=== PATIENT | female | born 1985 | race Caucasian/White ===

== ENCOUNTER 2020-06-13 16:22 | Inpatient (IN) | payer MEDICAID, OTHER, SELFPAY ==
[~2020-06-13] VITALS: Ht 157.5 cm; Wt 95.6 kg
[2020-06-13] MEDS ORDERED: ZINC220CA PO (17:02)
[2020-06-13] MEDS ORDERED: LEVO112T2 PO (17:02)
[2020-06-13] MEDS ORDERED: MULT400T10 PO (17:02)
[2020-06-13] MEDS ORDERED: METO25TA4 PO (17:02)
[2020-06-13] MEDS ORDERED: SUPECAP14 PO (17:02)
[2020-06-13] MEDS ORDERED: FOLI1TAB11 PO (17:02)
[2020-06-13] MEDS ORDERED: [UNRECOGNIZED DRUG - OTHER] PO (17:02)
[2020-06-13] MEDS ORDERED: MAGN400T2 PO (17:02)
[2020-06-13] MEDS ORDERED: FERR325T3 PO (17:02)
[2020-06-13] MEDS ORDERED: VITA50TA47 PO (17:02)
[2020-06-13 20:11] LABS: BASO # 0.1 10^3/uL (0.0-0.2); BASO % 0.4 % (0.0-1.0); EOS # 0.1 10^3/uL (0.0-0.5); EOS % 0.4 % (0.0-3.0); HEMATOCRIT 25.3 % (36.0-47.0); HEMOGLOBIN 7.9 g/dl (12.0-15.5); LYMPH # 1.7 10^3/uL (1.5-5.0); LYMPH % 13.4 % (24.0-44.0); MEAN CORPUSCULAR HEMOGLOBIN 31.2 pg (27.0-33.0); MEAN CORPUSCULAR HGB CONC 31.2 g/dl (32.0-36.5); MONO # 0.8 10^3/uL (0.0-0.8); MONO % 6.2 % (0.0-5.0); NEUTROPHILS # 10.2 10^3/uL (1.5-8.5); NEUTROPHILS % 79.1 % (36.0-66.0); PLATELET COUNT, AUTOMATED 222 10^3/uL (150-450); RED BLOOD COUNT 2.53 10^6/uL (4.00-5.40)
[2020-06-13 20:38] LABS: ALT/SGPT 19 U/L (12-78); BILIRUBIN,DIRECT 1.5 MG/DL (0.0-0.2); BILIRUBIN,TOTAL 1.9 MG/DL (0.2-1.0); BLOOD UREA NITROGEN 3 MG/DL (7-18); CALCIUM LEVEL 7.8 MG/DL (8.5-10.1); CARBON DIOXIDE LEVEL 24 MEQ/L (21-32); CHLORIDE LEVEL 104 MEQ/L (98-107); CK-MB VALUE MASS < 1.0 NG/ML (<3.6); CPK CREATINE PHOSPHOKINASE 63 U/L (26-192); CREATININE FOR GFR 0.41 MG/DL (0.55-1.30); GLOMERULAR FILTRATION RATE > 60.0 (>60); GLUCOSE, FASTING 92 MG/DL (70-100); LIPASE 468 U/L (73-393); MB/CK RELATIVE INDEX 1.59 (< OR =4); NT-PRO BNP 1251 PG/ML (<125); SODIUM LEVEL 136 MEQ/L (136-145); TOTAL PROTEIN 6.6 GM/DL (6.4-8.2); TROPONIN I < 0.02 NG/ML (< 0.10)
[2020-06-13 20:40] LABS: ERYTHROCYTE SEDIMENTATION RATE 48 mm/hr (0-20)
[2020-06-14] VITALS (13 sets, daily range): BP systolic 117–163; BP diastolic 63–81
[2020-06-14] MEDS: GASTROGRAFIN SOLUTION 30ML PO SCH ×2 (00:33→00:58)
[2020-06-14] MEDS ORDERED: ISOVUE-370 76% 100ML VIAL As Ordered ONE (01:30)
[2020-06-14] MEDS ORDERED: NS 1,000 ML IV SCH (02:15)
[2020-06-14] MEDS ORDERED: VITA50TA47 PO (02:24)
[2020-06-14] MEDS ORDERED: MAGN400T3 PO (02:24)
[2020-06-14] MEDS ORDERED: VITATAB31 PO (02:24)
[2020-06-14] MEDS ORDERED: SYNT125T PO (02:24)
[2020-06-14] MEDS ORDERED: VITMTA PO (02:24)
--- NOTE | 2020-06-14 04:24 | HPEPDOC ---
[facility] Medical History & Physical Date of Admission Jun 14, 2020 Date of Service: Jun 14, 2020 Attending Physician: MARY RANDALL MD History and Physical CHIEF COMPLAINT: B/L Lower extremity edema HISTORY OF PRESENT ILLNESS: Patient is a 36-year-old female who presented to the emergency department the evening of 06/13/2020 for increasing bilateral lower extremity edema over the last week. Patient is originally from [place], though she has been living in [place] for the last 3 years. Patient does carry rather complicated medical history. Patient states that she underwent gastric bypass in 2011. She denies any complications until 04/18/2020 when she began experiencing intense abdominal pain. She presented to a hospital in [place] and was found to have a perforated viscus. She states that she underwent surgical repair and was discharged within a a week. A few days later, patient was found to be unresponsive by her boyfriend brought back to the hospital. She was found to be in acute liver and renal failure. Patient reports that she did require dialysis for her renal failure. She shares that she spent 3-1/2 weeks in acute rehabilitation, mainly being discharged on 06/07/20. Patient then traveled with her aunts back to [place] to recuperate on Wednesday06/09/20. Over the 3 days preceding presentation, patient reported increasing lower extremity swelling ultimately progressing up to the level of her mid thigh/hip. Patient contacted her primary care provider who suggested immediate emergency room evaluation. In the ED, patient was found to be afebrile, tachycardic with heart rate of 114, normotensive and maintaining 100% oxygen saturation on room air. Initial laboratory evaluation shows a WBC of 13, H&H of 7.9/25.3, MCV of 100 and RDW of 20.8. Platelet count within normal limits. Sodium of 136, potassium of 3. BUN/Cr of 3/0.41, GFR greater than 60. Lactic acid 1.9, T bili of 1.9, direct bili 1.5, AST/ALT of 53, alkaline phosphatase of 109, lipase of 468 ammonia 49 and hypoalbuminemia of 2.0. Bilateral lower extremity ultrasound was performed to rule out DVT was found to be negative. CT of the abdomen and pelvis demonstrates a large amount of pelvic ascites with loculated abscesses. Pericolic fluid that was concerning for possible gallbladder disease. Bladder ultrasound demonstrated some sludge without rasheed cholecystitis. Chest x-ray was without any acute pulmonary process. Physical examination does demonstrate tense ascites with anasarca. Patient denies requiring a paracentesis during her previous hospitalization. Given the above findings, against the backdrop of her previous hospitalizations with liver and renal failure, hospice team was called to admit the patient for continued evaluation and management. PAST MEDICAL HISTORY: Hx of Renal Failure, requiring dialysis Hx of liver Failure Hypothyroid Macrocytic Anemia History of Alcohol dependence History of Nicotine dependence Tachycardia Obesity PAST SURGICAL HISTORY: Gastric Bypass, 2012 [place] teeth extraction SOCIAL HISTORY: Patient is currently single. She is living in [place] with 2 of her aunts. She reports that she does have other family in the area. Patient has not worked for over one year secondary to commitment medical problems. She reports a previous history of heavy alcohol use consisting of 24 ounce beer per day for the last 7 years. She reports complete abstinence since her hospitalization in 04/14 Patient also reports a smoking history, approximately 2-3 cigarettes per day for the last 7 years. She also reports abstinence from nicotine since her hospitalization in 04/14 Denies any other illicit or IV drug use. FAMILY HISTORY: Father: Alive, hypertension, hyperlipidemia Mother, , breast cancer Siblings: 2 sisters, healthy Patient denies any other family history of colon, pancreatic, prostate cancers ALLERGIES: NKDA REVIEW OF SYSTEMS: CONSTITUTIONAL: Denies any recent fevers, chills, night sweats. Denies any rasheed weight gain or change in body habitus other than increased lower extremity swelling. HEENT: Has any headaches, changes in vision, ringing/fullness/pain in the ears. Denies nasal congestion or rhinorrhea, no sore throat or difficulty swallowing. CARDIOVASCULAR: Patient admits to a history of tachycardia since her hospitalization, on metoprolol. Patient denies any chest pain or palpitations RESPIRATORY: Denies any shortness of breath, dyspnea on exertion, cough, wheeze, denies sick contacts GASTROINTESTINAL: Generalized/diffuse abdominal pain, reports more loose stools over the past few weeks, without melena or hematochezia GENITOURINARY: No difficulty urinating SKIN: No new rashes or evolving skin lesions MUSCULOSKELETAL: Denies any specific muscle aches or pains NEUROLOGICAL: Denies any loss of consciousness, dizziness syncope or near syncope. Denies any numbness or tingling in her hands or arms feet or legs. PSYCHIATRIC: Denies any current mood symptoms HEMATOLOGIC/LYMPHATIC: Reports some residual bruising on her arm at the site of previous IVs and on her lower abdomen where she received anticoagulation injections. HOME MEDICATIONS: Please see below. PHYSICAL EXAMINATION: VITAL SIGNS: Please see below GENERAL APPEARANCE: injury and examined in the emergency department. Patient found to be resting comfortably, flat on her stretcher. Patient was easily arousable. She did not appear to be in any acute distress. She is ill to answer all questions appropriately. HEENT: Normocephalic, atraumatic, face is symmetric, EOMI, sclerae are nonicteric, no conjunctival injection, mucous membranes are moist, poor oral hygiene multiple dental caries, body habitus limits the evaluation for JVD CARDIOVASCULAR: Examination limited due to body habitus, tachycardic without any appreciable murmur LUNGS: Also limited due to body habitus, fair air movement without any audible wheezes rales or rhonchi, no conversational dyspnea ABDOMEN: Tense ascites. Obese, mild generalized tenderness over anterior abdomen. Percussion and bowel sounds limited 2/2 to body habitus. EXTREMITIES: 3+ pitting edema to the level of the hips bilaterally, right greater than left. Areas of overlying warmth or erythema or skin breakdown. Posterior tibial pulses difficult to assess. Patient remains able to move her distal extremities. Pedal pulses 2+ bilaterally. NEUROLOGICAL: Sensorium is intact in both upper and lower extremities bilaterally. No facial droop, dysarthria or dysphasia. PSYCHIATRIC: Mood and affect are appropriate given patient's current medical condition LABORATORY DATA: See below. IMAGING: B/L LE US (06/13/20): No evidence of DVT right or left leg Chest XR (06/13/20): Mild prominence of bronchovascular markings. The lungs are otherwise clear. Gallbladder US (06/13/20): Small amount of sludge in the gallbladder, no biliary dilation is seen. Fatty infiltration of the liver CT Abdomen/Pelvis (06/14/20): Large amount of abdominal and pelvic ascites. Generalized subcutaneous edema. Probable small loculated abscesses in the cul-de-sac. Etiology of the abscess is unclear. No other abscess or loculated fluid collection. Mild jacinta-cholecystic fluid and gallbladder mucosal enhancem ent. Consider gallbladder ultrasound follow-up. Mild neural edema of the small bowel and colon. Findings maybe secondary to other causes of systemic edema. No bowel obstruction or signs of ischemia. MICROBIOLOGY: Please see below. ASSESSMENT: Patient is a 35-year-old female, history of alcoholic steatosis, gastric bypass with perforated viscus and a resultant liver and renal failure, who presented to the emergency department the evening of 06/13/20 after experiencing 3 days of progressive lower extremity edema and swelling. Emergency department workup is consistent with ascites, most likely SBP. Patient will be admitted for paracenteses of her ascites, workup of her transaminitis and monitoring of her other chronic medical problems. PLAN: #Ascites, suspected SBP -Large amount of peritoneal ascites with loculations. Anasarca -Consider IR drainage of loculations, paracentesis for ascitic fluid evaluation/culture prior to initiation of antibiotic therapy. -Renal function WNL, will hold albumin -PCU admission, telemetry monitoring #SIRS + suspected source of infection, Sepsis -WBC of 13, tachycardia, though tachycardia appears to be an underlying comorbidity -Suspect SBP as infection source, IVF, management as above #Transaminitis, likely 2/2 alcoholic steatosis -Pt does carry a significant ETOH history, liver failure in 04/14. Records should be obtained for review. -T.Bili of 1.9, Direct 1.5, AST/ALT 53/19, ammonia of 49 -Trend CMP, Ammonia/ Hepatitis panel, iron studies, ceruloplasmin, AFP, Alpha-1, -Primary team to consider GI consultation given history. #Macrocytic Anemia -B12/Folate levels -Hemoglobin 7.9, reason to suspect bleed -Close monitoring -Continue b12/folate supplementation #Hypothyroid -TSH/fT4 pending -Continue home levothyroxine. Hx of ETOH depence: -Patient continues to report complete abstinence since 04/14. #Obesity -A1c, lipid panel pending -Complicating care DVT PROPHYLAXIS: Lovenox CODE STATUS: Full Code DISPOSITION: Anticipate >2 night stay Vital Signs Vital Signs Date Time Temp Pulse Resp B/P (MAP) Pulse Ox O2 Delivery O2 Flow Rate FiO2 06/14/20 03:27 98.8 125 31 125/65 (85) 98 Room Air Laboratory Data Labs 24H Laboratory Tests 2 06/13/20 19:54: Immature Granulocyte % (Auto) 0.5, Neutrophils (%) (Auto) 79.1H, Lymphocytes (%) (Auto) 13.4L, Monocytes (%) (Auto) 6.2H, Eosinophils (%) (Auto) 0.4, Basophils (%) (Auto) 0.4, Neutrophils # (Auto) 10.2H, Lymphocytes # (Auto) 1.7, Monocytes # (Auto) 0.8, Eosinophils # (Auto) 0.1, Basophils # (Auto) 0.1, Nucleated Red Blood Cells % (auto) 0.0, Erythrocyte Sedimentation Rate 48H, Anion Gap 8, Glomerular Filtration Rate > 60.0, Lactic Acid Level 1.9, Calcium Level 7.8L, Total Bilirubin 1.9H, Direct Bilirubin 1.5H, Aspartate Amino Transf (AST/SGOT) 53H, Alanine Aminotransferase (ALT/SGPT) 19, Alkaline Phosphatase 109, Total Creatine Kinase 63, Creatine Kinase MB < 1.0, Creatine Kinase MB Relative Index 1.59, Troponin I < 0.02, C-Reactive Protein, Quantitative 0.30, [id number]-Type Natriuretic Peptide 1251H, Total Protein 6.6, Albumin 2.0L, Albumin/Globulin Ratio 0.4L, Lipase 468H 06/13/20 23:33: Coronavirus (COVID-19)(PCR) NEGATIVE 06/14/20 00:59: Ammonia 49H CBC/BMP Laboratory Tests 06/13/20 19:54 Microbiology Microbiology 06/14/20 Blood Culture, Received Pending 06/13/20 Blood Culture, Received Pending Home Medications Scheduled Ascorbic Acid (C-500) 500 Mg Tablet, 0.5 TAB PO 3XW WEDNESDAY, WEDNESDAY AND WEDNESDAY Ferrous Sulfate (Ferrous Sulfate) 325 Mg Tablet.dr, 325 MG PO DAILY Folic Acid (Folic Acid) 1 Mg Tablet, 1 TAB PO DAILY Levothyroxine Sodium (Synthroid) 125 Mcg Tablet, 125 MCG PO DAILY Magnesium Oxide (Magnesium Oxide) 400 Mg Tablet, 400 MG PO BID Metoprolol Tartrate (Metoprolol Tartrate) 25 Mg Tablet, 12.5 MG PO BID Multivitamins (Thera M Plus Tablet) 1 Each Tablet, 1 TAB PO DAILY Thiamine HCl (Vitamin B-1) 50 Mg Tablet, 150 MG PO DAILY Vitamin B Complex (Vitamin B Complex) 1 Each Tablet, 1 TAB PO DAILY Zinc Sulfate (Zinc Sulfate) 220 Mg Capsule, 220 MG PO DAILY Allergies Coded Allergies: No Known Allergies (Unverified , 06/13/20) A-FIB/CHADSVASC A-FIB History Current/History of A-Fib/PAF?: No GME ATTESTATION GME ATTESTATION My faculty preceptor for this patient encounter was physically present during the encounter and was fully available. All aspects of the patient interview, examination, medical decision making process, and medical care plan development were reviewed and approved by the faculty preceptor. The faculty preceptor is aware and concurs with the plan as stated in the body of this note and will attest to such by his/her cosignature. ATTENDING NOTE is a 35 yr old w a hx of obesity, gastric bypass, hypothyroidism, and liver failure who presented w c/o weakness. She will be admitted for evaluation of acute liver failure & ascites possibly due to SBP. - will ask day time team to consider GI consult Rest per 's H&P MILKA SMITH DO Jun 14, 2020 04:24 MARY RANDALL MD Jun 14, 2020 20:18
[2020-06-14] MEDS: LEVOTHYROXINE 125MCG TABLET (0.125MG) PO SCH (06:33)
[2020-06-14 06:52] LABS: CHOLESTEROL LEVEL 79 MG/DL (<200); CHOLESTEROL RISK RATIO 3.761 (<5); FERRITIN 43 NG/ML (8-252); FREE T4 1.29 NG/DL (0.76-1.46); HDL CHOLESTEROL 21 MG/DL (>40); IRON (FE) 22 UG/DL (50-170); LDL CHOLESTEROL 45 MG/DL (<100); MAGNESIUM LEVEL 1.4 MG/DL (1.8-2.4); NON-HDL-C 58 MG/DL; PERCENT SATURATION 16.9 % (13.2-45.0); PHOSPHORUS LEVEL 3.4 MG/DL (2.5-4.9); TOTAL IRON BINDING CAPACITY 130 UG/DL (250-450); TRIGLYCERIDES LEVEL 65 MG/DL (<150)
[2020-06-14 08:08] LABS: VITAMIN B12 LEVEL > 2000 PG/ML (247-911)
[2020-06-14 08:09] LABS: FOLATE 11.9 NG/ML (>5.4)
[2020-06-14 08:13] LABS: BASO # 0.1 10^3/uL (0.0-0.2); BASO % 0.4 % (0.0-1.0); EOS # 0.1 10^3/uL (0.0-0.5); EOS % 0.4 % (0.0-3.0); HEMATOCRIT 24.5 % (36.0-47.0); HEMOGLOBIN 7.8 g/dl (12.0-15.5); LYMPH # 1.6 10^3/uL (1.5-5.0); LYMPH % 12.2 % (24.0-44.0); MEAN CORPUSCULAR HEMOGLOBIN 31.8 pg (27.0-33.0); MEAN CORPUSCULAR HGB CONC 31.8 g/dl (32.0-36.5); MONO # 0.7 10^3/uL (0.0-0.8); MONO % 5.4 % (0.0-5.0); NEUTROPHILS # 10.8 10^3/uL (1.5-8.5); NEUTROPHILS % 81.2 % (36.0-66.0); PLATELET COUNT, AUTOMATED 219 10^3/uL (150-450); RED BLOOD COUNT 2.45 10^6/uL (4.00-5.40); WHITE BLOOD COUNT 13.2 10^3/uL (4.0-10.0)
[2020-06-14] MEDS ORDERED: MAG SULF 1GM/100ML (MAG RUN) 1 GM in IV 1 EA IV ONE (08:15)
[2020-06-14 08:18] LABS: ALBUMIN 1.7 GM/DL (3.2-5.2); ALT/SGPT 19 U/L (12-78); BILIRUBIN,TOTAL 1.9 MG/DL (0.2-1.0); BLOOD UREA NITROGEN 3 MG/DL (7-18); CALCIUM LEVEL 7.5 MG/DL (8.5-10.1); CARBON DIOXIDE LEVEL 25 MEQ/L (21-32); CHLORIDE LEVEL 104 MEQ/L (98-107); CREATININE FOR GFR 0.32 MG/DL (0.55-1.30); GLOMERULAR FILTRATION RATE > 60.0 (>60); GLUCOSE, FASTING 83 MG/DL (70-100); SODIUM LEVEL 138 MEQ/L (136-145)
[2020-06-14 08:33] LABS: C REACTIVE PROTEIN QUANTITATIV < 0.30 MG/DL (0.00-0.30); FERRITIN 41 NG/ML (8-252); IRON (FE) 26 UG/DL (50-170)
[2020-06-14] MEDS: POTASSIUM CHLORIDE 10 MEQ SR TABLET PO SCH ×2 (08:37→20:20)
[2020-06-14] MEDS: ENOXAPARIN 40MG/0.4ML SYRINGE (J1650 PER 10MG) SC SCH (08:37)
[2020-06-14] MEDS: THIAMINE 100 MG TAB PO SCH (08:37)
[2020-06-14] MEDS: FOLIC ACID 1 MG TAB PO SCH (08:38)
[2020-06-14] MEDS: MULTIVITAMINS/MINERALS THERAP 1 TAB PO SCH (08:38)
[2020-06-14] MEDS: FERROUS SULFATE 325MG TAB PO SCH (08:38)
[2020-06-14] MEDS: METOPROLOL TART 12.5 MG PER 1/2 TAB PO SCH ×2 (08:38→20:21)
[2020-06-14] MEDS: ZINC SULFATE 220 MG CAP PO SCH (08:38)
[2020-06-14] MEDS: MAGNESIUM OXIDE 400 MG TAB (MAG-OX) PO SCH ×2 (08:39→20:20)
[2020-06-14 08:40] LABS: HEPATITIS A ANTIBODY IGM NEGATIVE (NEGATIVE); HEPATITIS B CORE ANTIBODY IGM NEGATIVE (NEGATIVE); HEPATITIS B SURFACE ANTIGEN NEGATIVE (NEGATIVE); HEPATITIS C VIRUS ABY INDEX 0.1 INDEX (<0.8)
[2020-06-14 08:48] LABS: HIV 1&2 SCREEN CENTAUR NEGATIVE (NEGATIVE)
[2020-06-14 09:18] LABS: ERYTHROCYTE SEDIMENTATION RATE 37 mm/hr (0-20)
--- NOTE | 2020-06-14 12:17 | REP ---
INDICATION: tachycardic r/o pe. COMPARISON: Chest radiographs 06/13/2020. TECHNIQUE/RADIOTRACER AND DOSE: Following the intravenous administration of 5.3 mCi technetium 99 M tagged MAA and the inhalation of 1.0 mCi technetium 99 M DTPA aerosol, multiple images of the lungs are obtained in various projections. FINDINGS: I see no areas of VQ mismatch. There appears to be a small matching ventilation and perfusion defect in the left lower lobe. The study is somewhat limited due to patient body habitus. IMPRESSION: Low probability of pulmonary embolism. <Electronically signed by Viral Guerrero > 06/14/20 [id number]
--- NOTE | 2020-06-14 17:04 | REP ---
INDICATION: elevated BNP COMPARISON: None. TECHNIQUE: PA/Lateral FINDINGS: Lungs: Prominent bronchovascular markings may represent bronchitis/reactive airway disease. No consolidating infiltrate is seen. Heart: Normal in size. Mediastinum: Mediastinal silhouette unremarkable. Pleural angles: Unremarkable.. Bones and soft tissues: Unremarkable. IMPRESSION: No consolidating infiltrate. Suggesting bronchitis or reactive airway disease. Preliminary report provided by [facility] at the time of the exam. <Electronically signed by Viral Guerrero > 06/14/20 [id number]
--- NOTE | 2020-06-14 17:06 | REP ---
INDICATION: swelling R/O DVT COMPARISON: None. TECHNIQUE: Real time compression and duplex Doppler interrogation of the bilateral lower extremity deep venous system is performed. FINDINGS: Bilaterally, the common femoral, superficial femoral and popliteal veins are fully compressible with transducer pressure and demonstrate normal spontaneous and phasic flow, without evidence of deep venous thrombosis. IMPRESSION: No evidence of deep venous thrombosis of the bilateral lower extremity femoral popliteal venous system. <Electronically signed by Viral Guerrero > 06/14/20 [id number]
--- NOTE | 2020-06-14 17:14 | REP ---
INDICATION: elev. bili, bilat LE pitting edema, recent ulcer perf COMPARISON: None. TECHNIQUE: CT Scan of the abdomen and pelvis was performed with intravenous administration of 100 cc of Isovue 370, and oral contrast. FINDINGS: Lung bases: There are very mild patchy parenchymal opacities in the lung bases. Liver: Normal Gallbladder: Mucosal enhancement of the gallbladder is of uncertain significance. There is mild surrounding fluid. This may represent ascites fluid. Spleen: Normal. Adrenals: Normal. Pancreas: Normal. Kidneys: Normal. Small and large bowel: There is possibly mild mucosal thickening of small bowel loops in the left upper quadrant.. There has been prior gastric surgery. Free fluid: There is moderate abdominopelvic ascites. Abdominal aorta: No aneurysm or dissection. Adenopathy: None. Appendix: Not inflamed. Osseous structures: Unremarkable. Diffuse soft tissue edema is seen in the abdominal wall. Pelvis: No mass. IMPRESSION: Moderate abdominal and pelvic ascites. Possible mild mucosal thickening of small bowel loops in left upper quadrant. No free air or bowel obstruction. Diffuse soft tissue edema in the abdominal wall. A preliminary report was provided by [facility] at the time of the exam. <Electronically signed by Viral Guerrero > 06/14/20 [id number]
--- NOTE | 2020-06-14 17:25 | REP ---
INDICATION: elevated lipase and bilirubin r/o choledocolithiasis. COMPARISON: None. TECHNIQUE: Real-time sonographic evaluation of right upper quadrant performed. FINDINGS: The gallbladder demonstrates no evidence of intraluminal sludge or calculi, wall thickening or pericholecystic fluid. There is no intrahepatic or extrahepatic biliary dilatation, common bile duct measures 4 mm in maximum diameter. There is diffuse fatty infiltration of the liver. The pancreas demonstrates homogeneous echotexture with no gross mass. The right kidney demonstrates no hydronephrosis, with a normal size of 10.6 cm in length. Pancreas is not optimally seen due to overlying bowel gas.No free fluid is seen. IMPRESSION: Diffuse fatty infiltration of the liver. No gallstones, gallbladder wall thickening, pericholecystic fluid or biliary dilatation. A preliminary report was provided by [facility] at the time of the exam. <Electronically signed by Viral Guerrero > 06/14/20 [id number]
[2020-06-14] MEDS ORDERED: IBUPROFEN 400 MG TAB PO ONE (23:15)
[2020-06-15] MEDS: LEVOTHYROXINE 125MCG TABLET (0.125MG) PO SCH (05:53)
[2020-06-15 06:00] VITALS: BP 131/73
[2020-06-15 06:05] LABS: BASO # 0.1 10^3/uL (0.0-0.2); BASO % 0.5 % (0.0-1.0); EOS # 0.1 10^3/uL (0.0-0.5); EOS % 0.9 % (0.0-3.0); HEMATOCRIT 30.7 % (36.0-47.0); HEMOGLOBIN 9.7 g/dl (12.0-15.5); LYMPH # 1.9 10^3/uL (1.5-5.0); LYMPH % 16.6 % (24.0-44.0); MEAN CORPUSCULAR HEMOGLOBIN 30.5 pg (27.0-33.0); MEAN CORPUSCULAR HGB CONC 31.6 g/dl (32.0-36.5); MEAN CORPUSCULAR VOLUME 96.5 fl (80.0-96.0); MONO # 0.8 10^3/uL (0.0-0.8); MONO % 6.8 % (0.0-5.0); NEUTROPHILS # 8.7 10^3/uL (1.5-8.5); NEUTROPHILS % 74.9 % (36.0-66.0); PLATELET COUNT, AUTOMATED 225 10^3/uL (150-450); RED BLOOD COUNT 3.18 10^6/uL (4.00-5.40); WHITE BLOOD COUNT 11.7 10^3/uL (4.0-10.0)
[2020-06-15 06:31] LABS: ALBUMIN 1.9 GM/DL (3.2-5.2); ALT/SGPT 21 U/L (12-78); BILIRUBIN,TOTAL 2.6 MG/DL (0.2-1.0); BLOOD UREA NITROGEN 4 MG/DL (7-18); CALCIUM LEVEL 7.7 MG/DL (8.5-10.1); CARBON DIOXIDE LEVEL 23 MEQ/L (21-32); CHLORIDE LEVEL 103 MEQ/L (98-107); CREATININE FOR GFR 0.47 MG/DL (0.55-1.30); GLOMERULAR FILTRATION RATE > 60.0 (>60); GLUCOSE, FASTING 87 MG/DL (70-100); MAGNESIUM LEVEL 1.7 MG/DL (1.8-2.4); POTASSIUM SERUM 3.3 MEQ/L (3.5-5.1); SODIUM LEVEL 135 MEQ/L (136-145); TOTAL PROTEIN 6.3 GM/DL (6.4-8.2)
[2020-06-15] MEDS: FERROUS SULFATE 325MG TAB PO SCH (09:23)
[2020-06-15] MEDS: THIAMINE 100 MG TAB PO SCH (09:23)
[2020-06-15] MEDS: MULTIVITAMINS/MINERALS THERAP 1 TAB PO SCH (09:24)
[2020-06-15] MEDS: FOLIC ACID 1 MG TAB PO SCH (09:24)
[2020-06-15] MEDS: ZINC SULFATE 220 MG CAP PO SCH (09:24)
[2020-06-15] MEDS: MAGNESIUM OXIDE 400 MG TAB (MAG-OX) PO SCH ×2 (09:25→21:41)
[2020-06-15] MEDS: ENOXAPARIN 40MG/0.4ML SYRINGE (J1650 PER 10MG) SC SCH (09:25)
[2020-06-15] MEDS: METOPROLOL TART 12.5 MG PER 1/2 TAB PO SCH ×2 (09:25→21:42)
[2020-06-15] MEDS ORDERED: MAG SULF 1GM/100ML (MAG RUN) 1 GM in IV 1 EA IV ONE (10:00)
[2020-06-15] MEDS ORDERED: POTASSIUM CHLORIDE 10 MEQ SR TABLET PO ONE (10:00)
--- NOTE | 2020-06-15 12:17 | IPNPDOC ---
Date Seen The patient was seen on 06/15/20. Progress Note SUBJECTIVE: DENIES ANY NAUSEA, VOMITING, FEVER, CHILLS. COMPLAINS OF SLIGHT DISCOMFORT RIGHT UPPER QUADRANT EPIGASTRIC AREA WITHOUT ANY RADIATION. ALSO COMPLAINS OF BILATERAL LOWER EXTREMITY EDEMA. SLIGHT DIFFICULTY AMBULATING DUE TO FEELING OF HEAVINESS OBJECTIVE: PHYSICAL EXAMINATION: VITAL SIGNS: Please see below GENERAL APPEARANCE: No jaundice, icterus, or use of respiratory accessory mu scles HEENT: Poor dentition, dry mucous membranes. No cervical lymphadenopathy, thyromegaly or jugular venous distention CARDIOVASCULAR: Distant heart sounds sinus rhythm. Tachycardic. No murmurs noted LUNGS: Diminished breath sounds clear to auscultation bilaterally ABDOMEN: Right upper quadrant, epigastric, with slight tenderness. No rebound, guarding. Obese abdomen EXTREMITIES: 3+ pitting edema to the sacrum LABORATORY DATA: See below. IMAGING: B/L LE US (06/13/20): No evidence of DVT right or left leg Chest XR (06/13/20): Mild prominence of bronchovascular markings. The lungs are otherwise clear. Gallbladder US (06/13/20): Small amount of sludge in the gallbladder, no biliary dilation is seen. Fatty infiltration of the liver CT Abdomen/Pelvis (06/14/20): Large amount of abdominal and pelvic ascites. Generalized subcutaneous edema. Probable small loculated abscesses in the cul-de-sac. Etiology of the abscess is unclear. No other abscess or loculated fluid collection. Mild jacinta-cholecystic fluid and gallbladder mucosal enhancement. Consider gallbladder ultrasound follow-up. Mild neural edema of the small bowel and colon. Findings maybe secondary to other causes of systemic ed luly. No bowel obstruction or signs of ischemia. MICROBIOLOGY: Please see below. ASSESSMENT: Patient is a 35-year-old female, history of alcoholic steatosis, gastric bypass with perforated viscus and a resultant liver and renal failure presented to the ER with 3 day history of worsening lower extremity edema, found to have significant ascites on CT, now with slight discomfort in the right upper quadrant and epigastric area. Morbid obesity, BMI 41.7. Transaminitis Gallbladder sludging /cholelithiasis Decompensated liver disease with ascites. History of gastric bypass with perforated viscus. history of alcoholic steatosis. , Hypomagnesemia, hypokalemia, hyponatremia Anemia requiring 2 units RBC transfusion , Lower extremity edema Plan: Due to complains of epigastric abdominal pain, lower extremity edema. Patient was worked up for hypercoagulable state with his Dopplers of lower extremities being negative. VQ scan negative with low probability pulmonary embolism. Patie nt has significant ascites and would benefit from Lasix diuresis. She may need albumin infusion. GI is being consulted regarding patient's ascites and recent for transaminitis. She currently is gallbladder sludging with no nausea or vomiting. Still tolerating diet. Bilirubin is increased. Workup has been sent yesterday. Await further recommendations from GI. VS, I&O, 24H, Fishbone Vital Signs/I&O Vital Signs Date Time Temp Pulse Resp B/P (MAP) Pulse Ox O2 Delivery O2 Flow Rate FiO2 06/15/20 09:25 112 129/73 06/15/20 06:00 98.1 19 97 Room Air I&O- Last 24 Hours up to 6 AM 06/15/20 06:00 Intake Total 1460 ml Output Total 500 ml Balance 960 ml Laboratory Data 24H LABS Laboratory Tests 2 06/15/20 05:29: Immature Granulocyte % (Auto) 0.3, Neutrophils (%) (Auto) 74.9H, Lymphocytes (%) (Auto) 16.6L, Monocytes (%) (Auto) 6.8H, Eosinophils (%) (Auto) 0.9, Basophils (%) (Auto) 0.5, Neutrophils # (Auto) 8.7H, Lymphocytes # (Auto) 1.9, Monocytes # (Auto) 0.8, Eosinophils # (Auto) 0.1, Basophils # (Auto) 0.1, Nucleated Red B lood Cells % (auto) 0.0, Anion Gap 9, Glomerular Filtration Rate > 60.0, Calcium Level 7.7L, Magnesium Level 1.7L, Total Bilirubin 2.6H, Aspartate Amino Transf (AST/SGOT) 52H, Alanine Aminotransferase (ALT/SGPT) 21, Alkaline Phosphatase 110, Total Protein 6.3L, Albumin 1.9L, Albumin/Globulin Ratio 0.4L CBC/BMP Laboratory Tests 06/15/20 05:29 Microbiology Microbiology 06/14/20 Blood Culture - Preliminary, Resulted No growth after 24 hours . All specim... 06/13/20 Blood Culture - Preliminary, Resulted No growth after 24 hours . All specim... JAYLON WOO MD Jun 15, 2020:17
[2020-06-15] MEDS ORDERED: FUROSEMIDE 40MG/4ML VIAL (J1940) IV ONE (12:30)
[2020-06-15 14:00] VITALS: BP 132/78
[2020-06-15] MEDS: PANTOPRAZOLE 40MG TAB (PROTONIX) PO SCH (14:13)
--- NOTE | 2020-06-15 18:14 | CR.PDOC ---
General Date of Consultation: Jun 15, 2020 Referring Provider: JAYLON WOO MD Attending Physician: MELA CASTRO MD Consultation Primary physician/ hospitalist: -Dr. Avila Reason for consult: -Abdominal pain. HPI: 36 year-old female patient with h/o gastric bypass in 2011, current BMI 41, h/o heavy alcohol use till March 2020 when she was admitted to hospital in [place], and treated for perforated viscus, and subsequently a week later had been found unresponsive at home, and found to have acte liver and renal failure, requiring dialysis and acute rehabilitation, recently travelled to [place] ( as per the Electronic medical record), and now presented to [facility] ER for worsening lower extremity edema and abdominal distention/ bloating. GI was consulted for abdominal pain. Patient is poor historian and does not give detailed history. Patient report she is just feeling week and noted her legs are swollen. She also reports abdominal bloating and some pain initially but at the time o exam she denies any uncontrolled pain. Patient denies any further alcohol use since her hospitalization in [place] in March 2020. She reports she i just visiting here and will return to [facility] soon. Off note: In the ED, patient had Bilateral lower extremity ultrasound was perf ormed to rule out DVT was found to be negative. CT of the abdomen and pelvis demonstrates a large amount of pelvic ascites with loculated abscesses. Pericolic fluid that was concerning for possible gallbladder disease. Bladder ultrasound demonstrated some sludge without rasheed cholecystitis. Chest x-ray was without any acute pulmonary process. Pertinent negative GI symptoms: Patient denies fever, sick contacts, nausea, vomiting, diarrhea, early satiety or unintentional weight loss. No history of hematemesis, melena or hematochezia. Patient reports regular bowel movements. Review of Systems: GI: as stated above CVS: No chest pain, No palpitations, bilateral recurring leg swelling. RS: No Shortness of breath, No Wheezing, no cough MEDICAL SURGICAL TECH: No dizziness, but has generalized weakness from prior illness ( as per HPI). Hematology: No bruising, No gum bleeding, Musculoskeletal: No joint pain Skin: No rash : No hematuria, No burning sensation of the urine ENT: No ear discharge/ pain, No dysphagia. Eyes: No photophobia. MIld jaundice. Home medications: reviewed. Antithrombotic agents: -None Medical h/o: As above. Surgical h/o: None on abdomen. Social h/o: Alcohol: Quit since Mar 2020. , smoking: Prior smoking. , IVDA/ drugs: Denies . Family h/o of GI cancers - None Prior Endoscopies: None in [facility] Prior GI evaluations: - None Exam: Vitals: reviewed General: Alert and oriented x 3, not in distress HEENT: NO pallor, no icterus. Normal oropharynx, NO cervical lymph nodes. Chest: symmetric with bilateral clear air entry, CVS: S1, S2 heard, normal, no murmurs . Abdomen: Mildly distended, dependant edema with anasarca, subcutaneous edema. soft, non-tender, no palpable masses, normal bowel sounds heard. Rectal exam: Patient refused Extremities: 3+ pitting bilateral pedal edema, pulses palpable. MEDICAL SURGICAL TECH: no focal motor or sensory deficits. Moves all extremities Skin: no rash. Labs: reviewed. Imaging: reviewed. Impression: - Abdominal pain with prior perforated viscous and surgery and prior Gastric bypass , abnormal CT scan with ascites -- DDx-- PUD vs anastomotic ulcer vs Symptomatic cholelithiasis/ cholecystitis vs rule out SBP. - Abnormal liver tests, with ascites and prior medical history complicated with AUDRA and Liver disease -- DDx-- Alcoholic liver disease with cirrhosis vs alcoholic hepatitis (recovering, DF < 32) vs ischemic hepatopathy. - Anemia without overt external bleeding-- DDx-- Chronic from prior gastric bypass related vs prior blood loss from surgery vs dilutional from fluid over load. no external bleeding. Recommendations: - Patient educated about the test results, possible differential diagnoses and All questions answered. - Monitor Hemoglobin and hematocrit and transfuse if needed to hemoglobin around 7-8. 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 - Complete septic work up including diagnostic paracentesis and therapy for SBP based on ascitic fluid WBC. - Avoid NSAIDs - Antibiotics as per primary team. Surgery evaluated for suspected cholecystitis on CT scan imaging. - Diuresis as tolerated by renal function. - Continue thiamine and folic acid. Avoid hepatotoxic medications. - Patient is educated about the further evaluation including EGD in this admission. Patient is educated about the procedure, indications, risks benefits and alternatives. Patient verbalized understanding and refused any work up here. She want to go back to [place] and will follow up with the hepatology/ GI there. - High protein diet and low sodium diet. - Follow up with GI upon discharge. - Recall GI if any change in status. Plan of care discussed with patient and primary team. Patient verbalized understanding and agreed with the plan. Vital Signs/I&O Vital Signs Date Time Temp Pulse Resp B/P (MAP) Pulse Ox O2 Delivery O2 Flow Rate FiO2 06/15/20 14:00 98.3 123 16 132/78 (96) 96 Room Air I&O- Last 24 Hours up to 6 AM 06/15/20 05:59 Intake Total 1460 ml Output Total 500 ml Balance 960 ml Laboratory Data Labs 24H Laboratory Tests 2 06/15/20 05:29: Immature Granulocyte % (Auto) 0.3, Neutrophils (%) (Auto) 74.9H, Lymphocytes (%) (Auto) 16.6L, Monocytes (%) (Auto) 6.8H, Eosinophils (%) (Auto) 0.9, Basophils (%) (Auto) 0.5, Neutrophils # (Auto) 8.7H, Lymphocytes # (Auto) 1.9, Monocytes # (Auto) 0.8, Eosinophils # (Auto) 0.1, Basophils # (Auto) 0.1, Nucleated Red Blood Cells % (auto) 0.0, Anion Gap 9, Glomerular Filtration Rate > 60.0, Calcium Level 7.7L, Magnesium Level 1.7L, Total Bilirubin 2.6H, Aspartate Amino Transf (AST/SGOT) 52H, Alanine Aminotransferase (ALT/SGPT) 21, Alkaline Phosphatase 110, Total Protein 6.3L, Albumin 1.9L, Albumin/Globulin Ratio 0.4L CBC/BMP Laboratory Tests 06/15/20 05:29 Microbiology Microbiology 06/14/20 Blood Culture - Preliminary, Resulted No growth after 24 hours . All specim... 06/13/20 Blood Culture - Preliminary, Resulted No growth after 24 hours . All specim... Allergies Coded Allergies: No Known Allergies (Unverified , 06/13/20) Home Medications Scheduled Ascorbic Acid (C-500) 500 Mg Tablet, 0.5 TAB PO 3XW, (Reported) WEDNESDAY, WEDNESDAY AND WEDNESDAY Ferrous Sulfate (Ferrous Sulfate) 325 Mg Tablet.dr, 325 MG PO DAILY, (Reported) Folic Acid (Folic Acid) 1 Mg Tablet, 1 TAB PO DAILY, (Reported) Levothyroxine Sodium (Synthroid) 125 Mcg Tablet, 125 MCG PO DAILY, (Reported) Magnesium Oxide (Magnesium Oxide) 400 Mg Tablet, 400 MG PO BID, (Reported) Metoprolol Tartrate (Metoprolol Tartrate) 25 Mg Tablet, 12.5 MG PO BID, (Reported) Multivitamins (Thera M Plus Tablet) 1 Each Tablet, 1 TAB PO DAILY, (Reported) Thiamine HCl (Vitamin B-1) 50 Mg Tablet, 150 MG PO DAILY, (Reported) Vitamin B Complex (Vitamin B Complex) 1 Each Tablet, 1 TAB PO DAILY, (Reported) Zinc Sulfate (Zinc Sulfate) 220 Mg Capsule, 220 MG PO DAILY, (Reported) MELA CASTRO MD Jun 15, 2020 18:14
[2020-06-15 22:00] VITALS: BP 133/80
[2020-06-16] MEDS: LEVOTHYROXINE 125MCG TABLET (0.125MG) PO SCH (05:43)
[2020-06-16 06:00] VITALS: BP 130/77
[2020-06-16 06:50] LABS: BASO % 0.4 % (0.0-1.0); EOS # 0.1 10^3/uL (0.0-0.5); EOS % 1.3 % (0.0-3.0); HEMATOCRIT 28.3 % (36.0-47.0); HEMOGLOBIN 9.2 g/dl (12.0-15.5); LYMPH # 1.5 10^3/uL (1.5-5.0); LYMPH % 14.1 % (24.0-44.0); MEAN CORPUSCULAR HEMOGLOBIN 31.4 pg (27.0-33.0); MEAN CORPUSCULAR HGB CONC 32.5 g/dl (32.0-36.5); MEAN CORPUSCULAR VOLUME 96.6 fl (80.0-96.0); MONO # 0.8 10^3/uL (0.0-0.8); MONO % 7.3 % (0.0-5.0); NEUTROPHILS # 8.1 10^3/uL (1.5-8.5); NEUTROPHILS % 76.5 % (36.0-66.0); PLATELET COUNT, AUTOMATED 225 10^3/uL (150-450); RED BLOOD COUNT 2.93 10^6/uL (4.00-5.40); WHITE BLOOD COUNT 10.6 10^3/uL (4.0-10.0)
[2020-06-16 07:21] LABS: ALBUMIN 1.8 GM/DL (3.2-5.2); ALT/SGPT 20 U/L (12-78); BILIRUBIN,TOTAL 2.1 MG/DL (0.2-1.0); BLOOD UREA NITROGEN 3 MG/DL (7-18); CALCIUM LEVEL 7.5 MG/DL (8.5-10.1); CARBON DIOXIDE LEVEL 25 MEQ/L (21-32); CHLORIDE LEVEL 103 MEQ/L (98-107); GLOMERULAR FILTRATION RATE > 60.0 (>60); GLUCOSE, FASTING 81 MG/DL (70-100); MAGNESIUM LEVEL 1.6 MG/DL (1.8-2.4); POTASSIUM SERUM 3.2 MEQ/L (3.5-5.1); SODIUM LEVEL 136 MEQ/L (136-145); TOTAL PROTEIN 6.1 GM/DL (6.4-8.2)
[2020-06-16] MEDS: THIAMINE 100 MG TAB PO SCH (09:05)
[2020-06-16] MEDS: FERROUS SULFATE 325MG TAB PO SCH (09:05)
[2020-06-16] MEDS: ZINC SULFATE 220 MG CAP PO SCH (09:06)
[2020-06-16] MEDS: FOLIC ACID 1 MG TAB PO SCH (09:06)
[2020-06-16] MEDS: MULTIVITAMINS/MINERALS THERAP 1 TAB PO SCH (09:06)
[2020-06-16] MEDS: POTASSIUM CHLORIDE 10 MEQ SR TABLET PO SCH ×3 (09:06→20:49)
[2020-06-16] MEDS: MAGNESIUM OXIDE 400 MG TAB (MAG-OX) PO SCH ×2 (09:06→20:50)
[2020-06-16] MEDS: PANTOPRAZOLE 40MG TAB (PROTONIX) PO SCH (09:06)
[2020-06-16] MEDS: METOPROLOL TART 12.5 MG PER 1/2 TAB PO SCH ×2 (09:07→20:49)
[2020-06-16] MEDS ORDERED: PILL CUTTER 1 EACH XX PRN (09:15)
--- NOTE | 2020-06-16 10:40 | IPNPDOC ---
Date Seen The patient was seen on 06/16/20. Progress Note SUBJECTIVE: Denies any nausea, vomiting, fever, chills. Patient denies any pain, right upper quadrant and epigastric area but on palpation. Has some slight tenderness. , Denies hematemesis, bright red blood per rectum, melena, or black tarry stools. OBJECTIVE: PHYSICAL EXAMINATION: VITAL SIGNS: Please see below GENERAL APPEARANCE: No jaundice, icterus, or use of respiratory accessory muscle s HEENT: Poor dentition, dry mucous membranes. No cervical lymphadenopathy, thyromegaly or jugular venous distention CARDIOVASCULAR: Distant heart sounds sinus rhythm. Tachycardic. No murmurs noted LUNGS: Diminished breath sounds clear to auscultation bilaterally ABDOMEN: Right upper quadrant, epigastric, with slight tenderness. No rebound, guarding. Obese abdomen EXTREMITIES: 3+ pitting edema to the sacrum LABORATORY DATA: See below. IMAGING: B/L LE US (06/13/20): No evidence of DVT right or left leg Chest XR (06/13/20): Mild prominence of bronchovascular markings. The lungs are otherwise clear. Gallbladder US (06/13/20): Small amount of sludge in the gallbladder, no biliary dilation is seen. Fatty infiltration of the liver CT Abdomen/Pelvis (06/14/20): Large amount of abdominal and pelvic ascites. Generalized subcutaneous edema. Probable small loculated abscesses in the cul-de-sac. Etiology of the abscess is unclear. No other abscess or loculated fluid collection. Mild jacinta-cholecystic fluid and gallbladder mucosal enhancement. Consider gallbladder ultrasound follow-up. Mild neural edema of the small bowel and colon. Findings maybe secondary to other causes of systemic edema. No bowel obstruction or signs of ischemia. MICROBIOLOGY: Please see below. ASSESSMENT: Patient is a 35-year-old female, history of alcoholic steatosis, gastric bypass with perforated viscus and a resultant liver and renal failure presented to the ER with 3 day history of worsening lower extremity edema, found to have significant ascites on CT, now with slight discomfort in the right upper quadrant and epigastric area. Morbid obesity, BMI 41.7. Transaminitis Gallbladder sludging /cholelithiasis Decompensated alcoholic liver disease with ascites. abdominal pain due to possible anastomotic ulcer, PUD, or gastritis History of gastric bypass with perforated viscus. history of alcoholic steatosis. , Hypomagnesemia, hypokalemia Anemia requiring 2 units RBC transfusion , Lower extremity edema Plan: GI consulted. Patient will be diuresed with IV Lasix with creatinine and el ectrolyte monitoring every 12 hourly.. We have supplemented potassium and magnesium accordingly to keep potassium greater than 3.5, and magnesium greater than 2 at all times. If patient has hypotension with diuresis. She may benefit from albumin infusions and has already given consent for blood transfusion. She is currently in a PPI in light of anemia requiring RBC transfusion due to epigastric abdominal pain and recent anemia. Patient may have an anastomotic ulcer versus peptic ulcer disease and will defer to gastroenterology for any recommendations for EGD. At this time, patient is not nauseated, tolerating her diet. She currently denies any pain when she is lying down and has not had any anorexia or significant weight loss. She does not live in this area and would prefer to do most of her workup in [place], but is willing to stay for the next few days. Patient admits to having a history of alcohol abuse. She appears to have alcoholic liver disease with ascites since she has had no fever. No empiric antibiotics should she develop encephalopathy may benefit from empiric ceftriaxone. Gen. surgical referral if she decides to have laparoscopic cholecystectomy during this admission, but patient would prefer to have things done at home in [place]. VS, I&O, 24H, [facility] Vital Signs/I&O Vital Signs Date Time Temp Pulse Resp B/P (MAP) Pulse Ox O2 Delivery O2 Flow Rate FiO2 06/16/20 06:00 98.6 101 19 130/77 (94) 96 Room Air I&O- Last 24 Hours up to 6 AM 06/16/20 06:00 Intake Total 1060 ml Output Total 2270 ml Balance -1210 ml Laboratory Data 24H LABS Laboratory Tests 2 06/15/20 21:46: Urine Color YELLOW, Urine Appearance HAZY, Urine pH 6.0, Urine Specific [place] 1.006, Urine Protein NEGATIVE, Urine Glucose (UA) NEGATIVE, Urine Ketones NEGATIVE, Urine Blood NEGATIVE, Urine Nitrite NEGATIVE, Urine Bilirubin NEGA TIVE, Urine Urobilinogen 0.2, Urine Leukocyte Esterase NEGATIVE, Urine WBC (Auto) 5H, Urine RBC (Auto) 2, Urine Hyaline Casts (Auto) 25, Urine Bacteria (Auto) NEGATIVE, Urine Squamous Epithelial Cells 2, Urine Mucus (Auto) SMALL, Urine Sperm (Auto) 06/16/20 05:32: Immature Granulocyte % (Auto) 0.4, Neutrophils (%) (Auto) 76.5H, Lymphocytes (%) (Auto) 14.1L, Monocytes (%) (Auto) 7.3H, Eosinophils (%) (Auto) 1.3, Basophils (%) (Auto) 0.4, Neutrophils # (Auto) 8.1, Lymphocytes # (Auto) 1.5, Monocytes # (Auto) 0.8, Eosinophils # (Auto) 0.1, Basophils # (Auto) 0.0, Nucleated Red Blood Cells % (auto) 0.0 06/16/20 05:33: Anion Gap 8, Glomerular Filtration Rate > 60.0, Calcium Level 7.5L, Magnesium Level 1.6L, Total Bilirubin 2.1H, Aspartate Amino Transf (AST/SGOT) 57H, Alanine Aminotransferase (ALT/SGPT) 20, Alkaline Phosphatase 101, Total Protein 6.1L, Albumin 1.8L, Albumin/Globulin Ratio 0.4L CBC/BMP Laboratory Tests 06/16/20 05:32 06/16/20 05:33 Microbiology Microbiology 06/14/20 Blood Culture - Preliminary, Resulted No Growth after 48 hours. All Specime... 06/13/20 Blood Culture - Preliminary, Resulted No Growth after 48 hours. All Specime... JAYLON WOO MD Jun 16, 2020 08:48
[2020-06-16] MEDS ORDERED: MAG SULF 1GM/100ML (MAG RUN) 1 GM in IV 1 EA IV ONE (11:00)
[2020-06-16] MEDS: FUROSEMIDE 40MG/4ML VIAL (J1940) IV SCH ×3 (11:08→22:41)
[2020-06-16] MEDS ORDERED: NALOXONE INJ 0.4MG/1ML VIAL (J2310 PER 1MG) IV PRN (11:30)
[2020-06-16] MEDS ORDERED: MORPHINE 2 MG/ML 1ML VIAL (J2270) IV PRN (11:30)
[2020-06-16] MEDS ORDERED: PERCOCET 5MG/325MG TAB PO ONE (11:45)
[2020-06-16 14:00] VITALS: BP 125/75
[2020-06-16 19:13] LABS: BLOOD UREA NITROGEN 4 MG/DL (7-18); CALCIUM LEVEL 7.7 MG/DL (8.5-10.1); CARBON DIOXIDE LEVEL 18 MEQ/L (21-32); CHLORIDE LEVEL 106 MEQ/L (98-107); CREATININE FOR GFR 0.72 MG/DL (0.55-1.30); GLOMERULAR FILTRATION RATE > 60.0 (>60); GLUCOSE, FASTING 128 MG/DL (70-100); MAGNESIUM LEVEL 1.6 MG/DL (1.8-2.4); POTASSIUM SERUM 4.2 MEQ/L (3.5-5.1); SODIUM LEVEL 136 MEQ/L (136-145)
[2020-06-16 22:00] VITALS: BP 138/77
[2020-06-16] MEDS: PERCOCET 5MG/325MG TAB PO PRN (22:42)
[2020-06-17] MEDS: FUROSEMIDE 40MG/4ML VIAL (J1940) IV SCH (05:32)
[2020-06-17] MEDS: LEVOTHYROXINE 125MCG TABLET (0.125MG) PO SCH (05:33)
[2020-06-17 05:46] LABS: BASO # 0.1 10^3/uL (0.0-0.2); BASO % 0.5 % (0.0-1.0); EOS # 0.2 10^3/uL (0.0-0.5); EOS % 1.5 % (0.0-3.0); HEMATOCRIT 31.7 % (36.0-47.0); HEMOGLOBIN 9.8 g/dl (12.0-15.5); LYMPH # 1.5 10^3/uL (1.5-5.0); LYMPH % 13.8 % (24.0-44.0); MEAN CORPUSCULAR HEMOGLOBIN 30.4 pg (27.0-33.0); MEAN CORPUSCULAR HGB CONC 30.9 g/dl (32.0-36.5); MEAN CORPUSCULAR VOLUME 98.4 fl (80.0-96.0); MONO # 0.8 10^3/uL (0.0-0.8); MONO % 7.5 % (0.0-5.0); NEUTROPHILS # 8.3 10^3/uL (1.5-8.5); NEUTROPHILS % 76.3 % (36.0-66.0); PLATELET COUNT, AUTOMATED 245 10^3/uL (150-450); RED BLOOD COUNT 3.22 10^6/uL (4.00-5.40); WHITE BLOOD COUNT 10.9 10^3/uL (4.0-10.0)
[2020-06-17 06:00] VITALS: BP 129/77
[2020-06-17 06:01] LABS: ALT/SGPT 24 U/L (12-78); BLOOD UREA NITROGEN 3 MG/DL (7-18); CALCIUM LEVEL 7.8 MG/DL (8.5-10.1); CARBON DIOXIDE LEVEL 26 MEQ/L (21-32); CHLORIDE LEVEL 104 MEQ/L (98-107); CREATININE FOR GFR 0.59 MG/DL (0.55-1.30); GLOMERULAR FILTRATION RATE > 60.0 (>60); GLUCOSE, FASTING 85 MG/DL (70-100); SODIUM LEVEL 137 MEQ/L (136-145)
[2020-06-17 06:02] LABS: BILIRUBIN,TOTAL 2.4 MG/DL (0.2-1.0); MAGNESIUM LEVEL 1.4 MG/DL (1.8-2.4); TOTAL PROTEIN 6.5 GM/DL (6.4-8.2)
[2020-06-17] MEDS ORDERED: metOLazone 5 MG TAB PO STA (07:25)
[2020-06-17] MEDS ORDERED: FUROSEMIDE 100MG/10ML VIAL (J1940) IV ONE (08:00)
[2020-06-17] MEDS: MULTIVITAMINS/MINERALS THERAP 1 TAB PO SCH (08:01)
[2020-06-17] MEDS: PANTOPRAZOLE 40MG TAB (PROTONIX) PO SCH (08:01)
[2020-06-17] MEDS: ZINC SULFATE 220 MG CAP PO SCH (08:01)
[2020-06-17] MEDS: MAGNESIUM OXIDE 400 MG TAB (MAG-OX) PO SCH ×2 (08:01→20:32)
[2020-06-17] MEDS: FERROUS SULFATE 325MG TAB PO SCH (08:01)
[2020-06-17] MEDS: FOLIC ACID 1 MG TAB PO SCH (08:02)
[2020-06-17] MEDS: THIAMINE 100 MG TAB PO SCH (08:02)
[2020-06-17] MEDS: POTASSIUM CHLORIDE 10 MEQ SR TABLET PO SCH ×3 (08:03→20:32)
[2020-06-17] MEDS: METOPROLOL TART 12.5 MG PER 1/2 TAB PO SCH ×2 (08:06→20:33)
--- NOTE | 2020-06-17 09:18 | IPNPDOC ---
Date Seen The patient was seen on 06/17/20. Progress Note SUBJECTIVE: Complains of headache yesterday but no photophobia, fever or chills. This morning she says she has no pain. She had some crampy abdominal pain yesterday which was relieved when she had a bowel movement, feels comfortable today, was not urinating all not well despite Lasix every 6 hourly done yesterday. Denies palpitations or lightheadedness this morning. OBJECTIVE: PHYSICAL EXAMINATION: VITAL SIGNS: Please see below GENERAL APPEARANCE: No jaundice, icterus, speaks in full sentences, in no respiratory distress HEENT: No stridor dry mucous membranes. No cervical lymphadenopathy, thyromegaly or jugular venous distention CARDIOVASCULAR: Distant heart sounds sinus rhythm. Tachycardic. No murmurs noted LUNGS: Diminished breath sounds clear to auscultation bilaterally ABDOMEN: Right upper quadrant, epigastric, with slight tenderness. No rebound, guarding. Obese abdomen EXTREMITIES: 3+ pitting edema to the sacrum LABORATORY DATA: See below. IMAGING: B/L LE US (06/13/20): No evidence of DVT right or left leg Chest XR (06/13/20): Mild prominence of bronchovascular markings. The lungs are otherwise clear. Gallbladder US (06/13/20): Small amount of sludge in the gallbladder, no biliary dilation is seen. Fatty infiltration of the liver CT Abdomen/Pelvis (06/14/20): Large amount of abdominal and pelvic ascites. Generalized subcutaneous edema. Probable small loculated abscesses in the cul-de-sac. Etiology of the abscess is unclear. No other abscess or loculated fluid collection. Mild jacinta-cholecystic fluid and gallbladder mucosal enhancement. Consider gallbladder ultrasound follow-up. Mild neural edema of the small bowel and colon. Findings maybe secondary to other causes of systemic edema. No bowel obstruction or signs of ischemia. MICROBIOLOGY: Please see below. ASSESSMENT: Patient is a 35-year-old female, history of alcoholic steatosis, gastr ic bypass with perforated viscus and a resultant liver and renal failure presented to the ER with 3 day history of worsening lower extremity edema, found to have significant ascites on CT, now with slight discomfort in the right upper quadrant and epigastric area. Morbid obesity, BMI 41.7. Transaminitis Gallbladder sludging /cholelithiasis Decompensated alcoholic liver disease with ascites. abdominal pain due to possible anastomotic ulcer, PUD, or gastritis History of gastric bypass with perforated viscus. history of alcoholic steatosis. , Hypomagnesemia, hypokalemia Anemia requiring 2 units RBC transfusion , Lower extremity edema Plan: Despite IV Lasix. Patient had had minimal urine output. We'll try Zaroxolyn and Lasix today and monitor patient's electrolytes and creatinine. She currently does not complain of any abdominal pain, despite having cholelithiasis and elevated bilirubin levels with gallbladder sludging. We will check a HIDA scan today to rule out acute cholecystitis continues patient in nothing by mouth status for now until after the HIDA scan is completed. If there is cholecystitis on HIDA scan. Patient will be started on intravenous Zosyn. Her broad-spectrum g gary-negative coverage and general surgery, Dr. RICKIE ROSE will be consulted. Patient has been depressed for a long time and has had significant alcohol abuse, now resulting in decompensated alcoholic liver disease. She has her [facility] and has decided not to go back to [place]. She agrees with the current management medically and is open to doing a laparoscopic cholecystectomy and once improved, to see a psychiatrist for her severe depression and potentially alcohol rehabilitation due to her alcohol dependence. We are continuing with supportive care including supplementation of electrolytes as needed. She currently denies any bright red blood per rectum, melena, or black tarry stools but did require 2 units of RBC transfusion. When she came in due to symptomatic anemia with complaints of generalized weakness. VS, [facility]O, [facility] Vital Signs/I&O Vital Signs Date Time Temp Pulse Resp B/P (MAP) Pulse Ox O2 Delivery O2 Flow Rate FiO2 06/17/20 08:06 124 132/81 06/17/20 06:00 99.0 18 95 Room Air I&O- Last 24 Hours up to 6 AM 06/17/20 06:00 Intake Total 1190 ml Output Total 1150 ml Balance 40 ml Laboratory Data 24H LABS Laboratory Tests 2 06/16/20 18:36: Anion Gap 12, Glomerular Filtration Rate > 60.0, Calcium Level 7.7L, Magnesium Level 1.6L 06/17/20 05:27: Anion Gap 7L, Glomerular Filtration Rate > 60.0, Calcium Level 7.8L, Magnesium Level 1.4L, Immature Granulocyte % (Auto) 0.4, Neutrophils (%) (Auto) 76.3H, Lymphocytes (%) (Auto) 13.8L, Monocytes (%) (Auto) 7.5H, Eosinophils (%) (Auto) 1.5, Basophils (%) (Auto) 0.5, Neutrophils # (Auto) 8.3, Lymphocytes # (Auto) 1.5, Monocytes # (Auto) 0.8, Eosinophils # (Auto) 0.2, Basophils # (Auto) 0.1, Nucleated Red Blood Cells % (auto) 0.0, Whole Blood Ionized Calcium 4.3L, Total Bilirubin 2.4H, Aspartate Amino Transf (AST/SGOT) 77H, Alanine Aminotransferase (ALT/SGPT) 24, Alkaline Phosphatase 107, Total Protein 6.5, Albumin 2.0L, Albumin/Globulin Ratio 0.4L CBC/BMP Laboratory Tests 06/16/20 18:36 06/17/20 05:27 Microbiology Microbiology 06/14/20 Blood Culture - Preliminary, Resulted No Growth after 72 hours. All specime... 06/13/20 Blood Culture - Preliminary, Resulted No Growth after 72 hours. All specime... JAYLON WOO MD Jun 17, 2020 09:18
[2020-06-17] MEDS ORDERED: HYDROMORPHONE HCL 0.5 MG/ 0.5 ML SYRINGE (J1170 PER 1) IV ONE (10:30)
--- NOTE | 2020-06-17 10:55 | REP ---
INDICATION: elevated bili. COMPARISON: CT 06/14/2020. TECHNIQUE: Multiple heavily T2 weighted sequences are obtained in the axial and coronal planes. 3D MIP reconstruction images are performed. FINDINGS: There is no intrahepatic or extrahepatic biliary dilatation. The study is limited due to patient motion. Common bile duct has a maximum diameter of approximately 3 mm. Pancreatic duct is normal in caliber. Gallbladder is mildly distended with mild Pericholecystic fluid noted. I suspect that there are probably tiny dependent gallstones within the gallbladder. The liver, spleen, adrenals, pancreas and kidneys are grossly unremarkable. There is mild diffuse abdominal ascites. IMPRESSION: Limited exam due to patient motion. Probable tiny gallstones in the gallbladder. Mild pericholecystic fluid. No biliary dilatation noted. Mild ascites. A preliminary report was provided by [facility] at the time of the exam. <Electronically signed by Viral Guerrero > 06/17/20 [id number]
--- NOTE | 2020-06-17 13:14 | REP ---
INDICATION: CHOLELITHIASIS R/O ACUTE VIRGIL CYSTITIS. COMPARISON: MRI and CT 06/14/2020. TECHNIQUE/RADIOTRACER AND DOSE: Following the intravenous administration of 6.6 mCi technetium 99 M mebrofenin, multiple images of the upper abdomen are performed for a period of 1 hour. FINDINGS: The gallbladder is visualized at 35 minutes post injection. There is biliary to bowel transit seen by 15-20 minutes post injection. There is no scintigraphic evidence of cholecystitis. IMPRESSION: No scintigraphic evidence of cholecystitis. <Electronically signed by Viral Guerrero > 06/17/20 [id number]
[2020-06-17 14:00] VITALS: BP 130/81
[2020-06-17] MEDS ORDERED: ACETAMINOPHEN TAB 650MG DOSE (2X325MG) PO PRN (18:15)
[2020-06-17] MEDS ORDERED: ACETAMINOPHEN TAB 650MG DOSE (2X325MG) PO ONE (18:15)
[2020-06-17 18:33] LABS: BLOOD UREA NITROGEN 3 MG/DL (7-18); CALCIUM LEVEL 8.1 MG/DL (8.5-10.1); CARBON DIOXIDE LEVEL 26 MEQ/L (21-32); CHLORIDE LEVEL 105 MEQ/L (98-107); CREATININE FOR GFR 0.62 MG/DL (0.55-1.30); GLOMERULAR FILTRATION RATE > 60.0 (>60); GLUCOSE, FASTING 119 MG/DL (70-100); POTASSIUM SERUM 3.3 MEQ/L (3.5-5.1); SODIUM LEVEL 139 MEQ/L (136-145)
[2020-06-17 18:42] LABS: C REACTIVE PROTEIN QUANTITATIV < 0.30 MG/DL (0.00-0.30); MAGNESIUM LEVEL 1.3 MG/DL (1.8-2.4)
[2020-06-17] MEDS: PIPERACILLIN/TAZOBACTAM SOD 3.375 GM in D5W MINI-BAG PLUS 50 ML IV SCH (18:49)
--- NOTE | 2020-06-17 19:03 | REP ---
INDICATION: fever COMPARISON: 06/13/2020 TECHNIQUE: Portable AP view of the chest FINDINGS: The mediastinum and cardiac silhouette are stable and within normal limits for portable technique. The lung arguello are clear without acute consolidation, effusion, or pneumothorax. Skeletal structures are intact. IMPRESSION: No acute cardiopulmonary process appreciated. No focal consolidation or effusion. <Electronically signed by Praful Sanders > 06/17/20 [id number]
[2020-06-17 19:04] LABS: ERYTHROCYTE SEDIMENTATION RATE 27 mm/hr (0-20)
[2020-06-17 22:00] VITALS: BP 125/77
[2020-06-18] MEDS: PIPERACILLIN/TAZOBACTAM SOD 3.375 GM in D5W MINI-BAG PLUS 50 ML IV SCH ×3 (01:20→18:17)
[2020-06-18] MEDS: LEVOTHYROXINE 125MCG TABLET (0.125MG) PO SCH (05:30)
[2020-06-18 06:00] VITALS: BP 130/78
[2020-06-18 06:48] LABS: BASO # 0.1 10^3/uL (0.0-0.2); BASO % 0.4 % (0.0-1.0); EOS # 0.1 10^3/uL (0.0-0.5); EOS % 1.1 % (0.0-3.0); HEMATOCRIT 30.9 % (36.0-47.0); HEMOGLOBIN 9.6 g/dl (12.0-15.5); LYMPH # 1.7 10^3/uL (1.5-5.0); MEAN CORPUSCULAR HEMOGLOBIN 30.7 pg (27.0-33.0); MEAN CORPUSCULAR HGB CONC 31.1 g/dl (32.0-36.5); MEAN CORPUSCULAR VOLUME 98.7 fl (80.0-96.0); MONO # 0.9 10^3/uL (0.0-0.8); MONO % 8.1 % (0.0-5.0); NEUTROPHILS # 8.5 10^3/uL (1.5-8.5); PLATELET COUNT, AUTOMATED 222 10^3/uL (150-450); RED BLOOD COUNT 3.13 10^6/uL (4.00-5.40); WHITE BLOOD COUNT 11.3 10^3/uL (4.0-10.0)
[2020-06-18 07:11] LABS: BLOOD UREA NITROGEN 3 MG/DL (7-18); CALCIUM LEVEL 7.5 MG/DL (8.5-10.1); CARBON DIOXIDE LEVEL 27 MEQ/L (21-32); CHLORIDE LEVEL 105 MEQ/L (98-107); CREATININE FOR GFR 0.56 MG/DL (0.55-1.30); GLOMERULAR FILTRATION RATE > 60.0 (>60); GLUCOSE, FASTING 88 MG/DL (70-100); MAGNESIUM LEVEL 1.3 MG/DL (1.8-2.4); POTASSIUM SERUM 3.6 MEQ/L (3.5-5.1); SODIUM LEVEL 139 MEQ/L (136-145)
[2020-06-18] MEDS: MAG SULF 1GM/100ML (MAG RUN) 1 GM in IV 1 EA IV SCH ×2 (08:30→09:57)
[2020-06-18] MEDS: MAGNESIUM OXIDE 400 MG TAB (MAG-OX) PO SCH ×2 (08:30→20:01)
[2020-06-18] MEDS: POTASSIUM CHLORIDE 10 MEQ SR TABLET PO SCH ×3 (08:31→21:25)
[2020-06-18] MEDS: FOLIC ACID 1 MG TAB PO SCH (08:31)
[2020-06-18] MEDS: PANTOPRAZOLE 40MG TAB (PROTONIX) PO SCH (08:31)
[2020-06-18] MEDS: FERROUS SULFATE 325MG TAB PO SCH (08:31)
[2020-06-18] MEDS: ZINC SULFATE 220 MG CAP PO SCH (08:31)
[2020-06-18] MEDS: THIAMINE 100 MG TAB PO SCH (08:31)
[2020-06-18] MEDS: METOPROLOL TART 12.5 MG PER 1/2 TAB PO SCH ×2 (08:32→20:01)
[2020-06-18] MEDS: MULTIVITAMINS/MINERALS THERAP 1 TAB PO SCH (08:33)
--- NOTE | 2020-06-18 11:31 | IPNPDOC ---
Date Seen The patient was seen on 06/18/20. Progress Note SUBJECTIVE: Patient denies any nausea, vomiting, bright red blood per rectum, melena, black tarry stools. Currently has no abdominal pain HIDA scan was negative for acute cholecystitis. She had a low-grade temperature and was started on IV Zosyn for gram-negative coverage as intra-abdominal in fection may be present. She has not had much diuresis and remains with 2+ edema and fluid wave on exam of the abdomen. Therefore, she will be sent for paracentesis today with diagnostic peritoneal panel ordered OBJECTIVE: PHYSICAL EXAMINATION: VITAL SIGNS: Please see below GENERAL APPEARANCE: No jaundice, icterus, speaks in full sentences, in no respiratory distress HEENT: No stridor dry mucous membranes. No cervical lymphadenopathy, thyromegaly or jugular venous distention CARDIOVASCULAR: Distant heart sounds sinus rhythm. Tachycardic. No murmurs noted LUNGS: Diminished breath sounds clear to auscultation bilaterally ABDOMEN: Right upper quadrant, epigastric, with slight tenderness., Positive fluid wave No rebound, guarding. Obese abdomen EXTREMITIES: 2+ pitting edema to the sacrum LABORATORY DATA: See below. IMAGING: B/L LE US (06/13/20): No evidence of DVT right or left leg Chest XR (06/13/20): Mild prominence of bronchovascular markings. The lungs are otherwise clear. Gallbladder US (06/13/20): Small amount of sludge in the gallbladder, no biliary dilation is seen. Fatty infiltration of the liver CT Abdomen/Pelvis (06/14/20): Large amount of abdominal and pelvic ascites. G eneralized subcutaneous edema. Probable small loculated abscesses in the cul-de-sac. Etiology of the abscess is unclear. No other abscess or loculated fluid collection. Mild jacinta-cholecystic fluid and gallbladder mucosal enhancement. Consider gallbladder ultrasound follow-up. Mild neural edema of the small bowel and colon. Findings maybe secondary to other causes of systemic edema. No bowel obstruction or signs of ischemia. MICROBIOLOGY: Please see below. ASSESSMENT: Patient is a 35-year-old female, history of alcoholic steatosis, gastric bypass with perforated viscus and a resultant liver and renal failure presented to the ER with 3 day history of worsening lower extremity edema, found to have significant ascites on CT, now with slight discomfort in the right upper quadrant and epigastric area. Morbid obesity, BMI 41.7. Transaminitis Gallbladder sludging /cholelithiasis Decompensated alcoholic liver disease with ascites. abdominal pain due to possible anastomotic ulcer, PUD, or gastritis History of gastric bypass with perforated viscus. history of alcoholic steatosis. , Hypomagnesemia, hypokalemia Anemia requiring 2 units RBC transfusion , Lower extremity edema Plan: HIDA scan was negative for [id number] cholecystitis. Due to low-grade temperature. She was started on intravenous Zosyn for gram-negative coverage intra-abdominally and will be sent for paracentesis today for diagnostic purposes. Zosyn was given for possible SBP. Patient is tolerating her diet without nausea, vomiting, but will need to have a laparoscopic cholecystectomy when she is fully diuresed with decompensated liver cirrhosis. VS, I&O, 24H, [facility] Vital Signs/I&O Vital Signs Date Time Temp Pulse Resp B/P (MAP) Pulse Ox O2 Delivery O2 Flow Rate FiO2 06/18/20 08:32 134 136/87 06/18/20 06:00 98.9 18 97 Room Air I&O- Last 24 Hours up to 6 AM 06/18/20 06:00 Intake Total 1750 ml Output Total 3875 ml Balance -2125 ml Laboratory Data 24H LABS Laboratory Tests 2 06/17/20 18:06: Anion Gap 8, Glomerular Filtration Rate > 60.0, Calcium Level 8.1L, Whole Blood Ionized Calcium 4.3L, Magnesium Level 1.3L, C-Reactive Protein, Quantitative < 0.30, Procalcitonin 0.48 06/17/20 18:52: Coronavirus (COVID-19)(PCR) NEGATIVE 06/17/20 22:00: Urine Color JACKIE, Urine Appearance HAZY, Urine pH 5.0, Urine Specific [place] 1.018, Urine Protein NEGATIVE, Urine Glucose (UA) NEGATIVE, Urine Ketones NEGATIVE, Urine Blood 1+H, Urine Nitrite NEGATIVE, Urine Bilirubin NEGATIVE, Urine Urobilinogen 0.2, Urine Leukocyte Esterase NEGATIVE, Urine WBC (Auto) 25H, Urine RBC (Auto) 6H, Urine Hyaline Casts (Auto) 6, Urine Bacteria (Auto) NEGATIVE, Urine Squamous Epithelial Cells 1, Urine Sperm (Auto) 06/18/20 06:35: Anion Gap 7L, Glomerular Filtration Rate > 60.0, Calcium Level 7.5L, Whole Blood Ionized Calcium 4.1L, Magnesium Level 1.3L, Immature Granulocyte % (Auto) 0.4, Neutrophils (%) (Auto) 75.0H, Lymphocytes (%) (Auto) 15.0L, Monocytes (%) (Auto) 8.1H, Eosinophils (%) (Auto) 1.1, Basophils (%) (Auto) 0.4, Neutrophils # (Auto) 8.5, Lymphocytes # (Auto) 1.7, Monocytes # (Auto) 0.9H, Eosinophils # (Auto) 0.1, Basophils # (Auto) 0.1, Nucleated Red Blood Cells % (auto) 0.0 CBC/BMP Laboratory Tests 06/17/20 18:06 06/18/20 06:35 Microbiology Microbiology 06/18/20 Blood Culture, Received Pending 06/17/20 Urine Culture, Received Pending 06/14/20 Blood Culture - Preliminary, Resulted No Growth after 72 hours. All specime... 06/13/20 Blood Culture - Preliminary, Resulted No Growth after 72 hours. All specime... JAYLON WOO MD Jun 18, 2020 11:31
--- NOTE | 2020-06-18 11:35 | ECHO ---
DATE OF PROCEDURE: 06/15/2020 Age: 35 Gender: Female Height: 157 cm Weight: 104 kg REFERRING PHYSICIAN: Linda King MD INDICATION: Localized edema, unspecified. MEASUREMENTS: 2D Measurements: Left atrium 3.8 cm Intraventricular septum 0.95 cm Posterior wall 0.99 cm Left ventricle diastole 4.6 cm Aortic root 2.6 cm Doppler Measurements: No aortic regurgitation Aortic valve velocity 181 cm/s LVOT velocity 171 cm/s LVOT VTI 21.4 cm Trace mitral regurgitation Mitral E velocity 118 cm/s Mitral A velocity 114 cm/s Very mild tricuspid regurgitation Estimated right ventricular systolic pressure 32-37 mmHg Estimated right atrial pressure 5-10 mmHg No pulmonic regurgitation Pulmonary acceleration time 121 msec MITRAL ANNULAR TISSUE DOPPLER E prime septal 11.6 cm/s, E prime lateral 14.1 cm/s DESCRIPTION: Rhythm was sinus tachycardia. Image quality was good. This was a 2D, M-mode, color flow Doppler, and pulsed wave Doppler examination including mitral annular tissue Doppler. CONCLUSIONS: 1. Normal left ventricle internal dimensions and wall thickness. Normal regional left ventricular (LV) wall motion and wall thickening. Normal left ventricular (LV) systolic function. Left ventricular ejection fraction (LVEF) 65% by visual estimate. Normal left ventricular (LV) diastolic function. 2. No pericardial effusion. 3. Suggestive of mild elevation of estimated right ventricle systolic pressure. Very mild tricuspid regurgitation. 4. Otherwise normal appearing echocardiogram Doppler findings. MTDD
[2020-06-18 14:00] VITALS: BP 122/80
[2020-06-18 16:17] LABS: ANTI CENTROMERE ANTIBODY <0.2 AI (0.0-0.9); ANTI-SMOOTH MUSCLE ANTIBODY 13 Units (0-19); ANTINUCLEAR ANTIBODIES DIRECT Negative (Negative); CERULOPLASMIN 12.1 mg/dL (19.0-39.0); Chitobioside Carbohydrat (ACCA 309 units (0-90); H PYLORI SERUM QUANT IGM 16.9 units (0.0-8.9); Laminaribioside Carbohyd (ALCA 11 units (0-60); Mannobioside Carbohydrat (AMCA 58 units (0-100); Saccharomyces cerevisiae IgG A 42 units (0-50)
[2020-06-18 18:48] LABS: BLOOD UREA NITROGEN 3 MG/DL (7-18); CALCIUM LEVEL 7.8 MG/DL (8.5-10.1); CARBON DIOXIDE LEVEL 26 MEQ/L (21-32); CHLORIDE LEVEL 105 MEQ/L (98-107); CREATININE FOR GFR 0.55 MG/DL (0.55-1.30); GLOMERULAR FILTRATION RATE > 60.0 (>60); GLUCOSE, FASTING 120 MG/DL (70-100); POTASSIUM SERUM 3.5 MEQ/L (3.5-5.1); SODIUM LEVEL 139 MEQ/L (136-145)
[2020-06-18] MEDS: PERCOCET 5MG/325MG TAB PO PRN (21:25)
[2020-06-18 22:00] VITALS: BP 125/78
[2020-06-19] MEDS: PIPERACILLIN/TAZOBACTAM SOD 3.375 GM in D5W MINI-BAG PLUS 50 ML IV SCH ×4 (00:48→19:00)
[2020-06-19] MEDS: LEVOTHYROXINE 125MCG TABLET (0.125MG) PO SCH (05:28)
[2020-06-19] MEDS: PERCOCET 5MG/325MG TAB PO PRN ×2 (05:28→17:26)
[2020-06-19 05:37] LABS: BASO # 0.1 10^3/uL (0.0-0.2); BASO % 0.6 % (0.0-1.0); EOS # 0.2 10^3/uL (0.0-0.5); EOS % 1.9 % (0.0-3.0); HEMATOCRIT 31.8 % (36.0-47.0); LYMPH # 1.5 10^3/uL (1.5-5.0); LYMPH % 14.6 % (24.0-44.0); MEAN CORPUSCULAR HEMOGLOBIN 31.6 pg (27.0-33.0); MEAN CORPUSCULAR HGB CONC 31.4 g/dl (32.0-36.5); MEAN CORPUSCULAR VOLUME 100.6 fl (80.0-96.0); MONO # 0.9 10^3/uL (0.0-0.8); MONO % 8.5 % (0.0-5.0); NEUTROPHILS # 7.8 10^3/uL (1.5-8.5); PLATELET COUNT, AUTOMATED 210 10^3/uL (150-450); RED BLOOD COUNT 3.16 10^6/uL (4.00-5.40); WHITE BLOOD COUNT 10.5 10^3/uL (4.0-10.0)
[2020-06-19 05:55] LABS: BLOOD UREA NITROGEN 3 MG/DL (7-18); CALCIUM LEVEL 7.8 MG/DL (8.5-10.1); CARBON DIOXIDE LEVEL 27 MEQ/L (21-32); CHLORIDE LEVEL 105 MEQ/L (98-107); CREATININE FOR GFR 0.55 MG/DL (0.55-1.30); GLOMERULAR FILTRATION RATE > 60.0 (>60); GLUCOSE, FASTING 90 MG/DL (70-100); MAGNESIUM LEVEL 1.8 MG/DL (1.8-2.4); POTASSIUM SERUM 4.1 MEQ/L (3.5-5.1); SODIUM LEVEL 139 MEQ/L (136-145)
[2020-06-19 06:00] VITALS: BP 144/79
[2020-06-19] MEDS ORDERED: MAG SULF 1GM/100ML (MAG RUN) 1 GM in IV 1 EA IV ONE (08:00)
[2020-06-19] MEDS: POTASSIUM CHLORIDE 10 MEQ SR TABLET PO SCH ×3 (08:45→20:44)
[2020-06-19] MEDS: PANTOPRAZOLE 40MG TAB (PROTONIX) PO SCH (08:45)
[2020-06-19] MEDS: METOPROLOL TART 12.5 MG PER 1/2 TAB PO SCH (08:45)
[2020-06-19] MEDS: MAGNESIUM OXIDE 400 MG TAB (MAG-OX) PO SCH ×2 (08:45→20:43)
[2020-06-19] MEDS: ZINC SULFATE 220 MG CAP PO SCH (08:45)
[2020-06-19] MEDS ORDERED: SODIUM BICARBONATE 8.4% INJ 50MEQ 50 ML VIAL As Ordered ONE (09:09)
--- NOTE | 2020-06-19 10:32 | IPNPDOC ---
Date Seen The patient was seen on 06/19/20. Progress Note SUBJECTIVE: Patient has had no fever or chills since 1123 when SHE HAD A low-grade temperature 100.3 and started on intravenous Zosyn. She currently denies any insomnia nausea, vomiting, abdominal pain. Complains of increased heaviness in the lateral lower extremities. Patient is currently being scheduled for paracentesis for suspected sbp. She is tolerating her diet well.. She denies any bright red blood per rectum, melena, black tarry stools or hematemesis, coffee- ground emesis OBJECTIVE: PHYSICAL EXAMINATION: VITAL SIGNS: Please see below GENERAL APPEARANCE: No jaundice or icterus. No pallor HEENT: No stridor dry mucous membranes. No cervical lymphadenopathy, thyromegaly or jugular venous distention CARDIOVASCULAR: Distant heart sounds sinus rhythm. Tachycardic. No murmurs noted LUNGS: Diminished breath sounds clear to auscultation bilaterally ABDOMEN: Positive bowel sounds 4 quadrants, nontender, nondistended Positive fluid wave No rebound, guarding. Obese abdomen EXTREMITIES: 2+ pitting edema to the sacrum LABORATORY DATA: See below. IMAGING: B/L LE US (06/13/20): No evidence of DVT right or left leg Chest XR (06/13/20): Mild prominence of bronchovascular markings. The lungs are otherwise clear. Gallbladder US (06/13/20): Small amount of sludge in the gallbladder, no biliary dilation is seen. Fatty infiltration of the liver CT Abdomen/Pelvis (06/14/20): Large amount of abdominal and pelvic ascites. Generalized subcutaneous edema. Probable small loculated abscesses in the cul-de-sac. Etiology of the abscess is unclear. No other abscess or loculated fluid collection. Mild jacinta-cholecystic fluid and gallbladder mucosal enhancement. Consider gallbladder ultrasound follow-up. Mild neural edema of the small bowel and colon. Findings maybe secondary to other causes of systemic edema. No bowel obstruction or signs of ischemia. MICROBIOLOGY: Please see below. ASSESSMENT: Patient is a 35-year-old female, history of alcoholic steatosis, gastric bypass with perforated viscus and a resultant liver and renal failure presented to the ER with 3 day history of worsening lower extremity edema, found to have significant ascites on CT, now with slight discomfort in the right upper quadrant and epigastric area. Morbid obesity, BMI 41.7. Transaminitis Gallbladder sludging /cholelithiasis Decompensated alcoholic liver disease with ascites. abdominal pain due to possible anastomotic ulcer, PUD, or gastritis History of gastric bypass with perforated viscus. history of alcoholic steatosis. , Hypomagnesemia, hypokalemia Anemia requiring 2 units RBC transfusion , Lower extremity edema Plan: Due to decompensated alcoholic liver disease with ascites. Patient will be sent for paracentesis, both for diagnostic and therapeutic purposes. She continues to have significant 2+ pitting edema bilateral lower extremities. The lower part diuresis. However blood pressure remains soft and may need albumin infusion and Lasix diuresis at this time due to low-grade temperature and abdominal pain on June 17. Patient was started in intravenous Zosyn. We will await the culture results of the peritoneal fluid. She is continued on PPI for possible gastritis versus anastomotic ulcer from prior history of gastric bypass surgery and complains of epigastric abdominal pain despite having cholelithiasis. Patient had no signs of cholecystitis on the HIDA scan and she is tolerating her diet without nausea, vomiting or abdominal pain. She will need an Gen. surgical referral in order to proceed with upper scopic cholecystectomy. Patient is open to seeing a psychiatrist regarding her depression and alcohol abuse and possible alcohol rehabilitation as outpatient PFS has been consulted. She will be remaining in the [facility] area and will not be returning back to [place]. Her support system is mainly her aunt and cousins here in the [facility]. VS, I&O, 24H, Fishbone Vital Signs/I&O Vital Signs Date Time Temp Pulse Resp B/P (MAP) Pulse Ox O2 Delivery O2 Flow Rate FiO2 06/19/20 09:28 99.1 114 18 97 Room Air 06/19/20 08:45 129/84 I&O- Last 24 Hours up to 6 AM 06/19/20 06:00 Intake Total 2000 ml Output Total 750 ml Balance 1250 ml Laboratory Data 24H LABS Laboratory Tests 2 06/18/20 18:02: Anion Gap 8, Glomerular Filtration Rate > 60.0, Calcium Level 7.8L, Whole Blood Ionized Calcium 4.2L 06/19/20 05:18: Anion Gap 7L, Glomerular Filtration Rate > 60.0, Calcium Level 7.8L, Whole Blood Ionized Calcium 4.3L, Immature Granulocyte % (Auto) 0.4, Neutrophils (%) (Auto) 74.0H, Lymphocytes (%) (Auto) 14.6L, Monocytes (%) (Auto) 8.5H, Eosinophils (%) (Auto) 1.9, Basophils (%) (Auto) 0.6, Neutrophils # (Auto) 7.8, Lymphocytes # (Auto) 1.5, Monocytes # (Auto) 0.9H, Eosinophils # (Auto) 0.2, Basophils # (Auto) 0.1, Nucleated Red Blood Cells % (auto) 0.2H, Magnesium Level 1.8 CBC/BMP Laboratory Tests 06/18/20 18:02 06/19/20 05:18 Microbiology Microbiology 06/18/20 Acid Fast Stain, Received Pending 06/18/20 Mycobacterial Culture, Received Pending 06/18/20 Fungal Smear, Received Pending 06/18/20 Fungal Culture, Received Pending 06/18/20 Gram Stain, Received Pending 06/18/20 Body Fluid Culture, Received Pending 06/18/20 Anaerobic Culture, Received Pending 06/18/20 Blood Culture - Preliminary, Resulted No growth after 24 hours . All specim... 06/17/20 Urine Culture - Final, Complete 06/14/20 Blood Culture - Final, Complete NO GROWTH AFTER 5 DAYS 06/13/20 Blood Culture - Final, Complete NO GROWTH AFTER 5 DAYS JAYLON WOO MD Jun 19, 2020 10:32
[2020-06-19] MEDS ORDERED: GI COCKTAIL 50ML BTL(HYOSCYAMINE/MAALOX/LIDOCAINE VISCOUS)(1:3:1) PO PRN (10:45)
[2020-06-19 10:54] LABS: SOURCE, BODY FLUID ALBUMIN PERITONEAL
[2020-06-19 10:58] LABS: SOURCE, BODY FLUID GLUCOSE PERITONEAL; SOURCE, BODY FLUID TOT PROTEIN PERITONEAL; TOTAL PROTEIN, BODY FLUID 2.3 G/DL (NOT ESTABLISHED)
[2020-06-19] MEDS ORDERED: metOLazone 5 MG TAB PO ONE (11:00)
[2020-06-19 11:07] LABS: SOURCE, BODY FLUID PERITONEAL
[2020-06-19 11:08] LABS: APPEARANCE, BODY FLUID CLEAR (CLEAR); PERITONEAL FL COLOR PALE YELLOW (COLORLESS)
[2020-06-19 11:18] LABS: SPEC. GRAVITY BODY FLUIDS 1.016 (NOT ESTABLISHED)
[2020-06-19] MEDS ORDERED: FUROSEMIDE 100MG/10ML VIAL (J1940) IV ONE (11:30)
--- NOTE | 2020-06-19 11:46 | REP ---
INDICATION: ascites The patient has a history of mild ascites on an MRI dated 06/14/2020. COMPARISON: None. TECHNIQUE: The procedure was performed by DEE DEE Barnard, under the direct supervision of Dr. Guerrero The risks and benefits of the procedure were explained to the patient and an informed consent was obtained both verbally and written. Directly prior to the start of the procedure a formal time-out was completed in the procedure room. The largest pocket of fluid was localized in the right lower quadrant using ultrasound guidance. The skin was prepped and draped in a sterile fashion. Sixteen ML of buffered lidocaine was used as a local anesthetic. An 8-Greek multi side-hole catheter was inserted using trocar technique. FINDINGS: 320 mL of yellow ascites was withdrawn and sent to the lab for further analysis. The patient tolerated the procedure well and there were no immediate complications. After the appropriate amount of monitored convalescence, the patient was discharged from the department. IMPRESSION: Ultrasound-guided paracentesis with removal of 360 mL of ascites. <Electronically signed by Gabbi Wilhelm > 06/19/20 1053 <Electronically signed by Viral Guerrero > 06/19/20 1142
[2020-06-19] MEDS: FERROUS SULFATE 325MG TAB PO SCH (12:02)
[2020-06-19] MEDS: MULTIVITAMINS/MINERALS THERAP 1 TAB PO SCH (12:02)
[2020-06-19] MEDS: FOLIC ACID 1 MG TAB PO SCH (12:02)
[2020-06-19] MEDS: THIAMINE 100 MG TAB PO SCH (12:03)
[2020-06-19] MEDS ORDERED: LIDOCAINE 1% MDV 20ML VIAL As Ordered ONE (13:00)
[2020-06-19 14:40] VITALS: BP 133/87
[2020-06-19] MEDS: SODIUM CHLORIDE 0.9% INJ 10 ML SYR IV SCH (16:29)
--- NOTE | 2020-06-19 17:02 | REP ---
PROCEDURE NAME: MIDLINE INSERTION W/ SITERITE CLINICAL INFORMATION: poor iv access-prolonged iv rx.. COMPARISON: None. PROCEDURE DESCRIPTION: The procedure was performed by DEE DEE Barnard, under the direct supervision of Dr. Guerrero. The risks and benefits of the procedure were explained to the patient and an informed consent was obtained both verbally and written. Directly prior to the start of the procedure a formal time-out was completed in the procedure room. The left basilic vein was localized using ultrasound guidance. The skin was prepped and draped in sterile fashion. One mL of 1% lidocaine 10 mg/mL was used as a local anesthetic. Using ultrasound guidance the left basilic vein was cannulated, and a 0.018 guidewire was inserted. The needle was removed and a 5.5 Gambian dilator and peel-away sheath was inserted over the guidewire. A 5.5 Gambian dual lumen catheter was cut to a length of 12 cm. The dilator was removed and the catheter was inserted over the guidewire. The peel-away sheath was removed and the catheter was flushed with heparinized saline as per hospital protocol. The catheter was affixed to the skin and a sterile dressing was applied. The patient tolerated the procedure well and there were no immediate complications. CONCLUSION: Mid line insertion into the left basilic vein. <Electronically signed by Gabbi Wilhelm > 06/19/20 1630 <Electronically signed by Viral Guerrero > 06/19/20 [id number]
[2020-06-19 18:52] LABS: BLOOD UREA NITROGEN 3 MG/DL (7-18); CARBON DIOXIDE LEVEL 27 MEQ/L (21-32); CHLORIDE LEVEL 103 MEQ/L (98-107); CREATININE FOR GFR 0.64 MG/DL (0.55-1.30); GLOMERULAR FILTRATION RATE > 60.0 (>60); GLUCOSE, FASTING 121 MG/DL (70-100); POTASSIUM SERUM 3.7 MEQ/L (3.5-5.1); SODIUM LEVEL 138 MEQ/L (136-145)
[2020-06-19] MEDS: SODIUM CHLORIDE 0.9% INJ 10 ML SYR IV PRN (20:44)
[2020-06-19 22:00] VITALS: BP 112/71
[2020-06-20] MEDS: SODIUM CHLORIDE 0.9% INJ 10 ML SYR IV PRN ×5 (00:20→10:36)
[2020-06-20] MEDS: PIPERACILLIN/TAZOBACTAM SOD 3.375 GM in D5W MINI-BAG PLUS 50 ML IV SCH ×2 (00:20→05:11)
[2020-06-20] MEDS: PERCOCET 5MG/325MG TAB PO PRN ×4 (02:04→23:45)
[2020-06-20 06:00] VITALS: BP 120/75
[2020-06-20] MEDS: SODIUM CHLORIDE 0.9% INJ 10 ML SYR IV SCH ×2 (06:25→18:00)
[2020-06-20] MEDS: LEVOTHYROXINE 125MCG TABLET (0.125MG) PO SCH (06:25)
[2020-06-20 06:47] LABS: BASO # 0.1 10^3/uL (0.0-0.2); BASO % 0.5 % (0.0-1.0); EOS # 0.3 10^3/uL (0.0-0.5); EOS % 2.8 % (0.0-3.0); HEMATOCRIT 30.5 % (36.0-47.0); HEMOGLOBIN 9.3 g/dl (12.0-15.5); LYMPH # 1.5 10^3/uL (1.5-5.0); LYMPH % 13.8 % (24.0-44.0); MEAN CORPUSCULAR HEMOGLOBIN 30.5 pg (27.0-33.0); MEAN CORPUSCULAR HGB CONC 30.5 g/dl (32.0-36.5); MONO # 0.9 10^3/uL (0.0-0.8); MONO % 8.9 % (0.0-5.0); NEUTROPHILS # 7.7 10^3/uL (1.5-8.5); NEUTROPHILS % 73.5 % (36.0-66.0); PLATELET COUNT, AUTOMATED 202 10^3/uL (150-450); RED BLOOD COUNT 3.05 10^6/uL (4.00-5.40); WHITE BLOOD COUNT 10.5 10^3/uL (4.0-10.0)
[2020-06-20 06:53] LABS: BLOOD UREA NITROGEN 4 MG/DL (7-18); CALCIUM LEVEL 8.1 MG/DL (8.5-10.1); CARBON DIOXIDE LEVEL 26 MEQ/L (21-32); CHLORIDE LEVEL 103 MEQ/L (98-107); CREATININE FOR GFR 0.66 MG/DL (0.55-1.30); GLOMERULAR FILTRATION RATE > 60.0 (>60); GLUCOSE, FASTING 94 MG/DL (70-100); MAGNESIUM LEVEL 1.6 MG/DL (1.8-2.4); POTASSIUM SERUM 4.1 MEQ/L (3.5-5.1); SODIUM LEVEL 137 MEQ/L (136-145)
[2020-06-20] MEDS ORDERED: metOLazone 5 MG TAB PO ONE (08:00)
[2020-06-20] MEDS ORDERED: FUROSEMIDE 100MG/10ML VIAL (J1940) IV ONE (08:30)
[2020-06-20] MEDS: PANTOPRAZOLE 40MG TAB (PROTONIX) PO SCH (09:23)
[2020-06-20] MEDS: ZINC SULFATE 220 MG CAP PO SCH (09:23)
[2020-06-20] MEDS: MAGNESIUM OXIDE 400 MG TAB (MAG-OX) PO SCH ×2 (09:23→21:53)
[2020-06-20] MEDS: POTASSIUM CHLORIDE 10 MEQ SR TABLET PO SCH ×3 (09:24→21:53)
[2020-06-20] MEDS ORDERED: PERCOCET 5MG/325MG TAB PO ONE (09:45)
--- NOTE | 2020-06-20 12:56 | IPNPDOC ---
Date Seen The patient was seen on 06/20/20. Progress Note SUBJECTIVE: c/o le edema and pain at paracentesis site. no fever chills. some nausea w/o vomiting. tolerating her diet. no ruq abd pain or biliary colic. midline placed due to poor iv access. on ivzosyn for presumed sbp. due to increased wbc and low grade temp. OBJECTIVE: PHYSICAL EXAMINATION: VITAL SIGNS: Please see below GENERAL APPEARANCE: No jaundice or icterus. No pallor no distress HEENT: No stridor mucous membranes. CARDIOVASCULAR: Distant heart sounds sinus rhythm. Tachycardic. No murmurs noted LUNGS: Diminished breath sounds clear to auscultation bilaterally ABDOMEN: Positive bowel sounds 4 quadrants, nontender, nondistended Positive fluid wave No rebound, guarding. Obese abdomen EXTREMITIES: 2+ pitting edema to the sacrum LABORATORY DATA: See below. IMAGING: B/L LE US (06/13/20): No evidence of DVT right or left leg Chest XR (06/13/20): Mild prominence of bronchovascular markings. The lungs are otherwise clear. Gallbladder US (06/13/20): Small amount of sludge in the gallbladder, no biliary dilation is seen. Fatty infiltration of the liver CT Abdomen/Pelvis (06/14/20): Large amount of abdominal and pelvic ascites. Generalized subcutaneous edema. Probable small loculated abscesses in the cul-de-sac. Etiology of the abscess is unclear. No other abscess or loculated fluid collection. Mild jacinta-cholecystic fluid and gallbladder mucosal enhancement. Consider gallbladder ultrasound follow-up. Mild neural edema of the small bowel and colon. Findings maybe secondary to other causes of systemic edema. No bowel obstruction or signs of ischemia. MICROBIOLOGY: Please see below. ASSESSMENT: Patient is a 35-year-old female, history of alcoholic steatosis, gastric bypass with perforated viscus and a resultant liver and renal failure presented to the ER with 3 day history of worsening lower extremity edema, found to have significant ascites on CT, now with slight discomfort in the right upper quadrant and epigastric area. Morbid obesity, BMI 41.7. Transaminitis Gallbladder sludging /cholelithiasis Decompensated alcoholic liver disease with ascites. abdominal pain due to possible anastomotic ulcer, PUD, or gastritis History of gastric bypass with perforated viscus. history of alcoholic steatosis. , Hypomagnesemia, hypokalemia Anemia requiring 2 units RBC transfusion , Lower extremity edema Plan: dc iv zosyn. change to iv ceftriaxone until peritoneal fluid cx finalized. lasix to diurese. no pe or dvt . aat. dc in am if stable . pt hse. VS, I&O, 24H, Fishbone Vital Signs/I&O Vital Signs Date Time Temp Pulse Resp B/P (MAP) Pulse Ox O2 Delivery O2 Flow Rate FiO2 06/20/20 10:36 14 Room Air 06/20/20 06:00 97.8 131 120/75 (90) 97 I&O- Last 24 Hours up to 6 AM 06/20/20 06:00 Intake Total 1320 ml Output Total 2995 ml Balance -1675 ml Laboratory Data 24H LABS Laboratory Tests 2 06/19/20 18:15: Anion Gap 8, Glomerular Filtration Rate > 60.0, Calcium Level 8.0L, Whole Blood Ionized Calcium 4.4L 06/20/20 05:58: Anion Gap 8, Glomerular Filtration Rate > 60.0, Calcium Level 8.1L, Whole Blood Ionized Calcium 4.4L, Immature Granulocyte % (Auto) 0.5, Neutrophils (%) (Auto) 73.5H, Lymphocytes (%) (Auto) 13.8L, Monocytes (%) (Auto) 8.9H, Eosinophils (%) (Auto) 2.8, Basophils (%) (Auto) 0.5, Neutrophils # (Auto) 7.7, Lymphocytes # (Auto) 1.5, Monocytes # (Auto) 0.9H, Eosinophils # (Auto) 0.3, Basophils # (Auto) 0.1, Nucleated Red Blood Cells % (auto) 0.0, Magnesium Level 1.6L CBC/BMP Laboratory Tests 06/19/20 18:15 06/20/20 05:58 Microbiology Microbiology 06/18/20 Acid Fast Stain, Received Pending 06/18/20 Mycobacterial Culture, Received Pending 06/18/20 Fungal Smear, Received Pending 06/18/20 Fungal Culture, Received Pending 06/18/20 Gram Stain - Final, Resulted 06/18/20 Body Fluid Culture, Resulted Pending 06/18/20 Anaerobic Culture, Resulted Pending 06/18/20 Blood Culture - Preliminary, Resulted No Growth after 48 hours. All Specime... 06/17/20 Urine Culture - Final, Complete 06/14/20 Blood Culture - Final, Complete NO GROWTH AFTER 5 DAYS 06/13/20 Blood Culture - Final, Complete NO GROWTH AFTER 5 DAYS JAYLON WOO MD Jun 20, 2020 12:56
[2020-06-20] MEDS: FOLIC ACID 1 MG TAB PO SCH (12:59)
[2020-06-20] MEDS: MULTIVITAMINS/MINERALS THERAP 1 TAB PO SCH (12:59)
[2020-06-20] MEDS: cefTRIAXone SOD 2 GM in D5W MINI-BAG PLUS 50 ML IV SCH (12:59)
[2020-06-20] MEDS: THIAMINE 100 MG TAB PO SCH (12:59)
[2020-06-20] MEDS: FERROUS SULFATE 325MG TAB PO SCH (12:59)
[2020-06-20] MEDS: ACETAMINOPHEN TAB 650MG DOSE (2X325MG) PO PRN (13:10)
[2020-06-20 13:50] VITALS: BP 122/63
[2020-06-20 19:04] LABS: BLOOD UREA NITROGEN 2 MG/DL (7-18); CALCIUM LEVEL 7.9 MG/DL (8.5-10.1); CARBON DIOXIDE LEVEL 27 MEQ/L (21-32); CHLORIDE LEVEL 104 MEQ/L (98-107); CREATININE FOR GFR 0.78 MG/DL (0.55-1.30); GLOMERULAR FILTRATION RATE > 60.0 (>60); GLUCOSE, FASTING 112 MG/DL (70-100); SODIUM LEVEL 137 MEQ/L (136-145)
[2020-06-20 22:00] VITALS: BP 119/65
[2020-06-21 05:39] LABS: BASO # 0.1 10^3/uL (0.0-0.2); BASO % 0.6 % (0.0-1.0); EOS # 0.3 10^3/uL (0.0-0.5); EOS % 3.4 % (0.0-3.0); HEMATOCRIT 29.7 % (36.0-47.0); HEMOGLOBIN 9.2 g/dl (12.0-15.5); LYMPH # 1.7 10^3/uL (1.5-5.0); LYMPH % 16.9 % (24.0-44.0); MEAN CORPUSCULAR HEMOGLOBIN 30.7 pg (27.0-33.0); MONO # 0.8 10^3/uL (0.0-0.8); MONO % 8.3 % (0.0-5.0); NEUTROPHILS # 6.9 10^3/uL (1.5-8.5); NEUTROPHILS % 70.4 % (36.0-66.0); PLATELET COUNT, AUTOMATED 203 10^3/uL (150-450); WHITE BLOOD COUNT 9.9 10^3/uL (4.0-10.0)
[2020-06-21] MEDS: LEVOTHYROXINE 125MCG TABLET (0.125MG) PO SCH (05:42)
[2020-06-21] MEDS: SODIUM CHLORIDE 0.9% INJ 10 ML SYR IV SCH (05:43)
[2020-06-21 06:03] LABS: BLOOD UREA NITROGEN 5 MG/DL (7-18); CALCIUM LEVEL 7.9 MG/DL (8.5-10.1); CARBON DIOXIDE LEVEL 28 MEQ/L (21-32); CHLORIDE LEVEL 104 MEQ/L (98-107); CREATININE FOR GFR 0.66 MG/DL (0.55-1.30); GLOMERULAR FILTRATION RATE > 60.0 (>60); GLUCOSE, FASTING 82 MG/DL (70-100); MAGNESIUM LEVEL 1.4 MG/DL (1.8-2.4); POTASSIUM SERUM 4.2 MEQ/L (3.5-5.1); SODIUM LEVEL 137 MEQ/L (136-145)
[2020-06-21 06:54] VITALS: BP 137/80
[2020-06-21] MEDS ORDERED: metOLazone 5 MG TAB PO ONE (08:00)
[2020-06-21] MEDS ORDERED: CALCIUM GLUCONATE 1,000 MG in D5W MINI-BAG PLUS 100 ML IV ONE ×2 (08:00→18:00)
[2020-06-21] MEDS ORDERED: FUROSEMIDE 100MG/10ML VIAL (J1940) IV ONE (08:30)
--- NOTE | 2020-06-21 08:34 | REP ---
INDICATION: PICC placed, Increasing diameter/swelling COMPARISON: 07/17/2019 TECHNIQUE: Real time colón scale and color Doppler evaluation of the left upper extremity using linear high-frequency transducer. FINDINGS: There is evidence for occlusive thrombus in the distal left cephalic vein as well as occlusive thrombus in the proximal to mid basilic vein. Visualized jugular, subclavian, axillary and brachial veins appear patent. IMPRESSION: Areas of occlusive thrombus noted in the distal cephalic vein and proximal to mid basilic vein. <Electronically signed by Praful Sanders > 06/21/20 [id number]
[2020-06-21] MEDS: PERCOCET 5MG/325MG TAB PO PRN ×2 (08:47→20:58)
[2020-06-21] MEDS ORDERED: APIXABAN 5 MG TAB (ELIQUIS) PO ONE (09:30)
[2020-06-21] MEDS: POTASSIUM CHLORIDE 10 MEQ SR TABLET PO SCH ×3 (09:58→20:57)
[2020-06-21] MEDS: MAGNESIUM OXIDE 400 MG TAB (MAG-OX) PO SCH ×2 (09:59→20:57)
[2020-06-21] MEDS: ZINC SULFATE 220 MG CAP PO SCH (09:59)
[2020-06-21] MEDS: PANTOPRAZOLE 40MG TAB (PROTONIX) PO SCH (09:59)
[2020-06-21] MEDS: ACETAMINOPHEN TAB 650MG DOSE (2X325MG) PO PRN (10:28)
[2020-06-21] MEDS: MAG SULF 1GM/100ML (MAG RUN) 1 GM in IV 1 EA IV SCH ×2 (11:34→12:56)
[2020-06-21] MEDS: FERROUS SULFATE 325MG TAB PO SCH (11:36)
[2020-06-21] MEDS: FOLIC ACID 1 MG TAB PO SCH (11:36)
[2020-06-21] MEDS: MULTIVITAMINS/MINERALS THERAP 1 TAB PO SCH (11:36)
[2020-06-21] MEDS: THIAMINE 100 MG TAB PO SCH (11:36)
--- NOTE | 2020-06-21 11:36 | IPNPDOC ---
Date Seen The patient was seen on 06/21/20. Progress Note SUBJECTIVE: Complains of pain at the paracentesis site with slight drainage. Still with bilateral lower extremity discomfort due to chronic edema. No fever, chills, no nausea, vomiting, tolerating her diet. No lightheadedness or dizziness despite diuresis has been negative balance. Ultrasound upper extremity performed due to upper extremity edema, found to have nonocclusive thrombus OBJECTIVE: PHYSICAL EXAMINATION: VITAL SIGNS: Please see below GENERAL APPEARANCE: No jaundice or icterus. No pallor no distress. Speaks in full sentences HEENT: No stridor mucous membranes., No JVD CARDIOVASCULAR: Distant heart sounds sinus rhythm. Tachycardic. No murmurs noted LUNGS: Diminished breath sounds clear to auscultation bilaterally ABDOMEN: Positive bowel sounds 4 quadrants, nontender, nondistended Positive fluid wave No rebound, guarding. Obese abdomen EXTREMITIES: 2+ pitting edema to the sacrum LABORATORY DATA: See below. IMAGING: B/L LE US (06/13/20): No evidence of DVT right or left leg Chest XR (06/13/20): Mild prominence of bronchovascular markings. The lungs are otherwise clear. Gallbladder US (06/13/20): Small amount of sludge in the gallbladder, no biliary dilation is seen. Fatty infiltration of the liver CT Abdomen/Pelvis (06/14/20): Large amount of abdominal and pelvic ascites. Generalized subcutaneous edema. Probable small loculated abscesses in the cul-de-sac. Etiology of the abscess is unclear. No other abscess or loculated fluid collection. Mild jacinta-cholecystic fluid and gallbladder mucosal enhancement. Consider gallbladder ultrasound follow-up. Mild neural edema of the small bowel and colon. Findings maybe secondary to other causes of systemic edema. No bowel obstruction or signs of ischemia. MICROBIOLOGY: Please see below. ASSESSMENT: Patient is a 35-year-old female, history of alcoholic steatosis, gastric bypass with perforated viscus and a resultant liver and renal failure presented to the ER with 3 day history of worsening lower extremity edema, found to have significant ascites on CT, now with slight discomfort in the right upper quadrant and epigastric area. Morbid obesity, BMI 41.7. Midline related nonocclusive thrombus Transaminitis Gallbladder sludging /cholelithiasis Decompensated alcoholic liver disease with ascites. abdominal pain due to possible anastomotic ulcer, PUD, or gastritis History of gastric bypass with perforated viscus. history of alcoholic steatosis. , Hypomagnesemia, hypokalemia Anemia requiring 2 units RBC transfusion , Lower extremity edema Plan: Patient has developed a midline radial related nonocclusive thrombus. She'll be started on pelvic rest. Discontinue the midline. Once the peripheral line has been placed. If another peripheral line cannot be placed, which was to be used for IV antibiotics. Patient may be transitioned to Cipro and Flagyl or Omnicef and Flagyl for intra-abdominal coverage. Depending on patient's blood pressure as we diarrhea. She may need albumin infusions. Therefore, an IV line is still needed. VS, I&O, 24H, Fishbone Vital Signs/I&O Vital Signs Date Time Temp Pulse Resp B/P (MAP) Pulse Ox O2 Delivery O2 Flow Rate FiO2 06/21/20 09:17 20 06/21/20 06:54 99.1 132 137/80 (99) 95 Room Air I&O- Last 24 Hours up to 6 AM 06/21/20 06:00 Intake Total 1090 ml Output Total 1725 ml Balance -635 ml Laboratory Data 24H LABS Laboratory Tests 2 06/20/20 18:23: Anion Gap 6L, Glomerular Filtration Rate > 60.0, Calcium Level 7.9L, Whole Blood Ionized Calcium 3.9L 06/21/20 05:20: Immature Granulocyte % (Auto) 0.4, Neutrophils (%) (Auto) 70.4H, Lymphocytes (%) (Auto) 16.9L, Monocytes (%) (Auto) 8.3H, Eosinophils (%) (Auto) 3.4H, Basophils (%) (Auto) 0.6, Neutrophils # (Auto) 6.9, Lymphocytes # (Auto) 1.7, Monocytes # (Auto) 0.8, Eosinophils # (Auto) 0.3, Basophils # (Auto) 0.1, Nucleated Red Blood Cells % (auto) 0.0 06/21/20 05:21: Anion Gap 5L, Glomerular Filtration Rate > 60.0, Calcium Level 7.9L, Whole Blood Ionized Calcium 4.3L, Magnesium Level 1.4L CBC/BMP Laboratory Tests 06/20/20 18:23 06/21/20 05:20 06/21/20 05:21 Microbiology Microbiology 06/18/20 Acid Fast Stain, Received Pending 06/18/20 Mycobacterial Culture, Received Pending 06/18/20 Fungal Smear, Received Pending 06/18/20 Fungal Culture, Received Pending 06/18/20 Gram Stain - Final, Complete 06/18/20 Body Fluid Culture - Final, Complete 06/18/20 Anaerobic Culture - Final, Complete 06/18/20 Blood Culture - Preliminary, Resulted No Growth after 72 hours. All specime... 06/17/20 Urine Culture - Final, Complete 06/14/20 Blood Culture - Final, Complete NO GROWTH AFTER 5 DAYS 06/13/20 Blood Culture - Final, Complete NO GROWTH AFTER 5 DAYS JAYLON WOO MD Jun 21, 2020 11:36
[2020-06-21] MEDS: FUROSEMIDE 40MG/4ML VIAL (J1940) IV SCH ×4 (12:55→23:43)
[2020-06-21 13:58] VITALS: BP 134/79
[2020-06-21] MEDS: cefTRIAXone SOD 2 GM in D5W MINI-BAG PLUS 50 ML IV SCH (14:04)
[2020-06-21 17:00] LABS: BLOOD UREA NITROGEN 4 MG/DL (7-18); CALCIUM LEVEL 8.4 MG/DL (8.5-10.1); CARBON DIOXIDE LEVEL 25 MEQ/L (21-32); CHLORIDE LEVEL 101 MEQ/L (98-107); CREATININE FOR GFR 0.77 MG/DL (0.55-1.30); GLOMERULAR FILTRATION RATE > 60.0 (>60); GLUCOSE, FASTING 114 MG/DL (70-100); MAGNESIUM LEVEL 1.8 MG/DL (1.8-2.4); POTASSIUM SERUM 3.8 MEQ/L (3.5-5.1); SODIUM LEVEL 136 MEQ/L (136-145)
[2020-06-21] MEDS ORDERED: buPROPion **SR TABLET** (ZYBAN) 150MG PO SCH (17:00)
[2020-06-21] MEDS: APIXABAN 5 MG TAB (ELIQUIS) PO SCH (20:56)
[2020-06-21] MEDS: buPROPion **SR TABLET** (ZYBAN) 150MG PO SCH (20:58)
[2020-06-21] MEDS: TRIAMCINOLONE ACET 0.1% OINTMENT 80 GM TOP SCH (20:59)
[2020-06-21 22:00] VITALS: BP 127/72
[2020-06-21] MEDS: diphenhydrAMINE 25MG CAP PO PRN (23:43)
[2020-06-22] MEDS: FUROSEMIDE 40MG/4ML VIAL (J1940) IV SCH ×5 (04:50→21:57)
[2020-06-22 05:51] LABS: BASO # 0.1 10^3/uL (0.0-0.2); BASO % 0.7 % (0.0-1.0); EOS # 0.2 10^3/uL (0.0-0.5); EOS % 1.3 % (0.0-3.0); HEMATOCRIT 31.2 % (36.0-47.0); HEMOGLOBIN 9.8 g/dl (12.0-15.5); LYMPH # 1.9 10^3/uL (1.5-5.0); LYMPH % 16.8 % (24.0-44.0); MEAN CORPUSCULAR HEMOGLOBIN 30.7 pg (27.0-33.0); MEAN CORPUSCULAR HGB CONC 31.4 g/dl (32.0-36.5); MEAN CORPUSCULAR VOLUME 97.8 fl (80.0-96.0); MONO # 0.9 10^3/uL (0.0-0.8); MONO % 8.2 % (0.0-5.0); NEUTROPHILS # 8.1 10^3/uL (1.5-8.5); NEUTROPHILS % 72.6 % (36.0-66.0); PLATELET COUNT, AUTOMATED 208 10^3/uL (150-450); RED BLOOD COUNT 3.19 10^6/uL (4.00-5.40); WHITE BLOOD COUNT 11.2 10^3/uL (4.0-10.0)
[2020-06-22 06:00] VITALS: BP 123/71
[2020-06-22 06:24] LABS: ALBUMIN 1.6 GM/DL (3.2-5.2); ALT/SGPT 20 U/L (12-78); BILIRUBIN,TOTAL 1.5 MG/DL (0.2-1.0); BLOOD UREA NITROGEN 4 MG/DL (7-18); CARBON DIOXIDE LEVEL 29 MEQ/L (21-32); CHLORIDE LEVEL 101 MEQ/L (98-107); CREATININE FOR GFR 0.73 MG/DL (0.55-1.30); GLOMERULAR FILTRATION RATE > 60.0 (>60); GLUCOSE, FASTING 81 MG/DL (70-100); MAGNESIUM LEVEL 1.4 MG/DL (1.8-2.4); SODIUM LEVEL 139 MEQ/L (136-145); TOTAL PROTEIN 6.2 GM/DL (6.4-8.2)
[2020-06-22] MEDS: PERCOCET 5MG/325MG TAB PO PRN ×3 (06:41→22:09)
[2020-06-22] MEDS: LEVOTHYROXINE 125MCG TABLET (0.125MG) PO SCH (06:41)
[2020-06-22] MEDS: MAGNESIUM OXIDE 400 MG TAB (MAG-OX) PO SCH ×2 (11:23→22:08)
[2020-06-22] MEDS: POTASSIUM CHLORIDE 10 MEQ SR TABLET PO SCH ×3 (11:23→22:07)
[2020-06-22] MEDS: PANTOPRAZOLE 40MG TAB (PROTONIX) PO SCH (11:23)
[2020-06-22] MEDS: buPROPion **SR TABLET** (ZYBAN) 150MG PO SCH ×2 (11:24→22:07)
[2020-06-22] MEDS: THIAMINE 100 MG TAB PO SCH (11:24)
[2020-06-22] MEDS: FOLIC ACID 1 MG TAB PO SCH (11:24)
[2020-06-22] MEDS: FERROUS SULFATE 325MG TAB PO SCH (11:24)
[2020-06-22] MEDS: ZINC SULFATE 220 MG CAP PO SCH (11:24)
[2020-06-22] MEDS: MULTIVITAMINS/MINERALS THERAP 1 TAB PO SCH (11:24)
[2020-06-22] MEDS: APIXABAN 5 MG TAB (ELIQUIS) PO SCH ×2 (11:25→22:08)
[2020-06-22] MEDS: TRIAMCINOLONE ACET 0.1% OINTMENT 80 GM TOP SCH ×2 (11:27→22:27)
--- NOTE | 2020-06-22 12:42 | IPNPDOC ---
Date Seen The patient was seen on 06/22/20. Progress Note SUBJECTIVE: no c/o abd pain/n/v/ but admits to discomfort at paracentesis site. no fever or chills. still c/o LE edema and abd fullness. OBJECTIVE: PHYSICAL EXAMINATION: VITAL SIGNS: Please see below GENERAL APPEARANCE: no distress HEENT: moist mucous membranes., No JVD. facial hair. CARDIOVASCULAR: Distant heart sounds sinus rhythm. Tachycardic. No murmurs noted LUNGS: Diminished breath sounds clear to auscultation bilaterally ABDOMEN: Positive bowel sounds 4 quadrants, nontender, nondistended Positive fluid wave No rebound, guarding. Obese abdomen EXTREMITIES: 2+ pitting edema to the sacrum LABORATORY DATA: See below. IMAGING: B/L LE US (06/13/20): No evidence of DVT right or left leg Chest XR (06/13/20): Mild prominence of bronchovascular markings. The lungs are otherwise clear. Gallbladder US (06/13/20): Small amount of sludge in the gallbladder, no biliary dilation is seen. Fatty infiltration of the liver CT Abdomen/Pelvis (06/14/20): Large amount of abdominal and pelvic ascites. Generalized subcutaneous edema. Probable small loculated abscesses in the cul-de-sac. Etiology of the abscess is unclear. No other abscess or loculated fluid collection. Mild jacinta-cholecystic fluid and gallbladder mucosal enhancement. Consider gallbladder ultrasound follow-up. Mild neural edema of the small bowel and colon. Findings maybe secondary to other causes of systemic edema. No bowel obstruction or signs of ischemia. MICROBIOLOGY: Please see below. ASSESSMENT: Patient is a 35-year-old female, history of alcoholic steatosis, gastric bypass with perforated viscus and a resultant liver and renal failure presented to the ER with 3 day history of worsening lower extremity edema, found to have significant ascites on CT, now with slight discomfort in the right upper quadrant and epigastric area. Morbid obesity, BMI 41.7. Midline-catheter related nonocclusive thrombus Transaminitis Gallbladder sludging /cholelithiasis Decompensated alcoholic liver disease with ascites. abdominal pain due to possible anastomotic ulcer, PUD, or gastritis History of gastric bypass with perforated viscus. history of alcoholic steatosis. , Hypomagnesemia, hypokalemia Anemia requiring 2 units RBC transfusion , Lower extremity edema Plan: requires continued diuresis to dry weight of 200lbs, monitor electrolytes. dc midline and continue eliquis bid. monitor for GI bleed or encephalopathy. VS, I&O, 24H, [facility] Vital Signs/I&O Vital Signs Date Time Temp Pulse Resp B/P (MAP) Pulse Ox O2 Delivery O2 Flow Rate FiO2 06/22/20 07:11 16 06/22/20 06:00 99.5 131 123/71 (88) 93 Room Air I&O- Last 24 Hours up to 6 AM 06/22/20 06:00 Intake Total 1120 ml Output Total 2025 ml Balance -905 ml Laboratory Data 24H LABS Laboratory Tests 2 06/21/20 16:04: Anion Gap 10, Glomerular Filtration Rate > 60.0, Calcium Level 8.4L, Whole Blood Ionized Calcium 3.4*L, Magnesium Level 1.8 06/22/20 05:26: Anion Gap 9, Glomerular Filtration Rate > 60.0, Calcium Level 8.0L, Whole Blood Ionized Calcium 4.2L, Magnesium Level 1.4L, Immature Granulocyte % (Auto) 0.4, Neutrophils (%) (Auto) 72.6H, Lymphocytes (%) (Auto) 16.8L, Monocytes (%) (Auto) 8.2H, Eosinophils (%) (Auto) 1.3, Basophils (%) (Auto) 0.7, Neutrophils # (Auto) 8.1, Lymphocytes # (Auto) 1.9, Monocytes # (Auto) 0.9H, Eosinophils # (Auto) 0.2, Basophils # (Auto) 0.1, Nucleated Red Blood Cells % (auto) 0.0, Total Bilirubin 1.5H, Aspartate Amino Transf (AST/SGOT) 46H, Alanine Aminotransferase (ALT/SGPT) 20, Alkaline Phosphatase 125H, Total Protein 6.2L, Albumin 1.6L, Albumin/Globulin Ratio 0.3L CBC/BMP Laboratory Tests 06/21/20 16:04 06/22/20 05:26 Microbiology Microbiology 06/18/20 Acid Fast Stain, Received Pending 06/18/20 Mycobacterial Culture, Received Pending 06/18/20 Fungal Smear, Received Pending 06/18/20 Fungal Culture, Received Pending 06/18/20 Gram Stain - Final, Complete 06/18/20 Body Fluid Culture - Final, Complete 06/18/20 Anaerobic Culture - Final, Complete 06/18/20 Blood Culture - Preliminary, Resulted No Growth after 72 hours. All specime... 06/17/20 Urine Culture - Final, Complete 06/14/20 Blood Culture - Final, Complete NO GROWTH AFTER 5 DAYS 06/13/20 Blood Culture - Final, Complete NO GROWTH AFTER 5 DAYS JAYLON WOO MD Jun 22, 2020 12:42
[2020-06-22] MEDS: cefTRIAXone SOD 2 GM in D5W MINI-BAG PLUS 50 ML IV SCH (13:45)
[2020-06-22 20:53] LABS: BLOOD UREA NITROGEN 5 MG/DL (7-18); CARBON DIOXIDE LEVEL 31 MEQ/L (21-32); CHLORIDE LEVEL 101 MEQ/L (98-107); CREATININE FOR GFR 0.76 MG/DL (0.55-1.30); GLOMERULAR FILTRATION RATE > 60.0 (>60); GLUCOSE, FASTING 102 MG/DL (70-100); MAGNESIUM LEVEL 1.3 MG/DL (1.8-2.4); POTASSIUM SERUM 3.5 MEQ/L (3.5-5.1); SODIUM LEVEL 138 MEQ/L (136-145)
[2020-06-22] MEDS ORDERED: POTASSIUM CHLORIDE 10 MEQ SR TABLET PO ONE (21:15)
[2020-06-22 22:00] VITALS: BP 123/77
[2020-06-22] MEDS: MAG SULF 1GM/100ML (MAG RUN) 1 GM in IV 1 EA IV SCH ×2 (22:28→22:29)
[2020-06-23] MEDS: FUROSEMIDE 40MG/4ML VIAL (J1940) IV SCH ×6 (00:47→22:00)
[2020-06-23] MEDS: diphenhydrAMINE 25MG CAP PO PRN ×2 (01:40→22:04)
[2020-06-23] MEDS: LEVOTHYROXINE 125MCG TABLET (0.125MG) PO SCH (05:42)
[2020-06-23 06:00] VITALS: BP 132/79
[2020-06-23] MEDS: buPROPion **SR TABLET** (ZYBAN) 150MG PO SCH ×2 (08:29→22:05)
[2020-06-23] MEDS: TRIAMCINOLONE ACET 0.1% OINTMENT 80 GM TOP SCH ×2 (08:29→22:06)
[2020-06-23] MEDS: APIXABAN 5 MG TAB (ELIQUIS) PO SCH ×2 (08:29→22:05)
[2020-06-23] MEDS: PANTOPRAZOLE 40MG TAB (PROTONIX) PO SCH (08:29)
[2020-06-23] MEDS: ZINC SULFATE 220 MG CAP PO SCH (08:29)
[2020-06-23] MEDS: MAGNESIUM OXIDE 400 MG TAB (MAG-OX) PO SCH (08:30)
[2020-06-23] MEDS: PERCOCET 5MG/325MG TAB PO PRN (08:32)
[2020-06-23] MEDS: POTASSIUM CHLORIDE 10 MEQ SR TABLET PO SCH ×3 (08:32→22:05)
[2020-06-23] MEDS ORDERED: MAG SULF 1GM/100ML (MAG RUN) 1 GM in IV 1 EA IV ONE ×2 (09:30→11:30)
[2020-06-23] MEDS: MULTIVITAMINS/MINERALS THERAP 1 TAB PO SCH (11:01)
[2020-06-23] MEDS: FOLIC ACID 1 MG TAB PO SCH (11:01)
[2020-06-23] MEDS: FERROUS SULFATE 325MG TAB PO SCH (11:01)
[2020-06-23] MEDS: THIAMINE 100 MG TAB PO SCH (11:02)
[2020-06-23] MEDS: ACETAMINOPHEN TAB 650MG DOSE (2X325MG) PO PRN ×2 (11:04→22:05)
--- NOTE | 2020-06-23 11:20 | IPNPDOC ---
Date Seen The patient was seen on 06/23/20. Progress Note SUBJECTIVE: diuresing well on lasix and denies sob/lightheadedness or dizziness. still has discomfort at paracentesis site but no bleeding or oozing. no fever or chillls. peritoneal fluid shows no organisms. iv abx discontinued. OBJECTIVE: PHYSICAL EXAMINATION: VITAL SIGNS: Please see below GENERAL APPEARANCE: no distress no jaundice or icterus. speaks in full sentences. HEENT: moist mucous membranes., No JVD. facial hair. CARDIOVASCULAR: Distant heart sounds sinus rhythm. Tachycardic. No murmurs noted LUNGS: Diminished breath sounds clear to auscultation bilaterally ABDOMEN: Positive bowel sounds 4 quadrants, nontender, nondistended Positive fluid wave No rebound, guarding. Obese abdomen EXTREMITIES: 1+ pitting edema bilaterally. LABORATORY DATA: See below. IMAGING: B/L LE US (06/13/20): No evidence of DVT right or left leg Chest XR (06/13/20): Mild prominence of bronchovascular markings. The lungs are otherwise clear. Gallbladder US (06/13/20): Small amount of sludge in the gallbladder, no biliary dilation is seen. Fatty infiltration of the liver CT Abdomen/Pelvis (06/14/20): Large amount of abdominal and pelvic ascites. Generalized subcutaneous edema. Probable small loculated abscesses in the cul-de-sac. Etiology of the abscess is unclear. No other abscess or loculated fluid collection. Mild jacinta-cholecystic fluid and gallbladder mucosal enhancement. Consider gallbladder ultrasound follow-up. Mild neural edema of the small bowel and colon. Findings maybe secondary to other causes of systemic edema. No bowel obstruction or signs of ischemia. MICROBIOLOGY: Please see below. ASSESSMENT: Patient is a 35-year-old female, history of alcoholic steatosis, gastric bypass with perforated viscus and a resultant liver and renal failure presented to the ER with 3 day history of worsening lower extremity edema, found to have significant ascites on CT, now with slight discomfort in the right upper quadrant and epigastric area. Morbid obesity, BMI 41.7. Midline-catheter related nonocclusive thrombus Transaminitis Gallbladder sludging /cholelithiasis Decompensated alcoholic liver disease with ascites. abdominal pain due to possible anastomotic ulcer, PUD, or gastritis History of gastric bypass with perforated viscus. history of alcoholic steatosis. , Hypomagnesemia, hypokalemia Anemia requiring 2 units RBC transfusion , Lower extremity edema Plan: dc iv abx. peritoneal fluid shows no organism. continue w iv lasix and eliquis for nonocclusive thrombus. net negative balance daily. pt refusing etoh rehab and says "I'm ok. I haven't drank in months." dc home in 1-2 days once euvolemic and back to baseline dry weight of 200lbs. VS, I&O, 24H, Fishbone Vital Signs/I&O Vital Signs Date Time Temp Pulse Resp B/P (MAP) Pulse Ox O2 Delivery O2 Flow Rate FiO2 06/23/20 08:32 20 06/23/20 06:00 99.1 130 132/79 (96) 92 Room Air I&O- Last 24 Hours up to 6 AM 06/23/20 06:00 Intake Total 1690 ml Output Total 3775 ml Balance -2085 ml Laboratory Data 24H LABS Laboratory Tests 2 06/22/20 20:18: Anion Gap 6L, Glomerular Filtration Rate > 60.0, Calcium Level 8.0L, Magnesium Level 1.3L CBC/BMP Laboratory Tests 06/22/20 20:18 Microbiology Microbiology 06/18/20 Acid Fast Stain, Received Pending 06/18/20 Mycobacterial Culture, Received Pending 06/18/20 Fungal Smear, Received Pending 06/18/20 Fungal Culture, Received Pending 06/18/20 Gram Stain - Final, Complete 06/18/20 Body Fluid Culture - Final, Complete 06/18/20 Anaerobic Culture - Final, Complete 06/18/20 Blood Culture - Final, Complete NO GROWTH AFTER 5 DAYS 06/17/20 Urine Culture - Final, Complete 06/14/20 Blood Culture - Final, Complete NO GROWTH AFTER 5 DAYS 06/13/20 Blood Culture - Final, Complete NO GROWTH AFTER 5 DAYS JAYLON WOO MD Jun 23, 2020 10:19
[2020-06-23] MEDS: MAGNESIUM CHLORIDE 64 MG TABCR (SLO MAG) PO SCH (13:27)
[2020-06-23 14:00] VITALS: BP 113/58
[2020-06-23 22:00] VITALS: BP 115/75
[2020-06-24] MEDS: FUROSEMIDE 40MG/4ML VIAL (J1940) IV SCH ×4 (03:43→22:00)
[2020-06-24 06:00] VITALS: BP 118/71
[2020-06-24] MEDS: LEVOTHYROXINE 125MCG TABLET (0.125MG) PO SCH (06:07)
[2020-06-24] MEDS ORDERED: ELIQ5TAB PO (06:19)
[2020-06-24] MEDS ORDERED: PROP10TA56 PO (06:19)
[2020-06-24] MEDS ORDERED: SPIR-10 PO (06:19)
[2020-06-24] MEDS ORDERED: LASI20TA3 PO (06:19)
[2020-06-24] MEDS ORDERED: PROT20TA11 PO (06:19)
[2020-06-24 07:12] LABS: BASO # 0.1 10^3/uL (0.0-0.2); BASO % 0.6 % (0.0-1.0); EOS # 0.3 10^3/uL (0.0-0.5); EOS % 2.6 % (0.0-3.0); HEMATOCRIT 27.9 % (36.0-47.0); HEMOGLOBIN 8.8 g/dl (12.0-15.5); LYMPH # 1.7 10^3/uL (1.5-5.0); LYMPH % 16.7 % (24.0-44.0); MEAN CORPUSCULAR HEMOGLOBIN 30.8 pg (27.0-33.0); MEAN CORPUSCULAR HGB CONC 31.5 g/dl (32.0-36.5); MEAN CORPUSCULAR VOLUME 97.6 fl (80.0-96.0); MONO # 0.9 10^3/uL (0.0-0.8); MONO % 8.9 % (0.0-5.0); NEUTROPHILS # 7.2 10^3/uL (1.5-8.5); NEUTROPHILS % 70.8 % (36.0-66.0); PLATELET COUNT, AUTOMATED 194 10^3/uL (150-450); RED BLOOD COUNT 2.86 10^6/uL (4.00-5.40); WHITE BLOOD COUNT 10.1 10^3/uL (4.0-10.0)
[2020-06-24 07:41] LABS: ERYTHROCYTE SEDIMENTATION RATE 31 mm/hr (0-20)
[2020-06-24 07:47] LABS: ALBUMIN 1.4 GM/DL (3.2-5.2); ALT/SGPT 16 U/L (12-78); AMYLASE 16 U/L (25-115); BILIRUBIN,TOTAL 1.5 MG/DL (0.2-1.0); BLOOD UREA NITROGEN 6 MG/DL (7-18); CALCIUM LEVEL 7.6 MG/DL (8.5-10.1); CARBON DIOXIDE LEVEL 34 MEQ/L (21-32); CHLORIDE LEVEL 99 MEQ/L (98-107); CREATININE FOR GFR 0.78 MG/DL (0.55-1.30); GLOMERULAR FILTRATION RATE > 60.0 (>60); GLUCOSE, FASTING 84 MG/DL (70-100); LIPASE 67 U/L (73-393); MAGNESIUM LEVEL 1.5 MG/DL (1.8-2.4); POTASSIUM SERUM 2.9 MEQ/L (3.5-5.1); SODIUM LEVEL 138 MEQ/L (136-145); TOTAL PROTEIN 5.7 GM/DL (6.4-8.2)
[2020-06-24] MEDS ORDERED: FUROSEMIDE 20 MG TAB PO SCH (09:00)
[2020-06-24] MEDS: MAGNESIUM CHLORIDE 64 MG TABCR (SLO MAG) PO SCH (09:06)
[2020-06-24] MEDS: SPIRONOLACTONE 25 MG TAB PO SCH (09:06)
[2020-06-24] MEDS: ZINC SULFATE 220 MG CAP PO SCH (09:06)
[2020-06-24] MEDS: buPROPion **SR TABLET** (ZYBAN) 150MG PO SCH ×2 (09:07→22:28)
[2020-06-24] MEDS: PANTOPRAZOLE 20 MG TAB PO SCH (09:07)
[2020-06-24] MEDS: PROPRANOLOL 10 MG TAB PO SCH ×2 (09:07→21:00)
[2020-06-24] MEDS: APIXABAN 5 MG TAB (ELIQUIS) PO SCH ×2 (09:08→22:28)
[2020-06-24] MEDS: TRIAMCINOLONE ACET 0.1% OINTMENT 80 GM TOP SCH ×2 (09:08→22:29)
[2020-06-24] MEDS: POTASSIUM CHLORIDE 10 MEQ SR TABLET PO SCH ×3 (09:08→11:20)
[2020-06-24] MEDS: CALCIUM GLUCONATE 1,000 MG in D5W MINI-BAG PLUS 100 ML IV SCH ×2 (09:09→10:31)
[2020-06-24] MEDS: ACETAMINOPHEN TAB 650MG DOSE (2X325MG) PO PRN ×2 (11:20→17:59)
[2020-06-24] MEDS: FERROUS SULFATE 325MG TAB PO SCH (11:20)
[2020-06-24] MEDS: THIAMINE 100 MG TAB PO SCH (11:20)
[2020-06-24] MEDS: MAG SULF 1GM/100ML (MAG RUN) 1 GM in IV 1 EA IV SCH ×2 (11:20→12:53)
[2020-06-24] MEDS: MULTIVITAMINS/MINERALS THERAP 1 TAB PO SCH (11:20)
[2020-06-24] MEDS: FOLIC ACID 1 MG TAB PO SCH (11:20)
[2020-06-24] MEDS ORDERED: KETOROLAC 30 MG/ML 1ML VIAL IV ONE (12:15)
[2020-06-24 14:00] VITALS: BP 107/54
[2020-06-24 14:56] LABS: MAGNESIUM LEVEL 2.1 MG/DL (1.8-2.4); POTASSIUM SERUM 3.8 MEQ/L (3.5-5.1)
[2020-06-24] MEDS: METOCLOPRAMIDE INJ 10MG/2ML VIAL (J2765 PER 1) IV SCH ×2 (17:08→21:00)
--- NOTE | 2020-06-24 17:48 | IPNPDOC ---
Date Seen The patient was seen on 06/24/20. Progress Note SUBJECTIVE: c/o weakness. not cleared by PT. hard to get out of bed needing help. no n/v tolerating diet. decreased LE edema. denies BETTS. c/o menstrual pain and nausea. OBJECTIVE: PHYSICAL EXAMINATION: VITAL SIGNS: Please see below GENERAL APPEARANCE: no pallor or jaundice. no conversational dyspnea HEENT: moist mucous membranes., No JVD. facial hair. CARDIOVASCULAR: Distant heart sounds sinus rhythm. Tachycardic. LUNGS:clear to auscultation bilaterally ABDOMEN: Positive bowel sounds 4 quadrants, nontender, nondistended No rebound, guarding. Obese abdomen EXTREMITIES: 1+ pitting edema bilaterally. LABORATORY DATA: See below. IMAGING: B/L LE US (06/13/20): No evidence of DVT right or left leg Chest XR (06/13/20): Mild prominence of bronchovascular markings. The lungs are otherwise clear. Gallbladder US (06/13/20): Small amount of sludge in the gallbladder, no biliary dilation is seen. Fatty infiltration of the liver CT Abdomen/Pelvis (06/14/20): Large amount of abdominal and pelvic ascites. Generalized subcutaneous edema. Probable small loculated abscesses in the cul-de-sac. Etiology of the abscess is unclear. No other abscess or loculated fluid collection. Mild jacinta-cholecystic fluid and gallbladder mucosal enhancement. Consider gallbladder ultrasound follow-up. Mild neural edema of the small bowel and colon. Findings maybe secondary to other causes of systemic ed luly. No bowel obstruction or signs of ischemia. MICROBIOLOGY: Please see below. ASSESSMENT: Patient is a 35-year-old female, history of alcoholic steatosis, gastric bypass with perforated viscus and a resultant liver and renal failure presented to the ER with 3 day history of worsening lower extremity edema, found to have significant ascites on CT, now with slight discomfort in the right upper quadrant and epigastric area. Decompensated alcoholic liver disease with ascites. -continue w iv lasix, fluid restriction, propranolol outpt referral to gi. ETOH rehab as outpt abdominal pain due to possible anastomotic ulcer, PUD, or gastritis -on PPI. on reglan for nausea. -History of gastric bypass with perforated viscus. Electrolyte abnormalities -due to diuresis with lasix - Hypomagnesemia, hypokalemia repleted Anemia requiring 2 units RBC transfusion -no overt GI bleed low grade temp w ascites and abd pain -ruled out sbp -dc'ed iv abx. peritoneal fluid shows no organism. Morbid obesity, BMI 41.7. -needs sleep study as outpt , weight loss program Midline-catheter related nonocclusive thrombus -dc'ed midline -on eliquis Transaminitis Gallbladder sludging /cholelithiasis -asx. outpt lap amanda Menstrual pain -given toradol poor iv access -s/p midline catheter which was discontinued due to clot. VS, I&O, 24H, Fishbone Vital Signs/I&O Vital Signs Date Time Temp Pulse Resp B/P (MAP) Pulse Ox O2 Delivery O2 Flow Rate FiO2 06/24/20 14:00 98.9 93 16 107/54 (71) 98 Room Air I&O- Last 24 Hours up to 6 AM 06/24/20 06:00 Intake Total 1300 ml Output Total 1800 ml Balance -500 ml Laboratory Data 24H LABS Laboratory Tests 2 06/24/20 06:55: Immature Granulocyte % (Auto) 0.4, Neutrophils (%) (Auto) 70.8H, Lymphocytes (%) (Auto) 16.7L, Monocytes (%) (Auto) 8.9H, Eosinophils (%) (Auto) 2.6, Basophils (%) (Auto) 0.6, Neutrophils # (Auto) 7.2, Lymphocytes # (Auto) 1.7, Monocytes # (Auto) 0.9H, Eosinophils # (Auto) 0.3, Basophils # (Auto) 0.1, Nucleated Red Blood Cells % (auto) 0.0, Erythrocyte Sedimentation Rate 31H, Anion Gap 5L, Glomerular Filtration Rate > 60.0, Calcium Level 7.6L, Whole Blood Ionized Calcium 3.9L, Magnesium Level 1.5L, Total Bilirubin 1.5H, Aspartate Amino Transf (AST/SGOT) 45H, Alanine Aminotransferase (ALT/SGPT) 16, Alkaline Phosphatase 121H, C-Reactive Protein, Quantitative 0.30, Total Protein 5.7L, Albumin 1.4L, Albumin/Globulin Ratio 0.3L, Amylase Level 16L, Lipase 67L 06/24/20 14:09: Whole Blood Ionized Calcium 4.1L, Magnesium Level 2.1 CBC/BMP Laboratory Tests 06/24/20 06:55 06/24/20 14:09 Microbiology Microbiology 06/18/20 Acid Fast Stain, Received Pending 06/18/20 Mycobacterial Culture, Received Pending 06/18/20 Fungal Smear, Received Pending 06/18/20 Fungal Culture, Received Pending 06/18/20 Gram Stain - Final, Complete 06/18/20 Body Fluid Culture - Final, Complete 06/18/20 Anaerobic Culture - Final, Complete 06/18/20 Blood Culture - Final, Complete NO GROWTH AFTER 5 DAYS 06/17/20 Urine Culture - Final, Complete 06/14/20 Blood Culture - Final, Complete NO GROWTH AFTER 5 DAYS JAYLON WOO MD Jun 24, 2020 17:48
[2020-06-24] MEDS: ALPRAZolam 0.5 MG TAB PO PRN (17:59)
[2020-06-24 22:00] VITALS: BP 103/55
[2020-06-25 00:31] LABS: CALCIUM LEVEL 7.9 MG/DL (8.5-10.1); CREATININE FOR GFR 1.19 MG/DL (0.55-1.30); GLOMERULAR FILTRATION RATE 55.3 (>60); POTASSIUM SERUM 4.2 MEQ/L (3.5-5.1)
[2020-06-25 02:00] VITALS: BP 94/50
[2020-06-25] MEDS: FUROSEMIDE 40MG/4ML VIAL (J1940) IV SCH ×6 (02:00→22:21)
[2020-06-25] MEDS: LEVOTHYROXINE 125MCG TABLET (0.125MG) PO SCH (05:47)
[2020-06-25 05:58] LABS: BASO # 0.1 10^3/uL (0.0-0.2); BASO % 0.9 % (0.0-1.0); EOS # 0.4 10^3/uL (0.0-0.5); EOS % 2.9 % (0.0-3.0); HEMATOCRIT 29.9 % (36.0-47.0); HEMOGLOBIN 9.6 g/dl (12.0-15.5); LYMPH # 2.7 10^3/uL (1.5-5.0); LYMPH % 18.9 % (24.0-44.0); MEAN CORPUSCULAR HEMOGLOBIN 31.5 pg (27.0-33.0); MEAN CORPUSCULAR HGB CONC 32.1 g/dl (32.0-36.5); MONO # 1.2 10^3/uL (0.0-0.8); MONO % 8.6 % (0.0-5.0); NEUTROPHILS # 9.6 10^3/uL (1.5-8.5); NEUTROPHILS % 68.3 % (36.0-66.0); PLATELET COUNT, AUTOMATED 228 10^3/uL (150-450); RED BLOOD COUNT 3.05 10^6/uL (4.00-5.40)
[2020-06-25 06:00] VITALS: BP 98/75
[2020-06-25 06:27] LABS: CALCIUM LEVEL 7.9 MG/DL (8.5-10.1); CREATININE FOR GFR 1.25 MG/DL (0.55-1.30); GLOMERULAR FILTRATION RATE 52.2 (>60); MAGNESIUM LEVEL 1.9 MG/DL (1.8-2.4)
[2020-06-25] MEDS: METOCLOPRAMIDE INJ 10MG/2ML VIAL (J2765 PER 1) IV SCH ×4 (07:30→20:49)
[2020-06-25] MEDS: PROPRANOLOL 10 MG TAB PO SCH ×2 (09:00→21:00)
[2020-06-25] MEDS: SPIRONOLACTONE 25 MG TAB PO SCH (09:00)
[2020-06-25] MEDS: THIAMINE 100 MG TAB PO SCH (10:54)
[2020-06-25] MEDS: APIXABAN 5 MG TAB (ELIQUIS) PO SCH ×2 (10:54→20:50)
[2020-06-25] MEDS: FERROUS SULFATE 325MG TAB PO SCH (10:54)
[2020-06-25] MEDS: FOLIC ACID 1 MG TAB PO SCH (10:54)
[2020-06-25] MEDS: ZINC SULFATE 220 MG CAP PO SCH (10:54)
[2020-06-25] MEDS: ACETAMINOPHEN TAB 650MG DOSE (2X325MG) PO PRN ×2 (10:55→20:49)
[2020-06-25] MEDS: buPROPion **SR TABLET** (ZYBAN) 150MG PO SCH ×2 (10:55→20:50)
[2020-06-25] MEDS: TRIAMCINOLONE ACET 0.1% OINTMENT 80 GM TOP SCH ×2 (10:55→22:22)
[2020-06-25] MEDS: MULTIVITAMINS/MINERALS THERAP 1 TAB PO SCH (10:55)
[2020-06-25] MEDS: MAGNESIUM CHLORIDE 64 MG TABCR (SLO MAG) PO SCH (10:56)
[2020-06-25] MEDS: PANTOPRAZOLE 20 MG TAB PO SCH (11:00)
[2020-06-25 14:00] VITALS: BP 108/72
[2020-06-25 18:20] VITALS: BP 113/71
--- NOTE | 2020-06-25 21:44 | IPNPDOC ---
Subjective Date Seen The patient was seen on 06/25/20. Subjective Chief Complaint/HPI Ms. Ramos is a 35-year-old female w who is here with decompensated alcoholic liver disease. This morning she had blood clots secondary to her period. She has her period around the end of the month into the beginning of the next month. Otherwise denies any fever or chills, chest pain, dyspnea, or dysuria. She does have menstrual cramps Objective Physical Examination General Exam: Positive: Cooperative Eye Exam: Positive: EOMI; Negative: Sclera icteric ENT Exam: Positive: Atraumatic Neck Exam: Positive: Supple Chest Exam: Positive: Clear to auscultation Heart Exam: Positive: Tachycardic Abdomen Exam: Positive: Normal bowel sounds, Soft; Negative: Tenderness Extremity Exam: Positive: Edema (bilateral pitting) Neuro Exam: Positive: Cranial Nerves 3-12 NL Psych Exam: Positive: Mood NL; Negative: Anxiety Assessment /Plan Assessment Ms. Ramos is a 35-year-old female w who is here with decompensated alcoholic liver disease. She has not tolerated diuresis with low blood pressure. Will consider decreasing the diuretics tomorrow or trying a Lasix drip. Otherwise, she is on Eliquis for midline-catheter related nonocclusive thrombus Plan/VTE VTE Prophylaxis Ordered?: Yes Plan 1. Decompensated alcoholic liver disease with ascites Continue with diuresis, fluid restriction, propranolol Patient refused GI workup. Patient will need outpatient referral to GI Alcohol rehabilitation as outpatient 2. Ascites No SBP Develops of been continued 3. Midline catheter related nonocclusive thrombus Midline removed On Eliquis 4. Menstrual pain She is having her period -Toradol as needed for pain 5. Hypothyroidism Continue levothyroxine 6. DVT prophylaxis On Eliquis VS, I&O, 24H, Fishbone Vital Signs/I&O Vital Signs Date Time Temp Pulse Resp B/P (MAP) Pulse Ox O2 Delivery O2 Flow Rate FiO2 06/25/20 18:20 122 113/71 (85) 06/25/20 14:00 98.5 18 94 Room Air I&O- Last 24 Hours up to 6 AM 06/25/20 06:00 Intake Total 1770 ml Output Total 1425 ml Balance 345 ml Laboratory Data 24H LABS Laboratory Tests 2 06/25/20 00:00: Anion Gap 3L, Glomerular Filtration Rate 55.3L, Calcium Level 7.9L 06/25/20 05:32: Anion Gap 3L, Glomerular Filtration Rate 52.2L, Calcium Level 7.9L, Immature Granulocyte % (Auto) 0.4, Neutrophils (%) (Auto) 68.3H, Lymphocytes (%) (Auto) 18.9L, Monocytes (%) (Auto) 8.6H, Eosinophils (%) (Auto) 2.9, Basophils (%) (Auto) 0.9, Neutrophils # (Auto) 9.6H, Lymphocytes # (Auto) 2.7, Monocytes # (Auto) 1.2H, Eosinophils # (Auto) 0.4, Basophils # (Auto) 0.1, Nucleated Red Blood Cells % (auto) 0.0, Whole Blood Ionized Calcium 4.2L, Magnesium Level 1.9 CBC/BMP Laboratory Tests 06/25/20 00:00 06/25/20 05:32 Microbiology Microbiology 06/18/20 Acid Fast Stain, Received Pending 06/18/20 Mycobacterial Culture, Received Pending 06/18/20 Fungal Smear, Received Pending 06/18/20 Fungal Culture, Received Pending 06/18/20 Gram Stain - Final, Complete 06/18/20 Body Fluid Culture - Final, Complete 06/18/20 Anaerobic Culture - Final, Complete 06/18/20 Blood Culture - Final, Complete NO GROWTH AFTER 5 DAYS 06/17/20 Urine Culture - Final, Complete PETERSON HILLIARD DO Jun 25, 2020 21:44
[2020-06-25 22:00] VITALS: BP 116/74
[2020-06-26] VITALS (10 sets, daily range): BP systolic 102–120; BP diastolic 57–68
[2020-06-26] MEDS: FUROSEMIDE 40MG/4ML VIAL (J1940) IV SCH ×2 (02:00→06:19)
[2020-06-26] MEDS: diphenhydrAMINE 25MG CAP PO PRN (02:40)
[2020-06-26] MEDS: LEVOTHYROXINE 125MCG TABLET (0.125MG) PO SCH (06:19)
[2020-06-26 06:25] LABS: HEMATOCRIT 24.9 % (36.0-47.0); HEMOGLOBIN 7.8 g/dl (12.0-15.5); MEAN CORPUSCULAR HEMOGLOBIN 30.7 pg (27.0-33.0); MEAN CORPUSCULAR HGB CONC 31.3 g/dl (32.0-36.5); PLATELET COUNT, AUTOMATED 211 10^3/uL (150-450); RED BLOOD COUNT 2.54 10^6/uL (4.00-5.40); WHITE BLOOD COUNT 13.7 10^3/uL (4.0-10.0)
[2020-06-26 07:03] LABS: ALBUMIN 1.3 GM/DL (3.2-5.2); BILIRUBIN,TOTAL 1.6 MG/DL (0.2-1.0); CALCIUM LEVEL 7.6 MG/DL (8.5-10.1); CREATININE FOR GFR 1.9 MG/DL (0.55-1.30); GLOMERULAR FILTRATION RATE 32.2 (>60); POTASSIUM SERUM 3.8 MEQ/L (3.5-5.1); TOTAL PROTEIN 5.4 GM/DL (6.4-8.2)
[2020-06-26] MEDS: METOCLOPRAMIDE INJ 10MG/2ML VIAL (J2765 PER 1) IV SCH ×4 (07:45→20:50)
[2020-06-26] MEDS: ZINC SULFATE 220 MG CAP PO SCH (08:41)
[2020-06-26] MEDS: buPROPion **SR TABLET** (ZYBAN) 150MG PO SCH ×2 (08:41→20:50)
[2020-06-26] MEDS: TRIAMCINOLONE ACET 0.1% OINTMENT 80 GM TOP SCH (08:42)
[2020-06-26] MEDS: MAGNESIUM CHLORIDE 64 MG TABCR (SLO MAG) PO SCH (08:42)
[2020-06-26] MEDS: PANTOPRAZOLE 20 MG TAB PO SCH (10:05)
[2020-06-26 11:04] LABS: HEMATOCRIT 23.7 % (36.0-47.0); HEMOGLOBIN 7.7 g/dl (12.0-15.5); MEAN CORPUSCULAR HEMOGLOBIN 31.7 pg (27.0-33.0); MEAN CORPUSCULAR HGB CONC 32.5 g/dl (32.0-36.5); MEAN CORPUSCULAR VOLUME 97.5 fl (80.0-96.0); PLATELET COUNT, AUTOMATED 185 10^3/uL (150-450); RED BLOOD COUNT 2.43 10^6/uL (4.00-5.40)
[2020-06-26] MEDS ORDERED: NS 1,000 ML IV SCH (12:17)
[2020-06-26] MEDS: MULTIVITAMINS/MINERALS THERAP 1 TAB PO SCH (12:20)
[2020-06-26] MEDS: FERROUS SULFATE 325MG TAB PO SCH (12:21)
[2020-06-26] MEDS: FOLIC ACID 1 MG TAB PO SCH (12:21)
[2020-06-26] MEDS: THIAMINE 100 MG TAB PO SCH (12:21)
[2020-06-26] MEDS: ACETAMINOPHEN TAB 650MG DOSE (2X325MG) PO PRN (12:21)
[2020-06-26 19:43] LABS: MEAN CORPUSCULAR HEMOGLOBIN 30.2 pg (27.0-33.0); MEAN CORPUSCULAR HGB CONC 32.3 g/dl (32.0-36.5); MEAN CORPUSCULAR VOLUME 93.5 fl (80.0-96.0); PLATELET COUNT, AUTOMATED 191 10^3/uL (150-450); RED BLOOD COUNT 3.21 10^6/uL (4.00-5.40); WHITE BLOOD COUNT 16.6 10^3/uL (4.0-10.0)
[2020-06-26 19:47] LABS: HEMOGLOBIN 9.7 g/dl (12.0-15.5)
--- NOTE | 2020-06-26 20:36 | IPNPDOC ---
Subjective Date Seen The patient was seen on 06/26/20. Subjective Chief Complaint/HPI Ms. Ramos is a 35-year-old female w who is here with decompensated alcoholic liver disease. She continues to have menses. This morning, H&H had dropped to 7.8 and re-confirmed. Due to her hypotension yesterday and drop in H&H, Eliquis, Lasix, spironolactone, and propranolol were held. Discussed transfusion with her. Otherwise, she denies fever, chest pain, dyspnea, or abdominal pain. Objective Physical Examination General Exam: Positive: Cooperative Eye Exam: Positive: EOMI; Negative: Sclera icteric ENT Exam: Positive: Atraumatic Neck Exam: Positive: Supple Chest Exam: Positive: Clear to auscultation Heart Exam: Positive: Tachycardic Abdomen Exam: Positive: Normal bowel sounds, Soft; Negative: Tenderness Extremity Exam: Positive: Edema (bilateral pitting) Neuro Exam: Positive: Cranial Nerves 3-12 NL Psych Exam: Positive: Mood NL; Negative: Anxiety Assessment /Plan Assessment Ms. Ramos is a 35-year-old female w who is here with decompensated alcoholic liver disease. She has not tolerated diuresis with low blood pressure, but she also had an acute drop in H&H. This may be secondary to Eliquis and her menses. Eliquis was held and she was transfused 2u of pRBC. Plan/VTE VTE Prophylaxis Ordered?: Yes Plan 1. Decompensated alcoholic liver disease with ascites Continue with diuresis, fluid restriction, propranolol Patient refused GI workup. Patient will need outpatient referral to GI Alcohol rehabilitation as outpatient 2. Acute blood loss anemia -Secondary to menses and Eliquis. -Held Eliquis and transfused 2u pRBC 3. Ascites No SBP Develops of been continued 4. Midline catheter related nonocclusive thrombus Midline removed On Eliquis 5. Menstrual pain Normally has her menses at the end of the month to the beginning of the month 6. Hypothyroidism Continue levothyroxine 7. DVT prophylaxis On Eliquis VS, I&O, 24H, Fishbone Vital Signs/I&O Vital Signs Date Time Temp Pulse Resp B/P (MAP) Pulse Ox O2 Delivery O2 Flow Rate FiO2 06/26/20 18:26 98.8 120 16 105/62 99 Room Air I&O- Last 24 Hours up to 6 AM 06/26/20 06:00 Intake Total 990 ml Output Total 500 ml Balance 490 ml Laboratory Data 24H LABS Laboratory Tests 2 06/26/20 06:09: Nucleated Red Blood Cells % (auto) 0.0, Anion Gap 5L, Glomerular Filtration Rate 32.2L, Calcium Level 7.6L, Total Bilirubin 1.6H, Aspartate Amino Transf (AST/SGOT) 43H, Alanine Aminotransferase (ALT/SGPT) 16, Alkaline Phosphatase 109, Total Protein 5.4L, Albumin 1.3L, Albumin/Globulin Ratio 0.3L 06/26/20 10:44: Nucleated Red Blood Cells % (auto) 0.0 06/26/20 19:28: Nucleated Red Blood Cells % (auto) 0.0 CBC/BMP Laboratory Tests 06/26/20 06:09 06/26/20 10:44 06/26/20 19:28 Microbiology Microbiology 06/18/20 Acid Fast Stain, Received Pending 06/18/20 Mycobacterial Culture, Received Pending 06/18/20 Fungal Smear, Received Pending 06/18/20 Fungal Culture, Received Pending 06/18/20 Gram Stain - Final, Complete 06/18/20 Body Fluid Culture - Final, Complete 06/18/20 Anaerobic Culture - Final, Complete 06/18/20 Blood Culture - Final, Complete NO GROWTH AFTER 5 DAYS 06/17/20 Urine Culture - Final, Complete PETERSON HILLIARD DO Jun 26, 2020 20:36
[2020-06-27] MEDS: ALPRAZolam 0.5 MG TAB PO PRN (02:35)
[2020-06-27 04:11] LABS: HEMATOCRIT 26.8 % (36.0-47.0); HEMOGLOBIN 8.7 g/dl (12.0-15.5); MEAN CORPUSCULAR HEMOGLOBIN 29.8 pg (27.0-33.0); MEAN CORPUSCULAR HGB CONC 32.5 g/dl (32.0-36.5); MEAN CORPUSCULAR VOLUME 91.8 fl (80.0-96.0); PLATELET COUNT, AUTOMATED 179 10^3/uL (150-450); RED BLOOD COUNT 2.92 10^6/uL (4.00-5.40); WHITE BLOOD COUNT 13.2 10^3/uL (4.0-10.0)
[2020-06-27] MEDS: LEVOTHYROXINE 125MCG TABLET (0.125MG) PO SCH (05:42)
[2020-06-27 05:52] LABS: MEAN CORPUSCULAR HEMOGLOBIN 30.2 pg (27.0-33.0); MEAN CORPUSCULAR HGB CONC 33.3 g/dl (32.0-36.5); MEAN CORPUSCULAR VOLUME 90.6 fl (80.0-96.0); PLATELET COUNT, AUTOMATED 174 10^3/uL (150-450); RED BLOOD COUNT 2.98 10^6/uL (4.00-5.40); WHITE BLOOD COUNT 12.9 10^3/uL (4.0-10.0)
[2020-06-27 06:00] VITALS: BP 106/63
[2020-06-27 06:21] LABS: ALBUMIN 1.4 GM/DL (3.2-5.2); BILIRUBIN,TOTAL 2.6 MG/DL (0.2-1.0); CALCIUM LEVEL 7.9 MG/DL (8.5-10.1); CREATININE FOR GFR 1.87 MG/DL (0.55-1.30); GLOMERULAR FILTRATION RATE 32.8 (>60); POTASSIUM SERUM 3.4 MEQ/L (3.5-5.1); TOTAL PROTEIN 5.3 GM/DL (6.4-8.2)
[2020-06-27] MEDS ORDERED: POTASSIUM CHLORIDE 10 MEQ SR TABLET PO ONE (07:15)
[2020-06-27] MEDS: ZINC SULFATE 220 MG CAP PO SCH (09:30)
[2020-06-27] MEDS: MAGNESIUM CHLORIDE 64 MG TABCR (SLO MAG) PO SCH (09:30)
[2020-06-27] MEDS: buPROPion **SR TABLET** (ZYBAN) 150MG PO SCH ×2 (09:30→21:30)
[2020-06-27] MEDS: METOCLOPRAMIDE INJ 10MG/2ML VIAL (J2765 PER 1) IV SCH ×4 (09:30→21:31)
[2020-06-27] MEDS: PANTOPRAZOLE 20 MG TAB PO SCH (09:33)
[2020-06-27] MEDS: FERROUS SULFATE 325MG TAB PO SCH (12:44)
[2020-06-27] MEDS: FOLIC ACID 1 MG TAB PO SCH (12:44)
[2020-06-27] MEDS: MULTIVITAMINS/MINERALS THERAP 1 TAB PO SCH (12:44)
[2020-06-27] MEDS: THIAMINE 100 MG TAB PO SCH (12:44)
[2020-06-27 14:00] VITALS: BP 121/73
--- NOTE | 2020-06-27 14:12 | CR ---
CONSULTATION REQUESTING PHYSICIAN: Dr. Toro Green CONSULTING PHYSICIAN: Dr. Cali REASON FOR CONSULTATION: Management of acute renal failure and fluid overload in this patient with history of liver cirrhosis. CHIEF COMPLAINT: Patient presented to the hospital on June 14 with bilateral lower extremity edema. HISTORY OF PRESENT ILLNESS: Aixa Ramos is a 35-year-old female with a past medical history of liver cirrhosis, history of gastric bypass, history of recent perforated viscus, requiring surgery in March, and she needed to stay in rehabilitation after that. She presented to the hospital about 2 weeks ago with progressive lower extremity edema, inability to walk. She was admitted under the hospitalist service. She was started on high-dose diuretics, including loop diuretic and daily metolazone. She was diuresing well with that. Her creatinine on arrival was 0.4. Patient got a dose of intravenous (IV) Toradol on 06/24/2020, and after that her creatinine started bumping up, and it bumped up to 1.9 on June 26, and it is 1.87 today. The nephrology service was called for further help in the management of this patient. I saw and evaluated the patient today morning at the bedside. She was able to provide the history. She still has persistent lower extremity edema. PAST MEDICAL HISTORY: 1. Acute renal failure requiring dialysis. 2. History of liver cirrhosis. 3. Hypothyroidism. 4. Macrocytic anemia. 5. Previous history of alcohol dependence. 6. Treatment. 7. Morbid obesity. PAST SURGICAL HISTORY: 1. Status post gastric bypass in 2011. 2. Status post perforated viscus repair in March 2020 somewhere in [place]. ALLERGIES: No known drug allergies. FAMILY HISTORY: No significant family history of end-stage renal disease requiring hemodialysis. SOCIAL HISTORY: Patient is currently living with her parents; however, before this she was in [place]. She was a heavy alcohol drinker for almost 7 years. She quit drinking in March 2020 when she got sick and had perforated viscus. REVIEW OF SYSTEMS: CONSTITUTIONAL: She denies any fever or chills. She does report weakness. EYES: She denies any blurry vision or double vision. ENT: She denies any dysphagia or odynophagia. CARDIOVASCULAR: She does report history of tachycardia. RESPIRATORY: She reports mild shortness of breath. GASTROINTESTINAL: She reports history of gastric bypass, history of liver cirrhosis. She denies any constipation or diarrhea. GENITOURINARY: She denies any difficulty with urination, dysuria, or hematuria. MUSCULOSKELETAL: She reports muscle weakness. SKIN: She reports lower extremity edema. HEMATOLOGIC/ONCOLOGIC: She denies any easy bleeding or bruising. PSYCHIATRIC: She denies any depression or anxiety. CENTRAL NERVOUS SYSTEM: She denies any strokes, dizziness, or syncope. All other review of systems is negative. PHYSICAL EXAMINATION: GENERAL: Patient is awake, alert, oriented times three, morbidly obese, sitting up in the bed. VITAL SIGNS: Temperature is 97.4 degrees Fahrenheit, blood pressure 106/63, pulse is 118, respiratory rate of 17, saturating 94% on room air. Intake and output: Urine output is not recorded at this time. Weight in the bed scale was 98.8 kg yesterday. HEAD AND NECK: Extraocular muscles intact. Pupils equally round and reactive to light. Mucous membranes are moist. Neck is supple. There is mildly elevated jugular venous distention (JVD). CARDIOVASCULAR: S1, S2, regular rate. Edema 3+ of the bilateral lower extremities all the way up to the thighs. RESPIRATORY: Mildly decreased breath sounds at the bases and mild inspiratory crackles at the bases. Otherwise, negative for rales or rhonchi. ABDOMEN: Soft, obese. Positive bowel sounds. Old surgical scars in the abdomen. There is positive abdominal wall edema bilaterally and in the abdominal panus. GENITOURINARY: Bladder is not palpable. MUSCULOSKELETAL: Edema 3+ of the bilateral lower extremities. SKIN: No rashes or ulcers. PSYCHIATRIC: Normal mood and affect. CENTRAL NERVOUS SYSTEM: No focal deficits. Power is 5/5 in all extremities. LABORATORY REVIEW: CBC showed a WBC 12.9, hemoglobin is 9, platelets are 174. There is on recent urinalysis available. Last urinalysis was on June 17, where there was 1+ blood. There was no protein and 25 WBCs. BMP showed today sodium 135, potassium 3.4, chloride 99, bicarbonate 31, BUN 16. Creatinine is 1.8; it was 1.9 yesterday. Calcium 7.9. Total bilirubin is 2.6, albumin is 1.4. Immunology: and ANCA is negative. anti-centromere and anti-smooth muscle antibodies negative. AMA is negative. COVID-19 is negative. Helicobacter (H) pylori antibody IgM is positive. Microbiology: Blood cultures and urine culture are negative. IMAGING DATA: Patient has a CT scan of the abdomen and pelvis on June 13, which showed moderate abdominal and pelvic ascites, mild mucosal thickening of the small bowel loops, diffuse soft tissue edema in the abdominal wall. CURRENT INPATIENT MEDICATIONS: Patient's medications were all reviewed by myself. - She is on Tylenol as needed. - Xanax as needed for anxiety - bupropion 150 mg by mouth twice a day - Benadryl as needed - iron tablet 325 mg by mouth daily - folic acid 1 mg by mouth daily - levothyroxine 125 mcg by mouth daily - magnesium chloride 64 mg by mouth daily - Reglan as needed - I have started the patient on midodrine 2.5 mg by mouth every 8 hours - She is on multivitamin. - Protonix 20 mg by mouth daily - She was given a dose of potassium chloride 40 mEq times one dose - thiamine 150 mg by mouth daily - zinc sulfate 220 mg by mouth daily - Patient was given a dose of Toradol 30 mg intravenous (IV) on June 24. ASSESSMENT: 1. Acute renal failure. It is most likely secondary to use of high dose of loop diuretics along with metolazone with intravascular volume depletion because of low albumin and third spacing of the fluid, and on top of that patient was given Toradol. Renal function is gradually improving. Hold the diuretics at this time. Continue the midodrine that was started today. Once the renal function starts improving back to baseline, I would start the patient back on diuretics. 2. Hypokalemia. Patient was already given potassium chloride in the morning. 3. Anasarca. Patient has signs of fluid overload; however, because of acute renal failure, diuretics are on hold. She has normal left ventricular (LV) ejection fraction, very low albumin levels. I am not giving her albumin today, since she just got blood transfusion yesterday. If renal function does not start improving, then albumin might be started along with diuretics. At this point, diuretics are on hold because of renal failure. 4. Anemia. Patient got packed red blood cells (PRBC) transfusion yesterday. Hemoglobin level is 9, which is stable. Anticoagulation is on hold. 5. Hyponatremia. Patient has hypervolemic hyponatremia. Sodium level should improve once we start diuresing the patient. Thank you for involving me in the care of this patient. I shall be happy to follow the patient along with you tomorrow morning.
[2020-06-27] MEDS: MIDODRINE 2.5 MG TAB PO SCH ×2 (14:58→16:56)
[2020-06-27 19:15] LABS: HEMATOCRIT 28.5 % (36.0-47.0); HEMOGLOBIN 9.3 g/dl (12.0-15.5); MEAN CORPUSCULAR HEMOGLOBIN 30.2 pg (27.0-33.0); MEAN CORPUSCULAR HGB CONC 32.6 g/dl (32.0-36.5); MEAN CORPUSCULAR VOLUME 92.5 fl (80.0-96.0); PLATELET COUNT, AUTOMATED 187 10^3/uL (150-450); RED BLOOD COUNT 3.08 10^6/uL (4.00-5.40); WHITE BLOOD COUNT 15.5 10^3/uL (4.0-10.0)
--- NOTE | 2020-06-27 21:11 | IPNPDOC ---
Subjective Date Seen The patient was seen on 06/27/20. Subjective Chief Complaint/HPI Ms. Ramos is a 35-year-old female who is here with decompensated alcoholic liver disease. She was transfused with 2u pRBC last night and responded appropriately. She denies any symptoms. She tells me that her menses has slowed down. Otherwise denies fever, chest pain, dyspnea, or abdominal pain. Nephrology was consulted due to AUDRA in the setting of cirrhosis and anasarca. Recommendations appreciated Objective Physical Examination General Exam: Positive: Cooperative Eye Exam: Positive: EOMI; Negative: Sclera icteric ENT Exam: Positive: Atraumatic Neck Exam: Positive: Supple Chest Exam: Positive: Clear to auscultation Heart Exam: Positive: Tachycardic Abdomen Exam: Positive: Normal bowel sounds, Soft; Negative: Tenderness Extremity Exam: Positive: Edema (bilateral pitting) Neuro Exam: Positive: Cranial Nerves 3-12 NL Psych Exam: Positive: Mood NL; Negative: Anxiety Assessment /Plan Assessment Ms. Ramos is a 35-year-old female w who is here with decompensated alcoholic liver disease. Attempted diuresis, but patient became hypotensive. She did have acute anemia which may have contributed with her hypotension. She developed AUDRA which is a combination of aggressive diuresis, IV NSAID, and hypotension. Nephrology following, recommendations appreciated Plan/VTE VTE Prophylaxis Ordered?: Yes Plan 1. Decompensated alcoholic liver disease with ascites Continue with fluid restriction. Diuresis and propanolol held due to hypotension and AUDRA Patient refused GI workup. Patient will need outpatient referral to GI Alcohol rehabilitation as outpatient 2. AUDRA -Nephrology following, recommendations appreciated -Secondary to diuresis, IV NSAID, and hypotension -On Midodrine 3. Acute blood loss anemia -Secondary to menses and Eliquis. -Held Eliquis and transfused 2u pRBC 4. Ascites No SBP Nephrology following to help with diuresis, recommendations appreciated 5. Midline catheter related nonocclusive thrombus Midline removed Eliquis held due to acute anemia 6. Menstrual pain Normally has her menses at the end of the month to the beginning of the month -Resolving 6. Hypothyroidism Continue levothyroxine 7. DVT prophylaxis SCD and TEDs VS, I&O, 24H, Fishbone Vital Signs/I&O Vital Signs Date Time Temp Pulse Resp B/P (MAP) Pulse Ox O2 Delivery O2 Flow Rate FiO2 06/27/20 14:00 98.7 125 18 121/73 (89) 99 Room Air I&O- Last 24 Hours up to 6 AM 06/27/20 06:00 Intake Total 1940 ml Output Total 100 ml Balance 1840 ml Laboratory Data 24H LABS Laboratory Tests 2 06/27/20 04:01: Nucleated Red Blood Cells % (auto) 0.3H 06/27/20 05:37: Nucleated Red Blood Cells % (auto) 0.0, Anion Gap 5L, Glomerular Filtration Rate 32.8L, Calcium Level 7.9L, Total Bilirubin 2.6#H, Aspartate Amino Transf (AST/SG OT) 44H, Alanine Aminotransferase (ALT/SGPT) 16, Alkaline Phosphatase 108, Total Protein 5.3L, Albumin 1.4L, Albumin/Globulin Ratio 0.4L 06/27/20 18:55: Nucleated Red Blood Cells % (auto) 0.0 CBC/BMP Laboratory Tests 06/27/20 04:01 06/27/20 05:37 06/27/20 18:55 Microbiology Microbiology 06/18/20 Acid Fast Stain, Received Pending 06/18/20 Mycobacterial Culture, Received Pending 06/18/20 Fungal Smear, Received Pending 06/18/20 Fungal Culture, Received Pending 06/18/20 Gram Stain - Final, Complete 06/18/20 Body Fluid Culture - Final, Complete 06/18/20 Anaerobic Culture - Final, Complete 06/18/20 Blood Culture - Final, Complete NO GROWTH AFTER 5 DAYS 06/17/20 Urine Culture - Final, Complete PETERSON HILLIARD DO Jun 27, 2020 21:11
[2020-06-27 22:00] VITALS: BP 129/82
[2020-06-28] MEDS: ALPRAZolam 0.5 MG TAB PO PRN ×2 (00:53→12:48)
[2020-06-28 06:00] VITALS: BP 120/73
[2020-06-28] MEDS: LEVOTHYROXINE 125MCG TABLET (0.125MG) PO SCH (06:05)
[2020-06-28] MEDS: ACETAMINOPHEN TAB 650MG DOSE (2X325MG) PO PRN (06:05)
[2020-06-28 06:30] LABS: ALBUMIN 1.5 GM/DL (3.2-5.2); CALCIUM LEVEL 7.5 MG/DL (8.5-10.1); CREATININE FOR GFR 1.72 MG/DL (0.55-1.30); GLOMERULAR FILTRATION RATE 36.1 (>60); PHOSPHORUS LEVEL 4.5 MG/DL (2.5-4.9); POTASSIUM SERUM 3.7 MEQ/L (3.5-5.1)
[2020-06-28 07:24] LABS: HEMATOCRIT 27.6 % (36.0-47.0); HEMOGLOBIN 9.1 g/dl (12.0-15.5); MEAN CORPUSCULAR HEMOGLOBIN 30.4 pg (27.0-33.0); MEAN CORPUSCULAR VOLUME 92.3 fl (80.0-96.0); PLATELET COUNT, AUTOMATED 173 10^3/uL (150-450); RED BLOOD COUNT 2.99 10^6/uL (4.00-5.40); WHITE BLOOD COUNT 11.5 10^3/uL (4.0-10.0)
[2020-06-28] MEDS: METOCLOPRAMIDE INJ 10MG/2ML VIAL (J2765 PER 1) IV SCH ×4 (07:30→21:00)
[2020-06-28] MEDS: MIDODRINE 2.5 MG TAB PO SCH ×2 (09:40→12:44)
[2020-06-28] MEDS: PANTOPRAZOLE 20 MG TAB PO SCH (09:40)
[2020-06-28] MEDS: buPROPion **SR TABLET** (ZYBAN) 150MG PO SCH ×2 (09:40→21:35)
[2020-06-28] MEDS: ZINC SULFATE 220 MG CAP PO SCH (09:41)
[2020-06-28] MEDS: MAGNESIUM CHLORIDE 64 MG TABCR (SLO MAG) PO SCH (09:41)
--- NOTE | 2020-06-28 10:56 | IPNPDOC ---
Subjective Date Seen The patient was seen on 06/28/20. Subjective Chief Complaint/HPI Ms. Ramos is a 35-year-old female who is here with decompensated alcoholic liver disease. No overnight events. This morning, denies fever, chest pain, dyspnea, or abdominal pain. She tells me that her menses is over. Objective Physical Examination General Exam: Positive: Cooperative Eye Exam: Positive: EOMI; Negative: Sclera icteric ENT Exam: Positive: Atraumatic Neck Exam: Positive: Supple Chest Exam: Positive: Clear to auscultation Heart Exam: Positive: Tachycardic Abdomen Exam: Positive: Normal bowel sounds, Soft; Negative: Tenderness Extremity Exam: Positive: Edema (bilateral pitting) Neuro Exam: Positive: Cranial Nerves 3-12 NL Psych Exam: Positive: Mood NL; Negative: Anxiety Assessment /Plan Assessment Ms. Ramos is a 35-year-old female w who is here with decompensated alcoholic liver disease. Attempted diuresis, but patient became hypotensive. She did have acute anemia which may have contributed with her hypotension. She developed AUDRA which is a combination of aggressive diuresis, IV NSAID, and hypotension. Nephrology following, recommendations appreciated. Plan/VTE VTE Prophylaxis Ordered?: Yes Plan 1. Decompensated alcoholic liver disease with ascites Continue with fluid restriction. Diuresis and propanolol held due to hypotension and AUDRA Patient refused GI workup. Patient will need outpatient referral to GI Alcohol rehabilitation as outpatient 2. AUDRA -Nephrology following, recommendations appreciated -Secondary to diuresis, IV NSAID, and hypotension -On Midodrine 3. Acute blood loss anemia -Secondary to menses and Eliquis. -Held Eliquis and transfused 2u pRBC 4. Ascites No SBP Nephrology following to help with diuresis, recommendations appreciated 5. Midline catheter related nonocclusive thrombus Midline removed Eliquis held due to acute anemia 6. Menstrual pain Normally has her menses at the end of the month to the beginning of the month -Resolving 6. Hypothyroidism Continue levothyroxine 7. DVT prophylaxis SCD and TEDs Disposition: When her hemoglobin remains stable and she is restarted on diuretics, we can start considering discharge and restarting Eliquis VS, I&O, 24H, Fishbone Vital Signs/I&O Vital Signs Date Time Temp Pulse Resp B/P (MAP) Pulse Ox O2 Delivery O2 Flow Rate FiO2 12/4/20 06:00 98.1 117 18 120/73 (89) 93 Room Air I&O- Last 24 Hours up to 6 AM 06/28/20 06:00 Intake Total 570 ml Output Total 350 ml Balance 220 ml Laboratory Data 24H LABS Laboratory Tests 2 06/27/20 18:55: Nucleated Red Blood Cells % (auto) 0.0 06/28/20 05:43: Anion Gap 8, Glomerular Filtration Rate 36.1L, Calcium Level 7.5L, Phosphorus Level 4.5, Albumin 1.5L 06/28/20 07:06: Nucleated Red Blood Cells % (auto) 0.0 CBC/BMP Laboratory Tests 06/27/20 18:55 06/28/20 05:43 06/28/20 07:06 Microbiology Microbiology 06/18/20 Acid Fast Stain, Received Pending 06/18/20 Mycobacterial Culture, Received Pending 06/18/20 Fungal Smear, Received Pending 06/18/20 Fungal Culture, Received Pending 06/18/20 Gram Stain - Final, Complete 06/18/20 Body Fluid Culture - Final, Complete 06/18/20 Anaerobic Culture - Final, Complete 06/18/20 Blood Culture - Final, Complete NO GROWTH AFTER 5 DAYS PETERSON HILLIARD DO Jun 28, 2020 10:56
[2020-06-28] MEDS: MULTIVITAMINS/MINERALS THERAP 1 TAB PO SCH (12:44)
[2020-06-28] MEDS: FOLIC ACID 1 MG TAB PO SCH (12:44)
[2020-06-28] MEDS: FERROUS SULFATE 325MG TAB PO SCH (12:44)
[2020-06-28] MEDS: THIAMINE 100 MG TAB PO SCH (12:44)
[2020-06-28] MEDS ORDERED: POTASSIUM CHLORIDE 10 MEQ SR TABLET PO ONE (13:00)
[2020-06-28] MEDS ORDERED: FUROSEMIDE 40MG/4ML VIAL (J1940) IV ONE (13:15)
[2020-06-28 14:00] VITALS: BP 127/75
[2020-06-28 15:13] VITALS: BP 125/74
[2020-06-28] MEDS: MIDODRINE 5 MG TAB PO SCH (17:06)
[2020-06-28] MEDS: FUROSEMIDE injection 250 MG in D5W 225 ML IV SCH (17:44)
[2020-06-28] MEDS ORDERED: CALCIUM GLUCONATE 1,000 MG in D5W MINI-BAG PLUS 100 ML IV ONE (21:00)
--- NOTE | 2020-06-28 21:38 | IPN ---
NEPHROLOGY PROGRESS NOTE DATE: 06/28/2020 SUBJECTIVE: The patient was seen and examined at the bedside today morning. She was laying in the bed. Renal function is slightly better. Creatinine is down to 1.7. The patient reports persistent lower extremity edema and abdominal edema. She also reports mild shortness of breath. Her blood pressures are better after initiation of Midodrine yesterday. She still reports some weakness and walks with the help of a walker. OBJECTIVE: VITAL SIGNS: Temperature is 98.1 degrees Fahrenheit, blood pressure 120/73, pulse is 117, respiratory rate of 18, saturating 93% on room air. Intake and Output urine output is not recorded well. The patient has some incontinent voids. Weight on the bed scale is not available. PHYSICAL EXAMINATION: GENERAL APPEARANCE: The patient is awake, alert, oriented x3, morbidly obese, laying in the bed. HEAD AND NECK: Extraocular muscles intact. Pupils are equally round and reactive to light. Neck is supple. I could not appreciate jugular venous distention because of the body habitus. CARDIOVASCULAR: S1, S2, tachycardia. EXTREMITIES: 3+ edema of the bilateral lower extremities, all the way up to the thighs. RESPIRATORY: Mildly decreased breath sounds at the bases. Otherwise no active rales or rhonchi. ABDOMEN: Obese. I could not appreciate any organomegaly. There is significant abdominal wall edema and there is edema in the panus and the lower abdomen. GENITOURINARY: I could not palpate her bladder. MUSCULOSKELETAL: She has significant edema of the bilateral lower extremities starting from the ankles, all the way up to her thighs. CAMP COORDINATOR: No focal deficits. Power is 5/5 in bilateral upper extremities. LAB REVIEW: CBC showed a WBC of 11.5, hemoglobin is 9.1, platelets of 173. BMP showed sodium 135, potassium 3.7, chloride 100, bicarbonate 27, BUN 22, creatinine is 1.7. It was 1.8 yesterday. Phosphorous is 4.5. Albumin is 1.5. CURRENT INPATIENT MEDICATIONS: The patient's medications were all reviewed by myself. I have started the patient on Lasix injection 40 mg IV stat followed by Lasix drip at 10 mg per hour. Her Midodrine dose has been increased to 5 mg p.o. q. 8 hourly. She was also given potassium chloride 40 mEq times one dose. ASSESSMENT AND PLAN: 1. Acute renal failure it was mostly likely secondary to the use of Toradol. Her diuretics were held. Renal function is gradually improving. However the patient has significant anasarca and management has been started, as mentioned below. Continue to monitor daily weight and intake and output. 2. Anasarca - The patient has very low albumin level. She has protein calorie malnutrition and because of that she has surge spacing of the fluid. I have started the patient on IV albumin infusions and Lasix drip at 10 mg an hour. 3. Hyponatremia - The patient has hypervolemic hyponatremia. I am hopeful that with the diuresis her sodium should get better. 4. Protein calorie malnutrition - The patient has very low albumin levels. She is getting a low fat and low cholesterol diet. I have added daily protein shakes with her diet. 5. Hypotension it has responded well to the use of Midodrine. Dose has been increased to 5 mg p.o. three times daily. 6. Hypocalcemia The patient will be given IV calcium gluconate today.
[2020-06-28 22:00] VITALS: BP 124/73
[2020-06-29] MEDS: LEVOTHYROXINE 125MCG TABLET (0.125MG) PO SCH (05:51)
[2020-06-29 06:00] VITALS: BP 114/70
[2020-06-29 06:29] LABS: HEMATOCRIT 26.6 % (36.0-47.0); HEMOGLOBIN 8.5 g/dl (12.0-15.5); MEAN CORPUSCULAR HEMOGLOBIN 29.9 pg (27.0-33.0); MEAN CORPUSCULAR VOLUME 93.7 fl (80.0-96.0); PLATELET COUNT, AUTOMATED 172 10^3/uL (150-450); RED BLOOD COUNT 2.84 10^6/uL (4.00-5.40); WHITE BLOOD COUNT 10.2 10^3/uL (4.0-10.0)
[2020-06-29 06:49] LABS: CREATININE FOR GFR 1.5 MG/DL (0.55-1.30); GLOMERULAR FILTRATION RATE 42.3 (>60); POTASSIUM SERUM 2.8 MEQ/L (3.5-5.1)
[2020-06-29 06:50] LABS: ALBUMIN 1.7 GM/DL (3.2-5.2); CALCIUM LEVEL 7.8 MG/DL (8.5-10.1); PHOSPHORUS LEVEL 4.5 MG/DL (2.5-4.9)
[2020-06-29] MEDS ORDERED: MAG SULF 1GM/100ML (MAG RUN) 1 GM in IV 1 EA IV ONE (07:15)
[2020-06-29] MEDS ORDERED: KCL 10MEQ/100ML SWI (KRUN) 10 MEQ in IV 1 EA IV SCH (08:00)
[2020-06-29] MEDS: METOCLOPRAMIDE INJ 10MG/2ML VIAL (J2765 PER 1) IV SCH ×3 (09:48→17:20)
[2020-06-29] MEDS: MAGNESIUM CHLORIDE 64 MG TABCR (SLO MAG) PO SCH (09:48)
[2020-06-29] MEDS: SPIRONOLACTONE 25 MG TAB PO SCH (09:49)
[2020-06-29] MEDS: PANTOPRAZOLE 20 MG TAB PO SCH (09:49)
[2020-06-29] MEDS: ZINC SULFATE 220 MG CAP PO SCH (09:49)
[2020-06-29] MEDS: POTASSIUM CHLORIDE 10 MEQ SR TABLET PO SCH ×3 (09:49→23:29)
[2020-06-29] MEDS: MIDODRINE 5 MG TAB PO SCH ×3 (09:49→17:19)
[2020-06-29] MEDS: buPROPion **SR TABLET** (ZYBAN) 150MG PO SCH ×2 (09:49→20:16)
[2020-06-29] MEDS ORDERED: CALCIUM GLUCONATE 1,000 MG in D5W MINI-BAG PLUS 100 ML IV ONE (10:00)
[2020-06-29] MEDS: THIAMINE 100 MG TAB PO SCH (11:23)
[2020-06-29] MEDS: FOLIC ACID 1 MG TAB PO SCH (11:24)
[2020-06-29] MEDS: MULTIVITAMINS/MINERALS THERAP 1 TAB PO SCH (11:24)
[2020-06-29] MEDS: FERROUS SULFATE 325MG TAB PO SCH (11:24)
[2020-06-29] MEDS ORDERED: POTASSIUM CHLORIDE 10 MEQ SR TABLET PO ONE ×3 (12:00→18:00)
[2020-06-29] MEDS: IRON SUCROSE 100 MG in NS 100 ML IV SCH (12:48)
[2020-06-29 14:00] VITALS: BP 115/71
[2020-06-29 15:12] LABS: CALCIUM LEVEL 8.3 MG/DL (8.5-10.1); CREATININE FOR GFR 1.54 MG/DL (0.55-1.30); GLOMERULAR FILTRATION RATE 41.1 (>60)
--- NOTE | 2020-06-29 16:29 | IPNPDOC ---
Subjective Date Seen The patient was seen on 06/29/20. Subjective Chief Complaint/HPI Ms. Ramos is a 35-year-old female who is here with decompensated alcoholic liver disease. Last night started on Lasix drip with good response. Potassium, magnesium, and calcium low. Due to Lasix drip and being a hard stick, she has the IV lasix on one side and IV magnesium and IV calcium on the other. IV potassium held in favor of PO potassium. Frequent BMP checks as on Lasix drip. Otherwise, she has not yet had more bleeding. No fever, chest pain, dyspnea, or abdominal pain. Objective Physical Examination General Exam: Positive: Cooperative Eye Exam: Positive: EOMI; Negative: Sclera icteric ENT Exam: Positive: Atraumatic Neck Exam: Positive: Supple Chest Exam: Positive: Clear to auscultation Heart Exam: Positive: Tachycardic Abdomen Exam: Positive: Normal bowel sounds, Soft; Negative: Tenderness Extremity Exam: Positive: Edema (bilateral pitting) Neuro Exam: Positive: Cranial Nerves 3-12 NL Psych Exam: Positive: Mood NL; Negative: Anxiety Assessment /Plan Assessment Ms. Ramos is a 35-year-old female w who is here with decompensated alcoholic li jarret disease. Attempted diuresis, but patient became hypotensive. She did have acute anemia which may have contributed with her hypotension. She developed AUDRA which is a combination of aggressive diuresis, IV NSAID, and hypotension. Nephrology following, recommendations appreciated. Plan/VTE VTE Prophylaxis Ordered?: Yes Plan 1. Decompensated alcoholic liver disease with ascites Continue with fluid restriction Patient refused GI workup. Patient will need outpatient referral to GI Alcohol rehabilitation as outpatient -On lasix drip, monitoring BMP 2. AUDRA -Nephrology following, recommendations appreciated -Secondary to diuresis, IV NSAID, and hypotension -On Midodrine 3. Acute blood loss anemia -Secondary to menses and Eliquis. -Held Eliquis and transfused 2u pRBC. Total of 4u pRBC during hospitalization 4. Ascites No SBP Nephrology following to help with diuresis, recommendations appreciated 5. Midline catheter related nonocclusive thrombus Midline removed Eliquis held due to acute anemia 6. Menstrual pain Normally has her menses at the end of the month to the beginning of the month -Resolving 6. Hypothyroidism Continue levothyroxine 7. DVT prophylaxis SCD and TEDs Disposition: When her hemoglobin remains stable and fluid balance optimized, we can start considering discharge, restarting Eliquis, and restarting oral diuretics. VS, I&O, 24H, Fishbone Vital Signs/I&O Vital Signs Date Time Temp Pulse Resp B/P (MAP) Pulse Ox O2 Delivery O2 Flow Rate FiO2 06/29/20 14:00 97.7 86 16 115/71 (86) 97 Room Air I&O- Last 24 Hours up to 6 AM 06/29/20 06:00 Intake Total 1790 ml Output Total 2500 ml Balance -710 ml Laboratory Data 24H LABS Laboratory Tests 2 06/29/20 06:10: Nucleated Red Blood Cells % (auto) 0.0, Anion Gap 8, Glomerular Filtration Rate 42.3L, Calcium Level 7.8L, Whole Blood Ionized Calcium 4.3L, Phosphorus Level 4.5, Magnesium Level 1.5L, Albumin 1.7L 06/29/20 14:13: Bedside Glucose (Misc Panel) 83 06/29/20 14:33: Anion Gap 7L, Glomerular Filtration Rate 41.1L, Calcium Level 8.3L CBC/BMP Laboratory Tests 06/29/20 06:10 06/29/20 14:33 PETERSON HILLIARD DO Jun 29, 2020 16:29
[2020-06-29] MEDS: FUROSEMIDE injection 250 MG in D5W 225 ML IV SCH (17:19)
[2020-06-29] MEDS: NYSTATIN 100,000 UNITS/GM TOPICAL PWD 15 GM TOP SCH (20:17)
[2020-06-29 20:40] LABS: CREATININE FOR GFR 1.53 MG/DL (0.55-1.30); GLOMERULAR FILTRATION RATE 41.4 (>60); POTASSIUM SERUM 3.4 MEQ/L (3.5-5.1)
[2020-06-29 21:08] VITALS: BP 116/69
[2020-06-30] MEDS: ALPRAZolam 0.5 MG TAB PO PRN (02:00)
[2020-06-30 02:23] LABS: CALCIUM LEVEL 8.2 MG/DL (8.5-10.1); CREATININE FOR GFR 1.48 MG/DL (0.55-1.30); POTASSIUM SERUM 4.2 MEQ/L (3.5-5.1)
[2020-06-30] MEDS: LEVOTHYROXINE 125MCG TABLET (0.125MG) PO SCH (05:50)
[2020-06-30 06:00] VITALS: BP 117/72
--- NOTE | 2020-06-30 09:11 | IPN ---
PROGRESS NOTE DATE: 06/29/2020 SUBJECTIVE: Patient was seen and examined at the bedside today morning. She was started on Lasix drop yesterday and also on albumin infusions. She is responding well to the Lasix drip, she is making a lot of urine. Her renal function is stable despite the aggressive diuresis. She reports persistent lower extremity and abdominal wall edema. Otherwise, she denies any active complaints. OBJECTIVE: Vital signs: Temperature is 97.6 degrees Fahrenheit, blood pressure is 115/71, pulse is 86, respiratory rate of 16, saturating 97% on room air. Intake and output: Urine output recorded is 950 mL yesterday, by the time I saw her in the morning she had made 1700 mL of urine. Weight in the bed scale is 97.7 kg. PHYSICAL EXAMINATION: General: Patient is awake, alert, oriented times three, morbidly obese, laying in bed, no apparent distress. Head and neck exam: Extraocular muscles intact. Pupils equally round and reactive to light. Mucous membranes are moist. Neck is supple. There is no jugular venous distension (JVD). Cardiovascular: S1, S2, regular rate. 3+ edema of the bilateral lower extremities starting from ankles all the way up to the thighs. Respiratory: Mildly decreased breath sounds at the bases, otherwise no active rales or rhonchi. Abdomen: Obese, there is abdominal wall edema. Genitourinary: No Bess catheter is noted. Bladder is not palpable. Musculoskeletal: Significant edema of the lower extremities as mentioned above, otherwise no clubbing or cyanosis. Central nervous system (QUALITY ASSURANCE TEST PROGRAM MANAGER): No focal deficits. Power is 5/5 in all extremities. LABORATORY REVIEW: CBC showed WBC of 10.2, hemoglobin 8.5, platelets are 172. BMP showed sodium 138, potassium 2.8, chloride 100, bicarbonate is 30, BUN 21, creatinine is 1.5, calcium 7.8, ionized calcium 4.3, magnesium 1.5. CURRENT INPATIENT MEDICATIONS: Patient's medications were all reviewed by myself. She is getting Lasix infusion at 10 mg/hour. I also gave her a dose of calcium gluconate IV. I have started her on IV Venofer. She is also getting oral potassium 40 mEq for a total of three doses today. ASSESSMENT AND PLAN: 1. Acute renal failure superimposed on chronic kidney disease. She has liver cirrhosis. She came in with fluid overload. She was aggressively being diuresed and on top of that she got a dose of ketorolac that caused a bump in the creatinine. However, she is tolerating the current diuretic dose. Continue to monitor intake and output. Renal function is improving. 2. Anasarca. Patient is currently on IV Lasix drip. She is making urine. Continue daily weights. She has significant edema. She will need IV Lasix infusion for a few more days. 3. Hypokalemia. It is secondary to aggressive diuresis. She has been started on potassium 40 mEq by mouth for a total of three doses today 8 hours apart. I have also started her on spironolactone 25 mg by mouth daily. 4. Protein calorie malnutrition. Continue daily protein shakes and because of the low albumin I have also added IV albumin to help with diuresis and improve her anasarca. 5. Hypotension. She is responding well. Her midodrine dose was increased to 5 mg by mouth three times a day. 6. Hypocalcemia. She is getting IV calcium gluconate. 7. Hypomagnesemia. Magnesium sulfate 1 gram IV times one dose was given today.
[2020-06-30 09:18] LABS: HEMATOCRIT 28.3 % (36.0-47.0); HEMOGLOBIN 9.1 g/dl (12.0-15.5); MEAN CORPUSCULAR HEMOGLOBIN 30.5 pg (27.0-33.0); MEAN CORPUSCULAR HGB CONC 32.2 g/dl (32.0-36.5); PLATELET COUNT, AUTOMATED 203 10^3/uL (150-450); RED BLOOD COUNT 2.98 10^6/uL (4.00-5.40); WHITE BLOOD COUNT 12.9 10^3/uL (4.0-10.0)
[2020-06-30 09:48] LABS: CALCIUM LEVEL 7.7 MG/DL (8.5-10.1); CREATININE FOR GFR 1.55 MG/DL (0.55-1.30); GLOMERULAR FILTRATION RATE 40.7 (>60); POTASSIUM SERUM 3.9 MEQ/L (3.5-5.1)
[2020-06-30] MEDS: buPROPion **SR TABLET** (ZYBAN) 150MG PO SCH ×2 (09:56→21:06)
[2020-06-30] MEDS: MIDODRINE 5 MG TAB PO SCH ×3 (09:57→16:09)
[2020-06-30] MEDS: ZINC SULFATE 220 MG CAP PO SCH (09:57)
[2020-06-30] MEDS: POTASSIUM CHLORIDE 10 MEQ SR TABLET PO SCH ×3 (09:57→21:07)
[2020-06-30] MEDS: PANTOPRAZOLE 20 MG TAB PO SCH (09:57)
[2020-06-30] MEDS: MAGNESIUM CHLORIDE 64 MG TABCR (SLO MAG) PO SCH (09:57)
[2020-06-30] MEDS: SPIRONOLACTONE 25 MG TAB PO SCH ×2 (09:58→21:07)
[2020-06-30] MEDS: IRON SUCROSE 100 MG in NS 100 ML IV SCH (09:58)
[2020-06-30] MEDS: NYSTATIN 100,000 UNITS/GM TOPICAL PWD 15 GM TOP SCH ×2 (09:58→21:08)
[2020-06-30 11:03] LABS: MAGNESIUM LEVEL 1.6 MG/DL (1.8-2.4)
[2020-06-30] MEDS: MULTIVITAMINS/MINERALS THERAP 1 TAB PO SCH (12:01)
[2020-06-30] MEDS: THIAMINE 100 MG TAB PO SCH (12:01)
[2020-06-30] MEDS: FERROUS SULFATE 325MG TAB PO SCH (12:01)
[2020-06-30] MEDS: FOLIC ACID 1 MG TAB PO SCH (12:01)
[2020-06-30] MEDS: METOCLOPRAMIDE INJ 10MG/2ML VIAL (J2765 PER 1) IV PRN (12:36)
[2020-06-30] MEDS: MAG SULF 1GM/100ML (MAG RUN) 1 GM in IV 1 EA IV SCH ×2 (12:37→13:48)
[2020-06-30] MEDS: MAGNESIUM OXIDE 400 MG TAB (MAG-OX) PO SCH ×2 (13:49→21:07)
[2020-06-30 14:00] VITALS: BP 112/70
[2020-06-30] MEDS: FUROSEMIDE injection 250 MG in D5W 225 ML IV SCH (16:09)
--- NOTE | 2020-06-30 19:22 | IPN ---
NEPHROLOGY PROGRESS NOTE DATE: 06/30/2020 SUBJECTIVE: The patient was seen and examined at the bedside today morning. She is making a very good amount of urine. She reports that her lower extremity edema is getting better. Her renal function is stable. She continues to be on Lasix drip. I was told by the nursing staff today that she has one IV line which is causing a problem now, but it is very difficult to insert an IV line in her because of anasarca. The patient will likely need a PICC line placement. OBJECTIVE: VITAL SIGNS: Temperature is 98.7 degrees Fahrenheit, blood pressure 112/70, pulse is 112, respiratory rate of 18, saturating 97% on room air. Intake and Output urine output recorded as 3.8 liters yesterday, 1.1 liters so far today since overnight. Weight on the bed scale is 95.8 kg. PHYSICAL EXAMINATION: GENERAL APPEARANCE: The patient is awake, alert, oriented x3, morbidly obese, laying in bed in no apparent distress. HEAD AND NECK: Extraocular muscles intact. Pupils are equally round and reactive to light. Mucous membranes are moist. Neck is supple. There is no jugular venous distention. CARDIOVASCULAR: Tachycardia. EXTREMITIES: 3+ edema of the bilateral lower extremities. RESPIRATORY: Chest is clear to auscultation bilaterally. Bilaterally currently no rales or rhonchi. ABDOMEN: Soft, obese, positive bowel sounds. Abdominal wall edema was noted. MUSCULOSKELETAL: 3+ edema of the bilateral lower extremities all the way up to the thighs. PURCHASING ADMINISTRATIVE ASSISTANT: No focal deficits. Power is 5/5 in all extremities. LAB REVIEW: CBC showed a WBC of 12.9, hemoglobin is 9.1, platelets are 203. BMP showed sodium 138, potassium 3.9, chloride 103, bicarbonate 26, BUN 19, creatinine is 1.5. It was 1.48 yesterday. Calcium is 7.7, magnesium is 1.6, CURRENT INPATIENT MEDICATIONS: The patient's medications were all reviewed by myself. She continues to be on Lasix infusion at 10 mg an hour. Her Spironolactone dose was increased to 25 mg p.o. twice daily. She has also been started on potassium chloride 40 mEq twice daily and she was given magnesium sulfate one gram IV x2 doses. ASSESSMENT AND PLAN: 1. Acute renal failure superimposed on chronic kidney disease - The patient's renal function is stable despite excessive diuresis. Continue the current diuretic regimen. 2. Anasarca - continue Lasix infusion at 10 mg an hour. Continue daily weight and intake and output. IV albumin is also being given to help with further diuresis and improvement of the tissue edema. 3. Hypokalemia - The patient has been started on potassium chloride at 14 mEq p.o. twice daily. Spironolactone has been increased to 25 mg twice daily. 4. Hypervolemic hyponatremia - sodium level is getting better with aggressive diuresis. 5. Iron deficiency anemia she is getting IV Venofer. Hemoglobin level is stable and improving. 6. Hypomagnesemia - The patient got one dose of magnesium sulfate IV. She has also been started on oral magnesium oxide. 7. Hypotension - continue current dose of Midodrine 5 mg p.o. three times daily.
[2020-06-30 19:55] LABS: CALCIUM LEVEL 8.1 MG/DL (8.5-10.1); CREATININE FOR GFR 1.34 MG/DL (0.55-1.30); GLOMERULAR FILTRATION RATE 48.2 (>60); POTASSIUM SERUM 3.8 MEQ/L (3.5-5.1)
--- NOTE | 2020-06-30 20:04 | IPNPDOC ---
Subjective Date Seen The patient was seen on 06/30/20. Subjective Chief Complaint/HPI Ms. Ramos is a 35-year-old female who is here with decompensated alcoholic liver disease. No events overnight. This morning, denies fever, chest pain, dyspnea, abdominal pain, or dysuria. Bilateral leg edema improved. Diuresing well with lasix drip and albumin. Objective Physical Examination General Exam: Positive: Cooperative Eye Exam: Positive: EOMI; Negative: Sclera icteric ENT Exam: Positive: Atraumatic Neck Exam: Positive: Supple Chest Exam: Positive: Clear to auscultation Heart Exam: Positive: Tachycardic Abdomen Exam: Positive: Normal bowel sounds, Soft; Negative: Tenderness Extremity Exam: Positive: Edema (bilateral pitting) Neuro Exam: Positive: Cranial Nerves 3-12 NL Psych Exam: Positive: Mood NL; Negative: Anxiety Assessment /Plan Assessment Ms. Ramos is a 35-year-old female w who is here with decompensated alcoholic liver disease. Attempted diuresis, but patient became hypotensive. She did have acute anemia which may have contributed with her hypotension. She developed AUDRA which is a combination of aggressive diuresis, IV NSAID, and hypotension. Nephrology following, recommendations appreciated. Plan/VTE VTE Prophylaxis Ordered?: Yes Plan 1. Decompensated alcoholic liver disease with ascites Continue with fluid restriction Patient refused GI workup. Patient will need outpatient referral to GI Alcohol rehabilitation as outpatient -On lasix drip, spiranolactone, Midodrine, albumin -Monitor BMP while on drip 2. AUDRA -Nephrology following, recommendations appreciated -Secondary to diuresis, IV NSAID, and hypotension -Improving despite being on Lasix drip. Avoid nephrotoxic agents. Optimize blood pressure 3. Acute blood loss anemia -Secondary to menses and Eliquis. -Held Eliquis and transfused 2u pRBC. Total of 4u pRBC during hospitalization -Receiving oral iron and Venofer 4. Ascites No SBP Nephrology following to help with diuresis, recommendations appreciated 5. Midline catheter related nonocclusive thrombus Midline removed Eliquis held due to acute anemia 6. Menstrual pain Normally has her menses at the end of the month to the beginning of the month -Resolved 6. Hypothyroidism Continue levothyroxine 7. DVT prophylaxis SCD and TEDs Disposition: When her hemoglobin remains stable and fluid balance optimized, we can start considering discharge and restarting oral diuretics. VS, I&O, 24H, [place] Vital Signs/I&O Vital Signs Date Time Temp Pulse Resp B/P (MAP) Pulse Ox O2 Delivery O2 Flow Rate FiO2 06/30/20 14:00 98.7 112 18 112/70 (84) 97 Room Air I&O- Last 24 Hours up to 6 AM 06/30/20 06:00 Intake Total 1170 ml Output Total 2500 ml Balance -1330 ml Laboratory Data 24H LABS Laboratory Tests 2 06/29/20 20:08: Anion Gap 8, Glomerular Filtration Rate 41.4L, Calcium Level 8.0L 06/30/20 01:49: Anion Gap 6L, Glomerular Filtration Rate 43.0L, Calcium Level 8.2L 06/30/20 09:09: Anion Gap 9, Glomerular Filtration Rate 40.7L, Calcium Level 7.7L, Nucleated Red Blood Cells % (auto) 0.0, Magnesium Level 1.6L 06/30/20 19:20: Anion Gap 5L, Glomerular Filtration Rate 48.2L, Calcium Level 8.1L CBC/BMP Laboratory Tests 06/29/20 20:08 06/30/20 01:49 06/30/20 09:09 06/30/20 19:20 PETERSON HILLIARD DO Jun 30, 2020 20:04
[2020-06-30 22:00] VITALS: BP 117/72
[2020-07-01] MEDS: ALPRAZolam 0.5 MG TAB PO PRN ×2 (02:16→09:09)
[2020-07-01 05:57] LABS: HEMATOCRIT 25.9 % (36.0-47.0); HEMOGLOBIN 8.2 g/dl (12.0-15.5); MEAN CORPUSCULAR HEMOGLOBIN 30.3 pg (27.0-33.0); MEAN CORPUSCULAR HGB CONC 31.7 g/dl (32.0-36.5); MEAN CORPUSCULAR VOLUME 95.6 fl (80.0-96.0); PLATELET COUNT, AUTOMATED 189 10^3/uL (150-450); RED BLOOD COUNT 2.71 10^6/uL (4.00-5.40); WHITE BLOOD COUNT 11.5 10^3/uL (4.0-10.0)
[2020-07-01] MEDS: LEVOTHYROXINE 125MCG TABLET (0.125MG) PO SCH (05:59)
[2020-07-01 06:00] VITALS: BP 119/74
[2020-07-01 06:26] LABS: CALCIUM LEVEL 7.7 MG/DL (8.5-10.1); CREATININE FOR GFR 1.3 MG/DL (0.55-1.30); GLOMERULAR FILTRATION RATE 49.9 (>60); MAGNESIUM LEVEL 1.7 MG/DL (1.8-2.4); POTASSIUM SERUM 3.8 MEQ/L (3.5-5.1)
[2020-07-01] MEDS: MIDODRINE 5 MG TAB PO SCH ×3 (08:00→16:22)
[2020-07-01] MEDS ORDERED: MAG SULF 1GM/100ML (MAG RUN) 1 GM in IV 1 EA IV ONE (08:30)
[2020-07-01] MEDS ORDERED: LIDOCAINE 1% MDV 20ML VIAL As Ordered ONE (09:01)
--- NOTE | 2020-07-01 10:01 | IPNPDOC ---
Text Note Date of Service The patient was seen on 07/01/20. NOTE SUBJECTIVE: Ms. Ramos was seen and examined at bedside this morning. She reports no pain and improved edema in her abdomen and legs. Pt denies chest pain, SOB, fever, dysuria, abdominal pain, dizziness and fatigue. Pt is tachycardic this morning but denies any cardiac complaints. There were no acute changes overnight. OBJECTIVE: VITAL SIGNS: Please see below. CONSTITUTIONAL: Pt is lying comfortably in bed. No respiratory distress noted. HEENT: PERRL. EOM intact. No lymphadenopathy noted. CV: S1S2 present. Tachycardic with regular rhythm. No murmurs, rubs or gallops. RESPIRATORY: Clear to auscultation in all lung arguello. No adventitious breath sounds appreciated. ABDOMEN: Mildly tense abdomen on left side. Otherwise, abdomen is soft, nontender and nondistended. Bowel sounds normoactive in all 4 quadrants. EXTREMITIES: 2+ pitting edema noted up to mid-calf. Pulses 2+ NEUROLOGICAL: AAOx3. No obvious focal neurologic deficits. 5/5 strength equal in bilateral upper and lower extremities. PSYCHIATRIC: Normal mood and affect. ASSESSMENT: Ms. Ramos is a 35 y/o PMH hx of alcoholic steatosis, gastric bypass with perforated viscus and resultant liver and renal failure who presented with 3 days of progressive lower extremity edema and swelling. Pt was admitted for paracenteses of ascites, diuresis, workup of transaminits and monitoring chronic medical problems. Currently, pt is improving with aggressive diuresis. Kidney function is improving and being followed by nephrology. PICC line was reinserted today and eliquis 5 mg PO BID restarted. PLAN: #Decompensated alcoholic liver disease with ascites -Continue with 2L fluid restriction and IV Lasix drip 10 mg/hr, spironolactone 25mg PO BID, and albumin -Monitor BMP. Potassium currently 3.8. Magnesium 1.7. Continue potassium 40 mEq PO BID. Continue Magnesium Oxide 800 mg PO BID and magnesium chloride 54 mg PO daily. -Outpatient referral to GI. -Outpatient alcohol rehabilitation #AUDRA secondary to diuresis, IV NSAIDs, hypotension -Nephrology following. Recommendations appreciated. -Improving with most recent creatinine level of 1.30. GFR improving but still low 49.9. -Avoid nephrotoxic agents. Optimize blood pressure with midodrine 5 mg PO Q4H (not later than 6pm) #Anemia secondary to acute blood loss from menses and Eliquis therapy -Eliquis was started due to midline catheter related nonocclusive thrombus. Was held and now restarted 07/01/2020 with a new PICC line placed. Eliquis 5 mg PO BID. -Transfusion of 4 units of PRBCs total during hospitalization. -Most recent Hgb of 8.2 and Hct of 25.9. Appears to be stable and improving. -Receiving oral ferrous sulfate 325 mg PO daily and IV Iron 100 mg in 100 mL of NS daily #Ascites -No evidence of SBP. -Nephrology following. Recommendations appreciated. #Midline catheter related nonocclusive thrombus -Removed on 06/24/2020. Eliquis held due to acute anemia. -Reinserted 07/01/2020 and Eliquis 5 mg PO BID was restarted. #Hypovolemic, hyponatremia -Resolving #Hypothyroidism -Continue levothyroxine 125 mcg PO daily #Unspecified mood disorder -Continue bupropion HCl 150 mg PO BID -Alprazolam 0.5 mg DVT PROPHYLAXIS: Teds and Sequentials DISPOSITION: VS,Fishbone, I+O VS, Fishbone, I+O Laboratory Tests 06/30/20 19:20 07/01/20 05:24 Vital Signs Date Time Temp Pulse Resp B/P (MAP) Pulse Ox O2 Delivery O2 Flow Rate FiO2 07/01/20 09:33 98.4 123 18 97 Room Air 07/01/20 06:00 119/74 (89) I&O- Last 24 Hours up to 6 AM 07/01/20 06:00 Intake Total 1970 ml Output Total 2000 ml Balance -30 ml GME ATTESTATION GME ATTESTATION My faculty preceptor for this patient encounter was physically present during the encounter and was fully available. All aspects of the patient interview, examination, medical decision making process, and medical care plan development were reviewed and approved by the faculty preceptor. The faculty preceptor is aware and concurs with the plan as stated in the body of this note and will attest to such by his/her cosignature. ATTENDING NOTE I, Toro rGeen, saw and evaluated the patient. I agree with the finding and the plan of care as documented in the resident note. MILKA SMITH DO Jul 01, 2020 10:01 TORO GREEN DO Jul 01, 2020 16:33
[2020-07-01] MEDS ORDERED: ISOVUE-300 61% 50ML VIAL As Ordered ONE (10:27)
[2020-07-01] MEDS: IRON SUCROSE 100 MG in NS 100 ML IV SCH (12:19)
[2020-07-01] MEDS: FOLIC ACID 1 MG TAB PO SCH (12:26)
[2020-07-01] MEDS: buPROPion **SR TABLET** (ZYBAN) 150MG PO SCH ×2 (12:27→21:46)
[2020-07-01] MEDS: MULTIVITAMINS/MINERALS THERAP 1 TAB PO SCH (12:27)
[2020-07-01] MEDS: MAGNESIUM OXIDE 400 MG TAB (MAG-OX) PO SCH ×2 (12:27→21:45)
[2020-07-01] MEDS: APIXABAN 5 MG TAB (ELIQUIS) PO SCH ×2 (12:27→21:45)
[2020-07-01] MEDS: ZINC SULFATE 220 MG CAP PO SCH (12:27)
[2020-07-01] MEDS: THIAMINE 100 MG TAB PO SCH (12:27)
[2020-07-01] MEDS: FERROUS SULFATE 325MG TAB PO SCH (12:27)
[2020-07-01] MEDS: POTASSIUM CHLORIDE 10 MEQ SR TABLET PO SCH ×2 (12:28→21:45)
[2020-07-01] MEDS: SPIRONOLACTONE 25 MG TAB PO SCH ×2 (12:28→21:46)
[2020-07-01] MEDS: NYSTATIN 100,000 UNITS/GM TOPICAL PWD 15 GM TOP SCH ×2 (12:29→21:46)
[2020-07-01] MEDS: PANTOPRAZOLE 20 MG TAB PO SCH (12:32)
--- NOTE | 2020-07-01 13:21 | IPN ---
PROGRESS NOTE DATE: 07/01/2020 SUBJECTIVE: Aixa is seen and examined this morning at the bedside. She received a right upper extremity PICC line today. She reports that her leg edema continues to improve. She has been getting up and ambulating to the bathroom. She denies shortness of breath with that ambulation. Laboratory studies show improving renal function. She continues on Lasix drip. PHYSICAL EXAMINATION: VITAL SIGNS: Temperature 98.4, pulse 112, respiratory rate 18, blood pressure 119/74, saturating 95 to 97% on room air. INTAKE AND OUTPUT: Intake yesterday was 2 liters. Urine output was 2 liters. She has an equivalent fluid balance. Weight on the bed scale today was 95.2 kg. GENERAL: The patient is seen lying in bed in no apparent distress. She is awake, alert, and oriented x3. Extraocular muscles are intact. Pupils are round and reactive to light. HEENT: Mucous membranes are moist. NECK: Supple. There is mild jugular venous distention. CARDIAC: There is tachycardia, S1 and S2. I am unable to appreciate a murmur. EXTREMITIES: There is 1+ leg edema but there is also significant edema in the abdominal wall and in the flanks. LUNGS: Clear to auscultation bilaterally. She is on room air. There is no rhonchus or wheeze. ABDOMEN: Soft and obese. There is considerable dependent abdominal wall edema. EXTREMITIES: She is wearing compression stockings. Her calf edema has lessened, however there is still thigh edema and abdominal wall edema. NEUROLOGIC: She is oriented x3, interactive and conversational. No focal deficit. SKIN: Notable for hirsutism of the face. LABORATORY DATA: Sodium 138, potassium 3.8, bicarbonate 26, BUN 17, creatinine 1.3. Magnesium 1.7. Calcium: Ionized 4.3. Hemoglobin 8.2. Platelets are 189,000. INPATIENT MEDICATIONS: She continues on Lasix drip at 10 mg an hour. She received magnesium sulfate 1 gram IV x1. She is receiving Venofer, this is the third dose out of five doses ordered. Her remainder of medications are unchanged from prior. PROBLEMS: 1. Anasarca related to decompensated alcoholic liver disease with ascites. Patient remains grossly volume overloaded. Her leg edema has lessened but she still has considerable edema in the tissues of the abdominal wall. Her albumin levels are less than 2 which is contributing to her edema. I would continue Lasix drip for another 24 hours. At 20 mg at hour along with spironolactone 25 mg twice daily. I am making her fluid restriction 1.5 liters. 2. Non-oliguric acute kidney injury. Her renal function continues to improve. She is tolerating diuresis well. Her volume status is improving. Because of her chronically soft blood pressures we are diuresing her with Lasix drip along with oral spironolactone. In the coming 24 hours, I do plan to convert her to oral diuretic. Her daily weights are nicely down-trending. 3. Hypomagnesemia. It is due to diuretics, she is getting both oral and IV magnesium supplementation. 4. Hypervolemic hyponatremia. It is due to anasarca and fluid overload and it has improved and resolved with diuresis and correction of her volume status. 5. Anemia related to iron deficiency. Her iron level was less than 30. She is receiving five doses of Venofer, she has also received 4 units of packed red blood cells on this admission. She is also on an iron supplement orally. Her hemoglobin remains suboptimal in the 8s to 9s. 6. Hypotension. Her echocardiogram was noted with normal left ventricular ejection fraction and no significant valvular issues. Hypotension is probably related to her alcoholic cirrhosis and she continues on Midodrine.
[2020-07-01 13:23] LABS: FREE T4 1.09 NG/DL (0.76-1.46); THYROID STIMULATING HORMONE 13.5 uIU/ML (0.358-3.740)
[2020-07-01 13:25] LABS: PTH INTACT 23.5 PG/ML (18.5-88.0); TOTAL 25(OH) VITAMIN D 39.5 NG/ML (30.0-100.0)
[2020-07-01] MEDS: SODIUM CHLORIDE 0.9% INJ 10 ML SYR IV PRN (13:51)
[2020-07-01 14:00] VITALS: BP 118/73
--- NOTE | 2020-07-01 14:45 | REP ---
PROCEDURE NAME: PICC LINE INSERTION W/SITERITE CLINICAL INFORMATION: anasarca, poor IV access. COMPARISON: None. PROCEDURE DESCRIPTION: The procedure was performed by DEE DEE Barnard, under the direct supervision of Dr. Gunderson. The risks and benefits of the procedure were explained to the patient and an informed consent was obtained both verbally and written. Directly prior to the start of the procedure a formal time-out was completed in the procedure room. The left lateral brachial vein was localized using ultrasound guidance. The skin was prepped and draped in sterile fashion. One mL of 1% lidocaine 10 mg/mL was used as a local anesthetic. Using ultrasound guidance the left lateral brachial vein was cannulated, and a 0.018 guidewire was inserted and advanced to the level of SVC using fluoroscopic guidance. The needle was removed and a 5.5 Monegasque dilator and peel-away sheath was inserted over the guidewire. A 5.5 [place]onegasque dual lumen catheter was cut to a length of 35 cm. The dilator was removed and the catheter was inserted over the guidewire. There was some hesitation while advancing the PICC across the axillary. 1 mL of Isovue 300 milligrams/milliliter was injected into the PICC to evaluate for stenosis. No stenosis was visualized and after withdrawing the PICC and trying to advance it again it advanced without difficulty ending at the level of the SVC. The peel-away sheath was removed and the catheter was flushed with heparinized saline as per hospital protocol. The catheter was affixed to the skin and a sterile dressing was applied. The patient tolerated the procedure well and there were no immediate complications. CONCLUSION: PICC line insertion into the left lateral brachial vein. 0.9 minutes of fluoroscopy time was utilized for this procedure. Some fluoroscopic images are performed with last image hold technology. These images require no additional radiation. <Electronically signed by Gabbi Wilhelm > 07/01/20 [id number] <Electronically signed by Chang Gunderson > 07/01/20 [id number]
[2020-07-01] MEDS ORDERED: CALCIUM GLUCONATE 1,000 MG in D5W MINI-BAG PLUS 100 ML IV ONE (16:00)
[2020-07-01] MEDS: FUROSEMIDE injection 250 MG in D5W 225 ML IV SCH (16:21)
[2020-07-01] MEDS: SODIUM CHLORIDE 0.9% INJ 10 ML SYR IV SCH (18:00)
[2020-07-01 19:34] LABS: CALCIUM LEVEL 8.4 MG/DL (8.5-10.1); CREATININE FOR GFR 1.26 MG/DL (0.55-1.30); GLOMERULAR FILTRATION RATE 51.7 (>60); POTASSIUM SERUM 3.7 MEQ/L (3.5-5.1)
[2020-07-01 22:00] VITALS: BP 120/73
[2020-07-02] MEDS: ACETAMINOPHEN TAB 650MG DOSE (2X325MG) PO PRN (04:35)
[2020-07-02 06:00] VITALS: BP 103/56
[2020-07-02] MEDS: LEVOTHYROXINE 125MCG TABLET (0.125MG) PO SCH (06:18)
[2020-07-02] MEDS: SODIUM CHLORIDE 0.9% INJ 10 ML SYR IV SCH ×2 (06:18→18:00)
[2020-07-02 07:10] LABS: HEMATOCRIT 26.1 % (36.0-47.0); HEMOGLOBIN 8.5 g/dl (12.0-15.5); MEAN CORPUSCULAR HEMOGLOBIN 31.1 pg (27.0-33.0); MEAN CORPUSCULAR HGB CONC 32.6 g/dl (32.0-36.5); MEAN CORPUSCULAR VOLUME 95.6 fl (80.0-96.0); PLATELET COUNT, AUTOMATED 182 10^3/uL (150-450); RED BLOOD COUNT 2.73 10^6/uL (4.00-5.40); WHITE BLOOD COUNT 11.2 10^3/uL (4.0-10.0)
[2020-07-02 07:29] LABS: CALCIUM LEVEL 7.8 MG/DL (8.5-10.1); CREATININE FOR GFR 1.26 MG/DL (0.55-1.30); GLOMERULAR FILTRATION RATE 51.7 (>60)
[2020-07-02] MEDS: SPIRONOLACTONE 25 MG TAB PO SCH ×2 (08:13→21:53)
[2020-07-02] MEDS: PANTOPRAZOLE 20 MG TAB PO SCH (08:14)
[2020-07-02] MEDS: buPROPion **SR TABLET** (ZYBAN) 150MG PO SCH ×2 (08:14→21:53)
[2020-07-02] MEDS: ZINC SULFATE 220 MG CAP PO SCH (08:14)
[2020-07-02] MEDS: APIXABAN 5 MG TAB (ELIQUIS) PO SCH (08:14)
[2020-07-02] MEDS: MAGNESIUM OXIDE 400 MG TAB (MAG-OX) PO SCH ×2 (08:15→21:54)
[2020-07-02] MEDS: POTASSIUM CHLORIDE 10 MEQ SR TABLET PO SCH ×2 (08:15→21:53)
[2020-07-02] MEDS: MIDODRINE 5 MG TAB PO SCH ×3 (08:15→16:57)
[2020-07-02 11:09] LABS: MAGNESIUM LEVEL 1.6 MG/DL (1.8-2.4)
[2020-07-02] MEDS: NYSTATIN 100,000 UNITS/GM TOPICAL PWD 15 GM TOP SCH ×2 (11:34→21:55)
[2020-07-02] MEDS: OYSTER SHELL CALCIUM 500 MG TAB PO SCH (11:35)
[2020-07-02] MEDS: FERROUS SULFATE 325MG TAB PO SCH (11:35)
[2020-07-02] MEDS: MULTIVITAMINS/MINERALS THERAP 1 TAB PO SCH (11:35)
[2020-07-02] MEDS: THIAMINE 100 MG TAB PO SCH (11:35)
[2020-07-02] MEDS: IRON SUCROSE 100 MG in NS 100 ML IV SCH (11:35)
[2020-07-02] MEDS: FOLIC ACID 1 MG TAB PO SCH (11:35)
[2020-07-02] MEDS ORDERED: CHLOROTHIAZIDE 500 MG VIAL (J1205 PER 1) IV ONE (13:00)
--- NOTE | 2020-07-02 13:50 | IPNPDOC ---
Text Note Date of Service The patient was seen on 07/02/20. NOTE SUBJECTIVE: Ms. Ramos was seen and examined at bedside this morning. She reports no pain and improved edema in her abdomen and legs. Pt denies chest pain, SOB, fever, dysuria, abdominal pain, dizziness and fatigue. Pt is tachycardic this morning but denies any cardiac complaints. There were no acute changes overnight. OBJECTIVE: VITAL SIGNS: Please see below. CONSTITUTIONAL: Pt is lying comfortably in bed. No respiratory distress noted. HEENT: PERRL. EOM intact. No lymphadenopathy noted. CV: S1S2 present. Tachycardic with regular rhythm. No murmurs, rubs or gallops. RESPIRATORY: Clear to auscultation in all lung arguello. No adventitious breath sounds appreciated. ABDOMEN: Mildly tense abdomen on left side. Otherwise, abdomen is soft, nontender and nondistended. Bowel sounds normoactive in all 4 quadrants. EXTREMITIES: 2+ pitting edema noted up to mid-calf. Pulses 2+ NEUROLOGICAL: AAOx3. No obvious focal neurologic deficits. 5/5 strength equal in bilateral upper and lower extremities. PSYCHIATRIC: Normal mood and affect. ASSESSMENT: Ms. Ramos is a 35 y/o PMH hx of alcoholic steatosis, gastric bypass with perforated viscus and resultant liver and renal failure who presented with 3 days of progressive lower extremity edema and swelling. Pt was admitted for paracenteses of ascites, diuresis, workup of transaminitis and monitoring chronic medical problems. Currently, pt is improving with aggressive diuresis. Kidney function is improving and being followed by nephrology. There is no evidence of thrombus with reinsertion of PICC line. Right now, there is no indication for Eliquis, as the thrombus was in a superficial vein from previous PICC line and there are no complications with current PICC line. PLAN: #Decompensated alcoholic liver disease with ascites -Continue IV Lasix drip 10 mg/hr, spironolactone 25mg PO BID, and albumin with 1.5L fluid restriction. -Monitor BMP. Potassium currently 3.8. Magnesium 1.7. Continue potassium 40 mEq PO BID. Continue Magnesium Oxide 800 mg PO BID and magnesium chloride 54 mg PO daily. -Per nephrology assessment, pt is still fluid overloaded and they plan to convert her to oral diuretic in the next 24 hrs. -Outpatient referral to GI. -Outpatient alcohol rehabilitation #AUDRA secondary to diuresis, IV NSAIDs, hypotension -Nephrology following. Recommendations appreciated. -Improving with most recent creatinine level of 1.26. GFR improving but still low 51.7 -Avoid nephrotoxic agents. Optimize blood pressure with midodrine 5 mg PO Q4H (not later than 6pm) #Anemia secondary to acute blood loss from menses and Eliquis therapy -Eliquis was started due to PICC line related nonocclusive thrombus. Was held and now restarted 07/01/2020 with a new PICC line placed. There is now no indication for Eliquis therapy. Discontinuation on 07/02/2020. -Transfusion of 4 units of PRBCs total during hospitalization. -Most recent Hgb of 8.5 and Hct of 26.1. Appears to be stable and improving. -Receiving oral ferrous sulfate 325 mg PO daily and IV Iron 100 mg in 100 mL of NS daily #Ascites -No evidence of SBP. -Nephrology following. Recommendations appreciated. #Midline catheter related nonocclusive thrombus -Removed on 06/24/2020. Eliquis held due to acute anemia. -Reinserted 07/01/2020 and there is currently no indication for Eliquis therapy. #Hypovolemic, hyponatremia -Resolving #Hypothyroidism -Continue levothyroxine 125 mcg PO daily #Unspecified mood disorder -Continue bupropion HCl 150 mg PO BID -Alprazolam 0.5 mg DVT PROPHYLAXIS: Teds and Sequentials DISPOSITION: Plan to convert to oral diuretic in the next 24 hrs. Pending clinical improvement. Possible discharge in 2-3 days. VS,Fishbone, I+O VS, Fishbone, I+O Laboratory Tests 07/01/20 18:37 07/02/20 06:57 Vital Signs Date Time Temp Pulse Resp B/P (MAP) Pulse Ox O2 Delivery O2 Flow Rate FiO2 07/02/20 06:00 98.8 123 16 103/56 (72) 91 Room Air I&O- Last 24 Hours up to 6 AM 07/02/20 06:00 Intake Total 2060 ml Output Total 800 ml Balance 1260 ml GME ATTESTATION GME ATTESTATION My faculty preceptor for this patient encounter was physically present during the encounter and was fully available. All aspects of the patient interview, examination, medical decision making process, and medical care plan development were reviewed and approved by the faculty preceptor. The faculty preceptor is aware and concurs with the plan as stated in the body of this note and will attest to such by his/her cosignature. ATTENDING NOTE Attending attestation: Patient seen and examined independently. Agree with resident's note. MILKA SMITH DO Jul 02, 2020 13:50 AGUEDA CERVANTES MD Jul 03, 2020 06:51
[2020-07-02 14:00] VITALS: BP 118/68
--- NOTE | 2020-07-02 14:17 | IPN ---
NEPHROLOGY PROGRESS NOTE DATE: 07/02/2020 SUBJECTIVE: Aixa is seen and examined this morning at the bedside. She is frustrated. She wants to go home. I explained to her that she is still markedly volume overloaded and that I would like to optimize her fluid status while she is in the hospital. She reports that she has been up and ambulating and has been working with Physical Therapy. She remains chronically tachycardic with heart rates in the 110's and 120's. VITAL SIGNS: Temperature 98.8, pulse 123, respiratory rate 16, blood pressure 103/56, saturating 91-99% on room air. Intake yesterday was 2 liters. Urine output was not fully recorded. There were incontinent voids. Weight on the bed scale today is 95 kg which is only slightly lower than prior. PHYSICAL EXAMINATION: GENERAL APPEARANCE: The patient is seen lying in bed awake, alert, oriented, and in no distress. She appears anasarcic. HEENT: The extraocular muscles are intact. Pupils are round and reactive to light. Mucous membranes are moist. NECK: Supple. There is jugular venous distention. CARDIAC: Tachycardic. Heart rate in the 120's. S1, S2, I do not hear a murmur. EXTREMITIES: There is 1+ leg edema that goes all the way up to the hip side dependent area, abdominal wall and flanks. LUNGS: Clear to auscultation bilaterally. No rhonchus or wheeze, diminished at the base. ABDOMEN: Soft and obese. There is considerable dependent abdominal wall edema. EXTREMITIES: She is wearing compression stockings. There is notable thigh edema, hip edema and abdominal wall edema. There is no clubbing or cyanosis. NEUROLOGIC: Oriented x3, interactive, conversational, no focal deficits. SKIN: Hirsutism of the face. LABORATORY STUDIES: Sodium of the face. Sodium 136, potassium 4.0, bicarbonate 28, BUN 14, creatinine 1.2, magnesium 1.6, hemoglobin 8.5. INPATIENT MEDICATIONS: The patient is receiving the fourth dose of Venofer infusion today. She was started on Os-Jarad 500 mg daily. She is written for Diuril 250 mg IV times one. Her remainder of medications are unchanged from prior. PROBLEMS: 1. Anasarca related to decompensated alcoholic liver cirrhosis with chronic hypoalbuminemia and serum albumin of less than 2. She is grossly volume overloaded with considerable edema in the tissues of the abdominal wall, hip and thigh. I am giving her a dose of Diuril 250 mg IV along with the Lasix drip and Spironolactone for sequential nephron paralysis. Continue fluid restriction of 1,500 mL daily. Her daily weights have not really downtrended much the past couple of days. 2. Non oliguric acute kidney injury related to NSAIDs and liver disease her renal function has improved but it is not back to baseline. We are diuresing her more aggressively. There is a lot of third spacing of fluid. Because of chronically soft blood pressures and chronic tachycardia, she is being diuresed with Lasix drip along with oral Spironolactone. I have also written for one dose of IV Diuril. 3. Hypomagnesemia it is due to diuretics. She is getting oral and IV magnesium supplementation. 4. Anemia related to iron deficiency iron level was less than 30. She is receiving Venofer. She also received 4 units packed red blood cells on this admission. She is on an oral iron supplement. Hemoglobin remains suboptimal but stable at 8.5. 5. Hypotension echocardiogram showed normal left ventricular ejection fraction and no significant valvular issues. Her hypotension is likely related to her alcoholic liver disease and she continues on Midodrine. She is considerably tachycardic. Heart rate 110's to 120's. Consider low dose beta diana defer to Primary Service. Her blood pressure may not tolerate the beta diana. 6. Hypocalcemia her parathyroid hormone level and vitamin D level were acceptable. She is started on Os-Jarad. 7. Hypokalemia she is on Spironolactone twice daily and also receiving potassium supplementation.
[2020-07-02 14:38] LABS: FREE THYROXINE INDEX 1.9 % (1.3-4.8); THYROID STIMULATING HORMONE 18.7 uIU/ML (0.358-3.740); THYROXINE (T4) 5.1 UG/DL (4.5-12.0)
[2020-07-02] MEDS: FUROSEMIDE injection 250 MG in D5W 225 ML IV SCH (16:57)
--- NOTE | 2020-07-02 21:49 | ECGEPIP ---
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 NONSPECIFIC ST-T ABNORMALITY No prior ECG available for comparison at the time of interpretation. Electronically Signed on 07-02-2020 21:49:17 EST by Percy Cevallos
[2020-07-02 22:00] VITALS: BP 117/69
[2020-07-03] MEDS: LEVOTHYROXINE 125MCG TABLET (0.125MG) PO SCH (05:33)
[2020-07-03] MEDS: ACETAMINOPHEN TAB 650MG DOSE (2X325MG) PO PRN (05:33)
[2020-07-03] MEDS: SODIUM CHLORIDE 0.9% INJ 10 ML SYR IV SCH ×2 (05:34→18:09)
[2020-07-03 06:00] VITALS: BP 114/68
--- NOTE | 2020-07-03 07:18 | IPNPDOC ---
Text Note Date of Service The patient was seen on 07/03/20. NOTE SUBJECTIVE: Ms. Ramos was seen and examined at bedside this morning. She reports no pain and improved edema in her abdomen and legs. Pt denies chest pain, SOB, fever, dysuria, abdominal pain, dizziness and fatigue. Pt is tachycardic this morning but denies any cardiac complaints. Pt is frustrated and would like to go home but it was explained to her that her fluid status needs improvement before we can start PO medication and discharge her. There were no acute changes overnight. OBJECTIVE: VITAL SIGNS: Please see below. CONSTITUTIONAL: Pt is lying comfortably in bed. No respiratory distress noted. HEENT: PERRL. EOM intact. No lymphadenopathy noted. CV: S1S2 present. Tachycardic. Grade 2/5 systolic murmur appreciated at left upper sternal border. RESPIRATORY: Clear to auscultation in all lung arguello. No adventitious breath sounds appreciated. ABDOMEN: Mildly tense abdomen on left side. Otherwise, abdomen is soft, nontender and nondistended. Bowel sounds normoactive in all 4 quadrants. EXTREMITIES: 2+ pitting edema noted up to lower calf. Pulses 2+ NEUROLOGICAL: AAOx3. No obvious focal neurologic deficits. 5/5 strength equal in bilateral upper and lower extremities. PSYCHIATRIC: Normal mood and affect. ASSESSMENT: Ms. Ramos is a 35 y/o PMH hx of alcoholic steatosis, gastric bypass with perforated viscus and resultant liver and renal failure who presented with 3 days of progressive lower extremity edema and swelling. Pt was admitted for paracenteses of ascites, diuresis, workup of transaminitis and monitoring chronic medical problems. Per nephrology consultation, Ms. Ramos is still markedly fluid overloaded and was given a dose of Diuril 250 mg IV last night. She will continue with Lasix drip and oral spironolactone along with potassium and magnesium supplementation. PLAN: #Decompensated alcoholic liver disease with ascites -Continue IV Lasix drip 10 mg/hr, spironolactone 25mg PO BID, and albumin with 1.5L fluid restriction. -Monitor BMP. Potassium currently 3.8. Magnesium 1.7. Continue potassium 40 mEq PO BID. Continue Magnesium Oxide 800 mg PO BID and magnesium chloride 54 mg PO daily. -Per nephrology assessment, pt is still fluid overloaded and requires continuous diuresis in the hospital. -Outpatient referral to GI. -Outpatient alcohol rehabilitation. #AUDRA secondary to diuresis, IV NSAIDs, hypotension -Nephrology following. Recommendations appreciated. -Improving with most recent creatinine level of 1.26. GFR improving but still low 51.7 -Avoid nephrotoxic agents. Optimize blood pressure with midodrine 5 mg PO Q4H (not later than 6pm) - Consider starting beta diana if tachycardia persists. Consider repeat echocardiogram due to murmur not documented on echo when admitted. #Anemia secondary to acute blood loss from menses and Eliquis therapy -Eliquis was started due to PICC line related nonocclusive thrombus. Was held and now restarted 07/01/2020 with a new PICC line placed. There is now no indication for Eliquis therapy. Discontinuation on 07/02/2020. Consider vascular recommendation for anticoagulation therapy. -Transfusion of 4 units of PRBCs total during hospitalization. -Most recent Hgb of 8.5 and Hct of 26.1. Appears to be stable and improving. -Receiving oral ferrous sulfate 325 mg PO daily and IV Iron 100 mg in 100 mL of NS daily #Ascites -No evidence of SBP. -Nephrology following. Recommendations appreciated. #Midline catheter related nonocclusive thrombus -Removed on 06/24/2020. Eliquis held due to acute anemia. -Reinserted PICC line 07/01/2020 and there is currently no indication for Eliquis therapy. #Hypovolemic, hyponatremia -Resolving #Hypothyroidism -Continue levothyroxine 125 mcg PO daily #Unspecified mood disorder -Continue bupropion HCl 150 mg PO BID -Alprazolam 0.5 mg DVT PROPHYLAXIS: Teds and Sequentials DISPOSITION: Pending improvement of fluid status VS,Fishbone, I+O VS, Fishbone, I+O Vital Signs Date Time Temp Pulse Resp B/P (MAP) Pulse Ox O2 Delivery O2 Flow Rate FiO2 07/03/20 06:00 99.7 122 18 114/68 (83) 95 Room Air I&O- Last 24 Hours up to 6 AM 07/03/20 06:00 Intake Total 1420 ml Output Total 0 ml Balance 1420 ml GME ATTESTATION GME ATTESTATION My faculty preceptor for this patient encounter was physically present during the encounter and was fully available. All aspects of the patient interview, examination, medical decision making process, and medical care plan development were reviewed and approved by the faculty preceptor. The faculty preceptor is aware and concurs with the plan as stated in the body of this note and will attest to such by his/her cosignature. MILKA SMITH DO Jul 03, 2020 07:18
[2020-07-03 07:45] LABS: HEMATOCRIT 26.4 % (36.0-47.0); HEMOGLOBIN 8.5 g/dl (12.0-15.5); MEAN CORPUSCULAR HEMOGLOBIN 30.7 pg (27.0-33.0); MEAN CORPUSCULAR HGB CONC 32.2 g/dl (32.0-36.5); MEAN CORPUSCULAR VOLUME 95.3 fl (80.0-96.0); PLATELET COUNT, AUTOMATED 206 10^3/uL (150-450); RED BLOOD COUNT 2.77 10^6/uL (4.00-5.40); WHITE BLOOD COUNT 10.3 10^3/uL (4.0-10.0)
[2020-07-03 08:45] LABS: CALCIUM LEVEL 7.7 MG/DL (8.5-10.1); CREATININE FOR GFR 1.27 MG/DL (0.55-1.30); GLOMERULAR FILTRATION RATE 51.3 (>60); MAGNESIUM LEVEL 1.4 MG/DL (1.8-2.4)
[2020-07-03] MEDS: IRON SUCROSE 100 MG in NS 100 ML IV SCH (09:59)
[2020-07-03] MEDS: SPIRONOLACTONE 25 MG TAB PO SCH ×2 (10:04→21:26)
[2020-07-03] MEDS: ZINC SULFATE 220 MG CAP PO SCH (10:04)
[2020-07-03] MEDS: NYSTATIN 100,000 UNITS/GM TOPICAL PWD 15 GM TOP SCH ×2 (10:05→21:27)
[2020-07-03] MEDS: POTASSIUM CHLORIDE 10 MEQ SR TABLET PO SCH ×2 (10:05→21:27)
[2020-07-03] MEDS: buPROPion **SR TABLET** (ZYBAN) 150MG PO SCH ×2 (10:05→21:26)
[2020-07-03] MEDS: MAGNESIUM OXIDE 400 MG TAB (MAG-OX) PO SCH ×2 (10:06→21:26)
[2020-07-03] MEDS: PANTOPRAZOLE 20 MG TAB PO SCH (10:06)
[2020-07-03] MEDS: OYSTER SHELL CALCIUM 500 MG TAB PO SCH (10:06)
[2020-07-03] MEDS: MIDODRINE 5 MG TAB PO SCH ×3 (10:06→15:57)
[2020-07-03 10:31] LABS: ALBUMIN 1.6 GM/DL (3.2-5.2)
[2020-07-03] MEDS: FUROSEMIDE 40MG/4ML VIAL (J1940) IV SCH ×2 (10:37→18:09)
[2020-07-03] MEDS: SODIUM CHLORIDE 0.9% INJ 10 ML SYR IV PRN ×2 (10:47→13:19)
[2020-07-03 13:00] VITALS: BP 117/63
[2020-07-03] MEDS: THIAMINE 100 MG TAB PO SCH (13:16)
[2020-07-03] MEDS: MULTIVITAMINS/MINERALS THERAP 1 TAB PO SCH (13:17)
[2020-07-03] MEDS: FERROUS SULFATE 325MG TAB PO SCH (13:17)
[2020-07-03] MEDS: FOLIC ACID 1 MG TAB PO SCH (13:17)
[2020-07-03 14:00] VITALS: BP 125/68
[2020-07-03] MEDS ORDERED: CHLOROTHIAZIDE 500 MG VIAL (J1205 PER 1) IV ONE (14:00)
[2020-07-03 15:03] VITALS: BP 113/68
[2020-07-03] MEDS: METOCLOPRAMIDE INJ 10MG/2ML VIAL (J2765 PER 1) IV PRN (21:38)
[2020-07-03 22:00] VITALS: BP 113/69
[2020-07-03 22:20] VITALS: BP 113/69
[2020-07-04 00:10] VITALS: BP 113/69
[2020-07-04] MEDS: SODIUM CHLORIDE 0.9% INJ 10 ML SYR IV PRN ×4 (00:27→15:15)
[2020-07-04] MEDS: FUROSEMIDE 40MG/4ML VIAL (J1940) IV SCH ×2 (02:05→10:28)
[2020-07-04] MEDS: LEVOTHYROXINE 125MCG TABLET (0.125MG) PO SCH (05:20)
[2020-07-04] MEDS: SODIUM CHLORIDE 0.9% INJ 10 ML SYR IV SCH ×2 (05:21→17:40)
[2020-07-04 06:00] VITALS: BP 116/68
[2020-07-04 06:34] LABS: HEMATOCRIT 26.9 % (36.0-47.0); HEMOGLOBIN 8.8 g/dl (12.0-15.5); MEAN CORPUSCULAR HEMOGLOBIN 31.4 pg (27.0-33.0); MEAN CORPUSCULAR HGB CONC 32.7 g/dl (32.0-36.5); MEAN CORPUSCULAR VOLUME 96.1 fl (80.0-96.0); PLATELET COUNT, AUTOMATED 232 10^3/uL (150-450)
[2020-07-04 08:33] LABS: ALT/SGPT 24 U/L (12-78); BILIRUBIN,TOTAL 1.6 MG/DL (0.2-1.0); BLOOD UREA NITROGEN 11 MG/DL (7-18); CALCIUM LEVEL 7.8 MG/DL (8.5-10.1); CARBON DIOXIDE LEVEL 28 MEQ/L (21-32); CHLORIDE LEVEL 104 MEQ/L (98-107); CREATININE FOR GFR 1.05 MG/DL (0.55-1.30); GLOMERULAR FILTRATION RATE > 60.0 (>60); GLUCOSE, FASTING 73 MG/DL (70-100); MAGNESIUM LEVEL 1.4 MG/DL (1.8-2.4); POTASSIUM SERUM 4.5 MEQ/L (3.5-5.1); SODIUM LEVEL 138 MEQ/L (136-145); TOTAL PROTEIN 6.3 GM/DL (6.4-8.2)
[2020-07-04] MEDS ORDERED: POTASSIUM CHLORIDE 10 MEQ SR TABLET PO SCH (09:00)
--- NOTE | 2020-07-04 09:46 | IPN ---
PROGRESS NOTE DATE: 07/03/2020 SUBJECTIVE: Patient is seen and examined this morning at the bedside. She denies any overnight complaints. She had multiple incontinent voids yesterday and her urine output was not recorded. She denies shortness of breath at rest. Her daily weights are down trending. PHYSICAL EXAMINATION: VITAL SIGNS: Temperature 99.7, pulse 122, respiratory rate 18, blood pressure 114/68, saturating 95% on room air. INTAKE AND OUTPUT: Intake yesterday was 1480. Urine output was recorded as six voids; three of which were incontinent. Weight on the bed scale today was 93.9 kg, which is decreased from prior. GENERAL: The patient is seen lying in bed, awake, alert, oriented, and in no apparent distress. HEENT: She has anasarca. Extraocular muscles are intact. Pupils are round and reactive to light. Mucous membranes are moist. Neck is supple. Jugular veins are mildly elevated. HEART: Heart sounds are quite tachycardic in the 120's. I do not hear murmur. EXTREMITIES: There is 1+ leg edema all the way up to the hips, to the dependent areas, abdominal porter and flanks. LUNGS: Show diminished breath sounds at the bases. Otherwise, no crackles or rales. ABDOMEN: Soft and obese. There is considerable dependent abdominal wall edema. EXTREMITIES: She is wearing compression stockings. There is thigh edema, hip edema. There is no clubbing or cyanosis. NEUROLOGIC: She is oriented x3, interactive and conversational. No focal deficit. LABORATORY DATA: White count 10.3, hemoglobin 8.5, platelets 206,000. Sodium 137, potassium 4.0, bicarbonate 28, creatinine 1.2. Magnesium 1.4. Albumin 1.6. INPATIENT MEDICATIONS: Her Lasix drip is discontinued. She has completed five doses of Venofer. She is ordered for Diuril 250 mg I.V. times one and Furosemide 40 mg I.V. every 8 hours. Two doses of albumin were ordered as well. She was started on OsCal 500 mg p.o. daily. The remainder of her medications are unchanged. PROBLEMS: 1. Nonoliguric acute kidney injury related to NSAIDs and alcoholic liver disease: Her renal function has stabilized and she is tolerating the aggressive diuresis. Her renal function has not recovered to her prior baseline. She is still moderately fluid overloaded and there is considerable third spacing of her fluid because of severe hypoalbuminemia. I would like to optimize her volume status further prior to discharge. 2. Anasarca related to decompensated alcoholic liver disease: Patient's albumin level is 1.6. She has moderate fluid overload, but the daily weights are down trending. I have switched her to Lasix 40 mg I.V. every 8 hours and will give her another dose of Diuril I.V. today as well along with Spironolactone for sequential nephron blockade. Continue 1500 cc fluid restriction. 3. Chronic hypotension: Echocardiogram showed normal left ventricular ejection fraction. She is receiving Midodrine for her hypotension and she is tolerating current diuretics. She is also significantly tachycardic with heart rate in the 120's. Her TSH is elevated, but T4 and T3 are acceptable. Discussed with hospitalist service regarding trial of low dose beta-diana to see if her blood pressure tolerates it. 4. Hypocalcemia: Her corrected calcium for albumin is within normal limits and she is receiving OsCal. 5. Hypomagnesemia: She is receiving magnesium oxide 800 mg p.o. twice daily and I will give her a dose of I.V. magnesium as well. 6. Anemia related to iron deficiency: She has received five doses of Venofer 100 mg and also received four units PRBC on this admission. Hemoglobin is suboptimal, but stable in the 8's.
[2020-07-04] MEDS: ZINC SULFATE 220 MG CAP PO SCH (10:28)
[2020-07-04] MEDS: OYSTER SHELL CALCIUM 500 MG TAB PO SCH (10:29)
[2020-07-04] MEDS: MAGNESIUM OXIDE 400 MG TAB (MAG-OX) PO SCH ×2 (10:29→21:19)
[2020-07-04] MEDS: NYSTATIN 100,000 UNITS/GM TOPICAL PWD 15 GM TOP SCH ×2 (10:30→21:20)
[2020-07-04] MEDS: SPIRONOLACTONE 25 MG TAB PO SCH ×2 (10:30→21:18)
[2020-07-04] MEDS: MIDODRINE 5 MG TAB PO SCH ×3 (10:34→15:58)
[2020-07-04] MEDS: buPROPion **SR TABLET** (ZYBAN) 150MG PO SCH ×2 (10:34→21:18)
[2020-07-04] MEDS: PANTOPRAZOLE 20 MG TAB PO SCH (10:34)
--- NOTE | 2020-07-04 11:47 | IPNPDOC ---
Text Note Date of Service The patient was seen on 07/04/20. NOTE SUBJECTIVE: Ms. Ramos was seen and examined at bedside this morning. She reports no pain and improved edema in her abdomen and legs. Pt denies chest pain, SOB, fever, dysuria, abdominal pain, dizziness and fatigue. Pt is tachycardic this morning but denies any cardiac complaints. Pt is frustrated and would like to go home but it was explained to her that her fluid status needs improvement before we can start PO medication and discharge her. There were no acute changes overnight. OBJECTIVE: VITAL SIGNS: Please see below. CONSTITUTIONAL: Pt is lying comfortably in bed. No respiratory distress noted. HEENT: PERRL. EOM intact. No lymphadenopathy noted. CV: S1S2 present. Tachycardic. Grade 2/5 systolic murmur appreciated at left u pper sternal border. RESPIRATORY: Clear to auscultation in all lung arguello. No adventitious breath s ounds appreciated. ABDOMEN: Mildly tense abdomen. Otherwise, abdomen is soft, nontender and nondistended. Bowel sounds normoactive in all 4 quadrants. EXTREMITIES: 2+ pitting edema noted up to lower calf. Pulses 2+ NEUROLOGICAL: AAOx3. No obvious focal neurologic deficits. 5/5 strength equal in bilateral upper and lower extremities. PSYCHIATRIC: Normal mood and affect. ASSESSMENT: Ms. Ramos is a 35 y/o PMH hx of alcoholic steatosis, gastric bypass with perforated viscus and resultant liver and renal failure who presented with 3 days of progressive lower extremity edema and swelling. Pt was admitted for paracenteses of ascites, diuresis, workup of transaminitis and monitoring chronic medical problems. Per nephrology consultation, Ms. Ramos is still fluid overloaded but improving and was given another dose of Diuril 250 mg IV yesterday. The Lasix drip was discontinued and started furosemide 40 mg IV Q8H. PLAN: #Decompensated alcoholic liver disease with ascites -Discontinued IV Lasix drip, continue spironolactone 25mg PO BID, and albumin with 1.5L fluid restriction. -Start furosemide 40 mg IV Q8H. -Monitor BMP. Potassium currently 4.5. Magnesium 1.4. Continue potassium 40 mEq PO BID. Continue Magnesium Oxide 800 mg PO BID and magnesium chloride 54 mg PO daily. -Per nephrology assessment, pt is still fluid overloaded and requires IV Lasix treatment in the hospital. -Outpatient referral to GI. -Outpatient alcohol rehabilitation. #AUDRA secondary to diuresis, IV NSAIDs, hypotension -Nephrology following. Recommendations appreciated. -Improving with most recent creatinine level of 1.26. GFR improving but still low 51.7 -Avoid nephrotoxic agents. Optimize blood pressure with midodrine 5 mg PO Q4H (not later than 6pm) #Tachycardia -No events on tele -Start propranolol 10 mg PO BID. Pt remains tachycardic in 110s-120s. #Anemia secondary to acute blood loss from menses and Eliquis therapy -Eliquis was started due to PICC line related nonocclusive thrombus. Was held and now restarted 07/01/2020 with a new PICC line placed. There is now no indication for Eliquis therapy. Discontinuation on 07/02/2020. Consider vascular recommendation for anticoagulation therapy. -Transfusion of 4 units of PRBCs total during hospitalization. -Most recent Hgb of 8.5 and Hct of 26.1. Appears to be stable and improving. -Receiving oral ferrous sulfate 325 mg PO daily and IV Iron 100 mg in 100 mL of NS daily #Ascites -No evidence of SBP. -Nephrology following. Recommendations appreciated. #Midline catheter related nonocclusive thrombus -Removed on 06/24/2020. Eliquis held due to acute anemia. -Reinserted PICC line 07/01/2020 and there is currently no indication for Eliquis therapy. #Hypovolemic, hyponatremia -Resolving #Hypothyroidism -Continue levothyroxine 125 mcg PO daily #Unspecified mood disorder -Continue bupropion HCl 150 mg PO BID -Alprazolam 0.5 mg DVT PROPHYLAXIS: Teds and Sequentials DISPOSITION: Pending improvement of fluid status and transition to PO diuretics.b VS,Fishbone, I+O VS, Fishbone, I+O Laboratory Tests 07/04/20 06:16 07/04/20 06:22 Vital Signs Date Time Temp Pulse Resp B/P (MAP) Pulse Ox O2 Delivery O2 Flow Rate FiO2 07/04/20 06:00 99.2 113 18 116/68 (84) 96 Room Air I&O- Last 24 Hours up to 6 AM 07/04/20 05:59 Intake Total 1090.0 ml Output Total 1100 ml Balance -10.0 ml GME ATTESTATION GME ATTESTATION My faculty preceptor for this patient encounter was physically present during the encounter and was fully available. All aspects of the patient interview, examination, medical decision making process, and medical care plan development were reviewed and approved by the faculty preceptor. The faculty preceptor is aware and concurs with the plan as stated in the body of this note and will attest to such by his/her cosignature. MILKA SMITH DO Jul 04, 2020 11:47
--- NOTE | 2020-07-04 13:43 | IPN ---
INPATIENT PROGRESS NOTE DATE: 07/04/2020 SUBJECTIVE: Patient seen and examined this morning at the bedside, denies any shortness of breath at rest, continues to be tachycardic, is being started on propanolol. Nursing staff has not been recording her urine output as she has been having incontinent voids. Her daily weights frustratingly have not changed this past week. PHYSICAL EXAMINATION: Vital signs: Temperature 99.2, pulse 113-120, respiratory rate 18, blood pressure 116/68, saturating 96% on room air. Intake yesterday was 1 liter, urine output was not fully recorded as she had incontinent voids. Weight on the bed scale today is 95.8 kg which is actually increased as compared to yesterday. General: Patient is seen sitting up at the edge of the bed, appears fatigued, but in no distress, is debilitated. HEENT: Extraocular muscles are intact. Tongue is moist. Neck: Supple. Jugular veins were not elevated while she was sitting upright. Heart: Sounds are tachycardic in the 120s, S1 and S2. There is a 2+ leg edema. Lungs: Symmetric bilaterally and no crackles or rales. Abdomen: Obese. There is pitting edema in the flanks and tissues. Neurologic: She is oriented times 3, interactive, at baseline mentation. Skin: Skin has pallor. Musculoskeletal: She is debilitated, but she moves all 4 extremities on command. LABORATORY DATA: Sodium 138, potassium 4.5, bicarbonate 28, creatinine 1, magnesium 1.4. Hemoglobin 8.8. Stool for occult blood negative. INPATIENT MEDICATIONS: 1. I.V. Lasix is discontinued and switched to torsemide 40 mg by mouth twice a day. 2. Potassium supplementation is discontinued. 3. She was started on propanolol 10 mg by mouth twice a day. The remainder of medications are unchanged from prior. PROBLEMS/PLAN: 1. Status post acute renal failure related to I.V. NSAIDs along with high dose diuretic: her kidney function is improving back towards baseline, but she remains in moderate fluid overload .she will need to continue fluid restriction, low salt diet and aggressive diuretic regimen as outpatient. 2. Decompensated alcoholic liver disease with marked hypoalbuminemia and anasarca: Patient continues to have generalized anasaric appearance related to her chronically low albumin levels. She needs to follow fluid restriction of 1.5 liters outpatient and I am switching her to torsemide 40 mg twice daily to continue along with spironolactone 25 mg twice daily. She is also on chronic midodrine for hypotension related to her alcoholic liver disease. She will follow up with GI outpatient. 3. Hypomagnesemia: Continue magnesium oxide 800 mg twice daily. 4. Iron deficiency anemia: She is status post Venofer. Hemoglobin is suboptimal, but stable. Her FOBT was negative. She is on an oral iron supplement. 5. Tachycardia: She is being started on low dose beta-diana and we will see how her blood pressure tolerates it. For that reason I am also switching her diuretic to an oral regimen so we can see how she fares prior to discharge. 6. Disposition: Patient has a poor prognosis with her alcoholic liver disease. We will follow her up in the outpatient office for diuretic titration.
[2020-07-04] MEDS: FOLIC ACID 1 MG TAB PO SCH (13:54)
[2020-07-04] MEDS: MULTIVITAMINS/MINERALS THERAP 1 TAB PO SCH (13:55)
[2020-07-04] MEDS: THIAMINE 100 MG TAB PO SCH (13:56)
[2020-07-04] MEDS: PROPRANOLOL 10 MG TAB PO SCH ×2 (13:56→21:20)
[2020-07-04] MEDS: FERROUS SULFATE 325MG TAB PO SCH (13:57)
[2020-07-04 14:00] VITALS: BP 118/68
[2020-07-04] MEDS: METOCLOPRAMIDE INJ 10MG/2ML VIAL (J2765 PER 1) IV PRN (15:13)
[2020-07-04] MEDS: TORSEMIDE 20 MG TAB PO SCH (17:39)
[2020-07-04 22:00] VITALS: BP 107/67
[2020-07-05] MEDS: ALPRAZolam 0.5 MG TAB PO PRN (05:00)
[2020-07-05] MEDS: LEVOTHYROXINE 125MCG TABLET (0.125MG) PO SCH (05:33)
[2020-07-05] MEDS: SODIUM CHLORIDE 0.9% INJ 10 ML SYR IV SCH (05:35)
[2020-07-05 06:00] VITALS: BP 105/55
[2020-07-05 06:41] LABS: BASO # 0.1 10^3/uL (0.0-0.2); BASO % 0.7 % (0.0-1.0); EOS # 0.4 10^3/uL (0.0-0.5); EOS % 4.7 % (0.0-3.0); HEMATOCRIT 27.6 % (36.0-47.0); HEMOGLOBIN 9.1 g/dl (12.0-15.5); LYMPH # 1.8 10^3/uL (1.5-5.0); LYMPH % 19.9 % (24.0-44.0); MEAN CORPUSCULAR HEMOGLOBIN 31.5 pg (27.0-33.0); MEAN CORPUSCULAR VOLUME 95.5 fl (80.0-96.0); MONO # 0.8 10^3/uL (0.0-0.8); NEUTROPHILS # 5.9 10^3/uL (1.5-8.5); NEUTROPHILS % 65.3 % (36.0-66.0); PLATELET COUNT, AUTOMATED 217 10^3/uL (150-450); RED BLOOD COUNT 2.89 10^6/uL (4.00-5.40)
[2020-07-05 07:05] LABS: BLOOD UREA NITROGEN 10 MG/DL (7-18); CALCIUM LEVEL 7.8 MG/DL (8.5-10.1); CARBON DIOXIDE LEVEL 28 MEQ/L (21-32); CHLORIDE LEVEL 102 MEQ/L (98-107); CREATININE FOR GFR 0.86 MG/DL (0.55-1.30); GLOMERULAR FILTRATION RATE > 60.0 (>60); GLUCOSE, FASTING 72 MG/DL (70-100); MAGNESIUM LEVEL 1.3 MG/DL (1.8-2.4); POTASSIUM SERUM 4.1 MEQ/L (3.5-5.1); SODIUM LEVEL 135 MEQ/L (136-145)
--- NOTE | 2020-07-05 09:23 | DS.PDOC ---
Discharge Summary General Date of Admission Jun 14, 2020 at 04:10 Date of Discharge Jul 05, 2020 Attending Physician: AGUEDA CERVANTES MD Specialist/Consultants [facility] (GI)Channing (Nephro) Discharge Summary PROCEDURES PERFORMED DURING STAY: Midline placement 2 Paracentesis ADMITTING DIAGNOSES: Ascites, suspect SBP SIRS, sepsis Transaminitis, secondary to alcoholic steatosis Macrocytic anemia Hypothyroid History of occult dependence Obesity DISCHARGE DIAGNOSES: Decompensated alcoholic liver disease with ascites AUDRA, secondary diuresis IV NSAIDs and hypotension Tachycardia Anemia secondary to acute blood loss Ascites S/P midline catheter nonocclusive thrombus Hypovolemic, hyponatremia Unspecified mood disorder COMPLICATIONS/CHIEF COMPLAINT: Sbp, Sepsis. HISTORY OF PRESENT ILLNESS: Patient is a 36-year-old female who presented to the emergency department the evening of 06/13/2020 for increasing bilateral lower extremity edema over the last week. Patient is originally from [place], though she has been living in [place] for the last 3 years. Patient does carry rather complicated medical history. Patient states that she underwent gastric bypass in 2011. She denies any complications until 04/18/2020 when she began experiencing intense abdominal pain. She presented to a hospital in [place] and was found to have a perforated viscus. She states that she underwent surgical repair and was discharged within a a week. A few days later, patient was found to be unresponsive by her boyfriend brought back to the hospital. She was found to be in acute liver and renal failure. Patient reports that she did require dialysis for her renal failure. She shares that she spent 3-1/2 weeks in acute rehabilitation, mainly being discharged on 06/07/20. Patient then traveled with her aunts back to [place] to recuperate on Wednesday06/09/20. Over the 3 days preceding presentation, patient reported increasing lower extremity swelling ultimately progressing up to the level of her mid thigh/hip. Patient contacted her primary care provider who suggested immediate emergency room evaluation. In the ED, patient was found to be afebrile, tachycardic with heart rate of 114, normotensive and maintaining 100% oxygen saturation on room air. Initial laboratory evaluation shows a WBC of 13, H&H of 7.9/25.3, MCV of 100 and RDW of 20.8. Platelet count within normal limits. Sodium of 136, potassium of 3. BUN/Cr of 3/0.41, GFR greater than 60. Lactic acid 1.9, T bili of 1.9, direct bili 1.5, AST/ALT of 53, alkaline phosphatase of 109, lipase of 468 ammonia 49 and hypoalbuminemia of 2.0. Bilateral lower extremity ultrasound was performed to rule out DVT was found to be negative. CT of the abdomen and pelvis demonstrates a large amount of pelvic ascites with loculated abscesses. Pericolic fluid that was concerning for possible gallbladder disease. Bladder ultrasound demonstrated some sludge without rasheed cholecystitis. Chest x-ray was without any acute pulmonary process. Physical examination does demonstrate tense ascites with anasarca. Patient denies requiring a paracentesis during her previous hospitalization. Given the above findings, against the backdrop of her previous hospitalizations with liver and renal failure, hospitalist team was called to admit the patient for continued evaluation and management. HOSPITAL COURSE: In light of the patient's anemia, she did receive 2 units of packed red blood cells. Patient was diuresed using IV Lasix with every 12 hours with close mo nitoring of her creatinine and electrolytes. Potassium and magnesium supplementation as warranted. GI was consulted on 06/15/20, and reviewed the patient's labs and imaging studies. Do not believe there to be any acute GI bleed. Per medical record, it appears the patient declined in-hospital EGD. GIs documentation does agree with diagnosis of alcoholic liver disease with cirrhosis. Patient was advised to continue PPI in the mornings. Recommended to avoid NSAIDs, hepatotoxic medications. Patient to continue on thiamine and folic acid. High protein and low sodium diet. Recommend follow-up with GI upon discharge. Despite IV Lasix, patient continued to have minimal urine output. She was tria led on Zaroxolyn and Lasix with minimal improvement. She also began to demonstrated a low-grade temperature and to complain of right upper quadrant abdominal pain. Patient was started on IV Zosyn for suspected acute cholecystitis. Imaging studies were limited by patient's body habitus. She did have a HIDA scan which was negative. She was sent for a paracentesis that same day and continued on Zosyn for possible SBP. 350 mL of ascitic fluid was removed via paracentesis and send for culture. A midline was placed on 06/19/20 due to poor venous access. Patient was transitioned from Zosyn to IV ceftriaxone while the peritoneal fluid was cultured. She continued on Lasix for diuresis. Unfortunately, patient did develop a midline related nonocclusive thrombus. Patient's midline was pulled and she was started on Eliquis twice a day. She was monitored closely for possibility of a GI bleed or encephalopathy. On 06/23/20, patient's peritoneal fluid did not demonstrate any growth. Her antibiotics were discontinued. She was, however, continued on IV Lasix peripherally. Patient continued to refuse alcoholic rehabilitation. Patient began menstruation on 06/25/20. Secondary to her menses, patient did demonstrate a considerable amount of bleeding. H&H was found to be 7.8. Her Eliquis, Lasix, spironolactone and propranolol within held. She was transfused additional 2 units packed red cells. At this time, patient was also found to be acutely fluid overloaded with some degree of renal failure. Given this, nephrology was consulted. Per their documentation, was felt that her acute renal failure was mostly related to the high-dose loop diuretics and decreased intravascular volume secondary to low albumin and third spacing. Patient was also given Toradol for her menstrual cramps which likely contributed to her poor renal function. Diuretics were again held. She was started on midodrine for her hypotension. Patient was also noted to have signs of fluid overload. An echo was performed that did demonstrate normal left ventricular ejection fraction. She did receive albumin transfusions. Over the subsequent days, patient's diuretics remained on hold as her renal function gradually improved. She was then started on a furosemide drip. She continued to receive IV albumin infusions. By 06/30, patient was diuresing well and making a good amount of urine. Anasarca and in particular, patient's lower extremity edema, began improving. Unfortunately, patient remained a very difficult stick secondary to her fluid overload and a PICC line was again needed. While under the care of nephrology, patient was also started on Venofer for iron deficiency anemia. Patient's condition stabilized. She did receive the appropriate electrolyte replacement as dictated by her laboratory studies. Anasarca steadily improved. On 07/04/20, patient was transitioned to by mouth diuretics. The next morning, with stabilization of her renal function, fluid status and the laboratory studies, patient will be discharged home with close follow-up. Patient is to follow-up with both nephrology and GI upon her discharge. Patient is also to establish with a primary care provider in the [facility] area to assist in coordination of her medical care, and ongoing management of her other medical problems. Patient continues to decline alcohol rehabilitation now or in the future. This should be continually revisited with the patient. She is to continue on medications as listed below. She is to remain on a 1500 mL fluid restriction, high-protein diet with sodium restriction. This was discussed with the patient who is in agreement with the plan. DISCHARGE MEDICATIONS: Please see below. ALLERGIES: Please see below. PHYSICAL EXAMINATION ON DISCHARGE: VITAL SIGNS: Please see below. GENERAL: Patient is interviewed and examined in her hospital room. Patient is resting comfortably in bed in no acute distress. She is excited at the possibility of returning home. HEENT: Normocephalic, atraumatic, EOMI, sclera nonicteric compatible injection or pallor noted. Patient does carry stigmata of hirsutism, membranes are moist CARDIOVASCULAR EXAMINATION: Flow murmur appreciated over the left sternal border. RESPIRATORY EXAMINATION: Auscultation in all lung arguello. No wheezes rales or rhonchi heard. ABDOMINAL EXAMINATION: Abdomen remains mildly tense, otherwise soft, nontender and nondistended with bowel sounds present all 4 quadrants. EXTREMITIES: 3-4+ edema in lower extremities, particularly at the ankles and the feet. Worse on the right than the left. SKIN: No skin lesions or appreciable rashes. NEUROLOGICAL EXAMINATION: Alert and oriented 3, without focal neurologic deficits, 5 out of 5 strength is equal in both upper and lower extremities bilaterally. PSYCHIATRIC EXAMINATION: Patient does appear to be slightly depressed, though has improved since she has found out that she is returning home today. LABORATORY DATA: Please see below. IMAGING: B/L LE US (06/13/20): No evidence of DVT right or left leg Chest XR (06/13/20): Mild prominence of bronchovascular markings. The lungs are otherwise clear. Gallbladder US (06/13/20): Small amount of sludge in the gallbladder, no biliary dilation is seen. Fatty infiltration of the liver CT Abdomen/Pelvis (06/14/20): Large amount of abdominal and pelvic ascites. Generalized subcutaneous edema. Probable small loculated abscesses in the cul-de-sac. Etiology of the abscess is unclear. No other abscess or loculated fluid collection. Mild jacinta-cholecystic fluid and gallbladder mucosal enhancement. Consider gallbladder ultrasound follow-up. Mild neural edema of the small bowel and colon. Findings maybe secondary to other causes of systemic edema. No bowel obstruction or signs of ischemia. Echocardiogram (06/14/20): Normal left ventricle internal dimensions and wall motion thickness. Normal regional left ventricular wall motion and wall thickening. Normal left ventricular systolic function. Left ventricular ejection fraction of 65%. Visual estimate. Normal left ventricular diastolic function. No pericardial effusion. Suggestive of mild elevation of estimated right ventricular systolic pressure. Very mild tricuspid regurgitation. Otherwise normal-appearing echocardiogram. Abdominal MRI (06/17/20): Limited exam due to patient motion. Probable tiny gallstones in gallbladder. Mild pericholecystic fluid. No biliary dilation noted. Mild ascites. VQ scan (06/17/20): Low probability of pulmonary embolism. Gallbladder nuclear scan (06/17/20): No scintigraphic evidence of cholecystitis Chest x-ray (06/17/20): No acute cardiopulmonary process appreciated. No focal consolidation or effusion. Ultrasound, paracentesis (06/19/20): Ultrasound-guided paracentesis with removal of 360 mL of ascites. Midline insertion (06/19/20): Midline insertion to the left basilic vein. Vascular ultrasound (06/21/20) his colon area of occlusive thrombus noted in the distal cephalic vein and proximal to mid basilic vein. Midline insertion (07/01/20): PICC line insertion into the left lateral brachial vein. 0.9 minutes of fluoroscopy time was utilized this procedure. PROGNOSIS: Poor given decompensated liver disease with resulting fluid overload. ACTIVITY: As tolerated DIET: Low salt diet Fluid Restriction of 1500 ml/day DISCHARGE PLAN: Please continue your torsemide 40 mg twice daily and Spironolactone 25 mg twice daily. Please adhere to a low salt diet and 1500 ml/day fluid restriction. Please follow-up with Nephrology in 5-7 days for continued titration of your diuretics. Please continue your home propranolol to keep your HR under control. Continue on your magnesium and iron supplements. Please hold your potassium supplement until your appointment with nephrology. Please follow-up with GI within 5-7 days for further management of your alcoholic liver disease. Please continue to refrain from alcohol use. DISCHARGE CONDITION: Stable TIME SPENT ON DISCHARGE: Greater than 55 minutes. Vital Signs/I&Os Vital Signs Date Time Temp Pulse Resp B/P (MAP) Pulse Ox O2 Delivery O2 Flow Rate FiO2 07/05/20 06:00 98.4 81 18 105/55 (72) 94 Room Air I&O- Last 24 Hours up to 6 AM 07/05/20 06:00 Intake Total 1465 ml Output Total 1175 ml Balance 290 ml Laboratory Data Labs 24H Laboratory Tests 2 07/05/20 06:28: Immature Granulocyte % (Auto) 0.4, Neutrophils (%) (Auto) 65.3, Lymphocytes (%) (Auto) 19.9L, Monocytes (%) (Auto) 9.0H, Eosinophils (%) (Auto) 4.7H, Basophils (%) (Auto) 0.7, Neutrophils # (Auto) 5.9, Lymphocytes # (Auto) 1.8, Monocytes # (Auto) 0.8, Eosinophils # (Auto) 0.4, Basophils # (Auto) 0.1, Nucleated Red Blood Cells % (auto) 0.2H, Anion Gap 5L, Glomerular Filtration Rate > 60.0, Calcium Level 7.8L, Magnesium Level 1.3L CBC/BMP Laboratory Tests 07/05/20 06:28 Microbiology Microbiology 07/02/20 Stool Occult Blood (JAM) - Final, Complete Discharge Medications Scheduled Bupropion HCl (Bupropion HCl Sr) 150 Mg Tab.er.12h, 150 MG PO BID Ferrous Sulfate (Ferrous Sulfate) 325 Mg Tablet, 325 MG PO DAILY@1200 Folic Acid (Folic Acid) 1 Mg Tablet, 1 MG PO DAILY@1200 Levothyroxine Sodium (Synthroid) 125 Mcg Tablet, 125 MCG PO DAILY, (Reported) Magnesium Oxide (Magnesium Oxide) 400 Mg Tablet, 800 MG PO BID Midodrine HCl (Midodrine HCl) 5 Mg Tablet, 5 MG PO 08,12,16 Multivitamins (Thera M Plus Tablet) 1 Each Tablet, 1 TAB PO DAILY@1200 Oyster Shell Calcium (Oyster Shell Calcium) 500 Mg Tablet, 500 MG PO DAILY Pantoprazole Sodium (Pantoprazole Sodium) 20 Mg Tablet.dr, 20 MG PO QAM Propranolol HCl (Propranolol HCl) 10 Mg Tablet, 10 MG PO BID Spironolactone (Aldactone) 25 Mg Tablet, 25 MG PO BID Thiamine HCl (Vitamin B-1) 50 Mg Tablet, 150 MG PO DAILY, (Reported) Torsemide (Torsemide) 20 Mg Tablet, 40 MG PO BID@ Vitamin B Complex (Vitamin B Complex) 1 Each Tablet, 1 TAB PO DAILY, (Reported) Zinc Sulfate (Zinc Sulfate) 220 Mg Capsule, 220 MG PO DAILY, (Reported) Allergies Coded Allergies: No Known Allergies (Unverified , 06/13/20) MILKA SMITH DO Jul 05, 2020 09:23
[2020-07-05] MEDS: PANTOPRAZOLE 20 MG TAB PO SCH (09:26)
[2020-07-05] MEDS: MAGNESIUM OXIDE 400 MG TAB (MAG-OX) PO SCH (09:26)
[2020-07-05] MEDS: MAG SULF 1GM/100ML (MAG RUN) 1 GM in IV 1 EA IV SCH ×3 (09:26→11:50)
[2020-07-05 09:27] VITALS: BP 105/55
[2020-07-05] MEDS: buPROPion **SR TABLET** (ZYBAN) 150MG PO SCH (09:27)
[2020-07-05] MEDS: ZINC SULFATE 220 MG CAP PO SCH (09:27)
[2020-07-05] MEDS: MIDODRINE 5 MG TAB PO SCH ×2 (09:27→11:51)
[2020-07-05] MEDS: SPIRONOLACTONE 25 MG TAB PO SCH (09:27)
[2020-07-05] MEDS: TORSEMIDE 20 MG TAB PO SCH (09:27)
[2020-07-05] MEDS: PROPRANOLOL 10 MG TAB PO SCH (09:27)
[2020-07-05] MEDS: OYSTER SHELL CALCIUM 500 MG TAB PO SCH (09:27)
[2020-07-05] MEDS: NYSTATIN 100,000 UNITS/GM TOPICAL PWD 15 GM TOP SCH (09:28)
[2020-07-05] MEDS ORDERED: FERR325T18 PO (09:55)
[2020-07-05] MEDS ORDERED: BUPR15TASR PO (09:55)
[2020-07-05] MEDS ORDERED: MIDO5TA PO (09:55)
[2020-07-05] MEDS ORDERED: VITMTA PO (09:55)
[2020-07-05] MEDS ORDERED: PANT20TA6 PO (09:55)
[2020-07-05] MEDS ORDERED: TORS20TA2 PO (09:55)
[2020-07-05] MEDS ORDERED: PROP10TA56 PO (09:55)
[2020-07-05] MEDS ORDERED: MAG400TA PO (09:55)
[2020-07-05] MEDS ORDERED: FOLI1TAB11 PO (09:55)
[2020-07-05] MEDS ORDERED: CALCI50TA PO (09:55)
[2020-07-05] MEDS ORDERED: ALDA25TA2 PO (10:42)
[2020-07-05] MEDS: THIAMINE 100 MG TAB PO SCH (11:50)
[2020-07-05] MEDS: FOLIC ACID 1 MG TAB PO SCH (11:51)
[2020-07-05] MEDS: FERROUS SULFATE 325MG TAB PO SCH (11:51)
[2020-07-05] MEDS: MULTIVITAMINS/MINERALS THERAP 1 TAB PO SCH (11:51)
[2020-07-05 14:00] VITALS: BP 104/60
--- NOTE | 2020-07-08 13:32 | IPN ---
PROGRESS NOTE DATE: 07/05/2020 SUBJECTIVE: Patient seen and examined this morning at the bedside. She denies any overnight events or complaints. She is diuresing nicely on oral diuretics. Her heart rate has improved with beta-diana. She wants to go home. She has discharge pending. She denies chest pain or shortness of breath. She tells me she is going to be in the [facility] for a month and then she plans to return to [place]. PHYSICAL EXAMINATION: VITAL SIGNS: Temperature 97.6, pulse 90, respiratory rate 17, blood pressure 104/60, saturating 94% on room air. INTAKE AND OUTPUT: Intake yesterday was 1600. Urine output was 1550. There was four bowel movements. Weight in the bed scale today is 95.6 kg. GENERAL: The patient is seen sitting up in bed, a young female who appears older than stated age, in no apparent distress. HEENT: Extraocular muscles are intact. Tongue is moist. Neck is supple. Jugular veins are not elevated. HEART: Heart sounds are no longer tachycardic, S1, S2. There is still 1+ leg edema and 1+ dependent edema. LUNGS: Symmetric air entry and clear to auscultation. No crackle or rale. ABDOMEN: Obese. There is mild abdominal wall pitting edema. NEUROLOGIC: She is oriented x3, interactive, at baseline mentation. SKIN: Warm and dry. No rashes. LABORATORY DATA: White count 9.0, hemoglobin 9.1, platelets 217,000. Sodium 135, potassium 4.1, bicarbonate 28, BUN 10, creatinine 0.8. Magnesium 1.7. INPATIENT MEDICATIONS: Reviewed by myself. She got a gram of I.V. magnesium today. She was started on Propranolol 10 mg p.o. b.i.d. yesterday, Torsemide 40 mg p.o. b.i.d. yesterday. The remainder of her medications are unchanged from prior. PROBLEMS: 1. Status post acute renal failure: Renal function has improved over the course of this admission and has recovered to baseline. She was diuresed, but still has peripheral edema related to her chronic liver disease and hypoalbuminemia. She will need to continue combination diuretics; Torsemide and Spironolactone in the outpatient setting and follow low sodium diet and 1.5 liter fluid restriction. I have discussed with her at length that she needs to avoid NSAID use. 2. Alcoholic liver disease with cirrhosis with history of ascites: Patient was evaluated by GI on this admission, she is requiring Midodrine for chronic hypotension. She also has chronic hypoalbuminemia that complicates her diuresis. Her discharge diuretic regimen will be Torsemide 40 mg b.i.d. and Spironolactone 25 mg b.i.d. She should follow high protein and low salt diet. 3. Sinus tachycardia: It has improved nicely with low dose Propranolol b.i.d. 4. Hypomagnesemia: It is due to loop diuretic plus Protonix, and she should continue magnesium oxide 800 mg p.o. b.i.d. 5. Iron deficiency anemia: She is status post five doses of Venofer. Hemoglobin is suboptimal, but stable. She should continue oral iron supplement. 6. Hyponatremia: It is mild and it is due to her chronic liver disease. She needs to continue with low sodium diet, fluid restriction and combination diuretics.
== END 2020-07-05 16:20 | disposition home health service (06) | DRG 264 ==
LOC: M ED 16:22 → M ED INP 06-14 04:10 → ENRESERV 06-14 05:00 → M ICU 06-14 05:29 → M MSPAV 06-14 14:15
PROVIDERS: ADMIT Internal Medicine; ATTEND Internal Medicine
PROC: 30233N1 Transfusion of Nonautologous Red Blood Cells into Peripheral Vein, Percutaneous Approach (ICD-10-PCS; 2020-06-14)
PROC: 05HC33Z Insertion of Infusion Device into Left Basilic Vein, Percutaneous Approach (ICD-10-PCS; 2020-06-19)
PROC: 0W9G3ZX Drainage of Peritoneal Cavity, Percutaneous Approach, Diagnostic (ICD-10-PCS; 2020-06-19 09:35)
PROC: 02H Heart and Great Vessels, Insertion (ICD-10-PCS; principal; 2020-07-01 07:01)
DX: K70.31 Alcoholic cirrhosis of liver with ascites (principal); N17.9 Acute kidney failure, unspecified; I95.89 Other hypotension; D68.32 Hemorrhagic disorder due to extrinsic circulating anticoagulants; E46 Unspecified protein-calorie malnutrition; T82.818A Embolism due to vascular prosthetic devices, implants and grafts, initial encounter; E87.1 Hypo-osmolality and hyponatremia; D62 Acute posthemorrhagic anemia; Z68.41 Body mass index [BMI] 40.0-44.9, adult; E83.42 Hypomagnesemia; E66.01 Morbid (severe) obesity due to excess calories; E83.51 Hypocalcemia; E87.6 Hypokalemia; F39 Unspecified mood [affective] disorder; R74.01 Elevation of levels of liver transaminase levels; D50.9 Iron deficiency anemia, unspecified; E03.9 Hypothyroidism, unspecified; F10.20 Alcohol dependence, uncomplicated; Z79.899 Other long term (current) drug therapy; Z20.828 Contact with and (suspected) exposure to other viral communicable diseases; Y83.1 Surgical operation with implant of artificial internal device as the cause of abnormal reaction of the patient, or of later complication, without mention of misadventure at the time of the procedure; K70.0 Alcoholic fatty liver; K70.40 Alcoholic hepatic failure without coma

== ENCOUNTER → 2020-07-15 | Outpatient (CLI) | payer MEDICAID ==
[~2020-07-15] MED LIST: ALDA25TA2 PO; BUPR15TASR PO; CALCI50TA PO; ELIQ5TAB PO; FERR325T18 PO; FERR325T3 PO; FOLI1TAB11 PO; LASI20TA3 PO; LEVO112T2 PO; MAG400TA PO; MAGN400T2 PO; MAGN400T3 PO; METO25TA4 PO; MIDO5TA PO; MULT400T10 PO; PANT20TA6 PO; PROP10TA56 PO; PROT20TA11 PO; SPIR-10 PO; SUPECAP14 PO; SYNT125T PO; TORS20TA2 PO; VITA50TA47 PO; VITATAB31 PO; VITMTA PO; ZINC220CA PO; [UNRECOGNIZED DRUG - OTHER] PO
== END ==
LOC: M WUC 17:08
PROVIDERS: ATTEND Internal Medicine Nephrology
DX: D64.9 Anemia, unspecified (principal); K74.60 Unspecified cirrhosis of liver; N18.31 Chronic kidney disease, stage 3a; E83.51 Hypocalcemia

== ENCOUNTER → 2020-07-16 | Outpatient (CLI) | payer MEDICAID ==
[2020-07-16 11:57] LABS: APPEARANCE, URINE HAZY (CLEAR); BACTERIA, URINE AUTO 2+ (NEGATIVE); BILIRUBIN, URINE AUTO NEGATIVE (NEGATIVE); BLOOD, URINE BLOOD 1+ (NEGATIVE); COLOR, URINE YELLOW (YELLOW); GLUCOSE, URINE (UA) AUTO NEGATIVE (NEGATIVE); KETONE, URINE AUTO NEGATIVE (NEGATIVE); LEUKOCYTE ESTERASE, URINE AUTO NEGATIVE (NEGATIVE); MUCUS, URINE SMALL (NEGATIVE); NITRITE, URINE AUTO NEGATIVE (NEGATIVE); PROTEIN, URINE AUTO NEGATIVE (NEGATIVE); RBC, URINE AUTO 2 /HPF (0-3); SPECIFIC GRAVITY URINE AUTO 1.009 (1.002-1.035); SQUAMOUS EPITHELIAL CELL UR AU 2 /HPF (0-6); WBC, URINE AUTO 4 /HPF (0-3)
[2020-07-16 12:16] LABS: BASO % 0.5 % (0.0-1.0); EOS # 0.2 10^3/uL (0.0-0.5); EOS % 2.1 % (0.0-3.0); HEMATOCRIT 31.8 % (36.0-47.0); HEMOGLOBIN 10.3 g/dl (12.0-15.5); LYMPH # 1.9 10^3/uL (1.5-5.0); LYMPH % 22.7 % (24.0-44.0); MEAN CORPUSCULAR HEMOGLOBIN 31.5 pg (27.0-33.0); MEAN CORPUSCULAR HGB CONC 32.4 g/dl (32.0-36.5); MEAN CORPUSCULAR VOLUME 97.2 fl (80.0-96.0); MONO # 0.6 10^3/uL (0.0-0.8); NEUTROPHILS # 5.6 10^3/uL (1.5-8.5); NEUTROPHILS % 67.5 % (36.0-66.0); PLATELET COUNT, AUTOMATED 246 10^3/uL (150-450); RED BLOOD COUNT 3.27 10^6/uL (4.00-5.40); WHITE BLOOD COUNT 8.3 10^3/uL (4.0-10.0)
[2020-07-16 12:32] LABS: ALBUMIN 2.2 GM/DL (3.2-5.2); CALCIUM LEVEL 7.9 MG/DL (8.5-10.1); CREATININE FOR GFR 1.17 MG/DL (0.55-1.30); GLOMERULAR FILTRATION RATE 56.4 (>60); MAGNESIUM LEVEL 1.4 MG/DL (1.8-2.4); PHOSPHORUS LEVEL 3.3 MG/DL (2.5-4.9); POTASSIUM SERUM 3.1 MEQ/L (3.5-5.1); PTH INTACT 53.4 PG/ML (18.5-88.0)
== END ==
LOC: M WUC 08:46
PROVIDERS: ATTEND Internal Medicine Nephrology
DX: D64.9 Anemia, unspecified (principal); K74.60 Unspecified cirrhosis of liver; N18.31 Chronic kidney disease, stage 3a; E83.51 Hypocalcemia

== ENCOUNTER → 2020-10-01 | Outpatient (CLI) | payer MEDICAID ==
[~2020-10-01] MED LIST changes: -MAG400TA PO; +MAGN400T35 PO
--- NOTE | 2020-10-01 11:04 | REP ---
INDICATION: ASCITES EVAL FOR ASCITIES ONLY NOT GALLBLADDER COMPARISON: None. TECHNIQUE: Real time colón scale ultrasound examination using curved array transducer. FINDINGS: Limited ultrasound examination for the evaluation of ascites demonstrates no significant ascites throughout the abdomen and pelvis. IMPRESSION: No evidence for ascites. <Electronically signed by Praful Sanders > 10/01/20 1108
== END ==
LOC: M RAD 09:47
PROVIDERS: ATTEND Internal Medicine Nephrology
DX: R18.8 Other ascites (principal)

== ENCOUNTER → 2020-10-22 | Outpatient (REF) | payer OTHER ==
[2020-10-22 18:28] LABS: PERCENT SATURATION 27.8 % (13.2-45.0)
== END ==
LOC: M LAB REF 16:46
PROVIDERS: ATTEND Internal Medicine Nephrology
DX: D50.9 Iron deficiency anemia, unspecified (principal)

== ENCOUNTER → 2021-03-03 | Outpatient (CLI) | payer OTHER ==
[~2021-03-03] MED LIST changes: +FERR325T19; +HYDR-3363; -MAGN400T3 PO; +MAGN400T33 PO; +MAGN500T2; +POTA1TAB23; +THIA100T22
== END ==
LOC: M LABSMTC 10:22
PROVIDERS: ATTEND Anesthesiology
DX: Z01.812 Encounter for preprocedural laboratory examination (principal); Z20.822 Contact with and (suspected) exposure to COVID-19

== ENCOUNTER 2021-05-26 00:55 | Emergency (ER) | payer OTHER ==
[~2021-05-26] VITALS: Ht 157.5 cm; Wt 79.5 kg
[2021-05-26 00:56] VITALS: BP 128/72
--- OUTSIDE RECORDS SUMMARY | 2021-05-26 01:01 | CCD ---
Author Author [facility] Organization [facility] Address Unknown Phone Unavailable Care Team Providers Care Pocket Setter Lockstitch Name Role Phone Feola, T Anika PA Unavailable Unavailable Feola, T Anika PA Unavailable Unavailable Feola, T Anika PA Unavailable Unavailable Feola, T Anika PA Unavailable Unavailable Feola, T Anika PA Unavailable Unavailable Feola, T Anika PA Unavailable Unavailable Feola, T Ainka PA Unavailable Unavailable Feola, T Anika PA Unavailable Unavailable Feola, T Anika PA Unavailable Unavailable Feola, T Anika PA Unavailable Unavailable Feola, T Anika PA Unavailable Unavailable Feola, T Anika PA Unavailable Unavailable Feola, T Anika PA Unavailable Unavailable Feola, T Anika PA Unavailable Unavailable Feola, T Anika PA Unavailable Unavailable Feola, T Anika PA Unavailable Unavailable Feola, T Anika PA Unavailable Unavailable Feola, T Anika PA Unavailable Unavailable Feola, T Anika PA Unavailable Unavailable Feola, T Anika PA Unavailable Unavailable Feola, T Anika PA Unavailable Unavailable Feola, T Anika PA Unavailable Unavailable Feola, T Anika PA Unavailable Unavailable Feola, T Anika PA Unavailable Unavailable Feola, T Anika PA Unavailable Unavailable Feola, T Anika PA Unavailable Unavailable Feola, T Anika PA Unavailable Unavailable Feola, T Anika PA Unavailable Unavailable Feola, T Anika PA Unavailable Unavailable Feola, T Anika PA Unavailable Unavailable Feola, T Anika PA Unavailable Unavailable Feola, T Anika PA Unavailable Unavailable Feola, T Anika PA Unavailable Unavailable Feola, T Anika PA Unavailable Unavailable Feola, T Anika PA Unavailable Unavailable Feola, T Anika PA Unavailable Unavailable Feola, T Anika PA Unavailable Unavailable Feola, T Anika PA Unavailable Unavailable Feola, T Anika PA Unavailable Unavailable Feola, T Anika PA Unavailable Unavailable Feola, T Anika PA Unavailable Unavailable DIANE, BISIEHA DO Unavailable [phone] DIANE, WAJEEHA DO Unavailable [phone] DIANE, WAJEEHA DO Unavailable [phone] DIANE, WAMALCOLMEHA DO Unavailable [phone] DIANE, WAJEEHA DO Unavailable [phone] DIANE, WAJEEHA DO Unavailable [phone] DIANE, WAJEEHA DO Unavailable [phone] DIANE, WAJEEHA DO Unavailable [phone] DIANE, WAJEEHA DO Unavailable [phone] DIANE, WAJEEHA DO Unavailable [phone] DIANE, WAJEEHA DO Unavailable [phone] DIANE, WAJEEHA DO Unavailable [phone] DIANE, WAJEEHA DO Unavailable [phone] DIANE, WAJEEHA DO Unavailable [phone] DIANE, WAJEEHA DO Unavailable [phone] DIANE, WAMALCOLMEHA DO Unavailable [phone] DIANE, WAJEEHA DO Unavailable [phone] DIANE, WAMALCOLMEHA DO Unavailable [phone] Dr. CORTEZ BREWER Unavailable [phone] Dr. CORTEZ BREWER Unavailable [phone] Dr. CORTEZ BREWER Unavailable [phone] TRIPLETT, AYLA VIRGIL RPA-C Unavailable Unavailable TRIPLETT, AYLA VIRGIL RPA-C Unavailable Unavailable TRIPLETT, AYLA VIRGIL RPA-C Unavailable Unavailable TRIPLETT, AYLA VIRGIL RPA-C Unavailable Unavailable TRIPLETT, AYLA VIRGIL RPA-C Unavailable Unavailable TRIPLETT, AYLA VIRGIL RPA-C Unavailable Unavailable TRIPLETT, AYLA VIRGIL RPA-C Unavailable Unavailable TRIPLETT, AYLA VIRGIL RPA-C Unavailable Unavailable TRIPLETT, AYLA VIRGIL RPA-C Unavailable Unavailable TRIPLETT, AYLA VIRGIL RPA-C Unavailable Unavailable TRIPLETT, AYLA VIRGIL RPA-C Unavailable Unavailable TRIPLETT, AYLA VIRGIL RPA-C Unavailable Unavailable TRIPLETT, AYLA VIRGIL RPA-C Unavailable Unavailable TRIPLETT, AYLA VIRGIL RPA-C Unavailable Unavailable TRIPLETT, AYLA VIRGIL RPA-C Unavailable Unavailable TRIPLETT, AYLA VIRGIL RPA-C Unavailable Unavailable TRIPLETT, AYLA VIRGIL RPA-C Unavailable Unavailable TRIPLETT, AYLA VIRGIL RPA-C Unavailable Unavailable TRIPLETT, AYLA VIRGIL RPA-C Unavailable Unavailable TRIPLETT, AYLA VIRGIL RPA-C Unavailable Unavailable TRIPLETT, AYLA VIRGIL RPA-C Unavailable Unavailable TRIPLETT, AYLA VIRGIL RPA-C Unavailable Unavailable TRIPLETT, AYLA VIRGIL RPA-C Unavailable Unavailable TRIPLETT, AYLA VIRGIL RPA-C Unavailable Unavailable TRIPLETT, AYLA VIRGIL RPA-C Unavailable Unavailable TRIPLETT, AYLA VIRGIL RPA-C Unavailable Unavailable TRIPLETT, AYLA VIRGIL RPA-C Unavailable Unavailable TRIPLETT, AYLA VIRGIL RPA-C Unavailable Unavailable TRIPLETT, AYLA VIRGIL RPA-C Unavailable Unavailable TRIPLETT, AYLA VIRGIL RPA-C Unavailable Unavailable TRIPLETT, AYLA VIRGIL RPA-C Unavailable Unavailable TRIPLETT, AYLA VIRGIL RPA-C Unavailable Unavailable TRIPLETT, AYLA VIRGIL RPA-C Unavailable Unavailable TRIPLETT, AYLA VIRGIL RPA-C Unavailable Unavailable TRIPLETT, AYLA VIRGIL RPA-C Unavailable Unavailable TRIPLETT, AYLA VIRGIL RPA-C Unavailable Unavailable TRIPLETT, AYLA VIRGIL RPA-C Unavailable Unavailable TRIPLETT, AYLA VIRGIL RPA-C Unavailable Unavailable TRIPLETT, AYLA VIRGIL RPA-C Unavailable Unavailable TRIPLETT, AYLA VIRGIL RPA-C Unavailable Unavailable TRIPLETT, AYLA VIRGIL RPA-C Unavailable Unavailable TRIPLETT, AYLA VIRGIL RPA-C Unavailable Unavailable TRIPLETT, AYLA VIRGIL RPA-C Unavailable Unavailable DIANE, [phone] K. TANYAJEEHA DO Unavailable Unavail able DIANE, [phone] K. WAJEEHA DO Unavailable Unavail able DIANE, [phone] K. WAJEEHA DO Unavailable Unavail able DIANE, [phone] K. WAJEEHA DO Unavailable Unavail able DIANE, [phone] K. WAJEEHA DO Unavailable Unavail able FABIOLA, L KHURRAM PA Unavailable Unavailable FABIOLA, L KHURRAM PA Unavailable Unavailable FABIOLA, L KHURRAM PA Unavailable Unavailable FABIOLA, L KHURRAM PA Unavailable Unavailable FABIOLA, L KHURRAM PA Unavailable Unavailable FABIOLA, L KHURRAM PA Unavailable Unavailable FABIOLA, L KHURRAM PA Unavailable Unavailable FABIOLA, L KHURRAM PA Unavailable Unavailable FABIOLA, L KHURRAM PA Unavailable Unavailable FABIOLA, L KHURRAM PA Unavailable Unavailable FABIOLA, L KHURRAM PA Unavailable Unavailable FABIOLA, L KHURRAM PA Unavailable Unavailable FABIOLA, L KHURRAM PA Unavailable Unavailable FABIOLA, L KHURRAM PA Unavailable Unavailable FABIOLA, L KHURRAM PA Unavailable Unavailable FABIOLA, L KHURRAM PA Unavailable Unavailable FABIOLA, L KHURRAM PA Unavailable Unavailable FABIOLA, L KHURRAM PA Unavailable Unavailable FABIOLA, L KHURRAM PA Unavailable Unavailable FABIOLA, L KHURRAM PA Unavailable Unavailable FABIOLA, L KHURRAM PA Unavailable Unavailable FABIOLA, L KHURRAM PA Unavailable Unavailable Emily CASTRO MD Unavailable Unavailable Emily CASTRO MD Unavailable Unavailable Emily CASTRO MD Unavailable Unavailable Emily CASTRO MD Unavailable Unavailable Emily CASTRO MD Unavailable Unavailable Emily CASTRO MD Unavailable Unavailable Emily CASTRO MD Unavailable Unavailable Emily CASTRO MD Unavailable Unavailable Emily CASTRO MD Unavailable Unavailable Emily CASTRO MD Unavailable Unavailable Emily CASTRO MD Unavailable Unavailable Emily CASTRO MD Unavailable Unavailable Emily CASTRO MD Unavailable Unavailable Emily CASTRO MD Unavailable Unavailable Emily CASTRO MD Unavailable Unavailable Emily CASTRO MD Unavailable Unavailable Emily CASTRO MD Unavailable Unavailable Emily CASTRO MD Unavailable Unavailable Emily CASTRO MD Unavailable Unavailable Emily CASTRO MD Unavailable Unavailable Emily CASTRO MD Unavailable Unavailable Emily CASTRO MD Unavailable Unavailable Emily CASTRO MD Unavailable Unavailable Emily CASTRO MD Unavailable Unavailable Emily CASTRO MD Unavailable Unavailable Emily CASTRO MD Unavailable Unavailable Emily CASTRO MD Unavailable Unavailable Emily CASTRO MD Unavailable Unavailable Emily CASTRO MD Unavailable Unavailable Emily CASTRO MD Unavailable Unavailable Eimly CASTRO MD Unavailable Unavailable Emily CASTRO MD Unavailable Unavailable Emily CASTRO MD Unavailable Unavailable Isabel, A Chante LEGAL ASSISTANT Unavailable Unavailable Isabel, A Chante LEGAL ASSISTANT Unavailable Unavailable Isabel, A Chante LEGAL ASSISTANT Unavailable Unavailable Isabel, A Chante LEGAL ASSISTANT Unavailable Unavailable Isabel, A Chante LEGAL ASSISTANT Unavailable Unavailable Isabel, A Chante LEGAL ASSISTANT Unavailable Unavailable Isabel, A Chante LEGAL ASSISTANT Unavailable Unavailable Isabel, A Chante LEGAL ASSISTANT Unavailable Unavailable Isabel, A Chante LEGAL ASSISTANT Unavailable Unavailable Isabel, A Chante LEGAL ASSISTANT Unavailable Unavailable Isabel, A Chante LEGAL ASSISTANT Unavailable Unavailable Isabel, A Chante LEGAL ASSISTANT Unavailable Unavailable Isabel, A Chante LEGAL ASSISTANT Unavailable Unavailable Isabel, A Chante LEGAL ASSISTANT Unavailable Unavailable Isabel, A Chante LEGAL ASSISTANT Unavailable Unavailable Isabel, A Chante LEGAL ASSISTANT Unavailable Unavailable Isabel, A Chante LEGAL ASSISTANT Unavailable Unavailable Isabel, A Chante LEGAL ASSISTANT Unavailable Unavailable Isabel, A Chante LEGAL ASSISTANT Unavailable Unavailable Isabel, A Chante LEGAL ASSISTANT Unavailable Unavailable Isabel, A Chante LEGAL ASSISTANT Unavailable Unavailable Isabel, A Chante LEGAL ASSISTANT Unavailable Unavailable Isabel, A Chante LEGAL ASSISTANT Unavailable Unavailable Isabel, A Chante LEGAL ASSISTANT Unavailable Unavailable Isabel, A Chante LEGAL ASSISTANT Unavailable Unavailable Isabel, A Chante LEGAL ASSISTANT Unavailable Unavailable Isabel, A Chante LEGAL ASSISTANT Unavailable Unavailable Isabel, A Chante LEGAL ASSISTANT Unavailable Unavailable Isabel, A Chante LEGAL ASSISTANT Unavailable Unavailable Isabel, A Chante LEGAL ASSISTANT Unavailable Unavailable Isabel, A Chante LEGAL ASSISTANT Unavailable Unavailable Isabel, A Chante LEGAL ASSISTANT Unavailable Unavailable Isabel, A Chante LEGAL ASSISTANT Unavailable Unavailable Isabel, A Chante LEGAL ASSISTANT Unavailable Unavailable Isabel, A Chante LEGAL ASSISTANT Unavailable Unavailable Isabel, A Chante LEGAL ASSISTANT Unavailable Unavailable Isabel, A Chante LEGAL ASSISTANT Unavailable Unavailable Isabel, A Chante LEGAL ASSISTANT Unavailable Unavailable Isabel, A Chante LEGAL ASSISTANT Unavailable Unavailable Isabel, A Chante LEGAL ASSISTANT Unavailable Unavailable Isabel, A Chante LEGAL ASSISTANT Unavailable Unavailable Isabel, A Chante LEGAL ASSISTANT Unavailable Unavailable Isabel, A Chante LEGAL ASSISTANT Unavailable Unavailable Isabel, A Chante LEGAL ASSISTANT Unavailable Unavailable Isabel, A Chante LEGAL ASSISTANT Unavailable Unavailable Isabel, A Chante LEGAL ASSISTANT Unavailable Unavailable Isabel, A Chante LEGAL ASSISTANT Unavailable Unavailable Isabel, A Chante LEGAL ASSISTANT Unavailable Unavailable Isabel, A Chante LEGAL ASSISTANT Unavailable Unavailable Isabel, A Chante LEGAL ASSISTANT Unavailable Unavailable Isabel, A Chante LEGAL ASSISTANT Unavailable Unavailable Isabel, A Chante LEGAL ASSISTANT Unavailable Unavailable Isabel, A Chante LEGAL ASSISTANT Unavailable Unavailable Isabel, A Chante LEGAL ASSISTANT Unavailable Unavailable MARY, LADY COY PA Unavailable Unavailable MARY, LADY VILCHIS Unavailable Unavailable MARY, LADY COY PA Unavailable Unavailable MARY, LADY COY PA Unavailable Unavailable MARY, LADY COY PA Unavailable Unavailable MARY, LADY COY PA Unavailable Unavailable MARY, LADY ANNELIESE PA Unavailable Unavailable MARY, LADY ANNELIESE PA Unavailable Unavailable MARY, LADY ANNELIESE PA Unavailable Unavailable MARY, LADY ANNELIESE PA Unavailable Unavailable MARY, LADY ANNELIESE PA Unavailable Unavailable MARY, LADY ANNELIESE PA Unavailable Unavailable MARY, LADY ANNELIESE PA Unavailable Unavailable MARY, LADY ANNELIESE PA Unavailable Unavailable MARY, LADY ANNELIESE PA Unavailable Unavailable MARY, LADY ANNELIESE PA Unavailable Unavailable MARY, LADY ANNELIESE PA Unavailable Unavailable MARY, LADY ANNELIESE PA Unavailable Unavailable MARY, LADY ANNELIESE PA Unavailable Unavailable MARY, LADY ANNELIESE PA Unavailable Unavailable MARY, LADY ANNELIESE PA Unavailable Unavailable MARY, LADY ANNELIESE PA Unavailable Unavailable Re-disclosure Warning The records that you are about to access may contain information from federally-assisted alcohol or drug abuse programs. If such information is present, then the following federally mandated warning applies: This information has been disclosed to you from records protected by federal confidentiality rules (42 CFR part 2). The federal rules prohibit you from making any further disclosure of this information unless further disclosure is expressly permitted by the written consent of the person to whom it pertains or as otherwise permitted by 42 CFR part 2. A general authorization for the release of medical or other information is NOT sufficient for this purpose. The Federal rules restrict any use of the information to criminally investigate or prosecute any alcohol or drug abuse patient.The records that you are about to access may contain highly sensitive health information, the redisclosure of which is protected by Article 27-F of the [facility] Public Health law. If you continue you may have access to information: Regarding HIV / AIDS; Provided by facilities licensed or operated by the [facility] Office of Mental Health; or Provided by the [facility] Office for People With Developmental Disabilities. If such information is present, then the following [facility] mandated warning applies: This information has been disclosed to you from confidential records which are protected by state law. State law prohibits you from making any further disclosure of this information without the specific written consent of the person to whom it pertains, or as otherwise permitted by law. Any unauthorized further disclosure in violation of state law may result in a fine or shelter sentence or both. A general authorization for the release of medical or other information is NOT sufficient authorization for further disc losure. Allergies and Adverse Reactions Type Description Substance Reaction Status Data Source(s ) No Known Drug Allergies No Known Drug Allergies No Known Drug Aller gies active NETSMART ([facility] ) Encounters Encounter Providers Location Date Indications Data Source(s ) Outpatient Attender: Anika VILCHIS 021 01:48:02 PM EDT - 04/01/2021 03:52:17 PM EDT DocuTap ([facility] ) Outpatient [facility] 12/26/2020 12:00:00 AM EDT eCW1 ([facility]) Outpatient Attender: MELA Lorenzo/Jamarcus/Ang el/Reindl 11/28/2020 02:00:00 PM EDT MEDENT ([facility]) Outpatient [facility] 11/25/2020 12:00:00 AM EDT eCW1 ([facility]) Outpatient [facility] 11/21/2020 12:00:00 AM EDT eCW1 ([facility]) Outpatient [facility] 10/25/2020 12:00:00 AM EDT eCW1 ([facility]) Outpatient [facility] 09/23/2020 12:00:00 AM EST eCW1 ([facility]) Outpatient Attender: MELA Lorenzo/Jamarcus/Ang el/Reindl 09/11/2020 09:00:00 AM EST MEDENT ([facility]) Outpatient Attender: ALEKSANDRA MENA ttender: [id number] ALEKSANDRA Chavezerrer: Chante Hall LEGAL ASSISTANT EMERGENCY ROOM-[facility] 09/05/2020 12:57:00 PM EST - 09/05/2020 12:57:00 PM EST [facility] Outpatient [facility] 08/20/2020 12:00:00 AM EST eCW1 ([facility]) Outpatient [facility] 08/16/2020 12:00:00 AM EST eCW1 ([facility]) Outpatient [facility] 08/09/2020 12:00:00 AM EST eCW1 ([facility]) 07/24/2020 12:00:00 AM EST - 021 08:33:22 AM EST NETSMART ([facility]) Outpatient [facility] 07/24/2020 12:00:00 AM EST eCW1 ([facility]) Outpatient [facility] 07/16/2020 12:00:00 AM EST eCW1 ([facility]) Outpatient [facility] 07/12/2020 12:00:00 AM EST eCW1 ([facility]) Outpatient Attender: Chante Hall FNPReferrer: Chante AGUILARP [facility] 07/10/2020 01:26:00 PM EST - 07/10/2020 01:26:00 PM [facility] Outpatient [facility] 07/10/2020 12:00:00 AM EST eCW1 ([facility]) Outpatient [facility] 07/08/2020 12:00:00 AM EST eCW1 ([facility]) Outpatient Attender: VIRGIL TRIPLETT RPA-C 07/12/2018 12:51:00 PM [facility] Outpatient Attender: VIRGIL TRIPLETT RPA-C 09/2017 09:00:00 AM EST - 06/27/2018 09:00:00 AM [facility] Emergency Attender: KHURRAM VILCHIS 01/24 06:58:00 PM EDT - 02/11/2016 05:59:00 AM [facility] Inpatient Attender: ANNELIESE Moore AAttender: Dr. CORTEZ QUEVEDOdmitter: Dr. CORTEZ BREWER EMERGENCY ROOM-OBS UNIT 12/13/2014 11:44:00 PM EDT - 12/14/2014 04:34:00 PM EDT [facility] Immunizations Vaccine Date Status Description Data Source(s) COVID-19 VACCINE Moderna 11/25/2020 12:00:00 AM EDT completed [facility] Vaccine Series Complete: YESThis Data wa s Submitted to [facility] Via [employer]. COVID-19 VACCINE Moderna 10/24/2020 12:00:00 AM EDT completed [facility] Vaccine Series Complete: NOThis Data was Submitted to [facility] Via [employer]. Medications Medication Brand Name Start Date Product Form Dose Route Admi nistrative Instructions Pharmacy Instructions Status Indications Reaction Description Data Source(s) Thiamine 100 MG Oral Tablet Thiamine HCL 11/28/2020 12:00:00 AM EDT ORAL active MEDENT ([facility] ) Folic Acid 1 MG Oral Tablet Folic Acid 11/28/2020 12:00:00 AM EDT ORAL active MEDENT ([facility] ) Thera M Plus - Thera M Plus - 08/09/2020 12:00:00 AM EST active Thera M Plus - eCW1 ([facility]) Thera M Plus - Thera M Plus - 08/09/2020 12:00:00 AM EST active Thera M Plus - eCW1 ([facility]) Thera M Plus - Thera M Plus - 08/09/2020 12:00:00 AM EST active Thera M Plus - eCW1 ([facility]) Thera M Plus - Thera M Plus - 08/09/2020 12:00:00 AM EST active Thera M Plus - eCW1 ([facility]) Thera M Plus - Thera M Plus - 08/09/2020 12:00:00 AM EST active Thera M Plus - eCW1 ([facility]) Thera M Plus - Thera M Plus - 08/09/2020 12:00:00 AM EST active Thera M Plus - eCW1 ([facility]) Thera M Plus - Thera M Plus - 08/09/2020 12:00:00 AM EST active Thera M Plus - eCW1 ([facility]) Thera M Plus - Thera M Plus - 08/09/2020 12:00:00 AM EST active Thera M Plus - eCW1 ([facility]) Sennosides 8.6 MG Sennosides 08/06/2020 12:00:00 AM EST 2.0 {tab let} completed NETSMART ([facility]) Propranolol HCl 10 MG Propranolol HCl 08/06/2020 12:00:00 AM EST 0 {tablet} completed [facility]SMART ([facility]) Vitamin D Vitamin D 08/06/2020 12:00:00 AM EST 25.0 {mcg} completed NETSMART ([facility] ) Mupirocin Calcium 2 % Mupirocin Calcium 08/05/2020 12:00:00 AM EST completed [facility]SMART ([facility]) Magnesium 500 MG Magnesium 07/30/2020 12:00:00 AM EST 1.0 {table t} completed [facility]SMART ([facility]) Potassium Chloride ER 10 MEQ Potassium Chloride ER 07/30/2020 12:00 :00 AM EST 0 {tablet} completed [facility]SMART ([facility]) Levothyroxine Sodium 125 MCG Levothyroxine Sodium 07/24/2020 12:00: 00 AM EST 1.0 {tablet} completed [facility]SMART ([facility]) Folic Acid 1 MG Folic Acid 07/24/2020 12:00:00 AM EST 1.0 {table t} completed [facility]SMART ([facility]) Midodrine HCl 5 MG Midodrine HCl 07/24/2020 12:00:00 AM EST 1.0 {tablet} completed [facility]SMART ([facility]) Magnesium Oxide 400 MG Magnesium Oxide 07/24/2020 12:00:00 AM EST 2.0 {tablet} completed [facility]SMART ([facility]) Propranolol HCl 10 MG Propranolol HCl 07/24/2020 12:00:00 AM EST 1.0 {tablet} completed [facility]SMART ( [facility]) Spironolactone 25 MG Spironolactone 07/24/2020 12:00:00 AM EST 1.0 {tablet} completed [facility]SMART ([facility]) Pantoprazole Sodium 20 MG Pantoprazole Sodium 07/24/2020 12:00:00 A M EST 1.0 {tablet} completed [facility]SMART ([facility]) Vitamin B Complex Vitamin B Complex 07/24/2020 12:00:00 AM EST 1.0 {tablet} [facility]) Zinc Sulfate 220 (50 Zn) MG Zinc Sulfate 07/24/2020 12:00:00 AM EST 1.0 {tablet} completed [facility] ([facility]) Thiamine 50 MG Thiamine 07/24/2020 12:00:00 AM EST 2.0 {tablet} completed [facility]) Torsemide 20 MG Torsemide 07/24/2020 12:00:00 AM EST 2.0 {tablet } completed [facility]ART ([facility]) Tylenol Tylenol 07/24/2020 12:00:00 AM EST 500.0 {mg} c ompleted NETSMART ([facility]) Midodrine HCl 5 MG Midodrine HCl 07/24/2020 12:00:00 AM EST 1.0 {tablet} completed [facility] ([facility]) oyster shell calcium 1500 oyster shell calcium 07/24/2020 12:00:00 AM EST 500.0 {mg} completed [facility]SMART ([facility]) Mupirocin 2 % Mupirocin 07/24/2020 12:00:00 AM EST completed [facility]SMART ([facility]) Ferrous Sulfate 325 (65 Fe) MG Ferrous Sulfate 07/24/2020 12:00:00 AM EST 1.0 {tablet} completed [facility] ([facility]) BuPROPion HCl ER (SR) 150 MG BuPROPion HCl ER (SR) 07/24/2020 12:00 :00 AM EST 1.0 {tablet} completed [facility]SMART ([facility]) Multivitamin Adult Multivitamin Adult 07/24/2020 12:00:00 AM EST 1.0 {tablet} completed [facility] ( [facility]) Calcium Calcium 07/24/2020 12:00:00 AM EST 1.0 {tablet} [facility]) Magnesium Chloride 64 MG Magnesium Chloride 64 MG 07/12/2020 12:00: 00 AM EST 1.0 {tablet} active Magnesium Chloride 64 MG eCW1 ([facility]) Magnesium Chloride 64 MG Magnesium Chloride 64 MG 07/12/2020 12:00: 00 AM EST 1.0 {tablet} active Magnesium Chloride 64 MG eCW1 ([facility]) Magnesium Chloride 64 MG Magnesium Chloride 64 MG 07/12/2020 12:00: 00 AM EST 1.0 {tablet} active Magnesium Chloride 64 MG eCW1 ([facility]) Magnesium Chloride 64 MG Magnesium Chloride 64 MG 07/12/2020 12:00: 00 AM EST 1.0 {tablet} active Magnesium Chloride 64 MG eCW1 ([facility]) Magnesium Chloride 64 MG Magnesium Chloride 64 MG 07/12/2020 12:00: 00 AM EST 1.0 {tablet} active Magnesium Chloride 64 MG eCW1 ([facility]) Magnesium Chloride 64 MG Magnesium Chloride 64 MG 07/12/2020 12:00: 00 AM EST 1.0 {tablet} active Magnesium Chloride 64 MG eCW1 ([facility]) Magnesium Chloride 64 MG Magnesium Chloride 64 MG 07/12/2020 12:00: 00 AM EST 1.0 {tablet} active Magnesium Chloride 64 MG eCW1 ([facility]) Magnesium Chloride 64 MG Magnesium Chloride 64 MG 07/12/2020 12:00: 00 AM EST 1.0 {tablet} active Magnesium Chloride 64 MG eCW1 ([facility]) Magnesium Chloride 64 MG Magnesium Chloride 64 MG 07/12/2020 12:00: 00 AM EST 1.0 {tablet} active Magnesium Chloride 64 MG eCW1 ([facility]) Magnesium Chloride 64 MG Magnesium Chloride 64 MG 07/12/2020 12:00: 00 AM EST 1.0 {tablet} active Magnesium Chloride 64 MG eCW1 ([facility]) Magnesium Chloride 64 MG Magnesium Chloride 64 MG 07/12/2020 12:00: 00 AM EST 1.0 {tablet} active Magnesium Chloride 64 MG eCW1 ([facility]) Magnesium Chloride 64 MG Magnesium Chloride 64 MG 07/12/2020 12:00: 00 AM EST 1.0 {tablet} active Magnesium Chloride 64 MG eCW1 ([facility]) Lactulose 667 MG/ML Oral Solution Lactulose 10 GM/15ML Lactu lose 10 GM/15ML 07/10/2020 12:00:00 AM EST 30.0 {ml} active Lactulose 10 GM/15ML eCW1 ([facility]) Hydroxyzine Hydrochloride 25 MG Oral Tablet HydrOXYzin e HCl 25 MG HydrOXYzine HCl 25 MG 07/10/2020 12:00:00 AM EST 1.0 {tablet_as_needed} active HydrOXYzine HCl 25 MG eCW1 ([facility]) Lactulose 667 MG/ML Oral Solution Lactulose 10 GM/15ML Lactu lose 10 GM/15ML 07/10/2020 12:00:00 AM EST 30.0 {ml} active Lactulose 10 GM/15ML eCW1 ([facility]) Lactulose 667 MG/ML Oral Solution Lactulose 10 GM/15ML Lactu lose 10 GM/15ML 07/10/2020 12:00:00 AM EST 30.0 {ml} active Lactulose 10 GM/15ML eCW1 ([facility]) Lactulose 667 MG/ML Oral Solution Lactulose 10 GM/15ML Lactu lose 10 GM/15ML 07/10/2020 12:00:00 AM EST 30.0 {ml} active Lactulose 10 GM/15ML eCW1 ([facility]) Lactulose 667 MG/ML Oral Solution Lactulose 10 GM/15ML Lactu lose 10 GM/15ML 07/10/2020 12:00:00 AM EST 30.0 {ml} active Lactulose 10 GM/15ML eCW1 ([facility]) Mupirocin 0.02 MG/MG Topical Ointment Mupirocin 2 % Mupiroci n 2 % 07/10/2020 12:00:00 AM EST 1.0 {application} active Mupirocin 2 % eCW1 ([facility]) Hydroxyzine Hydrochloride 25 MG Oral Tablet HydrOXYzin e HCl 25 MG HydrOXYzine HCl 25 MG 07/10/2020 12:00:00 AM EST 1.0 {tablet_as_needed} active HydrOXYzine HCl 25 MG eCW1 ([facility]) Lactulose 667 MG/ML Oral Solution Lactulose 10 GM/15ML Lactu lose 10 GM/15ML 07/10/2020 12:00:00 AM EST 30.0 {ml} active Lactulose 10 GM/15ML eCW1 ([facility]) Lactulose 667 MG/ML Oral Solution Lactulose 10 GM/15ML Lactu lose 10 GM/15ML 07/10/2020 12:00:00 AM EST 30.0 {ml} active Lactulose 10 GM/15ML eCW1 ([facility]) Lactulose 667 MG/ML Oral Solution Lactulose 10 GM/15ML Lactu lose 10 GM/15ML 07/10/2020 12:00:00 AM EST 30.0 {ml} active Lactulose 10 GM/15ML eCW1 ([facility]) Ondansetron 4 MG Disintegrating Oral Tablet Ondansetron 4 MG 07/10/2020 12:00:00 AM EST 1.0 {tablet_on_the_tongue_and_allow_to_dissolve} active Ondansetron 4 MG eCW1 ([facility] cassie) Lactulose 667 MG/ML Oral Solution Lactulose 10 GM/15ML Lactu lose 10 GM/15ML 07/10/2020 12:00:00 AM EST 30.0 {ml} active Lactulose 10 GM/15ML eCW1 ([facility]) Lactulose 667 MG/ML Oral Solution Lactulose 10 GM/15ML Lactu lose 10 GM/15ML 07/10/2020 12:00:00 AM EST 30.0 {ml} active Lactulose 10 GM/15ML eCW1 ([facility]) Lactulose 667 MG/ML Oral Solution Lactulose 10 GM/15ML Lactu lose 10 GM/15ML 07/10/2020 12:00:00 AM EST 30.0 {ml} active Lactulose 10 GM/15ML eCW1 ([facility]) Lactulose 667 MG/ML Oral Solution Lactulose 10 GM/15ML Lactu lose 10 GM/15ML 07/10/2020 12:00:00 AM EST 30.0 {ml} active Lactulose 10 GM/15ML eCW1 ([facility]) Mupirocin 0.02 MG/MG Topical Ointment Mupirocin 2 % Mupiroci n 2 % 07/10/2020 12:00:00 AM EST 1.0 {application} active Mupirocin 2 % eCW1 ([facility]) Ondansetron 4 MG Disintegrating Oral Tablet Ondansetron 4 MG 07/10/2020 12:00:00 AM EST 1.0 {tablet_on_the_tongue_and_allow_to_dissolve} active Ondansetron 4 MG eCW1 ([facility]) Ondansetron 4 MG Disintegrating Oral Tablet Ondansetron 4 MG 07/10/2020 12:00:00 AM EST 1.0 {tablet_on_the_tongue_and_allow_to_dissolve} active Ondansetron 4 MG eCW1 ([facility]) Ondansetron 4 MG Disintegrating Oral Tablet Ondansetron 4 MG 07/10/2020 12:00:00 AM EST 1.0 {tablet_on_the_tongue_and_allow_to_dissolve} active Ondansetron 4 MG eCW1 ([facility]) Hydroxyzine Hydrochloride 25 MG Oral Tablet HydrOXYzin e HCl 25 MG HydrOXYzine HCl 25 MG 07/10/2020 12:00:00 AM EST 1.0 {tablet_as_needed} active HydrOXYzine HCl 25 MG eCW1 ([facility]) Lactulose 667 MG/ML Oral Solution Lactulose 10 GM/15ML Lactu lose 10 GM/15ML 07/10/2020 12:00:00 AM EST 30.0 {ml} active Lactulose 10 GM/15ML eCW1 ([facility]) Hydroxyzine Hydrochloride 25 MG Oral Tablet HydrOXYzin e HCl 25 MG HydrOXYzine HCl 25 MG 07/10/2020 12:00:00 AM EST 1.0 {tablet_as_needed} active HydrOXYzine HCl 25 MG eCW1 ([facility]) Mupirocin 0.02 MG/MG Topical Ointment Mupirocin 2 % Mupiroci n 2 % 07/10/2020 12:00:00 AM EST 1.0 {application} active Mupirocin 2 % eCW1 ([facility]) Mupirocin 0.02 MG/MG Topical Ointment Mupirocin 2 % Mupiroci n 2 % 07/10/2020 12:00:00 AM EST 1.0 {application} active Mupirocin 2 % eCW1 ([facility]) Insurance Providers Payer name Policy type / Coverage type Policy ID Covered green party ID Covered green party's relationship to farr Policy Farr Plan Information [place] 1 [id number] [facility] I [id number] Self [id number] [facility] MEDICAID [id number] S [id number] [facility] [id number] Self [id number] [facility] MEDICAID [id number] S [id number] [facility] MEDICAID [id number] S [id number] [facility] MEDICAID [id number] S [id number] [employer] COMMUNITY PLAN MCDO [id number] SP [id number] [facility] MEDICAID [id number] S [id number] [facility] COMM[facility] [id number] SP [id number] [facility] Commercial Insurance Co. [id number] Self [id number] [facility] Commercial Insurance Co. [id number] Self [id number] SELF-PAY UNAVAILABLE S UNAVAILA BLE [facility] MEDICAID [facility] [id number] S [id number] [employer]HC COMMUNITY PLAN MCDO [id number] SP [id number] [facility] [id number] FA2 [id number] MEDICAID [id number] SP [id number] MEDICAID JOSE [id number] S [id number] SELF PAY 2 UNAVAILABLE 1 UNAVAILA BLE [facility] MEDICAID 2 [id number] 1 [id number] [facility] PPO 2 [id number] 21 [id number] UNHC AMERICHOICE XIX O [id number] 18 [id number] UNHC AMERICHOICE XIX O [id number] 18 [id number] JOEL DAY SP UNAVAILABLE S UNAV AILABLE [id number] SELF PAY ONLY [id number] SP [id number] EMEDNY [id number] SP [id number] [facility] MEDICAID [id number] S [id number] [facility] MEDICAID [id number] S [id number] MEDICAID [id number] S [id number] NCO EPALS [id number] SP [id number] [facility] COMMUNITY PLAN [facility] [id number] SP [id number] [facility] [id number] SP [id number] ANSI-Medicaid [id number] ANSI-Medicaid [id number] ANSI-Medicaid [id number] Problems, Conditions, and Diagnoses Code Display Name Description Problem Type Effective Dates Data Source(s) N18.31 CHRONIC KIDNEY DISEASE, STAGE 3A CHRONIC KIDNEY DISEASE, STAGE 3A Diagnosis 09/05/2020 12:57:00 PM [facility] K74.60 Unspecified cirrhosis of liver UNSPECIFIED CIRRHOSIS O F LIVER Diagnosis 09/05/2020 12:57:00 PM [facility] D64.9 Anemia, unspecified ANEMIA, UNSPECIFIED Diagnosis 0 09/05/2020 12:57:00 PM [facility] Z28.21 Immunization not carried out because of patient refusal IMMUNIZATION NOT CARRIED OUT BECAUSE OF PATIENT RE Diagnosis 07/10/2020 01:26:00 PM [facility] Z87.448 Personal history of other diseases of ur inary system PERSONAL HISTORY OF OTHER DISEASES OF URINARY SYST Diagnosis 07/10/2020 01:26:00 PM [facility] F41.9 Anxiety disorder, unspecified ANXIETY DISORDER, UNSPEC IFIED Diagnosis 07/10/2020 01:26:00 PM [facility] R11.0 Nausea NAUSEA Diagnosis 07/10/2020 01:26:00 PM [facility] N17.9 Acute kidney failure, unspecified ACUTE KIDNEY F AILURE, UNSPECIFIED Diagnosis 07/10/2020 01:26:00 PM [facility] D50.9 Iron deficiency anemia, unspecified IRON DEFICIE NCY ANEMIA, UNSPECIFIED Diagnosis 07/10/2020 01:26:00 PM [facility] E03.9 Hypothyroidism, unspecified HYPOTHYROIDISM, UNSPECIFIE D Diagnosis 07/10/2020 01:26:00 PM [facility] K72.10 Chronic hepatic failure without coma CHR ONIC HEPATIC FAILURE WITHOUT COMA Diagnosis 07/10/2020 01:26:00 PM [facility] R60.1 Generalized edema GENERALIZED EDEMA Diagnosis 07/10/2020 01:26:00 PM [facility] 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, ) Z68.30 Body mass index [BMI]30.0-30.9, adult Steve dy mass index [BMI]30.0-30.9, adult Problem 07/24/2020 12:00:00 AM EST NETSMART ([facility]) R18.8 Other ascites Other ascites Problem 07/24/2020 12:00:00 AM EST NETSMART ([facility]) N17.9 Acute kidney failure, unspecified Acute kidney f ailure, unspecified Problem 07/24/2020 12:00:00 AM EST NETSMART ([facility]) R60.1 Generalized edema Generalized edema Problem 07/24/2020 12:00:00 AM EST NETSMART ([facility]) D50.9 Iron deficiency anemia, unspecified Iron deficie ncy anemia, unspecified Problem 07/24/2020 12:00:00 AM EST NETSMART ([facility]) F41.9 Anxiety disorder, unspecified Anxiety disorder, unspec ified Problem 07/24/2020 12:00:00 AM EST NETSMART ([facility] ) F32.9 Major depressive disorder, single episod e, unspecified Major depressive disorder, single episode, unspecified Problem 07/24/2020 12:00:00 AM EST NETSMART ([facility]) F10.21 Alcohol dependence, in remission Alcohol depende nce, in remission Problem 07/24/2020 12:00:00 AM EST NETSMART ([facility]) E66.9 Obesity, unspecified Obesity, unspecified Problem 07/24/2020 12:00:00 AM EST NETSMART ([facility] ) Z98.84 Bariatric surgery status Bariatric surgery status Prob blanco 07/24/2020 12:00:00 AM EST NETSMART ([facility] ) Z91.81 History of falling History of falling Problem 0 12:00:00 AM EST NETSMART ([facility]) 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 A lcoholic hepatic failure without coma Problem 07/24/2020 12:00:00 AM EST NETSMART ([facility]) E03.9 [id number] Hypothyroidism (acquired) Problem 07/10/2020 12:00:00 AM EST eCW1 ([facility]) K72.10 [id number] Chronic liver failure without hepatic com a Problem 07/10/2020 12:00:00 AM EST eCW1 ([facility] cassie) L98.491 [id number] Skin ulcer, limited to breakdown of skin Problem 07/10/2020 12:00:00 AM EST eCW1 ([facility] cassie) F41.9 [id number] Anxiety Problem 07/10/2020 12:00:00 AM ES T eCW1 ([facility]) D50.9 [id number] Iron deficiency anemia, unspecif ied iron deficiency anemia type Problem 07/10/2020 12:00:00 AM EST eCW1 ([facility]) Surgeries/Procedures No Information Results ID Date Data Source [id number] 04/01/2021 03:45:00 PM EDT [facility] Name Value Range Interpretation Code Description Data Anna rce(s) Supporting Document(s) SARS-CoV-2 RNA Resp Ql JORGITO+probe NOT DETECTED [facility] This lab was ordered by MARICEL royal and reported by MARICEL Mon. ID Date Data Source [id number] 01/09/2021 11:11:00 AM EDT [facility] Name Value Range Interpretation Code Description Data Anna rce(s) Supporting Document(s) SARS-CoV-2 (COVID-19) RNA [Presence] in Respiratory specimen by JORGITO with probe detection Not Detected [facility] This lab was ordered by [facility] and reported by [employer]. ID Date Data Source [id number] 09/05/2020 01:42:00 PM EST [facility] FA[facility] [phone] Name Value Range Interpretation Code Description Data Anna rce(s) Supporting Document(s) MAGNESIUM 1.4 mg/dL 1.8-2.4 L [facility] ID Date Data Source [id number] 09/05/2020 01:42:00 PM EST [facility] [phone] Name Value Range Interpretation Code Description Data Anna rce(s) Supporting Document(s) GLUCOSE 151 mg/dL 74-106 H [facility] BLOOD UREA NITROGEN 6 mg/dL 7-18 L [facility] ital CREATININE 0.84 mg/dL 0.6-1.0 [facility] SODIUM 139 mmol/L 136-145 [facility] POTASSIUM 3.1 mmol/L 3.5-5.1 L [facility] CHLORIDE 103 mmol/L 98-107 [facility] CO2 27 mmol/L 21-32 [facility] CALCIUM 8.7 mg/dL 8.5-10.1 [facility] GLOMERULAR FILTRATION RATE 78 mL/min [facility] GFR IS CALCULATED IN mL/min/1.73m2 SURESH L FUNCTION: >90MILDLY DECREASED: 60-89MILDY TO MODERATELY DECREASED: 45-59 MODERATELY TO SEVERELY DECREASED: 30-44SEVERELY DECREASED: 15-29RENAL FAILURE: <15 ALBUMIN 2.7 gm/dL 3.4-5.0 [facility] PHOSPHOROUS 3.3 mg/dL 2.5-4.9 [facility] ID Date Data Source [id number] 09/05/2020 01:06:00 PM [facility] FAX [phone] Name Value Range Interpretation Code Description Data Anna e(s) Supporting Document(s) WHITE BLOOD COUNT 4.1 K/mm3 4.0-10.0 [facility] al RED BLOOD COUNT 3.36 M/mm3 4.00-5.50 L [facility] HEMOGLOBIN 10.7 gm/dL 12.0-16.0 [facility] HEMATOCRIT 31.6 % 36.0-48.8 L [facility] MEAN CELL VOLUME 94.0 fl 80-96 [facility] MEAN CORPUSCULAR HEMOGLOBIN 31.8 pg 27.0-31.0 H [facility] MEAN CORPUSCULAR HGB CONC 33.9 g/dl 32.0-36.0 [facility] RED CELL DISTRIBUTION WIDTH 14.0 % 10.0-14.5 [facility] PLATELET COUNT 213 K/mm3 172-450 [facility] MEAN PLATELET VOLUME 10.2 fl 9.0-13.0 [facility] pital GRAN % 57.0 % 50-80.0 [facility] IG% 0.2 % 0.0-0.2 [facility] LYMPH % 33.8 % 25.0-50.0 [facility] MONO % 6.6 % 2.0-10.0 [facility] EOS % 1.7 % 0-5.0 [facility] BASO % 0.7 % 0.0-2.0 [facility] GRAN # 2.3 K/mm3 2.0-8.00 [facility] IG# 0.0 K/mm3 0.0-0.2 [facility] LYMPH # 1.4 K/mm3 1.0-5.0 [facility] MONO # 0.3 K/mm3 0.10-1.20 [facility] EOS # 0.1 K/mm3 0.0-0.5 [facility] BASO # 0.0 K/mm3 0.0-0.2 [facility] ID Date Data Source [id number] 07/10/2020 03:30:00 PM EST [facility] Name Value Range Interpretation Code Description Data Anna rce(s) Supporting Document(s) FERRITIN 349 ng/mL 8-252 H [facility] ID Date Data Source [id number] 07/10/2020 03:30:00 PM [facility] Name Value Range Interpretation Code Description Data Anna rce(s) Supporting Document(s) GLUCOSE 84 mg/dL 74-106 [facility] BLOOD UREA NITROGEN 10 mg/dL 7-18 [facility] ital CREATININE 1.2 mg/dL 0.6-1.0 H [facility] SODIUM 141 mmol/L 136-145 [facility] POTASSIUM 3.1 mmol/L 3.5-5.1 L [facility] CHLORIDE 99 mmol/L 98-107 [facility] CO2 33 mmol/L 21-32 H [facility] CALCIUM 8.1 mg/dL 8.5-10.1 L [facility] ANION GAP 9.0 mmol/L 5-12 [facility] GLOMERULAR FILTRATION RATE 51 mL/min [facility] GFR IS CALCULATED IN mL/min/1.73m2 SURESH L FUNCTION: >90MILDLY DECREASED: 60-89MILDY TO MODERATELY DECREASED: 45-59 MODERATELY TO SEVERELY DECREASED: 30-44SEVERELY DECREASED: 15-29RENAL FAILURE: <15 AST 92 U/L 15-37 H [facility] ALT 35 U/L 12-78 [facility] ALKALINE PHOSPHATASE 106 U/L 46-116 [facility] pital TOTAL BILIRUBIN 2.7 mg/dL 0.2-1.0 H [facility] TOTAL PROTEIN 7.3 g/dl 6.4-8.2 [facility] ALBUMIN 2.2 gm/dL 3.4-5.0 *L [facility] ID Date Data Source [id number] 07/10/2020 03:30:00 PM EST [facility] Name Value Range Interpretation Code Description Data Anna rce(s) Supporting Document(s) IRON 101 ug/dL 50-170 [facility] TIBC 98 ug/dL 250-450 L [facility] % SATURATION 103 % 20-50 H [facility] ID Date Data Source [id number] 07/10/2020 03:30:00 PM [facility] l Name Value Range Interpretation Code Description Data Anna rce(s) Supporting Document(s) MAGNESIUM 1.1 mg/dL 1.8-2.4 L [facility] ID Date Data Source [id number] 07/10/2020 03:29:00 PM [facility] l Name Value Range Interpretation Code Description Data Anna rce(s) Supporting Document(s) FREE T4 1.15 ng/dL 0.76-1.46 [facility] ID Date Data Source [id number] 07/10/2020 03:29:00 PM [facility] Name Value Range Interpretation Code Description Data Anna rce(s) Supporting Document(s) TSH 38.92 uIU/mL 0.36-3.74 H [facility] ID Date Data Source [id number] 07/10/2020 03:16:00 PM [facility] Name Value Range Interpretation Code Description Data Anna rce(s) Supporting Document(s) AMMONIA 73 umol/L 11-32 H [facility] ID Date Data Source [id number] 07/10/2020 02:48:00 PM [facility] l Name Value Range Interpretation Code Description Data Anna rce(s) Supporting Document(s) WHITE BLOOD COUNT 10.6 K/mm3 4.0-10.0 [facility] RED BLOOD COUNT 3.17 M/mm3 4.00-5.50 L [facility] l HEMOGLOBIN 9.9 gm/dL 12.0-16.0 L [facility] HEMATOCRIT 29.8 % 36.0-48.8 L [facility] MEAN CELL VOLUME 94.0 fl 80-96 [facility] MEAN CORPUSCULAR HEMOGLOBIN 31.2 pg 27.0-31.0 H [facility] MEAN CORPUSCULAR HGB CONC 33.2 g/dl 32.0-36.0 [facility] RED CELL DISTRIBUTION WIDTH 20.8 % 10.0-14.5 H [facility] PLATELET COUNT 278 K/mm3 172-450 [facility] MEAN PLATELET VOLUME 10.5 fl 9.0-13.0 [facility] pital GRAN % 73.1 % 50-80.0 [facility] IG% 0.2 % 0.0-0.2 [facility] LYMPH % 16.7 % 25.0-50.0 L [facility] MONO % 8.3 % 2.0-10.0 [facility] EOS % 1.4 % 0-5.0 [facility] BASO % 0.3 % 0.0-2.0 [facility] GRAN # 7.8 K/mm3 2.0-8.00 [facility] IG# 0.0 K/mm3 0.0-0.2 [facility] LYMPH # 1.8 K/mm3 1.0-5.0 [facility] MONO # 0.9 K/mm3 0.10-1.20 [facility] EOS # 0.2 K/mm3 0.0-0.5 [facility] BASO # 0.0 K/mm3 0.0-0.2 [facility] ID Date Data Source [id number] 07/01/2020 12:42:00 PM EST [facility] Name Value Range Interpretation Code Description Data Anna rce(s) Supporting Document(s) SARS coronavirus 2 RNA [Presence] in Res piratory specimen by J[facility]GITO [facility] This lab was ordered by [facility] a nd reported by [facility]. Procedure Social History Code Duration Value Status Description Data Source(s ) Smoking 07/18/2020 12:00:00 AM EST Never Smoker completed Never S moker eCW1 ([facility]) Smoking 07/18/2020 12:00:00 AM EST Never Smoker completed Never S moker eCW1 ([facility]) Smoking 07/18/2020 12:00:00 AM EST Never Smoker completed Never S moker eCW1 ([facility]) Smoking 07/18/2020 12:00:00 AM EST Never Smoker completed Never S moker eCW1 ([facility]) Smoking 07/18/2020 12:00:00 AM EST Never Smoker completed Never S moker eCW1 ([facility]) Smoking 07/18/2020 12:00:00 AM EST Never Smoker completed Never S moker eCW1 ([facility]) Smoking 07/18/2020 12:00:00 AM EST Never Smoker completed Never S moker eCW1 ([facility]) Smoking 07/18/2020 12:00:00 AM EST Never Smoker completed Never S moker eCW1 ([facility]) Smoking 07/18/2020 12:00:00 AM EST Never Smoker completed Never S moker eCW1 ([facility]) Smoking 07/10/2020 12:00:00 AM EST Never Smoker completed Never S moker eCW1 ([facility]) Smoking 07/10/2020 12:00:00 AM EST Never Smoker completed Never S moker eCW1 ([facility]) Smoking 07/10/2020 12:00:00 AM EST Never Smoker completed Never S moker eCW1 ([facility]) Smoking 07/10/2020 12:00:00 AM EST Never Smoker completed Never S moker eCW1 ([facility]) Vital Signs ID Date Data Source [id number] Name Value Range Interpretation Code Description Data Source(s) Systolic blood pressure 126 mm[Hg] 126 mm[Hg] Con MEYERS ([facility]) Diastolic blood pressure 66 mm[Hg] 66 mm[Hg] [facility] ([facility]) Body height 62 [in_i] 62 [in_i] [facility] ([facility]) 5'2" Body weight 176.00 [lb_av] 176.00 [facility] Body mass index (BMI) [Ratio] 32.2 kg/m2 32.2 k g/m2 [facility] ([facility]) [place] body weight 110 [lb_av] 110 [lb_av] MED[facility] T ([facility]) Body weight 79.834 kg 79.834 kg [facility] ([facility]) Body surface area Derived from formula 1.81 m2 1.81 m2 [facility] ([facility]) Patient Treatment Plan of Care Planned Activity Planned Date Details Description Data Source (s) Heavenly An[facility]jar Plus - 08/09/2020 12:00:00 AM EST eCW1 ([facility]) [facility] - 08/09/2020 12:00:00 AM EST eCW1 ([facility]) [facility] - 08/09/2020 12:00:00 AM EST eCW1 ([facility]) [facility] - 08/09/2020 12:00:00 AM EST eCW1 ([facility]) [facility] - 08/09/2020 12:00:00 AM EST eCW1 ([facility]) [facility] - 08/09/2020 12:00:00 AM EST eCW1 ([facility]) [facility] - 08/09/2020 12:00:00 AM EST eCW1 ([facility]) [facility] - 08/09/2020 12:00:00 AM EST eCW1 ([facility]) Propranolol HCl 10 MG 08/06/2020 12:00:00 AM EST NETSMART ([facility]) Sennosides 8.6 MG 08/06/2020 12:00:00 AM EST NETSMART ([facility]) Vitamin D 08/06/2020 12:00:00 AM EST N [facility] ([facility]) Mupirocin Calcium 2 % 08/05/2020 12:00:00 AM EST NETSMART ([facility]) Magnesium 500 MG 07/30/2020 12:00:00 AM EST NETSMART ([facility]) Potassium Chloride ER 10 MEQ 07/30/2020 12:00:00 AM EST NETSMART ([facility]) oyster shell calcium 1500 07/24/2020 12:00:00 AM EST NETSMART ([facility]) Tylenol 07/24/2020 12:00:00 AM EST N [facility] ([facility]) Midodrine HCl 5 MG 07/24/2020 12:00:00 AM EST NETSMART ([facility]) Mupirocin 2 % 07/24/2020 12:00:00 AM EST [facility]SMART ([facility]) Ferrous Sulfate 325 (65 Fe) MG 07/24/2020 12:00:00 AM EST NETSMART ([facility]) BuPROPion HCl ER (SR) 150 MG 07/24/2020 12:00:00 AM EST NETSMART ([facility]) Midodrine HCl 5 MG 07/24/2020 12:00:00 AM EST [facility]SMART ([facility]) Magnesium Oxide 400 MG 07/24/2020 12:00:00 AM EST NETSMART ([facility]) Levothyroxine Sodium 125 MCG 07/24/2020 12:00:00 AM EST [facility]SMART ([facility]) Folic Acid 1 MG 07/24/2020 12:00:00 AM EST [facility]SMART ([facility]) Pantoprazole Sodium 20 MG 07/24/2020 12:00:00 AM EST NETSMART ([facility]) Propranolol HCl 10 MG 07/24/2020 12:00:00 AM EST NETSMART ([facility]) Spironolactone 25 MG 07/24/2020 12:00:00 AM EST [facility]SMART ([facility]) Thiamine 50 MG 07/24/2020 12:00:00 AM EST [facility]SMART ([facility]) Torsemide 20 MG 07/24/2020 12:00:00 AM EST [facility]SMART ([facility]) Vitamin B Complex 07/24/2020 12:00:00 AM EST [facility]SMART ([facility]) Zinc Sulfate 220 (50 Zn) MG 07/24/2020 12:00:00 AM EST [facility]) Multivitamin Adult 07/24/2020 12:00:00 AM EST NETSMART ([facility]) Calcium 07/24/2020 12:00:00 AM EST N [facility] ([facility]) Magnesium Chloride 64 MG 07/12/2020 12:00:00 AM EST eCW1 ([facility]) Magnesium Chloride 64 MG 07/12/2020 12:00:00 AM EST eCW1 ([facility]) Magnesium Chloride 64 MG 07/12/2020 12:00:00 AM EST eCW1 ([facility]) Lactulose 667 MG/ML Oral Solution 07/10/2020 12:00:00 AM EST eCW1 ([facility]) Ondansetron 4 MG Disintegrating Oral Tablet 07/10/2020 12:00:00 AM EST eCW1 ([facility]) Mupirocin 0.02 MG/MG Topical Ointment 07/10/2020 12:00:00 AM EST eCW1 ([facility]) Hydroxyzine Hydrochloride 25 MG Oral Tablet 07/10/2020 12:00:00 AM EST eCW1 ([facility]) Lactulose 667 MG/ML Oral Solution 07/10/2020 12:00:00 AM EST eCW1 ([facility]) Ondansetron 4 MG Disintegrating Oral Tablet 07/10/2020 12:00:00 AM EST eCW1 ([facility]) Mupirocin 0.02 MG/MG Topical Ointment 07/10/2020 12:00:00 AM EST eCW1 ([facility]) Hydroxyzine Hydrochloride 25 MG Oral Tablet 07/10/2020 12:00:00 AM EST eCW1 ([facility]) Lactulose 667 MG/ML Oral Solution 07/10/2020 12:00:00 AM EST eCW1 ([facility]) Ondansetron 4 MG Disintegrating Oral Tablet 07/10/2020 12:00:00 AM EST eCW1 ([facility]) Mupirocin 0.02 MG/MG Topical Ointment 07/10/2020 12:00:00 AM EST eCW1 ([facility]) Hydroxyzine Hydrochloride 25 MG Oral Tablet 07/10/2020 12:00:00 AM EST eCW1 ([facility]) Ondansetron 4 MG Disintegrating Oral Tablet 07/10/2020 12:00:00 AM EST eCW1 ([facility]) Mupirocin 0.02 MG/MG Topical Ointment 07/10/2020 12:00:00 AM EST eCW1 ([facility]) Hydroxyzine Hydrochloride 25 MG Oral Tablet 07/10/2020 12:00:00 AM EST eCW1 ([facility]) Lactulose 667 MG/ML Oral Solution 07/10/2020 12:00:00 AM EST eCW1 ([facility])
--- OUTSIDE RECORDS SUMMARY | 2021-05-26 01:20 | CCD ---
Author Author [facility] Organization [facility] Address Unknown Phone Unavailable Care Team Providers Care Electronic Intelligence Officer Name Role Phone Feola, T Anika PA [...] T Anika PA Unavailable Unavailable Feola, T Naika PA Unavailable Unavailable Feola, T Anika PA [...] T Anika PA Unavailable Unavailable Feola, T Naika PA Unavailable Unavailable Feola, T Anika PA Unavailable Unavailable Feola, T Anika PA Unavailable Unavailable DIANE, BISIEHA DO Unavailable [phone] DIANE, WAJEEHA DO Unavailable [phone] DIANE, WAJEEHA DO Unavailable [phone] DIANE, WAMALCOLMEHA DO Unavailable [phone] DIANE, WAJEEHA DO Unavailable [phone] DIANE, WAJEEHA DO Unavailable [phone] DIANE, WAJEEHA DO Unavailable [phone] DIANE, WAJEEHA DO Unavailable [phone] DIANE, WAJEEHA DO Unavailable [phone] DIANE, WAJEEHA DO Unavailable [phone] DIANE, WAJEEHA DO Unavailable [phone] DIANE, WAJEEHA DO Unavailable [phone] DIANE, WAJEEHA DO Unavailable [phone] DIANE, WAJEEHA DO Unavailable [phone] DIANE, WAJEEHA DO Unavailable [phone] DIANE, WAMALCOLMEHA DO Unavailable [phone] DIANE, WAJEEHA DO Unavailable [phone] DIANE, WAMALCOLMEHA DO Unavailable [phone] Dr. CORTEZ BREWER Unavailable [phone] Dr. CORTEZ BREWER Unavailable [phone] Dr. CORTEZ BREWER Unavailable [phone] TRIPLETT, AYLA VIRGIL RPA-C Unavailable Unavailable TRIPLETT, [...] TRIPLETT, AYLA VIRGIL RPA-C Unavailable Unavailable DIANE, [phone] K. TANYAJEEHA DO Unavailable Unavail able DIANE, [phone] K. WAJEEHA DO Unavailable Unavail able DIANE, [phone] K. WAJEEHA DO Unavailable Unavail able DIANE, [phone] K. WAJEEHA DO Unavailable Unavail able DIANE, [phone] K. WAJEEHA DO Unavailable Unavail able FABIOLA, [...] Unavailable Emily CASTRO MD Unavailable Unavailable Emily CASTOR MD Unavailable Unavailable Emily CASTRO MD Unavailable Unavailable Emily CASTRO MD Unavailable Unavailable Emily CASTRO MD Unavailable Unavailable Emily CASTRO MD Unavailable Unavailable Emiyl CASTRO MD Unavailable Unavailable Emily CASTRO MD [...] CASTRO MD Unavailable Unavailable Isabel, A Chante SFDC ARCHITECT Unavailable Unavailable Isabel, A Chante SFDC ARCHITECT Unavailable Unavailable Isabel, A Chante SFDC ARCHITECT Unavailable Unavailable Isabel, A Chante SFDC ARCHITECT Unavailable Unavailable Isabel, A Chante SFDC ARCHITECT Unavailable Unavailable Isabel, A Chante SFDC ARCHITECT Unavailable Unavailable Isabel, A Chante SFDC ARCHITECT Unavailable Unavailable Isabel, A Chante SFDC ARCHITECT Unavailable Unavailable Isabel, A Chante SFDC ARCHITECT Unavailable Unavailable Isabel, A Chante SFDC ARCHITECT Unavailable Unavailable Isabel, A Chante SFDC ARCHITECT Unavailable Unavailable Isabel, A Chante SFDC ARCHITECT Unavailable Unavailable Isabel, A Chante SFDC ARCHITECT Unavailable Unavailable Isabel, A Chante SFDC ARCHITECT Unavailable Unavailable Isabel, A Chante SFDC ARCHITECT Unavailable Unavailable Isabel, A Chante SFDC ARCHITECT Unavailable Unavailable Isabel, A Chante SFDC ARCHITECT Unavailable Unavailable Isabel, A Chante SFDC ARCHITECT Unavailable Unavailable Isabel, A Chante SFDC ARCHITECT Unavailable Unavailable Isabel, A Chante SFDC ARCHITECT Unavailable Unavailable Isabel, A Chante SFDC ARCHITECT Unavailable Unavailable Isabel, A Chante SFDC ARCHITECT Unavailable Unavailable Isabel, A Chante SFDC ARCHITECT Unavailable Unavailable Isabel, A Chante SFDC ARCHITECT Unavailable Unavailable Isabel, A Chante SFDC ARCHITECT Unavailable Unavailable Isabel, A Chante SFDC ARCHITECT Unavailable Unavailable Isabel, A Chante SFDC ARCHITECT Unavailable Unavailable Isabel, A Chante SFDC ARCHITECT Unavailable Unavailable Isabel, A Chante SFDC ARCHITECT Unavailable Unavailable Isabel, A Chante SFDC ARCHITECT Unavailable Unavailable Isabel, A Chante SFDC ARCHITECT Unavailable Unavailable Isabel, A Chante SFDC ARCHITECT Unavailable Unavailable Isabel, A Chante SFDC ARCHITECT Unavailable Unavailable Isabel, A Chante SFDC ARCHITECT Unavailable Unavailable Isabel, A Chante SFDC ARCHITECT Unavailable Unavailable Isabel, A Chante SFDC ARCHITECT Unavailable Unavailable Isabel, A Chante SFDC ARCHITECT Unavailable Unavailable Isabel, A Chante SFDC ARCHITECT Unavailable Unavailable Isabel, A Chante SFDC ARCHITECT Unavailable Unavailable Isabel, A Chante SFDC ARCHITECT Unavailable Unavailable Isabel, A Chante SFDC ARCHITECT Unavailable Unavailable Isabel, A Chante SFDC ARCHITECT Unavailable Unavailable Isabel, A Chante SFDC ARCHITECT Unavailable Unavailable Isabel, A Chante SFDC ARCHITECT Unavailable Unavailable Isabel, A Chante SFDC ARCHITECT Unavailable Unavailable Isabel, A Chante SFDC ARCHITECT Unavailable Unavailable Isabel, A Chante SFDC ARCHITECT Unavailable Unavailable Isabel, A Chante SFDC ARCHITECT Unavailable Unavailable Isabel, A Chante SFDC ARCHITECT Unavailable Unavailable Isabel, A Chante SFDC ARCHITECT Unavailable Unavailable Isabel, A Chante SFDC ARCHITECT Unavailable Unavailable Isabel, A Chante SFDC ARCHITECT Unavailable Unavailable Isabel, A Chante SFDC ARCHITECT Unavailable Unavailable Isabel, A Chante SFDC ARCHITECT Unavailable Unavailable MARY, LADY COY PA Unavailable [...] is protected by Article 27-F of the [facility] Public Health law. If you continue you may have access to information: Regarding HIV / AIDS; Provided by facilities licensed or operated by the [facility] Office of Mental Health; or Provided by the [facility] Office for People With Developmental Disabilities. If such information is present, then the following [facility] mandated warning applies: This information has been [...] law may result in a fine or detention sentence or both. A general authorization for the release of medical or other information is NOT sufficient authorization for further disc losure. Allergies and Adverse Reactions Type Description Substance Reaction Status Data Source(s ) No Known Drug Allergies No Known Drug Allergies No Known Drug Aller gies active NETSMART ([facility] ) Encounters Encounter Providers Location Date Indications Data Source(s ) Outpatient Attender: Anika VILCHIS 021 01:48:02 PM EDT - 04/01/2021 03:52:17 PM EDT DocuTap ([facility] ) Outpatient [facility] 12/26/2020 12:00:00 AM EDT eCW1 ([facility]) Outpatient Attender: MELA Lorenzo/Jamarcus/Ang el/Reindl 11/28/2020 02:00:00 PM EDT MEDENT ([facility]) Outpatient [facility] 11/25/2020 12:00:00 AM EDT eCW1 ([facility]) Outpatient [facility] 11/21/2020 12:00:00 AM EDT eCW1 ([facility]) Outpatient [facility] 10/25/2020 12:00:00 AM EDT eCW1 ([facility]) Outpatient [facility] 09/23/2020 12:00:00 AM EST eCW1 ([facility]) Outpatient Attender: MELA Lorenzo/Jamarcus/Ang el/Reindl 09/11/2020 09:00:00 AM EST MEDENT ([facility]) Outpatient Attender: ALEKSANDRA MENA ttender: [id number] ALEKSANDRA Chavezerrer: Chante Hall SFDC ARCHITECT EMERGENCY ROOM-[facility] 09/05/2020 12:57:00 PM EST - 09/05/2020 12:57:00 PM EST [facility] Outpatient [facility] 08/20/2020 12:00:00 AM EST eCW1 ([facility]) Outpatient [facility] 08/16/2020 12:00:00 AM EST eCW1 ([facility]) Outpatient [facility] 08/09/2020 12:00:00 AM EST eCW1 ([facility]) 07/24/2020 12:00:00 AM EST - 021 08:33:22 AM EST NETSMART ([facility]) Outpatient [facility] 07/24/2020 12:00:00 AM EST eCW1 ([facility]) Outpatient [facility] 07/16/2020 12:00:00 AM EST eCW1 ([facility]) Outpatient [facility] 07/12/2020 12:00:00 AM EST eCW1 ([facility]) Outpatient Attender: Chante Hall FNPReferrer: Chante [facility]UIL[facility] 07/10/2020 01:26:00 PM EST - 07/10/2020 01:26:00 PM [facility] Outpatient [facility] 07/10/2020 12:00:00 AM EST eCW1 ([facility]) Outpatient [facility] 07/08/2020 12:00:00 AM EST eCW1 ([facility]) Outpatient Attender: VIRGIL TRIPLETT RPA-C 07/12/2018 12:51:00 PM [facility] Outpatient Attender: VIRGIL TRIPLETT RPA-C 09/2017 09:00:00 AM EST - 06/27/2018 09:00:00 AM [facility] Emergency Attender: KHURRAM VILCHIS 01/24 06:58:00 PM EDT - 02/11/2016 05:59:00 AM [facility] Inpatient Attender: ANNELIESE Moore AAttender: Dr. CORTEZ QUEVEDOdmitter: Dr. CORTEZ BREWER EMERGENCY ROOM-OBS UNIT 12/13/2014 11:44:00 PM EDT - 12/14/2014 04:34:00 PM EDT [facility] Immunizations Vaccine Date Status Description Data Source(s) COVID-19 VACCINE Moderna 11/25/2020 12:00:00 AM EDT completed [facility] Vaccine Series Complete: YESThis Data wa s Submitted to [facility] Via [employer]. COVID-19 VACCINE Moderna 10/24/2020 12:00:00 AM EDT completed [facility] Vaccine Series Complete: NOThis Data was Submitted to [facility] Via [employer]. Medications Medication Brand Name Start Date Product Form Dose Route Admi nistrative Instructions Pharmacy Instructions Status Indications Reaction Description Data Source(s) Thiamine 100 MG Oral Tablet Thiamine HCL 11/28/2020 12:00:00 AM EDT ORAL active MEDENT ([facility], ) Folic Acid 1 MG Oral Tablet Folic Acid 11/28/2020 12:00:00 AM EDT ORAL active MEDENT ([facility], ) Thera M Plus - Thera M Plus - 08/09/2020 12:00:00 AM EST active Thera M Plus - eCW1 ([facility]) Thera M Plus - Thera M Plus - 08/09/2020 12:00:00 AM EST active Thera M Plus - eCW1 ([facility]) Thera M Plus - Thera M Plus - 08/09/2020 12:00:00 AM EST active Thera M Plus - eCW1 ([facility]) Thera M Plus - Thera M Plus - 08/09/2020 12:00:00 AM EST active Thera M Plus - eCW1 ([facility]) Thera M Plus - Thera M Plus - 08/09/2020 12:00:00 AM EST active Thera M Plus - eCW1 ([facility]) Thera M Plus - Thera M Plus - 08/09/2020 12:00:00 AM EST active Thera M Plus - eCW1 ([facility]) Thera M Plus - Thera M Plus - 08/09/2020 12:00:00 AM EST active Thera M Plus - eCW1 ([facility]) Thera M Plus - Thera M Plus - 08/09/2020 12:00:00 AM EST active Thera M Plus - eCW1 ([facility]) Sennosides 8.6 MG Sennosides 08/06/2020 12:00:00 AM EST 2.0 {tab let} completed NETSMART ([facility]) Propranolol HCl 10 MG Propranolol HCl 08/06/2020 12:00:00 AM EST 0 {tablet} completed NETSMART ([facility]) Vitamin D Vitamin D 08/06/2020 12:00:00 AM EST 25.0 {mcg} completed NETSMART ([facility] ) Mupirocin Calcium 2 % Mupirocin Calcium 08/05/2020 12:00:00 AM EST completed NETSMART ([facility]) Magnesium 500 MG Magnesium 07/30/2020 12:00:00 AM EST 1.0 {table t} completed NETSMART ([facility]) Potassium Chloride ER 10 MEQ Potassium Chloride ER 07/30/2020 12:00 :00 AM EST 0 {tablet} completed NETSMART ([facility]) Levothyroxine Sodium 125 MCG Levothyroxine Sodium 07/24/2020 12:00: 00 AM EST 1.0 {tablet} completed NETSMART ([facility]) Folic Acid 1 MG Folic Acid 07/24/2020 12:00:00 AM EST 1.0 {table t} completed NETSMART ([facility]) Midodrine HCl 5 MG Midodrine HCl 07/24/2020 12:00:00 AM EST 1.0 {tablet} completed NETSMART ([facility]) Magnesium Oxide 400 MG Magnesium Oxide 07/24/2020 12:00:00 AM EST 2.0 {tablet} completed NETSMART ([facility]) Propranolol HCl 10 MG Propranolol HCl 07/24/2020 12:00:00 AM EST 1.0 {tablet} completed NETSMART ( [facility]) Spironolactone 25 MG Spironolactone 07/24/2020 12:00:00 AM EST 1.0 {tablet} completed NETSMART ([facility]) Pantoprazole Sodium 20 MG Pantoprazole Sodium 07/24/2020 12:00:00 A M EST 1.0 {tablet} completed NETSMART ([facility]) Vitamin B Complex Vitamin B Complex 07/24/2020 12:00:00 AM EST 1.0 {tablet} [facility] Zinc Sulfate 220 (50 Zn) MG Zinc Sulfate 07/24/2020 12:00:00 AM EST 1.0 {tablet} completed NETSMART ([facility]) Thiamine 50 MG Thiamine 07/24/2020 12:00:00 AM EST 2.0 {tablet} [facility] Torsemide 20 MG Torsemide 07/24/2020 12:00:00 AM EST 2.0 {tablet } completed NETSMART ([facility]) Tylenol Tylenol 07/24/2020 12:00:00 AM EST 500.0 {mg} c ompleted NETSMART ([facility]) Midodrine HCl 5 MG Midodrine HCl 07/24/2020 12:00:00 AM EST 1.0 {tablet} completed [facility]SMART ([facility]) oyster shell calcium 1500 oyster shell calcium 07/24/2020 12:00:00 AM EST 500.0 {mg} completed NETSMART ([facility]) Mupirocin 2 % Mupirocin 07/24/2020 12:00:00 AM EST completed NETSMART ([facility]) Ferrous Sulfate 325 (65 Fe) MG Ferrous Sulfate 07/24/2020 12:00:00 AM EST 1.0 {tablet} completed NETSMART ([facility]) BuPROPion HCl ER (SR) 150 MG BuPROPion HCl ER (SR) 07/24/2020 12:00 :00 AM EST 1.0 {tablet} completed NETSMART ([facility]) Multivitamin Adult Multivitamin Adult 07/24/2020 12:00:00 AM EST 1.0 {tablet} completed NETSMART ( [facility]) Calcium Calcium 07/24/2020 12:00:00 AM EST 1.0 {tablet} [facility] Magnesium Chloride 64 MG Magnesium Chloride 64 MG 07/12/2020 12:00: 00 AM EST 1.0 {tablet} active Magnesium Chloride 64 MG eCW1 ([facility]) Magnesium Chloride 64 MG Magnesium Chloride 64 MG 07/12/2020 12:00: 00 AM EST 1.0 {tablet} active Magnesium Chloride 64 MG eCW1 ([facility]) Magnesium Chloride 64 MG Magnesium Chloride 64 MG 07/12/2020 12:00: 00 AM EST 1.0 {tablet} active Magnesium Chloride 64 MG eCW1 ([facility]) Magnesium Chloride 64 MG Magnesium Chloride 64 MG 07/12/2020 12:00: 00 AM EST 1.0 {tablet} active Magnesium Chloride 64 MG eCW1 ([facility]) Magnesium Chloride 64 MG Magnesium Chloride 64 MG 07/12/2020 12:00: 00 AM EST 1.0 {tablet} active Magnesium Chloride 64 MG eCW1 ([facility]) Magnesium Chloride 64 MG Magnesium Chloride 64 MG 07/12/2020 12:00: 00 AM EST 1.0 {tablet} active Magnesium Chloride 64 MG eCW1 ([facility]) Magnesium Chloride 64 MG Magnesium Chloride 64 MG 07/12/2020 12:00: 00 AM EST 1.0 {tablet} active Magnesium Chloride 64 MG eCW1 ([facility]) Magnesium Chloride 64 MG Magnesium Chloride 64 MG 07/12/2020 12:00: 00 AM EST 1.0 {tablet} active Magnesium Chloride 64 MG eCW1 ([facility]) Magnesium Chloride 64 MG Magnesium Chloride 64 MG 07/12/2020 12:00: 00 AM EST 1.0 {tablet} active Magnesium Chloride 64 MG eCW1 ([facility]) Magnesium Chloride 64 MG Magnesium Chloride 64 MG 07/12/2020 12:00: 00 AM EST 1.0 {tablet} active Magnesium Chloride 64 MG eCW1 ([facility]) Magnesium Chloride 64 MG Magnesium Chloride 64 MG 07/12/2020 12:00: 00 AM EST 1.0 {tablet} active Magnesium Chloride 64 MG eCW1 ([facility]) Magnesium Chloride 64 MG Magnesium Chloride 64 MG 07/12/2020 12:00: 00 AM EST 1.0 {tablet} active Magnesium Chloride 64 MG eCW1 ([facility]) Lactulose 667 MG/ML Oral Solution Lactulose 10 GM/15ML Lactu lose 10 GM/15ML 07/10/2020 12:00:00 AM EST 30.0 {ml} active Lactulose 10 GM/15ML eCW1 ([facility]) Hydroxyzine Hydrochloride 25 MG Oral Tablet HydrOXYzin e HCl 25 MG HydrOXYzine HCl 25 MG 07/10/2020 12:00:00 AM EST 1.0 {tablet_as_needed} active HydrOXYzine HCl 25 MG eCW1 ([facility]) Lactulose 667 MG/ML Oral Solution Lactulose 10 GM/15ML Lactu lose 10 GM/15ML 07/10/2020 12:00:00 AM EST 30.0 {ml} active Lactulose 10 GM/15ML eCW1 ([facility]) Lactulose 667 MG/ML Oral Solution Lactulose 10 GM/15ML Lactu lose 10 GM/15ML 07/10/2020 12:00:00 AM EST 30.0 {ml} active Lactulose 10 GM/15ML eCW1 ([facility]) Lactulose 667 MG/ML Oral Solution Lactulose 10 GM/15ML Lactu lose 10 GM/15ML 07/10/2020 12:00:00 AM EST 30.0 {ml} active Lactulose 10 GM/15ML eCW1 ([facility]) Lactulose 667 MG/ML Oral Solution Lactulose 10 GM/15ML Lactu lose 10 GM/15ML 07/10/2020 12:00:00 AM EST 30.0 {ml} active Lactulose 10 GM/15ML eCW1 ([facility]) Mupirocin 0.02 MG/MG Topical Ointment Mupirocin 2 % Mupiroci n 2 % 07/10/2020 12:00:00 AM EST 1.0 {application} active Mupirocin 2 % eCW1 ([facility]) Hydroxyzine Hydrochloride 25 MG Oral Tablet HydrOXYzin e HCl 25 MG HydrOXYzine HCl 25 MG 07/10/2020 12:00:00 AM EST 1.0 {tablet_as_needed} active HydrOXYzine HCl 25 MG eCW1 ([facility]) Lactulose 667 MG/ML Oral Solution Lactulose 10 GM/15ML Lactu lose 10 GM/15ML 07/10/2020 12:00:00 AM EST 30.0 {ml} active Lactulose 10 GM/15ML eCW1 ([facility]) Lactulose 667 MG/ML Oral Solution Lactulose 10 GM/15ML Lactu lose 10 GM/15ML 07/10/2020 12:00:00 AM EST 30.0 {ml} active Lactulose 10 GM/15ML eCW1 ([facility]) Lactulose 667 MG/ML Oral Solution Lactulose 10 GM/15ML Lactu lose 10 GM/15ML 07/10/2020 12:00:00 AM EST 30.0 {ml} active Lactulose 10 GM/15ML eCW1 ([facility]) Ondansetron 4 MG Disintegrating Oral Tablet Ondansetron 4 MG 07/10/2020 12:00:00 AM EST 1.0 {tablet_on_the_tongue_and_allow_to_dissolve} active Ondansetron 4 MG eCW1 ([facility]ie) Lactulose 667 MG/ML Oral Solution Lactulose 10 GM/15ML Lactu lose 10 GM/15ML 07/10/2020 12:00:00 AM EST 30.0 {ml} active Lactulose 10 GM/15ML eCW1 ([facility]) Lactulose 667 MG/ML Oral Solution Lactulose 10 GM/15ML Lactu lose 10 GM/15ML 07/10/2020 12:00:00 AM EST 30.0 {ml} active Lactulose 10 GM/15ML eCW1 ([facility]) Lactulose 667 MG/ML Oral Solution Lactulose 10 GM/15ML Lactu lose 10 GM/15ML 07/10/2020 12:00:00 AM EST 30.0 {ml} active Lactulose 10 GM/15ML eCW1 ([facility]) Lactulose 667 MG/ML Oral Solution Lactulose 10 GM/15ML Lactu lose 10 GM/15ML 07/10/2020 12:00:00 AM EST 30.0 {ml} active Lactulose 10 GM/15ML eCW1 ([facility]) Mupirocin 0.02 MG/MG Topical Ointment Mupirocin 2 % Mupiroci n 2 % 07/10/2020 12:00:00 AM EST 1.0 {application} active Mupirocin 2 % eCW1 ([facility]) Ondansetron 4 MG Disintegrating Oral Tablet Ondansetron 4 MG 07/10/2020 12:00:00 AM EST 1.0 {tablet_on_the_tongue_and_allow_to_dissolve} active Ondansetron 4 MG eCW1 ([facility]) Ondansetron 4 MG Disintegrating Oral Tablet Ondansetron 4 MG 07/10/2020 12:00:00 AM EST 1.0 {tablet_on_the_tongue_and_allow_to_dissolve} active Ondansetron 4 MG eCW1 ([facility]) Ondansetron 4 MG Disintegrating Oral Tablet Ondansetron 4 MG 07/10/2020 12:00:00 AM EST 1.0 {tablet_on_the_tongue_and_allow_to_dissolve} active Ondansetron 4 MG eCW1 ([facility]) Hydroxyzine Hydrochloride 25 MG Oral Tablet HydrOXYzin e HCl 25 MG HydrOXYzine HCl 25 MG 07/10/2020 12:00:00 AM EST 1.0 {tablet_as_needed} active HydrOXYzine HCl 25 MG eCW1 ([facility]) Lactulose 667 MG/ML Oral Solution Lactulose 10 GM/15ML Lactu lose 10 GM/15ML 07/10/2020 12:00:00 AM EST 30.0 {ml} active Lactulose 10 GM/15ML eCW1 ([facility]) Hydroxyzine Hydrochloride 25 MG Oral Tablet HydrOXYzin e HCl 25 MG HydrOXYzine HCl 25 MG 07/10/2020 12:00:00 AM EST 1.0 {tablet_as_needed} active HydrOXYzine HCl 25 MG eCW1 ([facility]) Mupirocin 0.02 MG/MG Topical Ointment Mupirocin 2 % Mupiroci n 2 % 07/10/2020 12:00:00 AM EST 1.0 {application} active Mupirocin 2 % eCW1 ([facility]) Mupirocin 0.02 MG/MG Topical Ointment Mupirocin 2 % Mupiroci n 2 % 07/10/2020 12:00:00 AM EST 1.0 {application} active Mupirocin 2 % eCW1 ([facility]) Insurance Providers Payer name Policy type / Coverage type Policy ID Covered republican ID Covered republican's relationship to farr Policy Farr Plan Information [place] 1 [id number] [facility] I [id number] Self [id number] [facility] MEDICAID [id number] S [id number] [facility] [id number] Self [id number] [facility] MEDICAID [id number] S [id number] [facility] MEDICAID [id number] S [id number] [facility] MEDICAID [id number] S [id number] [employer] COMMUNITY PLAN MCDO [id number] SP [id number] [facility] MEDICAID [id number] S [id number] UNHC COMMUNITY PLAN [facility] [id number] SP [id number] [facility] Commercial Insurance Co. [id number] Self [id number] [facility] Commercial Insurance Co. [id number] Self [id number] SELF-PAY UNAVAILABLE S UNAVAILA BLE [facility] MEDICAID [facility] [id number] S [id number] [employer] COMMUNITY PLAN MCDO [id number] SP [id number] [facility] [id number] FA2 [id number] MEDICAID [id number] SP [id number] MEDICAID JOSE [id number] S [id number] SELF PAY 2 UNAVAILABLE 1 UNAVAILA BLE [facility] MEDICAID 2 [id number] 1 [id number] [facility] PPO 2 [id number] 21 [id number] UNHC AMERICHOICE XIX O [id number] 18 [id number] UNHC AMERICHOICE XIX O [id number] 18 [id number] JOEL DAY SP UNAVAILABLE S UNAV AILABLE [id number] SELF PAY ONLY [id number] SP [id number] [place] [id number] SP [id number] [facility] MEDICAID [id number] S [id number] [facility] MEDICAID [id number] S [id number] MEDICAID [id number] S [id number] [facility] [id number] SP [id number] UN COMMUNITY PLAN [facility] [id number] SP [id number] [facility] [id number] SP [id number] ANSI-Medicaid [id number] ANSI-Medicaid [id number] ANSI-Medicaid [id number] Problems, Conditions, and Diagnoses Code Display Name Description Problem Type Effective Dates Data Source(s) N18.31 CHRONIC KIDNEY DISEASE, STAGE 3A CHRONIC KIDNEY DISEASE, STAGE 3A Diagnosis 09/05/2020 12:57:00 PM [facility] K74.60 Unspecified cirrhosis of liver UNSPECIFIED CIRRHOSIS O F LIVER Diagnosis 09/05/2020 12:57:00 PM [facility] D64.9 Anemia, unspecified ANEMIA, UNSPECIFIED Diagnosis 0 09/05/2020 12:57:00 PM [facility] Z28.21 Immunization not carried out because of patient refusal IMMUNIZATION NOT CARRIED OUT BECAUSE OF PATIENT RE Diagnosis 07/10/2020 01:26:00 PM [facility] Z87.448 Personal history of other diseases of ur inary system PERSONAL HISTORY OF OTHER DISEASES OF URINARY SYST Diagnosis 07/10/2020 01:26:00 PM [facility] F41.9 Anxiety disorder, unspecified ANXIETY DISORDER, UNSPEC IFIED Diagnosis 07/10/2020 01:26:00 PM [facility] R11.0 Nausea NAUSEA Diagnosis 07/10/2020 01:26:00 PM [facility] N17.9 Acute kidney failure, unspecified ACUTE KIDNEY F AILURE, UNSPECIFIED Diagnosis 07/10/2020 01:26:00 PM [facility] D50.9 Iron deficiency anemia, unspecified IRON DEFICIE NCY ANEMIA, UNSPECIFIED Diagnosis 07/10/2020 01:26:00 PM [facility] E03.9 Hypothyroidism, unspecified HYPOTHYROIDISM, UNSPECIFIE D Diagnosis 07/10/2020 01:26:00 PM [facility] K72.10 Chronic hepatic failure without coma CHR ONIC HEPATIC FAILURE WITHOUT COMA Diagnosis 07/10/2020 01:26:00 PM [facility] R60.1 Generalized edema GENERALIZED EDEMA Diagnosis 07/10/2020 01:26:00 PM [facility] 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 NON-PRS CHRONIC ULCER SKIN/ SITES LIMITED TO BRKDWN SKIN Leeann gnosis 07/10/2020 01:26:00 PM [facility] [id number] Essential hypertension Essential hypertension Problem 09/11/2020 12:00:00 AM EST HOLDEN ([facility], ) Z68.30 Body mass index [BMI]30.0-30.9, adult Steve dy mass index [BMI]30.0-30.9, adult Problem 07/24/2020 12:00:00 AM EST NETSMART ([facility]) R18.8 Other ascites Other ascites Problem 07/24/2020 12:00:00 AM EST NETSMART ([facility]) N17.9 Acute kidney failure, unspecified Acute kidney f ailure, unspecified Problem 07/24/2020 12:00:00 AM EST NETSMART ([facility]) R60.1 Generalized edema Generalized edema Problem 07/24/2020 12:00:00 AM EST NETSMART ([facility]) D50.9 Iron deficiency anemia, unspecified Iron deficie ncy anemia, unspecified Problem 07/24/2020 12:00:00 AM EST NETSMART ([facility]) F41.9 Anxiety disorder, unspecified Anxiety disorder, unspec ified Problem 07/24/2020 12:00:00 AM EST NETSMART ([facility] ) F32.9 Major depressive disorder, single episod e, unspecified Major depressive disorder, single episode, unspecified Problem 07/24/2020 12:00:00 AM EST NETSMART ([facility]) F10.21 Alcohol dependence, in remission Alcohol depende nce, in remission Problem 07/24/2020 12:00:00 AM EST NETSMART ([facility]) E66.9 Obesity, unspecified Obesity, unspecified Problem 07/24/2020 12:00:00 AM EST NETSMART ([facility] ) Z98.84 Bariatric surgery status Bariatric surgery status Prob blanco 07/24/2020 12:00:00 AM EST NETSMART ([facility] ) Z91.81 History of falling History of falling Problem 0 12:00:00 AM EST NETSMART ([facility]) 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 A lcoholic hepatic failure without coma Problem 07/24/2020 12:00:00 AM EST NETSMART ([facility]) E03.9 [id number] Hypothyroidism (acquired) Problem 07/10/2020 12:00:00 AM EST eCW1 ([facility]) K72.10 [id number] Chronic liver failure without hepatic com a Problem 07/10/2020 12:00:00 AM EST eCW1 ([facility]ie) L98.491 [id number] Skin ulcer, limited to breakdown of skin Problem 07/10/2020 12:00:00 AM EST eCW1 ([facility]ie) F41.9 [id number] Anxiety Problem 07/10/2020 12:00:00 AM ES T eCW1 ([facility]) D50.9 [id number] Iron deficiency anemia, unspecif ied iron deficiency anemia type Problem 07/10/2020 12:00:00 AM EST eCW1 ([facility]) Surgeries/Procedures No Information Results ID Date Data Source [id number] 04/01/2021 03:45:00 PM EDT [facility] Name Value Range Interpretation Code Description Data Anna rce(s) Supporting Document(s) SARS-CoV-2 RNA Resp Ql JORGITO+probe NOT DETECTED [facility] This lab was ordered by MARICEL royal and reported by MARICEL Mon. ID Date Data Source [id number] 01/09/2021 11:11:00 AM EDT [facility] Name Value Range Interpretation Code Description Data Anna rce(s) Supporting Document(s) SARS-CoV-2 (COVID-19) RNA [Presence] in Respiratory specimen by JORGITO with probe detection Not Detected [facility] This lab was ordered by [facility] and reported by LO[facility]. ID Date Data Source [id number] 09/05/2020 01:42:00 PM EST [facility] FAX [phone] Name Value Range Interpretation Code Description Data Anna rce(s) Supporting Document(s) MAGNESIUM 1.4 mg/dL 1.8-2.4 L [facility] ID Date Data Source [id number] 09/05/2020 01:42:00 PM EST [facility] FAX [phone] Name Value Range Interpretation Code Description Data Anna rce(s) Supporting Document(s) GLUCOSE 151 mg/dL 74-106 H [facility] BLOOD UREA NITROGEN 6 mg/dL 7-18 L [facility] ital CREATININE 0.84 mg/dL 0.6-1.0 [facility] SODIUM 139 mmol/L 136-145 [facility] POTASSIUM 3.1 mmol/L 3.5-5.1 L [facility] CHLORIDE 103 mmol/L 98-107 [facility] CO2 27 mmol/L 21-32 [facility] CALCIUM 8.7 mg/dL 8.5-10.1 [facility] GLOMERULAR FILTRATION RATE 78 mL/min [facility] GFR IS CALCULATED IN mL/min/1.73m2 SURESH L FUNCTION: >90MILDLY DECREASED: 60-89MILDY TO MODERATELY DECREASED: 45-59 MODERATELY TO SEVERELY DECREASED: 30-44SEVERELY DECREASED: 15-29RENAL FAILURE: <15 ALBUMIN 2.7 gm/dL 3.4-5.0 [facility] PHOSPHOROUS 3.3 mg/dL 2.5-4.9 [facility] ID Date Data Source [id number] 09/05/2020 01:06:00 PM [facility] FAX [phone] Name Value Range Interpretation Code Description Data Anna e(s) Supporting Document(s) WHITE BLOOD COUNT 4.1 K/mm3 4.0-10.0 [facility] al RED BLOOD COUNT 3.36 M/mm3 4.00-5.50 L [facility] HEMOGLOBIN 10.7 gm/dL 12.0-16.0 [facility] HEMATOCRIT 31.6 % 36.0-48.8 L [facility] MEAN CELL VOLUME 94.0 fl 80-96 [facility] MEAN CORPUSCULAR HEMOGLOBIN 31.8 pg 27.0-31.[address] [facility] MEAN CORPUSCULAR HGB CONC 33.9 g/dl 32.0-36.0 [facility] RED CELL DISTRIBUTION WIDTH 14.0 % 10.0-14.5 [facility] PLATELET COUNT 213 K/mm3 172-450 [facility] MEAN PLATELET VOLUME 10.2 fl 9.0-13.0 [facility] GRAN % 57.0 % 50-80.0 [facility] IG% 0.2 % 0.0-0.2 [facility] LYMPH % 33.8 % 25.0-50.0 [facility] MONO % 6.6 % 2.0-10.0 [facility] EOS % 1.7 % 0-5.0 [facility] BASO % 0.7 % 0.0-2.0 [facility] GRAN # 2.3 K/mm3 2.0-8.00 [facility] IG# 0.0 K/mm3 0.0-0.2 [facility] LYMPH # 1.4 K/mm3 1.0-5.0 [facility] MONO # 0.3 K/mm3 0.10-1.20 [facility] EOS # 0.1 K/mm3 0.0-0.5 [facility] BASO # 0.0 K/mm3 0.0-0.2 [facility] ID Date Data Source [id number] 07/10/2020 03:30:00 PM EST [facility] Name Value Range Interpretation Code Description Data Anna rce(s) Supporting Document(s) FERRITIN 349 ng/mL 8-252 H [facility] ID Date Data Source [id number] 07/10/2020 03:30:00 PM [facility] Name Value Range Interpretation Code Description Data Anna rce(s) Supporting Document(s) GLUCOSE 84 mg/dL 74-106 [facility] BLOOD UREA NITROGEN 10 mg/dL 7-18 [facility] ital CREATININE 1.2 mg/dL 0.6-1.0 H [facility] SODIUM 141 mmol/L 136-145 [facility] POTASSIUM 3.1 mmol/L 3.5-5.1 L [facility] CHLORIDE 99 mmol/L 98-107 [facility] CO2 33 mmol/L 21-32 H [facility] CALCIUM 8.1 mg/dL 8.5-10.1 L [facility] ANION GAP 9.0 mmol/L 5-12 [facility] GLOMERULAR FILTRATION RATE 51 mL/min [facility] GFR IS CALCULATED IN mL/min/1.73m2 SURESH L FUNCTION: >90MILDLY DECREASED: 60-89MILDY TO MODERATELY DECREASED: 45-59 MODERATELY TO SEVERELY DECREASED: 30-44SEVERELY DECREASED: 15-29RENAL FAILURE: <15 AST 92 U/L 15-37 H [facility] ALT 35 U/L 12-78 [facility] ALKALINE PHOSPHATASE 106 U/L 46-116 [facility] p[facility] TOTAL BILIRUBIN 2.7 mg/dL 0.2-1.0 H [facility] TOTAL PROTEIN 7.3 g/dl 6.4-8.2 [facility] ALBUMIN 2.2 gm/dL 3.4-5.0 *L [facility] ID Date Data Source [id number] 07/10/2020 03:30:00 PM [facility] Name Value Range Interpretation Code Description Data Anna rce(s) Supporting Document(s) IRON 101 ug/dL 50-170 [facility] TIBC 98 ug/dL 250-450 L [facility] % SATURATION 103 % 20-50 H [facility] ID Date Data Source [id number] 07/10/2020 03:30:00 PM [facility] Name Value Range Interpretation Code Description Data Anna rce(s) Supporting Document(s) MAGNESIUM 1.1 mg/dL 1.8-2.4 L [facility] ID Date Data Source [id number] 07/10/2020 03:29:00 PM [facility] Name Value Range Interpretation Code Description Data Anna rce(s) Supporting Document(s) FREE T4 1.15 ng/dL 0.76-1.46 [facility] ID Date Data Source [id number] 07/10/2020 03:29:00 PM [facility] Name Value Range Interpretation Code Description Data Anna rce(s) Supporting Document(s) TSH 38.92 uIU/mL 0.36-3.74 H [facility] ID Date Data Source [id number] 07/10/2020 03:16:00 PM [facility] Name Value Range Interpretation Code Description Data Anna rce(s) Supporting Document(s) AMMONIA 73 umol/L 11-32 H [facility] ID Date Data Source [id number] 07/10/2020 02:48:00 PM [facility] Name Value Range Interpretation Code Description Data Anna rce(s) Supporting Document(s) WHITE BLOOD COUNT 10.6 K/mm3 4.0-10.0 [facility] RED BLOOD COUNT 3.17 M/mm3 4.00-5.50 L [facility] l HEMOGLOBIN 9.9 gm/dL 12.0-16.0 L [facility] HEMATOCRIT 29.8 % 36.0-48.8 L [facility] MEAN CELL VOLUME 94.0 fl 80-96 [facility] MEAN CORPUSCULAR HEMOGLOBIN 31.2 pg 27.0-31.[address] [facility] MEAN CORPUSCULAR HGB CONC 33.2 g/dl 32.0-36.0 [facility] RED CELL DISTRIBUTION WIDTH 20.8 % 10.0-14.[address] [facility] PLATELET COUNT 278 K/mm3 172-450 [facility] MEAN PLATELET VOLUME 10.5 fl 9.0-13.0 [facility] p[facility] GRAN % 73.1 % 50-80.0 [facility] IG% 0.2 % 0.0-0.2 [facility] LYMPH % 16.7 % 25.0-50.0 L [facility] MONO % 8.3 % 2.0-10.0 [facility] EOS % 1.4 % 0-5.0 [facility] BASO % 0.3 % 0.0-2.0 [facility] GRAN # 7.8 K/mm3 2.0-8.00 [facility] IG# 0.0 K/mm3 0.0-0.2 [facility] LYMPH # 1.8 K/mm3 1.0-5.0 [facility] MONO # 0.9 K/mm3 0.10-1.20 [facility] EOS # 0.2 K/mm3 0.0-0.5 [facility] BASO # 0.0 K/mm3 0.0-0.2 [facility] ID Date Data Source [id number] 07/01/2020 12:42:00 PM EST [facility] Name Value Range Interpretation Code Description Data Anna rce(s) Supporting Document(s) SARS coronavirus 2 RNA [Presence] in Res piratory specimen by JORGITO with probe detection [facility] This lab was ordered by [facility] a nd reported by [facility]. Procedure Social History Code Duration Value Status Description Data Source(s ) Smoking 07/18/2020 12:00:00 AM EST Never Smoker completed Never S moker eCW1 ([facility]) Smoking 07/18/2020 12:00:00 AM EST Never Smoker completed Never S moker eCW1 ([facility]) Smoking 07/18/2020 12:00:00 AM EST Never Smoker completed Never S moker eCW1 ([facility]) Smoking 07/18/2020 12:00:00 AM EST Never Smoker completed Never S moker eCW1 ([facility]) Smoking 07/18/2020 12:00:00 AM EST Never Smoker completed Never S moker eCW1 ([facility]) Smoking 07/18/2020 12:00:00 AM EST Never Smoker completed Never S moker eCW1 ([facility]) Smoking 07/18/2020 12:00:00 AM EST Never Smoker completed Never S moker eCW1 ([facility]) Smoking 07/18/2020 12:00:00 AM EST Never Smoker completed Never S moker eCW1 ([facility]) Smoking 07/18/2020 12:00:00 AM EST Never Smoker completed Never S moker eCW1 ([facility]) Smoking 07/10/2020 12:00:00 AM EST Never Smoker completed Never S moker eCW1 ([facility]) Smoking 07/10/2020 12:00:00 AM EST Never Smoker completed Never S moker eCW1 ([facility]) Smoking 07/10/2020 12:00:00 AM EST Never Smoker completed Never S moker eCW1 ([facility]) Smoking 07/10/2020 12:00:00 AM EST Never Smoker completed Never S moker eCW1 ([facility]) Vital Signs ID Date Data Source UNK Name Value Range Interpretation Code Description Data Source(s) Systolic blood pressure 126 mm[Hg] 126 mm[Hg] Con MEYERS ([facility]) Diastolic blood pressure 66 mm[Hg] 66 mm[Hg] [facility] ([facility]) Body height 62 [in_i] 62 [in_i] [facility] ([facility]) 5'2" Body weight 176.00 [lb_av] 176.00 [lb_av] [facility] Body mass index (BMI) [Ratio] 32.2 kg/m2 32.2 k g/m2 [facility] ([facility]) Erbacon body weight 110 [lb_av] 110 [lb_av] MEDEN T ([facility]) Body weight 79.834 kg 79.834 kg [facility] ([facility]) Body surface area Derived from formula 1.81 m2 1.81 m2 [facility] ([facility]) Patient Treatment Plan of Care Planned Activity Planned Date Details Description Data Source (s) Heavenly Andujar Plus - 08/09/2020 12:00:00 AM EST eCW1 ([facility]) Theroswald Andujar Plus - 08/09/2020 12:00:00 AM EST eCW1 ([facility]) Thera M Plus - 08/09/2020 12:00:00 AM EST eCW1 ([facility]) Thera M Plus - 08/09/2020 12:00:00 AM EST eCW1 ([facility]) Thera M Plus - 08/09/2020 12:00:00 AM EST eCW1 ([facility]) Thera M Plus - 08/09/2020 12:00:00 AM EST eCW1 ([facility]) Thera M Plus - 08/09/2020 12:00:00 AM EST eCW1 ([facility]) Thera M Plus - 08/09/2020 12:00:00 AM EST eCW1 ([facility]) Propranolol HCl 10 MG 08/06/2020 12:00:00 AM EST NETSMART ([facility]) Sennosides 8.6 MG 08/06/2020 12:00:00 AM EST [facility]SMART ([facility]) Vitamin D 08/06/2020 12:00:00 AM EST N [facility] ([facility]) Mupirocin Calcium 2 % 08/05/2020 12:00:00 AM EST [facility]SMART ([facility]) Magnesium 500 MG 07/30/2020 12:00:00 AM EST [facility]SMART ([facility]) Potassium Chloride ER 10 MEQ 07/30/2020 12:00:00 AM EST [facility]SMART ([facility]) oyster shell calcium 1500 07/24/2020 12:00:00 AM EST [facility]SMART ([facility]) Tylenol 07/24/2020 12:00:00 AM EST N [facility] ([facility]) Midodrine HCl 5 MG 07/24/2020 12:00:00 AM EST [facility]SMART ([facility]) Mupirocin 2 % 07/24/2020 12:00:00 AM EST [facility]SMART ([facility]) Ferrous Sulfate 325 (65 Fe) MG 07/24/2020 12:00:00 AM EST [facility]SMART ([facility]) BuPROPion HCl ER (SR) 150 MG 07/24/2020 12:00:00 AM EST [facility]SMART ([facility]) Midodrine HCl 5 MG 07/24/2020 12:00:00 AM EST [facility]SMART ([facility]) Magnesium Oxide 400 MG 07/24/2020 12:00:00 AM EST [facility]SMART ([facility]) Levothyroxine Sodium 125 MCG 07/24/2020 12:00:00 AM EST [facility]SMART ([facility]) Folic Acid 1 MG 07/24/2020 12:00:00 AM EST [facility]SMART ([facility]) Pantoprazole Sodium 20 MG 07/24/2020 12:00:00 AM EST [facility]SMART ([facility]) Propranolol HCl 10 MG 07/24/2020 12:00:00 AM EST [facility]SMART ([facility]) Spironolactone 25 MG 07/24/2020 12:00:00 AM EST [facility]SMART ([facility]) Thiamine 50 MG 07/24/2020 12:00:00 AM EST [facility]SMART ([facility]) Torsemide 20 MG 07/24/2020 12:00:00 AM EST [facility]SMART ([facility]) Vitamin B Complex 07/24/2020 12:00:00 AM EST [facility]SMART ([facility]) Zinc Sulfate 220 (50 Zn) MG 07/24/2020 12:00[facility]00 [facility] Multivitamin Adult 07/24/2020 12:00:00 AM EST NETSMART ([facility]) Calcium 07/24/2020 12:00:00 AM EST N [facility] ([facility]) Magnesium Chloride 64 MG 07/12/2020 12:00:00 AM EST eCW1 ([facility]) Magnesium Chloride 64 MG 07/12/2020 12:00:00 AM EST eCW1 ([facility]) Magnesium Chloride 64 MG 07/12/2020 12:00:00 AM EST eCW1 ([facility]) Lactulose 667 MG/ML Oral Solution 07/10/2020 12:00:00 AM EST eCW1 ([facility]) Ondansetron 4 MG Disintegrating Oral Tablet 07/10/2020 12:00:00 AM EST eCW1 ([facility]) Mupirocin 0.02 MG/MG Topical Ointment 07/10/2020 12:00:00 AM EST eCW1 ([facility]) Hydroxyzine Hydrochloride 25 MG Oral Tablet 07/10/2020 12:00:00 AM EST eCW1 ([facility]) Lactulose 667 MG/ML Oral Solution 07/10/2020 12:00:00 AM EST eCW1 ([facility]) Ondansetron 4 MG Disintegrating Oral Tablet 07/10/2020 12:00:00 AM EST eCW1 ([facility]) Mupirocin 0.02 MG/MG Topical Ointment 07/10/2020 12:00:00 AM EST eCW1 ([facility]) Hydroxyzine Hydrochloride 25 MG Oral Tablet 07/10/2020 12:00:00 AM EST eCW1 ([facility]) Lactulose 667 MG/ML Oral Solution 07/10/2020 12:00:00 AM EST eCW1 ([facility]) Ondansetron 4 MG Disintegrating Oral Tablet 07/10/2020 12:00:00 AM EST eCW1 ([facility]) Mupirocin 0.02 MG/MG Topical Ointment 07/10/2020 12:00:00 AM EST eCW1 ([facility]) Hydroxyzine Hydrochloride 25 MG Oral Tablet 07/10/2020 12:00:00 AM EST eCW1 ([facility]) Ondansetron 4 MG Disintegrating Oral Tablet 07/10/2020 12:00:00 AM EST eCW1 ([facility]) Mupirocin 0.02 MG/MG Topical Ointment 07/10/2020 12:00:00 AM EST eCW1 ([facility]) Hydroxyzine Hydrochloride 25 MG Oral Tablet 07/10/2020 12:00:00 AM EST eCW1 ([facility]) Lactulose 667 MG/ML Oral Solution 07/10/2020 12:00:00 AM EST eCW1 ([facility])
== END 2021-05-26 01:08 | disposition left against medical advice (07) ==
LOC: M ED 00:55
DX: Z53.21 Procedure and treatment not carried out due to patient leaving prior to being seen by health care provider (principal)

== ENCOUNTER → 2021-06-05 | Outpatient (CLI) | payer MEDICAID | LOC: M OUTALCOH 07:50 | PROVIDERS: ATTEND Psychiatry & Neurology Psychiatry | DX: Z13.39 Encounter for screening examination for other mental health and behavioral disorders (principal) ==

== ENCOUNTER → 2021-10-08 | Outpatient (CLI) | payer OTHER ==
[2021-10-08 14:08] LABS: BASO # 0.1 10^3/uL (0.0-0.2); EOS # 0.1 10^3/uL (0.0-0.5); EOS % 1.8 % (0.0-3.0); HEMATOCRIT 39.6 % (36.0-47.0); HEMOGLOBIN 12.5 g/dl (12.0-15.5); LYMPH % 34.2 % (24.0-44.0); MEAN CORPUSCULAR HGB CONC 31.6 g/dl (32.0-36.5); MEAN CORPUSCULAR VOLUME 88.6 fl (80.0-96.0); MONO # 0.5 10^3/uL (0.0-0.8); MONO % 9.1 % (2.0-8.0); NEUTROPHILS # 3.2 10^3/uL (1.5-8.5); NEUTROPHILS % 53.6 % (36.0-66.0); PLATELET COUNT, AUTOMATED 216 10^3/uL (150-450); RED BLOOD COUNT 4.47 10^6/uL (4.00-5.40)
[2021-10-08 14:09] LABS: APPEARANCE, URINE HAZY (CLEAR); BACTERIA, URINE AUTO 3+ (NEGATIVE); BILIRUBIN, URINE AUTO NEGATIVE (NEGATIVE); BLOOD, URINE BLOOD NEGATIVE (NEGATIVE); COLOR, URINE AMBER (YELLOW); GLUCOSE, URINE (UA) AUTO 2+ mg/dL (NEGATIVE); KETONE, URINE AUTO TRACE mg/dL (NEGATIVE); LEUKOCYTE ESTERASE, URINE AUTO TRACE (NEGATIVE); MUCUS, URINE SMALL (NEGATIVE); NITRITE, URINE AUTO POSITIVE (NEGATIVE); PROTEIN, URINE AUTO NEGATIVE (NEGATIVE); RBC, URINE AUTO 1 /HPF (0-3); SPECIFIC GRAVITY URINE AUTO 1.028 (1.002-1.035); SQUAMOUS EPITHELIAL CELL UR AU 2 /HPF (0-6); WBC, URINE AUTO 2 /HPF (0-3)
[2021-10-08 14:13] LABS: ALBUMIN 3.8 GM/DL (3.2-5.2); ALT/SGPT 53 U/L (12-78); BILIRUBIN,TOTAL 0.4 MG/DL (0.2-1.0); BLOOD UREA NITROGEN 10 MG/DL (7-18); CALCIUM LEVEL 9.4 MG/DL (8.5-10.1); CARBON DIOXIDE LEVEL 31 MEQ/L (21-32); CHLORIDE LEVEL 107 MEQ/L (98-107); CREATININE FOR GFR 0.61 MG/DL (0.55-1.30); GLOMERULAR FILTRATION RATE > 60.0 (>60); GLUCOSE, FASTING 68 MG/DL (70-100); POTASSIUM SERUM 4.6 MEQ/L (3.5-5.1); SODIUM LEVEL 142 MEQ/L (136-145); TOTAL PROTEIN 7.8 GM/DL (6.4-8.2)
[2021-10-08 14:34] LABS: HEPATITIS B SURFACE ANTIGEN NEGATIVE (NEGATIVE)
[2021-10-08 15:01] LABS: HEPATITIS B CORE ANTIBODY IGM NEGATIVE (NEGATIVE); HEPATITIS C VIRUS ABY INDEX 0.2 INDEX (<0.8)
== END ==
LOC: M PLALAB 10:56
PROVIDERS: ATTEND Physician Assistant
DX: Z02.2 Encounter for examination for admission to residential institution (principal)

== ENCOUNTER → 2021-12-08 | Outpatient (CLI) | payer OTHER ==
[~2021-12-08] MED LIST changes: +BUPR1TAB53 PO; -FERR325T19; +FERR325T19 PO; -HYDR-3363; +HYDR-3363 PO; -MAGN500T2; +MAGN500T2 PO; +SUCR1ORA PO
== END ==
LOC: M LABSMTC 09:38
PROVIDERS: ATTEND Anesthesiology
DX: Z01.818 Encounter for other preprocedural examination (principal); Z11.52 Encounter for screening for COVID-19

== ENCOUNTER 2021-12-12 12:10 | Day surgery (SDC) | payer OTHER ==
[~2021-12-12] VITALS: Ht 157.5 cm; Wt 82.6 kg
[~2021-12-12 12:10] MED LIST changes: +NS 1,000 ML IV ONE
[2021-12-12] MEDS ORDERED: fentaNYL 100 MCG/2 ML INJECTION As Ordered ONE (13:25)
[2021-12-12] MEDS ORDERED: propofoL 200 MG/20 ML VIAL As Ordered ONE (13:25)
[2021-12-12] MEDS ORDERED: LIDOCAINE 2% 100MG/5ML SDV (FOR ANES.) As Ordered ONE (13:25)
[2021-12-12 14:30] VITALS: BP 115/67
== END 2021-12-12 14:42 | disposition home or self-care (01) ==
LOC: M OPP 12:10
PROVIDERS: ATTEND Internal Medicine Gastroenterology
DX: K74.60 Unspecified cirrhosis of liver (principal); I85.10 Secondary esophageal varices without bleeding; R12 Heartburn; Z98.84 Bariatric surgery status; Z98.0 Intestinal bypass and anastomosis status; Z79.899 Other long term (current) drug therapy; Z80.3 Family history of malignant neoplasm of breast
CPT/HCPCS: 43239; 88305; J3010

== ENCOUNTER → 2021-12-29 | Outpatient (CLI) | payer OTHER ==
[~2021-12-29] MED LIST changes: -NS 1,000 ML IV ONE
== END ==
LOC: M RAD 08:33
PROVIDERS: ATTEND Internal Medicine Gastroenterology
DX: K74.60 Unspecified cirrhosis of liver (principal)

== ENCOUNTER → 2022-05-01 | Outpatient (REF) | payer OTHER ==
[2022-05-01 14:18] LABS: FREE T4 0.77 NG/DL (0.76-1.46); THYROID STIMULATING HORMONE 1.64 uIU/ML (0.358-3.740)
== END ==
LOC: M PLALAB 12:40
PROVIDERS: ATTEND Physician Assistant
DX: I50.9 Heart failure, unspecified (principal); R53.83 Other fatigue; R51.9 Headache, unspecified

== ENCOUNTER → 2022-06-03 | Outpatient (CLI) | payer OTHER ==
[2022-06-03 14:27] LABS: INR 1.06
[2022-06-03 14:28] LABS: PARTIAL THROMBOPLASTIN TIME 33.2 SECONDS (24.8-34.2)
[2022-06-03 15:38] LABS: ALBUMIN 3.6 GM/DL (3.2-5.2); BILIRUBIN,DIRECT 0.1 MG/DL (0.0-0.2); BILIRUBIN,TOTAL 0.3 MG/DL (0.2-1.0); TOTAL PROTEIN 7.5 GM/DL (6.4-8.2)
== END ==
LOC: M PLALAB 11:43
PROVIDERS: ATTEND Internal Medicine Gastroenterology
DX: K70.30 Alcoholic cirrhosis of liver without ascites (principal)

== ENCOUNTER → 2022-07-02 | Outpatient (CLI) | payer OTHER | LOC: M RAD 08:08 | PROVIDERS: ATTEND Internal Medicine Gastroenterology | DX: K70.30 Alcoholic cirrhosis of liver without ascites (principal) ==

== ENCOUNTER → 2022-10-22 | Outpatient (REF) | payer OTHER | LOC: M LAB REF 16:19 | PROVIDERS: ATTEND Physician Assistant | DX: J02.9 Acute pharyngitis, unspecified (principal) ==

== ENCOUNTER 2023-02-15 09:55 | Emergency (ER) | payer OTHER ==
[~2023-02-15] VITALS: Ht 157.5 cm; Wt 87.7 kg
[2023-02-15 12:35] LABS: BASO % 0.4 % (0.0-1.0); EOS % 0.5 % (0.0-3.0); HEMATOCRIT 43.6 % (36.0-47.0); HEMOGLOBIN 14.7 g/dl (12.0-15.5); LYMPH # 1.9 10^3/uL (1.5-5.0); LYMPH % 24.9 % (24.0-44.0); MEAN CORPUSCULAR HEMOGLOBIN 30.8 pg (27.0-33.0); MEAN CORPUSCULAR HGB CONC 33.7 g/dl (32.0-36.5); MEAN CORPUSCULAR VOLUME 91.2 fl (80.0-96.0); MONO # 0.5 10^3/uL (0.0-0.8); MONO % 6.1 % (2.0-8.0); PLATELET COUNT, AUTOMATED 249 10^3/uL (150-450); RED BLOOD COUNT 4.78 10^6/uL (4.00-5.40); WHITE BLOOD COUNT 7.4 10^3/uL (4.0-10.0)
[2023-02-15 12:55] LABS: LIPASE 34 U/L (12-53)
[2023-02-15] MEDS ORDERED: NS 1,000 ML IV ONE (12:55)
[2023-02-15] MEDS ORDERED: ONDANSETRON 4MG 2ML VIAL IV ONE ×2 (12:55→17:00)
[2023-02-15] MEDS ORDERED: KETOROLAC 30 MG/ML 1ML VIAL IV ONE (12:55)
[2023-02-15] MEDS ORDERED: SUCRALFATE 1 GM TAB PO ONE (13:00)
[2023-02-15] MEDS ORDERED: PANTOPRAZOLE 40MG VIAL IV ONE (13:00)
[2023-02-15 13:01] LABS: ALBUMIN 4.2 G/DL (3.2-5.2); ALKALINE PHOSPHATASE 116 U/L (46-116); ALT/SGPT 40 U/L (7.0-40); AST/SGOT 49 U/L (<34); BILIRUBIN,DIRECT 0.4 MG/DL (<0.4); BILIRUBIN,TOTAL 1.1 MG/DL (0.3-1.2); BLOOD UREA NITROGEN < 5 MG/DL (9-23); CALCIUM LEVEL 9.3 MG/DL (8.5-10.1); CARBON DIOXIDE LEVEL 28 MMOL/L (20-31); CHLORIDE LEVEL 99 MMOL/L (98-107); CREATININE FOR GFR 0.47 MG/DL (0.55-1.30); GLOMERULAR FILTRATION RATE > 60.0 (>60); GLUCOSE, FASTING 101 MG/DL (60-100); POTASSIUM SERUM 3.5 MMOL/L (3.5-5.1); SODIUM LEVEL 138 MMOL/L (136-145); TOTAL PROTEIN 8.2 G/DL (5.7-8.2)
[2023-02-15] MEDS: GASTROGRAFIN SOLUTION 30ML PO SCH ×2 (13:52→13:53)
[2023-02-15] MEDS ORDERED: ISOVUE-370 76% 100ML VIAL As Ordered ONE (15:02)
[2023-02-15 15:54] VITALS: TEMP 98; O2SAT 98
[2023-02-15 19:18] VITALS: BP 136/72
[2023-02-15] MEDS ORDERED: LISI10TA22 PO (19:24)
== END 2023-02-15 19:43 | disposition home or self-care (01) ==
LOC: M ED 09:55
DX: K76.6 Portal hypertension (principal); K80.20 Calculus of gallbladder without cholecystitis without obstruction; K27.9 Peptic ulcer, site unspecified, unspecified as acute or chronic, without hemorrhage or perforation; Z98.84 Bariatric surgery status; Z79.899 Other long term (current) drug therapy
CPT/HCPCS: 74177; 76705; 80048; 80076; 81001; 83690; 85025; 87086; 96374; 96375; 96376; 99283; C9113; J1885; J2405; Q9963; Q9967

== ENCOUNTER 2023-02-22 08:33 | Inpatient (IN) | payer OTHER ==
[~2023-02-22] VITALS: Ht 157.5 cm; Wt 88.6 kg
[~2023-02-22 08:33] MED LIST changes: +LISI10TA22 PO
[2023-02-22] MEDS ORDERED: NS 1,000 ML IV ONE ×2 (08:45→09:55)
[2023-02-22] MEDS ORDERED: THIAMINE 200MG 2ML VIAL IM ONE (08:45)
[2023-02-22] MEDS ORDERED: LORazepam 2 MG/ML 1ML VIAL IV STA (09:08)
[2023-02-22] MEDS ORDERED: LORazepam 2 MG TAB PO PRN (09:10)
[2023-02-22 09:21] LABS: BASO # 0.1 10^3/uL (0.0-0.2); BASO % 0.9 % (0.0-1.0); EOS # 0.1 10^3/uL (0.0-0.5); EOS % 0.9 % (0.0-3.0); HEMATOCRIT 41.9 % (36.0-47.0); HEMOGLOBIN 14.2 g/dl (12.0-15.5); LYMPH % 34.4 % (24.0-44.0); MEAN CORPUSCULAR HEMOGLOBIN 31.2 pg (27.0-33.0); MEAN CORPUSCULAR HGB CONC 33.9 g/dl (32.0-36.5); MEAN CORPUSCULAR VOLUME 92.1 fl (80.0-96.0); MONO # 0.4 10^3/uL (0.0-0.8); NEUTROPHILS # 3.4 10^3/uL (1.5-8.5); NEUTROPHILS % 57.5 % (36.0-66.0); PLATELET COUNT, AUTOMATED 205 10^3/uL (150-450); RED BLOOD COUNT 4.55 10^6/uL (4.00-5.40); WHITE BLOOD COUNT 5.9 10^3/uL (4.0-10.0)
[2023-02-22 09:43] LABS: ETHYL ALCOHOL (ETHANOL) 0.192 % (0.000-0.010)
[2023-02-22 09:45] LABS: ACETAMINOPHEN LEVEL < 2.0 UG/ML (10.0-20.0); CPK CREATINE PHOSPHOKINASE 64 U/L (34-145); SALICYLATE LEVEL < 3.0 MG/DL (<30)
[2023-02-22 09:47] LABS: THYROID STIMULATING HORMONE 3.806 uIU/ML (0.55-4.78)
[2023-02-22 09:50] LABS: ALBUMIN 3.6 G/DL (3.2-5.2); ALKALINE PHOSPHATASE 113 U/L (46-116); ALT/SGPT 37 U/L (7.0-40); AST/SGOT 52 U/L (<34); BILIRUBIN,DIRECT 0.3 MG/DL (<0.4); BILIRUBIN,TOTAL 0.8 MG/DL (0.3-1.2); BLOOD UREA NITROGEN < 5 MG/DL (9-23); CARBON DIOXIDE LEVEL 24 MMOL/L (20-31); CHLORIDE LEVEL 102 MMOL/L (98-107); CREATININE FOR GFR 0.52 MG/DL (0.55-1.30); GLOMERULAR FILTRATION RATE > 60.0 (>60); GLUCOSE, FASTING 96 MG/DL (60-100); POTASSIUM SERUM 3.8 MMOL/L (3.5-5.1); SODIUM LEVEL 142 MMOL/L (136-145); TOTAL PROTEIN 7.2 G/DL (5.7-8.2)
[2023-02-22 09:55] LABS: HCG, SERUM QUALITATIVE NEGATIVE (NEGATIVE); OSMOLALITY SERUM 335 MOSM/KG (275-295)
[2023-02-22 12:27] LABS: AMPHETAMINES LEVEL URINE NEGATIVE (NEGATIVE); BARBITURATES URINE NEGATIVE (NEGATIVE); BENZODIAZEPINES URINE NEGATIVE (NEGATIVE); COCAINE METABOLITE URINE NEGATIVE (NEGATIVE)
[2023-02-22 12:28] LABS: CANNABINOIDS URINE NEGATIVE (NEGATIVE); METHADONE URINE NEGATIVE (NEGATIVE); OPIATES URINE NEGATIVE (NEGATIVE); PHENCYCLIDINE URINE NEGATIVE (NEGATIVE)
[2023-02-22] MEDS ORDERED: OXAZEPAM 15MG CAP PO ONE (14:50)
[2023-02-22] MEDS ORDERED: OXAZEPAM 15MG CAP PO PRN (14:55)
[2023-02-22 15:00] LABS: MAGNESIUM LEVEL 1.5 MG/DL (1.8-2.4)
[2023-02-22] MEDS ORDERED: LISI10TA22 PO (15:35)
[2023-02-22] MEDS ORDERED: HOME MED LIST COMPLETE! XX SCH (15:40)
[2023-02-22] MEDS ORDERED: MED REC COMMENT (15:40)
[2023-02-22 15:45] VITALS: BP 130/92; TEMP 99; O2SAT 100
[2023-02-22] MEDS ORDERED: B-1100TA2 PO (15:45)
[2023-02-22] MEDS ORDERED: PROP10TA56 PO (15:45)
[2023-02-22] MEDS ORDERED: LEXA1TAB PO (15:45)
[2023-02-22] MEDS ORDERED: CLON0.2T PO (15:45)
[2023-02-22] MEDS ORDERED: SPIR-10 PO (15:45)
[2023-02-22] MEDS ORDERED: MAGN400T2 PO (15:45)
[2023-02-22] MEDS ORDERED: BUSP10TA PO (15:45)
[2023-02-22] MEDS ORDERED: FERR325T3 PO (15:45)
[2023-02-22 16:00] VITALS: BP 130/92
[2023-02-22] MEDS ORDERED: MULTIVITAMIN -ADULT INJECTION 10 ML, THIAMINE INJection 100 MG, FOLIC ACID 1 MG in NS 1... IV ONE (17:00)
[2023-02-22 19:53] VITALS: BP 138/93
[2023-02-22 20:00] VITALS: BP 138/93; TEMP 98.8; O2SAT 98
[2023-02-22] MEDS ORDERED: ONDANSETRON 4MG ORAL DISINTEGRATING TAB SL PRN (20:10)
[2023-02-22] MEDS ORDERED: ACETAMINOPHEN TAB 650MG DOSE (2X325MG) PO PRN (20:10)
[2023-02-22] MEDS: SPIRONOLACTONE 25 MG TAB PO SCH (20:26)
[2023-02-22] MEDS: busPIRone 10 MG TAB PO SCH (20:26)
[2023-02-22] MEDS: THIAMINE 100 MG TAB PO SCH (20:27)
[2023-02-22] MEDS: PROPRANOLOL 10 MG TAB PO SCH (20:27)
[2023-02-23 05:20] VITALS: BP 135/92; TEMP 98.2; O2SAT 97
[2023-02-23 06:00] VITALS: BP 135/92
[2023-02-23 07:57] LABS: BASO % 1.1 % (0.0-1.0); EOS # 0.1 10^3/uL (0.0-0.5); HEMATOCRIT 39.3 % (36.0-47.0); HEMOGLOBIN 12.8 g/dl (12.0-15.5); LYMPH # 1.4 10^3/uL (1.5-5.0); LYMPH % 38.8 % (24.0-44.0); MEAN CORPUSCULAR HEMOGLOBIN 30.8 pg (27.0-33.0); MEAN CORPUSCULAR HGB CONC 32.6 g/dl (32.0-36.5); MEAN CORPUSCULAR VOLUME 94.5 fl (80.0-96.0); MONO # 0.4 10^3/uL (0.0-0.8); MONO % 9.8 % (2.0-8.0); NEUTROPHILS # 1.7 10^3/uL (1.5-8.5); PLATELET COUNT, AUTOMATED 144 10^3/uL (150-450); RED BLOOD COUNT 4.16 10^6/uL (4.00-5.40); WHITE BLOOD COUNT 3.6 10^3/uL (4.0-10.0)
[2023-02-23 08:19] LABS: BLOOD UREA NITROGEN < 5 MG/DL (9-23); CALCIUM LEVEL 8.3 MG/DL (8.5-10.1); CARBON DIOXIDE LEVEL 28 MMOL/L (20-31); CHLORIDE LEVEL 104 MMOL/L (98-107); GLOMERULAR FILTRATION RATE > 60.0 (>60); GLUCOSE, FASTING 90 MG/DL (60-100); MAGNESIUM LEVEL 1.5 MG/DL (1.8-2.4); POTASSIUM SERUM 3.9 MMOL/L (3.5-5.1); SODIUM LEVEL 140 MMOL/L (136-145)
[2023-02-23] MEDS ORDERED: MAGNESIUM OXIDE 400MG TAB (MAG-OX) PO SCH ×2 (09:00)
[2023-02-23] MEDS ORDERED: ESCITALOPRAM OXALATE 10 MG TAB (LEXAPRO) PO SCH (09:00)
[2023-02-23] MEDS ORDERED: MULTIVITAMINS/MINERALS THERAP 1 TAB PO SCH (09:00)
[2023-02-23] MEDS ORDERED: cloNIDine 0.2 MG TAB PO SCH (09:00)
[2023-02-23] MEDS ORDERED: OXAZEPAM 10MG CAP PO SCH (09:00)
[2023-02-23] MEDS ORDERED: FERROUS SULFATE 325MG TAB PO SCH (09:00)
[2023-02-23] MEDS ORDERED: FOLIC ACID 1MG TAB PO SCH (09:00)
[2023-02-23 09:30] VITALS: BP 134/92
[2023-02-23] MEDS ORDERED: FOLI1TAB11 PO (09:48)
[2023-02-23] MEDS ORDERED: FAMO20TA PO (09:48)
[2023-02-23] MEDS ORDERED: ONDA4TAB6 PO (09:48)
[2023-02-23] MEDS ORDERED: MAGN400T2 PO (09:48)
[2023-02-23] MEDS ORDERED: OXAZ10CA3 PO (09:48)
[2023-02-23] MEDS: THIAMINE 100 MG TAB PO SCH (09:52)
[2023-02-23 09:53] VITALS: BP 134/92
[2023-02-23] MEDS: SPIRONOLACTONE 25 MG TAB PO SCH (09:53)
[2023-02-23] MEDS: busPIRone 10 MG TAB PO SCH (09:53)
[2023-02-23] MEDS: PROPRANOLOL 10 MG TAB PO SCH (09:53)
[2023-02-23] MEDS: MAG SULF 1GM/100ML (MAG RUN) 1 GM in IV 1 EA IV SCH ×2 (10:43→11:49)
== END 2023-02-23 12:59 | disposition home or self-care (01) | DRG 775 ==
LOC: M ED 08:33 → EDBD 08:33 → M ED INP 14:49 → ENRESERV 15:05 → M MSPAV 15:46
PROVIDERS: ADMIT General Practice; ATTEND Internal Medicine Nephrology
DX: F10.239 Alcohol dependence with withdrawal, unspecified (principal); I85.10 Secondary esophageal varices without bleeding; E87.20 Acidosis, unspecified; K76.6 Portal hypertension; F39 Unspecified mood [affective] disorder; K70.31 Alcoholic cirrhosis of liver with ascites; E66.9 Obesity, unspecified; E03.9 Hypothyroidism, unspecified; F17.210 Nicotine dependence, cigarettes, uncomplicated; D53.9 Nutritional anemia, unspecified; I10 Essential (primary) hypertension; K80.20 Calculus of gallbladder without cholecystitis without obstruction; Z98.84 Bariatric surgery status; Z79.899 Other long term (current) drug therapy; Z68.35 Body mass index [BMI] 35.0-35.9, adult

== ENCOUNTER 2023-02-24 20:54 | Emergency (ER) | payer OTHER ==
[~2023-02-24 20:54] MED LIST changes: +B-1100TA2 PO; +BUSP10TA PO; +CLON0.2T PO; +FAMO20TA PO; +LEXA1TAB PO; +MED REC COMMENT; +ONDA4TAB6 PO; +OXAZ10CA3 PO
[2023-02-24 21:07] VITALS: TEMP 97.2
[2023-02-24 21:43] LABS: BASO % 0.6 % (0.0-1.0); EOS # 0.1 10^3/uL (0.0-0.5); EOS % 1.7 % (0.0-3.0); HEMATOCRIT 41.6 % (36.0-47.0); LYMPH # 2.5 10^3/uL (1.5-5.0); LYMPH % 39.3 % (24.0-44.0); MEAN CORPUSCULAR HGB CONC 33.7 g/dl (32.0-36.5); MEAN CORPUSCULAR VOLUME 92.2 fl (80.0-96.0); MONO # 0.5 10^3/uL (0.0-0.8); MONO % 7.8 % (2.0-8.0); NEUTROPHILS # 3.3 10^3/uL (1.5-8.5); NEUTROPHILS % 50.4 % (36.0-66.0); PLATELET COUNT, AUTOMATED 172 10^3/uL (150-450); RED BLOOD COUNT 4.51 10^6/uL (4.00-5.40); WHITE BLOOD COUNT 6.4 10^3/uL (4.0-10.0)
[2023-02-24 22:05] LABS: CK-MB VALUE MASS < 1.0 NG/ML (<3.6)
[2023-02-24] MEDS ORDERED: ONDANSETRON 4MG 2ML VIAL IV ONE (22:05)
[2023-02-24 22:09] LABS: ALBUMIN 4.2 G/DL (3.2-5.2); ALKALINE PHOSPHATASE 120 U/L (46-116); ALT/SGPT 52 U/L (7.0-40); AST/SGOT 79 U/L (<34); BILIRUBIN,TOTAL 0.5 MG/DL (0.3-1.2); BLOOD UREA NITROGEN < 5 MG/DL (9-23); CALCIUM LEVEL 8.8 MG/DL (8.5-10.1); CARBON DIOXIDE LEVEL 28 MMOL/L (20-31); CHLORIDE LEVEL 101 MMOL/L (98-107); CPK CREATINE PHOSPHOKINASE 121 U/L (34-145); CREATININE FOR GFR 0.48 MG/DL (0.55-1.30); GLOMERULAR FILTRATION RATE > 60.0 (>60); GLUCOSE, FASTING 84 MG/DL (60-100); MB/CK RELATIVE INDEX 0.82 (< OR =4); POTASSIUM SERUM 3.5 MMOL/L (3.5-5.1); SODIUM LEVEL 139 MMOL/L (136-145); TOTAL PROTEIN 8.3 G/DL (5.7-8.2)
[2023-02-24 22:23] LABS: HCG, SERUM QUALITATIVE NEGATIVE (NEGATIVE)
[2023-02-24] MEDS ORDERED: NS 1,000 ML IV ONE (22:25)
[2023-02-24] MEDS ORDERED: LORazepam 2 MG/ML 1ML VIAL IV STA (22:49)
[2023-02-24 23:05] LABS: AMPHETAMINES LEVEL URINE NEGATIVE (NEGATIVE); BARBITURATES URINE NEGATIVE (NEGATIVE); BENZODIAZEPINES URINE NEGATIVE (NEGATIVE); CANNABINOIDS URINE NEGATIVE (NEGATIVE); COCAINE METABOLITE URINE NEGATIVE (NEGATIVE); METHADONE URINE NEGATIVE (NEGATIVE); OPIATES URINE NEGATIVE (NEGATIVE); PHENCYCLIDINE URINE NEGATIVE (NEGATIVE)
[2023-02-25 00:03] LABS: ETHYL ALCOHOL (ETHANOL) 0.329 % (0.000-0.010)
[2023-02-25 04:00] VITALS: BP 89/55
[2023-02-25 04:15] VITALS: O2SAT 97
[2023-02-25] MEDS ORDERED: ONDA4TAB6 PO (06:38)
== END 2023-02-25 06:49 | disposition home or self-care (01) ==
LOC: EDBD 20:54 → M ED 20:54
DX: F10.129 Alcohol abuse with intoxication, unspecified (principal); R07.89 Other chest pain; I10 Essential (primary) hypertension; E11.9 Type 2 diabetes mellitus without complications; K21.9 Gastro-esophageal reflux disease without esophagitis; Z98.84 Bariatric surgery status; Z79.899 Other long term (current) drug therapy
CPT/HCPCS: 71045; 80053; 80307; 82077; 82550; 82553; 84703; 85025; 93005; 96374; 96375; 99285; J2060; J2405

== ENCOUNTER 2023-02-25 16:02 | Emergency (ER) | payer OTHER ==
[~2023-02-25] VITALS: Ht 157.5 cm; Wt 86.6 kg
[2023-02-25] MEDS ORDERED: cloNIDine 0.2 MG TAB PO STA (16:19)
[2023-02-25] MEDS ORDERED: PROPRANOLOL 10 MG TAB PO STA (16:19)
[2023-02-25] MEDS ORDERED: NS 1,000 ML IV ONE (16:20)
[2023-02-25] MEDS ORDERED: OXAZEPAM 15MG CAP PO ONE (16:25)
[2023-02-25 17:30] VITALS: BP 136/87
[2023-02-25 18:25] VITALS: BP 118/77; TEMP 98.7; O2SAT 98
== END 2023-02-25 18:27 | disposition home or self-care (01) ==
LOC: M ED 16:02 → EDBD 16:02 → M ED 18:27
DX: I10 Essential (primary) hypertension (principal); F10.10 Alcohol abuse, uncomplicated; E03.9 Hypothyroidism, unspecified; D64.9 Anemia, unspecified; Z79.899 Other long term (current) drug therapy

== ENCOUNTER 2023-02-25 21:47 | Emergency (ER) | payer OTHER ==
[~2023-02-25] VITALS: Ht 157.5 cm; Wt 87.7 kg
[2023-02-26 02:53] LABS: RSV AMPLIFICATION NEGATIVE (NEGATIVE)
[2023-02-26 03:08] LABS: BASO % 0.5 % (0.0-1.0); EOS # 0.2 10^3/uL (0.0-0.5); EOS % 2.6 % (0.0-3.0); HEMATOCRIT 42.5 % (36.0-47.0); HEMOGLOBIN 14.1 g/dl (12.0-15.5); LYMPH # 2.6 10^3/uL (1.5-5.0); LYMPH % 41.9 % (24.0-44.0); MEAN CORPUSCULAR HEMOGLOBIN 31.1 pg (27.0-33.0); MEAN CORPUSCULAR HGB CONC 33.2 g/dl (32.0-36.5); MEAN CORPUSCULAR VOLUME 93.8 fl (80.0-96.0); MONO # 0.5 10^3/uL (0.0-0.8); NEUTROPHILS # 2.8 10^3/uL (1.5-8.5); NEUTROPHILS % 46.7 % (36.0-66.0); PLATELET COUNT, AUTOMATED 153 10^3/uL (150-450); RED BLOOD COUNT 4.53 10^6/uL (4.00-5.40); WHITE BLOOD COUNT 6.1 10^3/uL (4.0-10.0)
[2023-02-26 03:23] LABS: INR 1.13; PROTHROMBIN TIME 14.7 SECONDS (12.5-14.5)
[2023-02-26 03:24] LABS: PARTIAL THROMBOPLASTIN TIME 29.4 SECONDS (24.8-34.2)
[2023-02-26 03:30] VITALS: BP 127/96; TEMP 98
[2023-02-26 03:32] VITALS: O2SAT 99
[2023-02-26 03:35] LABS: ALBUMIN 3.9 G/DL (3.2-5.2); ALKALINE PHOSPHATASE 120 U/L (46-116); ALT/SGPT 62 U/L (7.0-40); AST/SGOT 84 U/L (<34); BILIRUBIN,TOTAL 0.6 MG/DL (0.3-1.2); BLOOD UREA NITROGEN < 5 MG/DL (9-23); CALCIUM LEVEL 8.7 MG/DL (8.5-10.1); CARBON DIOXIDE LEVEL 26 MMOL/L (20-31); CHLORIDE LEVEL 106 MMOL/L (98-107); CREATININE FOR GFR 0.47 MG/DL (0.55-1.30); GLOMERULAR FILTRATION RATE > 60.0 (>60); GLUCOSE, FASTING 88 MG/DL (60-100); POTASSIUM SERUM 3.7 MMOL/L (3.5-5.1); SODIUM LEVEL 144 MMOL/L (136-145); TOTAL PROTEIN 7.8 G/DL (5.7-8.2)
== END 2023-02-26 04:18 | disposition home or self-care (01) ==
LOC: M ED 21:47
DX: K29.20 Alcoholic gastritis without bleeding (principal); I10 Essential (primary) hypertension; K70.30 Alcoholic cirrhosis of liver without ascites; Z98.84 Bariatric surgery status; Z79.899 Other long term (current) drug therapy

== ENCOUNTER 2023-03-05 01:41 | Emergency (ER) | payer OTHER ==
[~2023-03-05] VITALS: Ht 157.5 cm; Wt 86.5 kg
[2023-03-05 01:44] VITALS: BP 138/90; TEMP 98.2; O2SAT 97
[2023-03-05 05:47] LABS: HEMATOCRIT 40.6 % (36.0-47.0); HEMOGLOBIN 13.5 g/dl (12.0-15.5); MEAN CORPUSCULAR HEMOGLOBIN 31.6 pg (27.0-33.0); MEAN CORPUSCULAR HGB CONC 33.3 g/dl (32.0-36.5); MEAN CORPUSCULAR VOLUME 95.1 fl (80.0-96.0); PLATELET COUNT, AUTOMATED 134 10^3/uL (150-450); RED BLOOD COUNT 4.27 10^6/uL (4.00-5.40); WHITE BLOOD COUNT 5.3 10^3/uL (4.0-10.0)
[2023-03-05 06:14] LABS: AMPHETAMINES LEVEL URINE NEGATIVE (NEGATIVE); BARBITURATES URINE NEGATIVE (NEGATIVE); BENZODIAZEPINES URINE NEGATIVE (NEGATIVE); CANNABINOIDS URINE NEGATIVE (NEGATIVE); COCAINE METABOLITE URINE NEGATIVE (NEGATIVE); METHADONE URINE NEGATIVE (NEGATIVE); OPIATES URINE NEGATIVE (NEGATIVE); PHENCYCLIDINE URINE NEGATIVE (NEGATIVE)
[2023-03-05 06:16] LABS: ETHYL ALCOHOL (ETHANOL) 0.134 % (0.000-0.010)
[2023-03-05 06:17] LABS: ACETAMINOPHEN LEVEL < 2.0 UG/ML (10.0-20.0)
[2023-03-05 06:18] LABS: ALBUMIN 3.5 G/DL (3.2-5.2); ALKALINE PHOSPHATASE 84 U/L (46-116); ALT/SGPT 87 U/L (7.0-40); AST/SGOT 70 U/L (<34); BILIRUBIN,DIRECT 0.1 MG/DL (<0.4); BILIRUBIN,TOTAL 0.2 MG/DL (0.3-1.2); BLOOD UREA NITROGEN 8 MG/DL (9-23); CALCIUM LEVEL 8.9 MG/DL (8.5-10.1); CARBON DIOXIDE LEVEL 22 MMOL/L (20-31); CHLORIDE LEVEL 111 MMOL/L (98-107); CREATININE FOR GFR 0.41 MG/DL (0.55-1.30); GLOMERULAR FILTRATION RATE > 60.0 (>60); GLUCOSE, FASTING 93 MG/DL (60-100); POTASSIUM SERUM 3.5 MMOL/L (3.5-5.1); SALICYLATE LEVEL < 3.0 MG/DL (<30); SODIUM LEVEL 144 MMOL/L (136-145)
[2023-03-05 06:20] LABS: THYROID STIMULATING HORMONE 1.277 uIU/ML (0.55-4.78)
== END 2023-03-05 07:04 | disposition left against medical advice (07) ==
LOC: M ED 06:47
DX: F41.9 Anxiety disorder, unspecified (principal); Z53.21 Procedure and treatment not carried out due to patient leaving prior to being seen by health care provider

== ENCOUNTER 2023-03-11 17:14 | Emergency (ER) | payer OTHER ==
[~2023-03-11] VITALS: Ht 157.5 cm; Wt 87.0 kg
[2023-03-11 17:14] VITALS: BP 180/109; TEMP 98.9; O2SAT 93
== END 2023-03-11 17:36 | disposition left against medical advice (07) ==
LOC: M ED 17:14
DX: Z53.21 Procedure and treatment not carried out due to patient leaving prior to being seen by health care provider (principal)

== ENCOUNTER 2023-03-11 22:54 | Emergency (ER) | payer OTHER ==
[~2023-03-11] VITALS: Ht 157.5 cm; Wt 87.8 kg
[2023-03-11 22:55] VITALS: BP 182/98; TEMP 98.8; O2SAT 97
== END 2023-03-11 23:32 | disposition left against medical advice (07) ==
LOC: M ED 22:54
DX: Z53.21 Procedure and treatment not carried out due to patient leaving prior to being seen by health care provider (principal)

== ENCOUNTER 2023-03-12 13:07 | Emergency (ER) | payer OTHER ==
[~2023-03-12] VITALS: Ht 157.5 cm; Wt 87.0 kg
== END 2023-03-12 13:35 | disposition left against medical advice (07) ==
LOC: M ED 13:07
DX: Z53.21 Procedure and treatment not carried out due to patient leaving prior to being seen by health care provider (principal)

== ENCOUNTER 2023-06-07 11:34 | Emergency (ER) | payer OTHER ==
[~2023-06-07] VITALS: Ht 157.5 cm; Wt 85.7 kg
[2023-06-07] MEDS ORDERED: PROMETHAZINE 25MG/ML 1ML VIAL IV ONE (13:30)
[2023-06-07] MEDS ORDERED: NS 1,000 ML IV ONE (13:30)
[2023-06-07] MEDS ORDERED: KETOROLAC 30 MG/ML 1ML VIAL IV ONE (13:30)
[2023-06-07 13:44] LABS: LIPASE 39 U/L (12-53)
[2023-06-07 13:46] LABS: ALBUMIN 3.8 G/DL (3.2-5.2); ALKALINE PHOSPHATASE 108 U/L (46-116); ALT/SGPT 50 U/L (7.0-40); AST/SGOT 57 U/L (<34); BILIRUBIN,DIRECT 0.3 MG/DL (<0.4); BILIRUBIN,TOTAL 0.7 MG/DL (0.3-1.2); BLOOD UREA NITROGEN 8 MG/DL (9-23); CALCIUM LEVEL 8.3 MG/DL (8.5-10.1); CARBON DIOXIDE LEVEL 27 MMOL/L (20-31); CHLORIDE LEVEL 102 MMOL/L (98-107); CREATININE FOR GFR 0.45 MG/DL (0.55-1.30); GLOMERULAR FILTRATION RATE > 60.0 (>60); GLUCOSE, FASTING 107 MG/DL (60-100); SODIUM LEVEL 138 MMOL/L (136-145)
[2023-06-07 13:49] LABS: BASO % 0.5 % (0.0-1.0); HEMATOCRIT 36.9 % (36.0-47.0); HEMOGLOBIN 12.7 g/dl (12.0-15.5); LYMPH # 1.1 10^3/uL (1.5-5.0); LYMPH % 19.7 % (24.0-44.0); MEAN CORPUSCULAR HEMOGLOBIN 31.2 pg (27.0-33.0); MEAN CORPUSCULAR HGB CONC 34.4 g/dl (32.0-36.5); MEAN CORPUSCULAR VOLUME 90.7 fl (80.0-96.0); MONO # 0.4 10^3/uL (0.0-0.8); MONO % 6.2 % (2.0-8.0); NEUTROPHILS # 4.1 10^3/uL (1.5-8.5); NEUTROPHILS % 73.2 % (36.0-66.0); PLATELET COUNT, AUTOMATED 207 10^3/uL (150-450); RED BLOOD COUNT 4.07 10^6/uL (4.00-5.40); WHITE BLOOD COUNT 5.6 10^3/uL (4.0-10.0)
[2023-06-07] MEDS ORDERED: POTASSIUM CHLORIDE 10MEQ SR TABLET PO ONE (15:25)
[2023-06-07] MEDS ORDERED: CIPR-249 PO (15:26)
[2023-06-07] MEDS ORDERED: ONDA-83 PO (15:26)
[2023-06-07 15:45] VITALS: BP 145/79; TEMP 99; O2SAT 98
== END 2023-06-07 16:01 | disposition home or self-care (01) ==
LOC: M ED 11:34 → EDBD 11:34 → M ED 16:01
DX: N39.0 Urinary tract infection, site not specified (principal); R11.2 Nausea with vomiting, unspecified; E11.9 Type 2 diabetes mellitus without complications; F10.10 Alcohol abuse, uncomplicated; N18.9 Chronic kidney disease, unspecified; Z98.84 Bariatric surgery status; Z79.899 Other long term (current) drug therapy
CPT/HCPCS: 74176; 80048; 80076; 81001; 83690; 85025; 87086; 96374; 96375; 99284; J1885; J2550

== ENCOUNTER 2023-06-14 13:50 | Emergency (ER) | payer OTHER ==
[~2023-06-14 13:50] MED LIST changes: +CIPR-249 PO; +ONDA-83 PO
== END 2023-06-14 14:15 | disposition left against medical advice (07) ==
LOC: EDBD 13:50 → M ED 13:50
DX: Z53.21 Procedure and treatment not carried out due to patient leaving prior to being seen by health care provider (principal)